=== PATIENT | male | born 1940 | race Caucasian/White ===

== ENCOUNTER 2020-01-21 07:32 | Outpatient (CLI) | payer MEDICARE, SELFPAY ==
--- NOTE | ~2020-01-21 | DEXA_ITS ---
Bone Density Report Name: Keith Wilson Age: 79 Sex: Male Ethnicity: White Date of : 1940 Indication: height loss; prior fracture; Referring Provider: Fab, Maricarmen Alvarez Study: Bone densitometry was performed. Exam Date: January 21, 2020 Accession number: [id number] Bone Density: Region BMD T-score Z-score Classification AP Spine (L3, L4) 1.219 0.9 2.0 Normal Femoral Neck (Left) 0.760 -1.3 0.2 Osteopenia Total Hip (Left) 0.926 -0.7 0.3 Normal Total Hip Bilateral Avg 0.952 -0.6 0.5 Normal Femoral Neck (Right) 0.753 -1.3 0.2 Osteopenia Total Hip (Right) 0.976 -0.4 0.6 Normal World Health Organization criteria for BMD impression classify patients as: Normal (T-score at or above -1.0), Osteopenia (T-score between -1.0 and -2.5), or Osteoporosis (T-score at or below -2.5). 10-year Fracture Risk(1): Major Osteoporotic Fracture 9.4% Hip Fracture 2.6% Reported Risk Factors: [place] (), Neck BMD=0.753, BMI=32.1, previous fracture (1) FRAX(R) Version 3.08. Fracture probability calculated for an untreated patient. Fracture probability may be lower if the patient has received treatment. Clinical Information Provided by Patient: Has had a low trauma fracture Has used the following medications: Vitamin D Patient maximum height was 74 Drinks caffeinated beverages Impression: The patient has low bone mass, based on the Left Femoral Neck T-score. The patient has an estimated ten-year risk of hip fracture of 2.6% and an estimated ten-year risk of major fracture of 9.4%, based on the WHO FRAX algorithm. The patient has risk factors, including: previous fracture. Discussion: BONE DENSITY IS LOW AT ONE OR MORE SKELETAL SITES. This patient's lowest T-score is low at one or more skeletal sites. It meets the World Health Organization's (WHO) criteria for ?low bone mass? (T-score between -1.0 and -2.5). The patient's 10-year risk of fracture as calculated by FRAX is less than the threshold where pharmacological therapy is recommended by the National Osteoporosis Foundation (NOF). However, all treatment decisions require clinical judgment and consideration of individual patient factors, including patient preferences, comorbidities, previous drug use, risk factors not captured in the FRAX model (e.g., frailty, falls, vitamin D deficiency, increased bone turnover, interval significant decline in bone density) and possible under or overestimation of fracture risk by FRAX. The patient should follow a healthful lifestyle (good nutrition with adequate calcium and vitamin D, and appropriate weight-bearing exercise). Follow-Up: Consider repeating this study in 2 to 3 years to reassess this patient's status, or sooner if there is some new clinical indication. Reported by: GLADIS on 01/21/2020 8:10:00 AM.
== END 2020-01-21 07:33 | disposition home or self-care (01) ==
PROVIDERS: PCP Internal Medicine; Visit Provider Physician Assistant Medical
DX: Z79.52 Long term (current) use of systemic steroids (principal); M89.9 Disorder of bone, unspecified
CPT/HCPCS: 77080

== ENCOUNTER → 2020-03-17 12:43 | Outpatient (CLI) | payer MEDICARE, SELFPAY ==
--- NOTE | ~2020-03-17 | US_ITS ---
EXAMINATION: US scrotum doppler EXAM DATE: 03/17/2020 13:23 INDICATION: Spermatocele. TECHNIQUE: Multiple grayscale and Doppler images of the testicles and scrotum were obtained bilateral ly. There is no prior study for comparison. FINDINGS: Right testicle measures 40.1 x 2.5 x 3.2 cm. Focal nonspecific region was measured 6 mm along the inf erior pole, suspected more likely part of the epididymis that within the testicular parenchyma. Low r esistance Doppler flow confirmed. There is large hydrocele. Another large heterogeneous masslike lei on was measured inferior to the testicle at 4.6 x 4.2 x 4.4 cm, both solid and larger cystic componen ts, a nonspecific scrotal mass. Color flow is demonstrated within solid portions of this. Given histo ry provided, could be a spermatocele. Other histologies not sonographically excludable. Left testicle measures 4.4 x 2.4 x 3.0 cm and is morphologically normal. Low resistance Doppler flow confirmed. The epididymis is unremarkable. There is a small hydrocele with a small focal region myranda ured along peripheral wall of this at 6 mm in size. IMPRESSION: 1. Nonspecific 4.6 cm complex cystic mass inferior to right testicle; clinical correlation for [facility]. 2. Large right hydrocele. Reviewed, dictated and finalized at location A. IMPRESSION: 1. Nonspecific 4.6 cm complex cystic mass inferior to right testicle; clinical correlation for further management. 2. Large right hydrocele.
== END ==
PROVIDERS: PCP Internal Medicine; Visit Provider Nurse Practitioner Adult Health
DX: E05.90 Thyrotoxicosis, unspecified without thyrotoxic crisis or storm (principal); N43.3 Hydrocele, unspecified
CPT/HCPCS: 76870; 93976

== ENCOUNTER 2020-03-22 09:37 | Outpatient (CLI) | payer MEDICARE, SELFPAY ==
--- NOTE | ~2020-03-22 | CT_ITS ---
EXAMINATION: CT abdomen pelvis w con EXAM DATE: 03/22/2020 11:01 INDICATION: Scrotal mass. TECHNIQUE: Spiral CT of the abdomen and pelvis was performed following intravenous injection of 100 m L Omnipaque 350. Axial, coronal and sagittal images were reviewed. The dose-length product (DLP) fo r this examination was 1099.49 mGy-cm. The exposure was tailored according to patient size (auto mA exposure control), and iterative reconstruction (ASIR) was used as additional dose reduction techniqu e. There is no prior study for comparison. FINDINGS: Scrotum was imaged. Large right hydrocele. There is a mass in the inferior right aspect of the scrotum, which is demonstrating robust enhancement, measuring 4 x 5 cm. Similar enhancing abnorma l soft tissue is seen anterior to the pubis symphysis, and partially encasing the superior and right aspect of the penis base. There is some abnormal soft tissue extending into the right inguinal canal. This is all most likely the same histology. Malignancy should be considered. Mildly nodular liver contour suspicious for cirrhosis. Spleen is normal in size with scattered granul omata. Pancreas, adrenal glands are unremarkable. Probable gallbladder adenomyomatosis. No biliary obstruction. Portal and splenic veins are patent. Kidneys enhance symmetrically. There is no hydro nephrosis. The prostate is unremarkable. The bladder is unremarkable. There is no retroperitoneal or pelvic lymphadenopathy. There is mild to moderate scattered arteriosclerotic disease. Mildly an eurysmal mid abdominal aorta at 3.7 cm. No abdominal aortic dissection. Renal arteries, superior and inferior mesenteric arteries are patent. Small umbilical fat-containing hernia. The appendix is normal. The stomach and small bowel are unremarkable. There are a few scattered colo ivan diverticula. There is no adjacent inflammatory change to suggest diverticulitis. There is expect ed amount of colonic stool. No free intraperitoneal gas. There is cardiomegaly. There are no pleu ral or pericardial effusions. The lung bases are unremarkable. There are no osteoblastic or osteoly tic lesions identified. Lower lumbar spine has osseous fusion. Old left rib fracture. IMPRESSION: 1. Enhancing right scrotal mass with additional abnormal soft tissue anterior to the pubis symphysis and along the superior aspect of the penis base, and in the right inguinal canal. Malignancy most li henri. 2. No pelvic or abdominal lymphadenopathy. 3. Probable cirrhosis. 4. Abdominal aortic 3.7 cm aneurysm. 5. Minimal colonic diverticulosis. 6. Small umbilical fat-containing hernia. 7. Cardiomegaly. Reviewed, dictated and finalized at location B. IMPRESSION: 1. Enhancing right scrotal mass with additional abnormal soft tissue anterior to the pubis symphysis and along the superior aspect of the penis base, and in the right inguinal canal. Malignancy most likely. 2. No pelvic or abdominal lymphadenopathy. 3. Probable cirrhosis. 4. Abdominal aortic 3.7 cm aneurysm. 5. Minimal colonic diverticulosis. 6. Small umbilical fat-containing hernia. 7. Cardiomegaly.
[2020-03-22 10:57] LABS: Estimated Glomerular Filt Rate > 60
== END 2020-03-22 09:38 | disposition home or self-care (01) ==
LOC: ANHIMG 09:45
PROVIDERS: PCP Internal Medicine; Visit Provider Nurse Practitioner Adult Health
DX: N49.2 Inflammatory disorders of scrotum (principal); I51.7 Cardiomegaly; I71.4 Abdominal aortic aneurysm, without rupture; K42.9 Umbilical hernia without obstruction or gangrene
CPT/HCPCS: 74177; Q9967

== ENCOUNTER 2020-03-26 12:03 | Outpatient (CLI) | payer MEDICARE, SELFPAY ==
--- NOTE | ~2020-03-26 | XR_ITS ---
EXAMINATION: XR chest 2V EXAM DATE: 03/26/2020 15:39 INDICATION: Scrotal mass. TECHNIQUE: Frontal and lateral projections of the chest obtained and reviewed. Comparison is made to prior examination from 01/22/2018. FINDINGS: Minimal left basilar linear scarring or atelectasis unchanged. The lungs are otherwise benitez ar. There are no pleural effusions. The cardiomediastinal silhouette is within normal limits. Ther e is no pneumothorax suspected. There are no osteoblastic or osteolytic lesions identified. Some hil ar calcifications, prior granulomatous process. There are bony degenerative changes. IMPRESSION: Chronic thoracic findings as above. Reviewed, dictated and finalized at location G.
--- NOTE | 2020-03-26 12:03 | ECG_ITS ---
Measurements Intervals [place] Rate: 53 P: GA: 0 QRS: -56 QRSD: 146 T: 78 QT: 450 QTc: 426 Interpretive Statements ATRIAL FIBRILLATION WITH SLOW VENTRICULAR RESPONSE INTRAVENTRICULAR CONDUCTION DELAY POOR R WAVE PROGRESSION, ANTERIOR LEADS BORDERLINE ST-T WAVE ABNORMALITY- HIGH LATERAL LEADS BASELINE ARTIFACT- I, III, AVL ABNORMAL ECG Electronically Signed On 03-26-2020 12:39:28 CDT by Raman Echavarria D.O.
[2020-03-26 12:50] LABS: Anion Gap 9 mmol/L (8-16); Blood Urea Nitrogen 13 mg/dL (9-20); Calcium 9.1 mg/dL (8.4-10.2); Carbon Dioxide 31 mmol/L (22-30); Chloride 90 mmol/L (98-107); Estimated Glomerular Filt Rate > 60; Glucose 108 mg/dL (75-110); Potassium 3.6 mmol/L (3.4-5.0); Sodium 130 mmol/L (137-145)
[2020-03-26 13:07] LABS: INR 1.9; Prothrombin Time 21.4 Seconds (11.1-14.7)
[2020-03-26 13:08] LABS: Partial Thromboplastin Time 37.3 SECONDS (22.3-36.8)
[2020-03-26 15:25] LABS: Hematocrit 29.9 % (42.0-52.0); Hemoglobin 9.8 g/dL (14.0-18.0); Mean Corpuscular HGB Conc 32.8 g/dl (32-36); Mean Corpuscular Hemoglobin 27.2 pg (26-34); Mean Corpuscular Volume 83.1 fl (80-100); Mean Platelet Volume 9.3 fl (7.4-10.4); Platelet Count Result 255 k/mm3 (150-375); Red Cell Distribution Width 13.2 % (11.5-14.5); White Blood Count 11.6 K/mm3 (4.5-10.0)
[2020-03-26 16:08] LABS: Alanine Aminotransferase 18 U/L (4-50); Albumin Level 4.1 g/dL (3.5-5.1); Alkaline Phosphatase 88 U/L (38-126); Aspartate Amino Transferase 28 U/L (17-59); Bilirubin,Total 0.5 mg/dL (0.2-1.3)
== END 2020-03-26 12:04 | disposition home or self-care (01) ==
PROVIDERS: Anesthesiology; PCP Internal Medicine; Visit Provider Urology
DX: I10 Essential (primary) hypertension (principal); N50.89 Other specified disorders of the male genital organs; I48.91 Unspecified atrial fibrillation; R94.31 Abnormal electrocardiogram [ECG] [EKG]; Z79.899 Other long term (current) drug therapy; Z79.01 Long term (current) use of anticoagulants
CPT/HCPCS: 36415; 71046; 80048; 80076; 85027; 85610; 85730; 86850; 86900; 86901; 87086; 93005

== ENCOUNTER 2020-03-29 01:31 | Outpatient (CLI) | payer MEDICARE, SELFPAY ==
[2020-03-29 18:16] LABS: SARS-CoV-2 RNA PCR Negative
== END 2020-03-29 01:32 | disposition home or self-care (01) ==
LOC: ANHCOVIDDT 01:32
PROVIDERS: PCP Internal Medicine; Visit Provider Urology
DX: Z01.812 Encounter for preprocedural laboratory examination (principal); Z20.828 Contact with and (suspected) exposure to other viral communicable diseases
CPT/HCPCS: 87635; C9803; U0003

== ENCOUNTER 2020-03-31 01:44 | Day surgery (SDC) | payer MEDICARE, SELFPAY ==
[2020-03-25 12:54] VITALS: BMI 29.7
[2020-03-31] VITALS (15 sets, daily range): BP systolic 110–129; BP diastolic 43–63; PULSE 46–90; RESP 10–20; TEMP 35.9–36.3; O2SAT 91–100
[2020-03-31] MEDS: LACTATED RINGERS 1,000 ML 30 ML IV CONT ×2 (12:20→16:43)
[2020-03-31] MEDS: ACETAMINOPHEN 500 MG TABLET 1000 MG PO (12:21)
[2020-03-31 12:24] LABS: INR 1.2
[2020-03-31 12:39] LABS: Sodium 133 mmol/L (137-145)
--- NOTE | 2020-03-31 12:56 | WPDANESEPPF ---
Anes - Initial Pre Proc Eval Procedure: Operation Date: 03/31/20 13:30 Proposed Procedures p Right Radical Orchiectomy, Inguinal Approach - Jolene Escobar MD Date/Time: 03/31/20 12:56 Surgeon: Jolene Escobar MD Pre Op Diagnosis: scrotal mass Patient Data Age: 79 Gender: M Height: 6 ft 1 in Weight: 93 kg Last Vital Signs Temp 36.3 C L 03/31/20 12:34 Pulse 51 L 03/31/20 12:34 Resp 16 03/31/20 12:34 BP 110/59 L 03/31/20 12:34 Pulse Ox 98 03/31/20 12:34 Allergies Allergy/AdvReac Type Severity Reaction Status Date / Time No Known Allergies Allergy Verified 03/31/20 11:31 Home Medications Medication Instructions Recorded Confirmed Type L. gasseri-B. bifidum-B longum 1 cap PO DAILY 03/25/20 03/31/20 History [Probiotic Colon Support] acetaminophen-codeine 1 tablet PO Q8H PRN 03/25/20 03/31/20 History amlodipine 10 mg PO DAILY 03/25/20 03/31/20 History carvedilol 6.25 mg PO BID 03/25/20 03/31/20 History cholecalciferol (vitamin D3) 50 mcg PO DAILY 03/25/20 03/31/20 History doxazosin 4 mg PO BID 03/25/20 03/31/20 History duloxetine 30 mg PO DAILY 03/25/20 03/31/20 History furosemide 40 mg PO DAILY 03/25/20 03/31/20 History lisinopril 40 mg PO HS 03/25/20 03/31/20 History mesalamine 1.5 g PO TID 03/25/20 03/31/20 History hhhplxms-saz-OL-lycopen-lutein 1 tablet PO DAILY 03/25/20 03/31/20 History [Centrum Silver Men] potassium chloride 10 meq PO DAILY 03/25/20 03/31/20 History prednisone 10 mg PO DAILY 03/25/20 03/31/20 History ropinirole 1 mg PO HS 03/25/20 03/31/20 History spironolactone 25 mg PO PRN PRN 03/25/20 03/31/20 History tizanidine 2 mg PO HS PRN 03/25/20 03/31/20 History warfarin [Coumadin] 5 mg PO HS 03/25/20 03/31/20 History Laboratory Tests 03/31/20 03/31/20 12:05 12:05 PT 15.0 Seconds H D Seconds (11.1-14.7) INR 1.2 APTT 32.0 SECONDS SECONDS (22.3-36.8) Sodium 133 mmol/L L mmol/L (137-145) Patient hx anesthesia problems: none Family hx anesthesia problems: none [facility] Past Medical History Medical History (Updated 03/31/20 @ 12:57 by Bin Mandujano MD) Atrial fibrillation COPD (chronic obstructive pulmonary disease) HTN (hypertension) Hyperlipidemia Overweight Scrotal mass Social History Social History Smoking status: Former smoker Tobacco type: cigarettes Additional smoking assessment comments: STATES 1PK/DAY/SINE AGE 21 QUITE 2012 Alcohol intake: current Drinks per week: 15 Substance use: never Living arrangements: with family Spiritual care concerns: No Anes - Eval Final PreProcedure Day of Procedure 03/31/20 12:56 Patient weight: overweight Heart: irregular rhythm Lungs: clear to auscultation Airway: Mallampati scale class II Neurological: alert and oriented Last oral intake: >/= 8 hours ASA classification: IV Emergent: no Anesthetic plan: proceed Anesthesia type and monitoring: general LMA and standard monitoring Informed Consent: The patient's anesthetic plan and its attendant risks and benefits were discussed with the patient/family/POA. Questions were solicited and answers provided to the satisfaction of the patient/family/POA.
--- NOTE | 2020-03-31 13:46 | WPDHPUPDATE1 ---
History and Physical Update Update Date/Time: 03/31/20 13:46 History and Physical has been reviewed, including an updated exam of the patient. There are NO changes in the patient's condition. Risks, benefits, and alternatives have been discussed and questions answered. Patient agrees to proceed with procedure.
[2020-03-31] MEDS: ceFAZolin 2 GM/D5W 50 ML 2 GM/50 ML BAG IVPB (13:58)
[2020-03-31] MEDS: BACITRACIN OINTMENT 15 GM TUBE 1 APPLIC TOPICAL (16:14)
--- NOTE | 2020-03-31 16:42 | PM.PROC ---
Procedure Note - Detailed Date of procedure: 03/31/20 Pre-op diagnosis: scrotal mass Post-op diagnosis: same Procedure performed: Right radical orchiectomy Description of procedure: Informed consent is obtained. Patient was taken to the operating room. He is given preoperative antibiotics in his issues are he was shaved his prepped draped normal sterile fashion. Patient had a very large right hydrocele as well as firm lesion inferior to the right testicle. Additionally the patient does have palpable densities superior to the penis as seen on his CT scan. A 6cm incision was made over the right external ring. We dissected down to the ring which was very difficult to identify as the cord was very firm. I was able to identify the spermatic cord however inferiorly it was adherent to the surrounding tissues and the pubic bone. Using Bovie electrocautery I was able to free the cord and placed a Shanda around it. We then dissected down towards the scrotum with an attempt to push the testicle and its adjacent mass into the inguinal incision however was unable to do so. I extended the incision medially and dissecting the hydrocele sac and mass through the inguinal incision down to the scrotum was again unable to free the adherent testicle into the inguinal incision- In the course of freeing the surrounding tissues the hydrocele sac did rupture. At this point we felt that we would be unable to remove the lesion through the inguinal incision, therefore the skin surrounding the adherent tissue in the inferior scrotum was cut and we dissected the testicle and mass away from surrounding tissues. At this point we were able to free the testicle and spermatic cord. We then cut the cord at the internal ring multiple 0 silk sutures were placed through the spermatic cord achieving good hemostasis. We did note there to be areas concerning for tumor in the spermatic cord, however it did feel that we cut the cord above the level of the palpable tumor. At this point we irrigated copiously. A drain was placed through the inferior scrotum up to the right inguinal incision we then closed the scrotum in multiple layers of Vicryl suture followed by interrupted 3 O chromic horizontal mattress closure to the skin. We then closed the inguinal incision with a 2 0 Vicryl to Asif's fascia 3 0 deep dermal layer and 4 0 Monocryl subcuticular closure glue was applied to the inguinal incision. The drain was placed to bulb suction. A dressing was placed patient was awoke wakened and taken recovery room stable condition Anesthesia: GLMA Surgeon: Jolene Escobar MD Broom Maker: Dr. Delacruz Estimated blood loss (mL): 100 Drains: Yes Packing: No Pathology: yes Complications: No immediate complications Condition: stable Disposition: PACU
[2020-03-31] MEDS: fentaNYL CITRATE INJ (*CRX) 100 MCG/2 ML VIAL 25 MCG IV PUSH (17:40)
--- NOTE | 2020-03-31 18:49 | ADMGEN ---
This patient, Keith Wilson, was admitted to IMU Room 210-01 on 03-31-2020 at 1820. Patient/family oriented to hospital policies and general routines including ID bracelet, bed and alarms, visiting hours, pain management, procedures, bathroom and other care routines, personal items, smoking policy, room service/diet, and visiting hours. Valuables list has been completed. Information on how to activate the Rapid Response Team has been discussed. Patient/Family are encouraged to report perceived risks to care and to ask questions if they do not understand what they are told or what they should do.
[2020-03-31 19:02] LABS: Basophils Percent Auto 0.1 % (0.2-1.2); Eosinophils Percent Auto 0.1 % (0-4.4); Hematocrit 28.5 % (42.0-52.0); Hemoglobin 9.1 g/dL (14.0-18.0); Immature Granulocyte Absolute 0.19 K/mm3 (0.00-0.031); Immature Granulocyte Percent A 1.4 % (0-0.5); Lymphocytes Percent Auto 7.4 % (18.3-44.2); Mean Corpuscular HGB Conc 31.9 g/dl (32-36); Mean Corpuscular Hemoglobin 26.8 pg (26-34); Mean Corpuscular Volume 83.8 fl (80-100); Mean Platelet Volume 9.9 fl (7.4-10.4); Monocytes Absolute Auto 0.4 K/mm3 (0.1-0.6); Monocytes Percent Auto 3.2 % (2.6-8.5); Neutrophils Absolute Auto 11.8 K/mm3 (1.3-6.7); Neutrophils Percent Auto 87.8 % (45.5-73.1); Platelet Count Result 266 k/mm3 (150-375); Red Cell Distribution Width 13.2 % (11.5-14.5); White Blood Count 13.5 K/mm3 (4.5-10.0)
[2020-03-31] MEDS: HYDROcodone/acetaminophen (*CRX) 5-325 MG TABLET 1 TAB PO (20:32)
[2020-03-31] MEDS: carvediloL 6.25 MG TABLET PO (20:33)
[2020-03-31] MEDS: rOPINIRole HCL 1 MG TABLET PO (20:34)
[2020-03-31] MEDS: lisinopriL 20 MG TABLET 40 MG PO (20:34)
[2020-03-31] MEDS: DOCUSATE SODIUM 100 MG CAPSULE PO (20:34)
[2020-03-31] MEDS: DOXAZOSIN MESYLATE 4 MG TABLET PO (20:34)
[2020-03-31] MEDS: DULoxetine HCL 30 MG CAPSULE.DR PO (20:40)
[2020-03-31] MEDS: TIZANIDINE HCL 2 MG TABLET PO (21:58)
[2020-04-01] VITALS (12 sets, daily range): BP systolic 121–134; BP diastolic 53–61; PULSE 45–65; RESP 16–20; TEMP 35.6–36.4; O2SAT 96–97
--- NOTE | 2020-04-01 00:49 | PC.NURSE ---
Bladder scanned patient with results of 321mls and 400. Patient states he doesn't feel the urge to void at this time.
[2020-04-01 05:15] LABS: Anion Gap 6 mmol/L (8-16); Blood Urea Nitrogen 16 mg/dL (9-20); Calcium 8.8 mg/dL (8.4-10.2); Carbon Dioxide 30 mmol/L (22-30); Chloride 95 mmol/L (98-107); Estimated CRCL calculation 75 ml/min; Estimated Glomerular Filt Rate > 60; Glucose 127 mg/dL (75-110); Potassium 4.6 mmol/L (3.4-5.0); Sodium 131 mmol/L (137-145)
--- NOTE | 2020-04-01 08:42 | WPDUROPN2 ---
Progress Note: A&P Assessment and Plan (1) Testicular mass: Code(s): N50.89 - Other specified disorders of the male genital organs Status: Acute Assessment and Plan: Patient doing remarkably well today. Will get a CBC to ensure H&H is stable. Sodium remains on the low side, but seems to be a trend as it was 133 yesterday. Will discuss removing drain and hyponatremia with Dr. Escobar. Patient wants to go home today, will also discuss discharge plan with Dr. Escobar. Subjective Subjective Date/Time Seen: 04/01/20 08:42 POD #1 Right Radical Orchiectomy Review of Systems Cardiovascular: Cardiovascular: Denies chest pain Respiratory: Respiratory: Reports no additional respiratory complaints Gastrointestinal: Gastrointestinal: Reports abdominal pain (at incision only, very mild), Denies nausea and Denies vomiting Genitourinary: Genitourinary: Denies hematuria, Reports scrotal swelling (mild), Denies testicular mass, Reports testicular pain (mild), Denies urinary frequency, Denies urinary hesitancy and Denies urinary urgency Exam Resp: Effort & Inspection: normal respiratory effort Cardio: Rate: bradycardic GI: Inspection: incision (well approximated, no drainage present, no edema) : Scrotum: no ecchymosis, no masses, no scrotal swelling (drain draining serosanguinous drainage) and other (incision well approximated, no drainage present, no edema) Testes: no testicular mass and no testicular swelling Extrem: General: no edema Objective Data Vital Signs Vital Signs: Vital Signs - 24 hr 03/31/20 12:34 03/31/20 16:43 03/31/20 17:00 Temperature 97.4 F L 97.2 F L Pulse Rate 51 L 59 L 54 L Respiratory Rate 16 10 L 12 Blood Pressure 110/59 L 116/52 L 129/43 L Pulse Oximetry 98 98 100 03/31/20 17:15 03/31/20 17:30 03/31/20 17:45 Temperature Pulse Rate 54 L 47 L 47 L Respiratory Rate 13 15 16 Blood Pressure 114/50 L 115/57 L 112/55 L Pulse Oximetry 94 91 95 03/31/20 18:00 03/31/20 18:35 03/31/20 19:57 Temperature 96.6 F L Pulse Rate 52 L 59 L 90 Respiratory Rate 14 20 Blood Pressure 121/63 115/60 Pulse Oximetry 98 98 03/31/20 20:00 03/31/20 20:33 03/31/20 21:25 Temperature Pulse Rate 64 58 L 52 L Respiratory Rate Blood Pressure Pulse Oximetry 97 03/31/20 21:49 03/31/20 22:00 03/31/20 23:31 Temperature 96.8 F L Pulse Rate 57 L 46 L 46 L Respiratory Rate 18 Blood Pressure 119/55 L Pulse Oximetry 96 98 04/01/20 00:00 04/01/20 01:50 04/01/20 04:00 Temperature Pulse Rate 65 45 L 45 L Respiratory Rate Blood Pressure Pulse Oximetry 04/01/20 04:14 04/01/20 05:49 04/01/20 06:21 Temperature 96.1 F L 97.6 F Pulse Rate 55 L 51 L Respiratory Rate 18 Blood Pressure 124/53 L Pulse Oximetry 96 04/01/20 07:09 Temperature 96.3 F L Pulse Rate 47 L Respiratory Rate 20 Blood Pressure 121/61 Pulse Oximetry 97 Intake/Output Intake/Output: Intake & Output 03/29/20 03/30/20 03/31/20 04/01/20 23:59 23:59 23:59 23:59 Intake Total 490 250 Output Total 2 30 Balance 488 220 Meds/Results Medications: Active Medications Generic Name Dose Route Start Last Admin Trade Name Freq PRN Reason Stop Dose Admin Acetaminophen/Codeine Phosphate 1 tab 03/31/20 18:07 Acetaminophen/Codeine (*Crx) 300/30 Mg Tablet PO Q8H PRN Pain Hydrocodone Bitart/Acetaminophen 1 tab 03/31/20 18:07 03/31/20 20:32 Hydrocodone/Acetaminophen (*Crx) 5-325 Mg Tablet PO 1 tab Q4H PRN Administration Pain Rated 1-6 Amlodipine Besylate 10 mg 04/01/20 09:00 Amlodipine Besylate 5 Mg Tablet PO DAILY AMA Carvedilol 6.25 mg 03/31/20 18:07 03/31/20 20:33 Carvedilol 6.25 Mg Tablet PO 6.25 mg BID AMA Administration Docusate Sodium 100 mg 03/31/20 18:07 03/31/20 20:34 Docusate Sodium 100 Mg Capsule PO 100 mg BID AMA Administration Doxazosin Mesylate 4 mg 03/31/20 18:07 10
[2020-04-01] MEDS: predniSONE 10 MG TABLET PO (08:52)
[2020-04-01] MEDS: FUROSEMIDE 40 MG TABLET PO (08:53)
[2020-04-01] MEDS: carvediloL 6.25 MG TABLET PO (08:53)
[2020-04-01] MEDS: amLODIPine BESYLATE 5 MG TABLET 10 MG PO (08:53)
[2020-04-01] MEDS: DOCUSATE SODIUM 100 MG CAPSULE PO (08:53)
[2020-04-01] MEDS: OPTI-GEN TAB 1 TABLET PO (08:53)
[2020-04-01] MEDS: ENOXAPARIN 30 MG/0.3 ML SYRINGE SUB-Q (08:53)
[2020-04-01] MEDS: DOXAZOSIN MESYLATE 4 MG TABLET PO (08:53)
[2020-04-01] MEDS: POTASSIUM CHLORIDE 10 MEQ TABLET.ER PO (08:53)
[2020-04-01 10:10] LABS: Hematocrit 31.4 % (42.0-52.0); Hemoglobin 9.8 g/dL (14.0-18.0); Mean Corpuscular HGB Conc 31.2 g/dl (32-36); Mean Corpuscular Hemoglobin 26.3 pg (26-34); Mean Corpuscular Volume 84.2 fl (80-100); Mean Platelet Volume 10.2 fl (7.4-10.4); Platelet Count Result 305 k/mm3 (150-375); Red Blood Count 3.73 M/mm3 (4.6-6.20); Red Cell Distribution Width 13.1 % (11.5-14.5); White Blood Count 15.9 K/mm3 (4.5-10.0)
== END 2020-04-01 14:16 | disposition home or self-care (01) ==
LOC: ANHSURGERY 11:19 → ANHIMU 18:09
PROVIDERS: Nurse Practitioner Adult Health; PCP Internal Medicine; Visit Provider Urology
PROC: (CPT 54520; principal; 2020-03-31 13:30)
DX: C62.11 Malignant neoplasm of descended right testis (principal); I48.91 Unspecified atrial fibrillation; I10 Essential (primary) hypertension; F44.9 Dissociative and conversion disorder, unspecified; E78.5 Hyperlipidemia, unspecified; Z87.891 Personal history of nicotine dependence; Z79.01 Long term (current) use of anticoagulants
CPT/HCPCS: 54530; 36415; 80048; 84295; 85025; 85027; 85610; 85730; 88305; A9270; J0690; J1100; J1650; J2370; J2405; J2704; J3010; J7120; J7512

== ENCOUNTER 2020-05-11 10:34 | Outpatient (CLI) | payer MEDICARE, SELFPAY ==
--- NOTE | ~2020-05-11 | PE_ITS ---
EXAMINATION: PET skull to mid thigh DATE: 05/11/2020 13:12 INDICATION: Sarcoma of testicle. TECHNIQUE: Blood glucose level was 84 mg/dL. 10.568 mCi of 18-fluorodeoxyglucose (18-FDG) was adminis tered i.v. Low dose computed tomography (CT) images were acquired from the base of the brain to the p roximal thighs for attenuation correction and anatomic localization. Automated exposure control was e mployed. Dose-length product (DLP) was 1075 mGy-cm. Positron emission tomography (PET) images were ac quired in the same distribution. COMPARISON: CT abdomen and pelvis 03/22/2020 FINDINGS: Head/neck: There is increased activity in the oral cavity and, oropharynx, major salivary glands, and glottis without CT correlate, likely physiologic. There are no pathologically enlarged lymph nodes. There is mucosal thickening in left maxillary sinus with thickening and sclerosis of the sinus samaniego, consistent with chronic sinusitis. Chest: A calcified left lung nodule and calcified mediastinal lymph nodes are consistent with old gra nulomatous disease. No pleural effusion. Cardiomegaly is noted. There are coronary artery calcificati ons. No pericardial effusion. Abdomen/pelvis/proximal thighs: There is liver surface nodularity, consistent with cirrhosis. There a re cysts in the liver measuring up to 1.8 cm. Calcifications in the spleen are consistent with old gr anulomatous disease. The gallbladder is normal. 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 The adrenal glands and kidneys are normal. There is diverticulosis of the colon w ithout evidence of diverticulitis. There are no dilated loops of bowel. The appendix is normal. There is an umbilical hernia containing fat. There is soft tissue with increased activity around on the ri ght inguinal canal and anterior pelvis increased activity, consistent with surgical change. There is a 3.8 cm fusiform aneurysm of infrarenal aorta. There is severe lumbar spondylosis. IMPRESSION: 1. Surgical changes in the right inguinal canal and anterior pelvis with increased activity. This exa m has poor sensitivity and specificity for residual local malignancy. No evidence of distant metastat ic disease. 2. Cirrhosis of the liver. 3. 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 Reviewed, dictated and finalized at location A. R PUMP OPERATOR IMPRESSION: 1. Surgical changes in the right inguinal canal and anterior pelvis with increa sed activity. This exam has poor sensitivity and specificity for residual local malignancy. No evidence of distant metastatic disease. 2. Cirrhosis of the liver. 3. 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
[2020-05-11 11:02] LABS: Glucose Point of Care 84 (65-105)
== END 2020-05-11 10:35 | disposition home or self-care (01) ==
PROVIDERS: PCP Internal Medicine; Visit Provider Internal Medicine Medical Oncology
DX: C62.11 Malignant neoplasm of descended right testis (principal); Z98.890 Other specified postprocedural states; K74.60 Unspecified cirrhosis of liver; I71.9 Aortic aneurysm of unspecified site, without rupture
CPT/HCPCS: 78815; A9552

== ENCOUNTER 2020-07-30 13:28 | Outpatient (CLI) | payer MEDICARE, SELFPAY ==
--- NOTE | ~2020-07-30 | MR_ITS ---
EXAMINATION: MR lumbar spine wo/w con DATE: 07/30/2020 14:55 INDICATION: Low back pain. TECHNIQUE: Magnetic resonance imaging (MRI) of the lumbar spine was performed without and with 20 mL MultiHance intravenous contrast. Sequences included sagittal T2-weighted FSE, sagittal T2-weighted FS FSE, and sagittal and axial T1-weighted FSE. Postcontrast sequences included axial T2-weighted FSE a nd axial and sagittal T1-weighted FS FSE. COMPARISON: None FINDINGS: There is 15 degrees levoscoliosis of lumbar spine. There is 3 mm anterolisthesis of L1 on L 2. Vertebral body heights are normal. There is interbody fusion from L3-L4 through L5-S1. There is mo derately decreased disc height at T12-L1 and L1-L2 and severely decreased height at L2-L3. There is l igamentum flavum hypertrophy from T12-L1 through L2-L3. The following disc levels are specifically di scussed: T12-L1: The disc is bulging and has an annular fissure. There is severe bilateral facet joint osteoar thritis. There is mild bilateral neural foraminal stenosis. There is mild central canal stenosis. L1-L2: The disc is bulging with superimposed left subarticular zone extrusion with 2.1 cm superior ex tension. There is severe bilateral facet joint osteoarthritis. There is moderate bilateral neural for aminal stenosis. There is moderate central canal stenosis. L2-L3: The disc is bulging and has an annular fissure. There is severe bilateral facet joint osteoart hritis. There is moderate bilateral neural foraminal stenosis. There is mild central canal stenosis. L3-L4: There is severe bilateral facet joint osteoarthritis. There is moderate bilateral neural rosa inal stenosis. There is mild central canal stenosis. L4-L5: There is severe bilateral facet joint hypertrophy. There is moderate bilateral neural foramina l stenosis. There is mild central canal stenosis with posterior decompression. L5-S1: There is severe bilateral facet joint osteoarthritis. There is mild right and moderate left ne ural foraminal stenosis. There is mild central canal stenosis. IMPRESSION: 1. Severe lumbar spondylosis. 2. Lumbar levoscoliosis. 3. Anterior fusion from L3 to S1. Reviewed, dictated and finalized at location A. [employer]CHNICIAN
[2020-07-30 14:22] LABS: Estimated Glomerular Filt Rate 58
== END 2020-07-30 13:29 | disposition home or self-care (01) ==
PROVIDERS: PCP Internal Medicine; Visit Provider Orthopaedic Surgery
DX: M54.5 Low back pain (principal); M47.817 Spondylosis without myelopathy or radiculopathy, lumbosacral region; M47.815 Spondylosis without myelopathy or radiculopathy, thoracolumbar region
CPT/HCPCS: 72158; A9577

== ENCOUNTER 2020-08-20 09:19 | Outpatient (CLI) | payer MEDICARE, SELFPAY ==
--- NOTE | ~2020-08-20 | CT_ITS ---
EXAMINATION: CT chest abdomen pelvis w con EXAM DATE: 08/20/2020 10:05 INDICATION: Right peritesticular sarcoma. TECHNIQUE: Spiral CT of the chest, abdomen and pelvis was performed following intravenous injection o f 100 mL Omnipaque 350. Axial, coronal and sagittal images were reviewed. Coronal maximum intensity pixel images of chest reviewed. The dose-length product (DLP) for this examination was 1354.48 mGy- cm. The exposure was tailored according to patient size (auto mA exposure control), and iterative re construction (ASIR) was used as additional dose reduction technique. Comparison is made to prior exam ination from 03/22/2020. FINDINGS: CHEST: The lungs are clear. There are no pleural or pericardial effusions. Tracheobronchial tree is patent. There is no mediastinal, hilar or axillary lymphadenopathy. There is no pneumothorax. There is cardiomegaly. The main, central pulmonary arteries are dilated which can indicate elevate d pulmonary arterial pressure, pulmonary arterial hypertension. Mild emphysema. There is mild wiggins ry arterial calcification, arterial sclerosis. ABDOMEN PELVIS: There is enhancing malignancy to the pubis symphysis, in the right inguinal region an d also contiguous with the corpora dorsally. Largest axial dimensions of this region 8.1 x 4.5 cm. Th ere is an enhancing nodule soft tissue along the ventral aspect of the corpora measuring 2.3 cm. Prob able right-sided R colectomy. Some small regions of malignancy along the right anterior abdominal wal l superficially above the inguinal canal. Nodular liver contour, cirrhosis. Pancreas, adrenal glands and spleen are unremarkable. Gallbladder is unremarkable. No biliary obstruction. Portal and splenic veins are patent. Kidneys enhance symm etrically. There is no hydronephrosis. The prostate is unremarkable. The bladder is unremarkable. There is no retroperitoneal or pelvic lymphadenopathy. Fusiform mid abdominal aortic aneurysm up to 3.6 cm. Moderate scattered arteriosclerotic disease. Small umbilical fat-containing hernia. The appendix is normal. The stomach and small bowel are unremarkable. There is mild sigmoid colonic diverticulosis. There is no adjacent inflammatory change to suggest diverticulitis. No free intrape ritoneal gas. There are no osteoblastic or osteolytic lesions identified. IMPRESSION: 1. Local recurrence malignancy centered in right inguinal region and anterior to pubis as described above. 2. No evidence of distant metastatic disease. 3. Cirrhosis. 4. Other chronic findings. Reviewed, dictated and finalized at location A. [employer]W
== END 2020-08-20 09:20 | disposition home or self-care (01) ==
LOC: ANHIMG 09:23
PROVIDERS: PCP Internal Medicine; Visit Provider Internal Medicine Medical Oncology
DX: C62.91 Malignant neoplasm of right testis, unspecified whether descended or undescended (principal); J84.10 Pulmonary fibrosis, unspecified; K74.60 Unspecified cirrhosis of liver
CPT/HCPCS: 71260; 74177; Q9967

== ENCOUNTER 2020-09-01 09:02 | Outpatient (CLI) | payer MEDICARE, SELFPAY ==
[2020-09-01 09:35] LABS: INR 1.1; Prothrombin Time 14.6 Seconds (11.1-14.7)
== END 2020-09-01 09:03 | disposition home or self-care (01) ==
PROVIDERS: PCP Internal Medicine; Visit Provider Nurse Practitioner Adult Health
DX: Z51.81 Encounter for therapeutic drug level monitoring (principal); Z79.01 Long term (current) use of anticoagulants
CPT/HCPCS: 36415; 85610

== ENCOUNTER 2020-09-20 10:15 | Outpatient (CLI) | payer MEDICARE, SELFPAY ==
--- NOTE | ~2020-09-20 | US_ITS ---
EXAMINATION: US biopsy st pelvis DATE: 09/20/2020 11:03 INDICATION: Right inguinal mass. TECHNIQUE: The procedure including the risks, benefits, and alternatives was discussed with the patie nt. Risks discussed included bleeding and infection. The patient understood the risks and agreed to p rocraleigh. The skin overlying the right inguinal region was prepped and draped in usual sterile fashion. Anesthetic was administered with 1% lidocaine subcutaneously. An 18 gauge core biopsy needle was t hen used to obtain 3 core biopsy specimens under continuous sonographic guidance. The entry site was cleaned and dressed. There were no immediate complications. FINDINGS: Ultrasound images demonstrate the needle in an 8.0 x 3.5 cm right inguinal mass. IMPRESSION: 1. Ultrasound-guided core needle biopsy of a right inguinal mass. Reviewed, dictated and finalized at location A.
== END 2020-09-20 10:16 | disposition home or self-care (01) ==
PROVIDERS: PCP Internal Medicine; Visit Provider Internal Medicine Medical Oncology
DX: D49.89 Neoplasm of unspecified behavior of other specified sites (principal); R19.09 Other intra-abdominal and pelvic swelling, mass and lump
CPT/HCPCS: 27040; 76942; 88305; 88307

== ENCOUNTER 2020-10-05 07:34 | Outpatient (CLI) | payer MEDICARE, SELFPAY ==
[2020-10-05 07:52] LABS: Basophils Absolute Auto 0.1 K/mm3 (0.0-0.1); Basophils Percent Auto 0.4 % (0.2-1.2); Eosinophils Absolute Auto 0.9 K/mm3 (0-0.3); Eosinophils Percent Auto 5.2 % (0-4.4); Hemoglobin 7.9 g/dL (14.0-18.0); Immature Granulocyte Absolute 0.87 K/mm3 (0.00-0.031); Immature Granulocyte Percent A 5.3 % (0-0.5); Lymphocytes Absolute Auto 2.58 K/mm3 (0.9-3.2); Lymphocytes Percent Auto 15.8 % (18.3-44.2); Mean Corpuscular HGB Conc 30.4 g/dl (32-36); Mean Corpuscular Hemoglobin 25.3 pg (26-34); Mean Corpuscular Volume 83.3 fl (80-100); Mean Platelet Volume 8.8 fl (7.4-10.4); Monocytes Absolute Auto 1.5 K/mm3 (0.1-0.6); Monocytes Percent Auto 9.4 % (2.6-8.5); Neutrophils Absolute Auto 10.4 K/mm3 (1.3-6.7); Neutrophils Percent Auto 63.9 % (45.5-73.1); Platelet Count Result 362 k/mm3 (150-375); Red Blood Count 3.12 M/mm3 (4.6-6.20); Red Cell Distribution Width 14.6 % (11.5-14.5); White Blood Count 16.3 K/mm3 (4.5-10.0)
[2020-10-05 08:13] LABS: Platelet Estimate Adequate (Adequate)
[2020-10-05 08:14] LABS: Poikilocytosis 1+ (NORMAL)
== END 2020-10-05 07:35 | disposition home or self-care (01) ==
PROVIDERS: PCP Internal Medicine; Visit Provider Internal Medicine Medical Oncology
DX: C62.91 Malignant neoplasm of right testis, unspecified whether descended or undescended (principal); D64.9 Anemia, unspecified
CPT/HCPCS: 36415; 85025; 86850; 86900; 86901

== ENCOUNTER 2020-10-29 07:57 | Outpatient (CLI) | payer MEDICARE, SELFPAY ==
[2020-10-29 08:15] LABS: Basophils Percent Auto 0.2 % (0.2-1.2); Eosinophils Absolute Auto 0.1 K/mm3 (0-0.3); Hematocrit 26.6 % (42.0-52.0); Hemoglobin 8.6 g/dL (14.0-18.0); Immature Granulocyte Absolute 0.14 K/mm3 (0.00-0.031); Immature Granulocyte Percent A 1.2 % (0-0.5); Lymphocytes Absolute Auto 2.05 K/mm3 (0.9-3.2); Lymphocytes Percent Auto 17.8 % (18.3-44.2); Mean Corpuscular HGB Conc 32.3 g/dl (32-36); Mean Corpuscular Hemoglobin 24.6 pg (26-34); Mean Platelet Volume 8.8 fl (7.4-10.4); Monocytes Absolute Auto 0.9 K/mm3 (0.1-0.6); Monocytes Percent Auto 7.5 % (2.6-8.5); Neutrophils Absolute Auto 8.3 K/mm3 (1.3-6.7); Neutrophils Percent Auto 72.3 % (45.5-73.1); Platelet Count Result 321 k/mm3 (150-375); Red Cell Distribution Width 15.1 % (11.5-14.5); White Blood Count 11.5 K/mm3 (4.5-10.0)
[2020-10-29 08:48] LABS: Alanine Aminotransferase 17 U/L (4-50); Alkaline Phosphatase 110 U/L (38-126); Anion Gap 6 mmol/L (8-16); Aspartate Amino Transferase 23 U/L (17-59); Bilirubin,Total 0.3 mg/dL (0.2-1.3); Blood Urea Nitrogen 27 mg/dL (9-20); Calcium 9.1 mg/dL (8.4-10.2); Carbon Dioxide 31 mmol/L (22-30); Chloride 89 mmol/L (98-107); Estimated Glomerular Filt Rate > 60; Glucose 110 mg/dL (75-110); Sodium 126 mmol/L (137-145)
[2020-10-29 11:01] LABS: Potassium 4.8 mmol/L (3.4-5.0)
== END 2020-10-29 07:58 | disposition home or self-care (01) ==
PROVIDERS: PCP Internal Medicine; Visit Provider Internal Medicine Medical Oncology
DX: C62.91 Malignant neoplasm of right testis, unspecified whether descended or undescended (principal)
CPT/HCPCS: 36415; 80053; 85025

== ENCOUNTER 2020-11-04 20:28 | Emergency (ER) | payer MEDICARE, SELFPAY ==
--- NOTE | ~2020-11-04 | XR_ITS ---
EXAMINATION: XR chest 2V DATE: 11/04/2020 21:07 INDICATION: Chest pain TECHNIQUE: AP and lateral views of the chest are obtained. COMPARISON: 03/26/2020 FINDINGS: The lungs are free of acute opacities. There is no pleural effusion or pneumothorax. The he art size is normal. Calcified mediastinal lymph nodes are consistent with old granulomatous disease. There are bridging osteophytes at multiple levels in the spine, consistent with diffuse idiopathic sk eletal hyperostosis (DISH). IMPRESSION: 1. No acute cardiopulmonary abnormality. Reviewed, dictated and finalized at location A.
--- NOTE | ~2020-11-04 | XR_ITS ---
EXAMINATION: XR shoulder LT min 2V INDICATION: Left shoulder pain TECHNIQUE: Four views of the left shoulder are submitted. COMPARISON: None FINDINGS: Normal alignment. No fracture. There is mild osteoarthritis of the glenohumeral joint and m oderate osteoarthritis of the acromioclavicular joint Soft tissues are unremarkable. IMPRESSION: 1. No acute osseous abnormality. Reviewed, dictated and finalized at location A.
[2020-11-04 20:30] VITALS: BP 163/78; PULSE 48; RESP 20; TEMP 36.4; O2SAT 100
--- NOTE | 2020-11-04 20:40 | ECG_ITS ---
Measurements Intervals [place] Rate: 44 P: DC: 0 QRS: -63 QRSD: 134 T: 51 QT: 439 QTc: 376 Interpretive Statements ATRIAL FIBRILLATION WITH SLOW VENTRICULAR RESPONSE INTRAVENTRICULAR CONDUCTION DELAY (FEATURES OF BOTH LBBB, RBBB) ABNORMAL ECG Electronically Signed On 11-05-2020 6:36:43 CDT by Raman Echavarria D.O.
--- NOTE | 2020-11-04 20:42 | ED.NECK ---
HPI - Neck Pain/Injury General Chief Complaint: Neck Pain/Injury Stated Complaint: neck and shoulder pain for 1 week Time Seen by Provider: 11/04/20 20:35 Source: patient, family, RN notes reviewed and old records reviewed History of Present Illness HPI Narrative: 80-year-old male presents to emergency department for left posterior shoulder pain that radiates across the spine. Patient states he has had this pain for months, it has progressively worsened over the past week. He has taken Tylenol 3 for the pain. Pain is sometimes worse with movement. Denies numbness or tingling. No chest pain or shortness of breath. Related Data Home Medications Medication Instructions Recorded Confirmed Centrum Silver Men 1 tablet PO DAILY 03/25/20 03/31/20 Probiotic Colon Support 1 cap PO DAILY 03/25/20 03/31/20 acetaminophen-codeine 1 tablet PO Q8H PRN 03/25/20 03/31/20 amlodipine 10 mg PO DAILY 03/25/20 03/31/20 carvedilol 6.25 mg PO BID 03/25/20 03/31/20 cholecalciferol (vitamin D3) 50 mcg PO DAILY 03/25/20 03/31/20 doxazosin 4 mg PO BID 03/25/20 03/31/20 duloxetine 30 mg PO DAILY 03/25/20 03/31/20 furosemide 40 mg PO DAILY 03/25/20 03/31/20 lisinopril 40 mg PO HS 03/25/20 03/31/20 mesalamine 1.5 g PO TID 03/25/20 03/31/20 potassium chloride 10 meq PO DAILY 03/25/20 03/31/20 prednisone 10 mg PO DAILY 03/25/20 03/31/20 ropinirole 1 mg PO HS 03/25/20 03/31/20 spironolactone 25 mg PO PRN PRN 03/25/20 03/31/20 tizanidine 2 mg PO HS PRN 03/25/20 03/31/20 warfarin 5 mg PO HS 03/25/20 03/31/20 Allergies Allergy/AdvReac Type Severity Reaction Status Date / Time Sulfa (Sulfonamide Allergy Nausea Verified 03/31/20 18:55 Antibiotics) Review of Systems Review of Systems: Narrative: CONSTITUTIONAL: Denies fever, chills, or sweats. EYES: Denies visual changes, redness, or discharge. ENT: Denies rhinorrhea, congestion, sore throat, or otalgia. CARDIOVASCULAR: Denies chest pain, palpitations, or edema. RESPIRATORY: Denies cough or dyspnea. GASTROINTESTINAL: Denies abdominal pain, nausea, vomiting, or diarrhea. GENITOURINARY: Denies dysuria or hematuria. SKIN: Denies rash or itching. MUSCULOSKELETAL: Reports left shoulder pain and upper back pain NEUROLOGIC: Denies headache, numbness, dizziness, or weakness. PSYCHIATRIC: Denies anxiety or depression. All systems reviewed & are unremarkable except as noted in HPI and below (ROS) REPLACED BY [facility] Past Medical History Medical History Atrial fibrillation COPD (chronic obstructive pulmonary disease) HTN (hypertension) Hyperlipidemia Overweight Scrotal mass Family History Family History Other No significant past medical history Social History Social History Smoking packs per day: 1 Smoking cigarettes per day: 20.0 Years smoked: 50 Smoking pack-years: 50.00 Smoking status: Former smoker Tobacco type: cigarettes Alcohol intake: current Drinks per week: 21 Substance use: never Gender identity (if verbalized by the patient): Male Spiritual care concerns: No Exam Narrative: Exam Narrative: GENERAL: Well-appearing, well-nourished, and in no acute distress. HEAD: Normocephalic, atraumatic. EYES: PERRLA and EOMI. ENT: Nares clear, no rhinorrhea or epistaxis. Mucous membranes moist. NECK: Supple. CHEST: Clear to auscultation. No respiratory distress. HEART: Regular rate and rhythm. No murmur heard. Normal peripheral pulses. ABDOMEN: Soft, nontender, nondistended, normal active bowel sounds. EXTREMITIES: Left shoulder pain and upper back pain with left arm abduction and adduction. SKIN: Warm, dry, no rash. NEURO: No focal deficits. Alert and oriented x3. PSYCH: Normal mood and affect. Course Course Emergency Course: 23:45 -reevaluated patient, no new complaints. Patient likely strained trapezius muscle. Low elfego
[2020-11-04 20:56] LABS: Basophils Percent Auto 0.2 % (0.2-1.2); Eosinophils Absolute Auto 0.2 K/mm3 (0-0.3); Eosinophils Percent Auto 1.9 % (0-4.4); Hematocrit 26.6 % (42.0-52.0); Hemoglobin 8.3 g/dL (14.0-18.0); Immature Granulocyte Absolute 0.05 K/mm3 (0.00-0.031); Immature Granulocyte Percent A 0.5 % (0-0.5); Lymphocytes Absolute Auto 1.93 K/mm3 (0.9-3.2); Lymphocytes Percent Auto 17.7 % (18.3-44.2); Mean Corpuscular HGB Conc 31.2 g/dl (32-36); Mean Corpuscular Hemoglobin 24.8 pg (26-34); Mean Corpuscular Volume 79.4 fl (80-100); Mean Platelet Volume 9.1 fl (7.4-10.4); Monocytes Absolute Auto 0.8 K/mm3 (0.1-0.6); Monocytes Percent Auto 7.1 % (2.6-8.5); Neutrophils Absolute Auto 7.9 K/mm3 (1.3-6.7); Neutrophils Percent Auto 72.6 % (45.5-73.1); Platelet Count Result 180 k/mm3 (150-375); Red Blood Count 3.35 M/mm3 (4.6-6.20); Red Cell Distribution Width 16.6 % (11.5-14.5); White Blood Count 10.9 K/mm3 (4.5-10.0)
[2020-11-04 21:08] LABS: Alanine Aminotransferase 17 U/L (4-50); Albumin Level 3.6 g/dL (3.5-5.1); Alkaline Phosphatase 101 U/L (38-126); Anion Gap 5 mmol/L (8-16); Aspartate Amino Transferase 26 U/L (17-59); Bilirubin,Total 0.3 mg/dL (0.2-1.3); Blood Urea Nitrogen 18 mg/dL (9-20); Calcium 8.6 mg/dL (8.4-10.2); Carbon Dioxide 27 mmol/L (22-30); Chloride 90 mmol/L (98-107); Estimated CRCL calculation 72 ml/min; Estimated Glomerular Filt Rate > 60; Glucose 89 mg/dL (75-110); Potassium 5.1 mmol/L (3.4-5.0); Sodium 122 mmol/L (137-145)
[2020-11-04 21:16] LABS: NT Pro B Type Natriuretic Pept 1360 pg/mL (5-100)
[2020-11-04] MEDS: KETOROLAC 15 MG/ML VIAL (*BKC) IV PUSH (21:17)
[2020-11-04 21:19] LABS: Troponin I < 0.012 ng/mL (0.000-0.034)
[2020-11-04] MEDS: fentaNYL CITRATE INJ (*CRX) 100 MCG/2 ML VIAL 25 MCG IV PUSH (22:16)
[2020-11-04 23:15] VITALS: BP 128/72; PULSE 74; RESP 16; TEMP 36.4; O2SAT 97
== END 2020-11-04 23:17 | disposition home or self-care (01) ==
PROVIDERS: Emergency Provider Emergency Medicine; PCP Internal Medicine
DX: S46.812A Strain of other muscles, fascia and tendons at shoulder and upper arm level, left arm, initial encounter (principal); M25.512 Pain in left shoulder; I48.91 Unspecified atrial fibrillation; Z79.01 Long term (current) use of anticoagulants; J44.9 Chronic obstructive pulmonary disease, unspecified; I10 Essential (primary) hypertension; E78.5 Hyperlipidemia, unspecified; E66.3 Overweight; Z68.29 Body mass index [BMI] 29.0-29.9, adult; Z87.891 Personal history of nicotine dependence; X58.XXXA Exposure to other specified factors, initial encounter
CPT/HCPCS: 36415; 71046; 73030; 80053; 83880; 84484; 85025; 93005; 96374; 96375; 99284; J1885; J3010

== ENCOUNTER 2020-11-05 08:16 | Outpatient (CLI) | payer MEDICARE, SELFPAY ==
[2020-11-05 08:54] LABS: Anion Gap 4 mmol/L (8-16); Blood Urea Nitrogen 18 mg/dL (9-20); Calcium 8.5 mg/dL (8.4-10.2); Carbon Dioxide 26 mmol/L (22-30); Chloride 89 mmol/L (98-107); Estimated Glomerular Filt Rate > 60; Glucose 98 mg/dL (75-110); Sodium 119 mmol/L (137-145)
== END 2020-11-05 08:17 | disposition home or self-care (01) ==
PROVIDERS: PCP Internal Medicine; Visit Provider Internal Medicine Medical Oncology
DX: C62.91 Malignant neoplasm of right testis, unspecified whether descended or undescended (principal)
CPT/HCPCS: 36415; 80048

== ENCOUNTER 2020-11-08 10:29 | Outpatient (CLI) | payer MEDICARE, SELFPAY ==
[2020-11-08 11:10] LABS: Anion Gap 1 mmol/L (8-16); Blood Urea Nitrogen 15 mg/dL (9-20); Calcium 8.3 mg/dL (8.4-10.2); Carbon Dioxide 28 mmol/L (22-30); Chloride 98 mmol/L (98-107); Estimated Glomerular Filt Rate > 60; Glucose 93 mg/dL (75-110); Sodium 127 mmol/L (137-145)
== END 2020-11-08 10:30 | disposition home or self-care (01) ==
PROVIDERS: PCP Internal Medicine; Visit Provider Internal Medicine Medical Oncology
DX: C62.91 Malignant neoplasm of right testis, unspecified whether descended or undescended (principal); E87.1 Hypo-osmolality and hyponatremia
CPT/HCPCS: 36415; 80048; 84443

== ENCOUNTER 2020-11-16 09:05 | Outpatient (RCR) | payer MEDICARE, SELFPAY ==
[2020-11-16 09:48] LABS: Basophils Percent Auto 0.5 % (0.2-1.2); Eosinophils Absolute Auto 0.4 K/mm3 (0-0.3); Eosinophils Percent Auto 4.4 % (0-4.4); Hematocrit 27.3 % (42.0-52.0); Hemoglobin 8.2 g/dL (14.0-18.0); Immature Granulocyte Absolute 0.07 K/mm3 (0.00-0.031); Immature Granulocyte Percent A 0.8 % (0-0.5); Lymphocytes Absolute Auto 2.01 K/mm3 (0.9-3.2); Lymphocytes Percent Auto 23.1 % (18.3-44.2); Mean Corpuscular Hemoglobin 24.6 pg (26-34); Mean Platelet Volume 9.3 fl (7.4-10.4); Monocytes Absolute Auto 0.8 K/mm3 (0.1-0.6); Monocytes Percent Auto 9.4 % (2.6-8.5); Neutrophils Absolute Auto 5.4 K/mm3 (1.3-6.7); Neutrophils Percent Auto 61.8 % (45.5-73.1); Platelet Count Result 252 k/mm3 (150-375); Red Blood Count 3.33 M/mm3 (4.6-6.20); Red Cell Distribution Width 19.9 % (11.5-14.5); White Blood Count 8.7 K/mm3 (4.5-10.0)
[2020-11-16 09:58] LABS: Anion Gap 7 mmol/L (8-16); Blood Urea Nitrogen 12 mg/dL (9-20); Calcium 8.6 mg/dL (8.4-10.2); Carbon Dioxide 27 mmol/L (22-30); Chloride 97 mmol/L (98-107); Estimated Glomerular Filt Rate > 60; Glucose 102 mg/dL (75-110); Potassium 4.2 mmol/L (3.4-5.0); Sodium 131 mmol/L (137-145)
== END 2021-02-14 23:59 | disposition home or self-care (01) ==
LOC: ANHLAB 09:05
PROVIDERS: PCP Internal Medicine; Visit Provider Internal Medicine Medical Oncology
DX: C62.91 Malignant neoplasm of right testis, unspecified whether descended or undescended (principal)
CPT/HCPCS: 36415; 80048; 85025

== ENCOUNTER 2020-11-19 08:23 | Outpatient (CLI) | payer MEDICARE, SELFPAY ==
--- NOTE | ~2020-11-19 | CT_ITS ---
EXAMINATION: CT chest abdomen pelvis w con DATE: 11/19/2020 08:53 INDICATION: Right paratesticular sarcoma TECHNIQUE: Computed tomography (CT) of the chest, abdomen, and pelvis was performed with 100 mL Omnip aque-350 intravenous contrast. Automated exposure control and iterative reconstruction technique were employed. The dose-length product was 1730.59 mGy-cm. COMPARISON: 08/20/2020 and 01/20/2018 FINDINGS: CHEST CT: Mild emphysema. Unchanged mild posterior lingular atelectasis/scarring along the major fissure. A cou ple small calcified nodules in the left lower lobe along with calcified mediastinal lymph nodes consi stent with old granulomatous disease. Lungs are otherwise clear with no other pulmonary nodules, pneu monia, pulmonary edema or other pulmonary infiltrates. No pleural effusion. Cardiomegaly. Atheroscler otic coronary artery calcific lesions. Aortic valve calcification. No pericardial effusion. Again see n is mild enlargement of the central pulmonary arteries consistent with pulmonary arterial hypertensi on. Thoracic aorta is normal in caliber with no dissection. No pathologically enlarged thoracic lymph adenopathy. There are bridging osteophytes at multiple levels in the spine, consistent with diffuse i diopathic skeletal hyperostosis (DISH). No suspicious lytic or blastic bone lesions. ABDOMEN/PELVIS CT: Unchanged 1.8 cm and 0.8 cm well-defined low-attenuation cysts in the left hepatic lobe. Subtle liver surface nodularity consistent with cirrhosis. A few splenic calcifications consistent with old granu lomatous disease. Small calcification at the tail the pancreas which could be atherosclerotic or sequ kali of chronic pancreatitis. No interval change in a couple subcentimeter nodules at the inferior lef t adrenal gland, unchanged since 01/20/2018 and without appreciable FDG uptake on prior PET/CT most lik ro representing small adenomas. Right adrenal gland is normal. Bilateral low-attenuation renal cysts the largest measuring 1 cm at the left kidney. Bowels including the appendix are normal. Bladder is unremarkable. No significant interval change in mild bilateral retroperitoneal edema. Small amount of ascites in the deep pelvis. Small fat-containing umbilical hernia. There is calcified atherosclerosi s of the aorta and many of the other arteries. Saccular ectasia along the left side of the infrarenal abdominal aorta which measures up to 3.3 x 3.3 cm in maximal diameter at this location. Severe thora columbar spondylosis. Anterior and posterior spinal fusion at L3-S1. No suspicious lytic or blastic b one lesions. Significant interval increase in size of a lobular heterogeneously enhancing mass with scattered cyst ic components extending from the right side of the base of the penis along the right inguinal canal w hich is increased from prior 0.3. Mild emphysema. Measurements of 7.3 x 8.1 x 4.5 cm to currently cecille suring 10.3 x 13.9 x 6.9 cm . Additional nodular soft tissue deposits extended further cephalad along the superficial fascia of the abdominal wall at the mid and right side of the anterior pelvis. No pa thologically enlarged bilateral inguinal or intra-abdominal or pelvic lymphadenopathy. IMPRESSION: 1. Significant interval growth in a right pubic mass extending from the base of penis to the inguinal canal with several additional new nodular mass along the superficial fascia of the mid to right-side d anterior pelvic wall consistent with local progression of reported right paratesticular sarcoma. No evident more remote metastatic disease. 2. Cirrhosis. 3. Cardiomegaly with coronary artery disease and aortic valve calcification. 4. Emphysema with enlargement of the central pulmonary arteries consistent with pulmonary arterial hy pertension. Reviewed, dictated and finalized at location A. Electronically signed by Reggie Jeong
== END 2020-11-19 08:24 | disposition home or self-care (01) ==
PROVIDERS: PCP Internal Medicine; Visit Provider Internal Medicine Medical Oncology
DX: J84.10 Pulmonary fibrosis, unspecified (principal); J43.9 Emphysema, unspecified; I51.7 Cardiomegaly; R19.03 Right lower quadrant abdominal swelling, mass and lump; I25.10 Atherosclerotic heart disease of native coronary artery without angina pectoris; K42.9 Umbilical hernia without obstruction or gangrene; N28.1 Cyst of kidney, acquired; M47.815 Spondylosis without myelopathy or radiculopathy, thoracolumbar region
CPT/HCPCS: 71260; 74177; Q9967

== ENCOUNTER 2020-12-30 10:36 | Outpatient (CLI) | payer MEDICARE, SELFPAY ==
--- NOTE | ~2020-12-30 | CT_ITS ---
EXAMINATION: CT pelvis w con DATE: 12/30/2020 11:28 INDICATION: Pelvic pain and swelling TECHNIQUE: Computed tomography (CT) of the pelvis was performed with 100 mL Omnipaque-350 intravenous contrast. Automated exposure control and iterative reconstruction technique were employed.The dose-l ength product was 888.07 mGy-cm. COMPARISON: 11/19/20 FINDINGS: Again seen is a large heterogeneously enhancing soft tissue mass with lobular margins and scattered c ystic components which extends from the right side of the scrotum and base of the penis cephalad tammi g the right inguinal canal and anterolateral right pelvic wall consistent with reported right parates ticular sarcoma. The mass extends approximately 27 cm in inferomedial to superolateral length and the re is a maximal 12.9 x 6.1 cm maximal transaxial dimensions at the level of the pubic symphysis. Ther e is no significant interval change accounting for differences in and positioning. There has however been increase in size of a likely metastatic lenticular mass along the left inguinal canal which on c oronal images is increased from 2.4 x 1.0 cm to currently measuring 3.1 x 1.2 cm. Scrotal edema. Visu alized portions of the bowels including the appendix are normal. Bladder is normal. The visualized lo wer poles of the kidneys are normal. Small fat-containing umbilical hernia. Ectatic infrarenal aorta which measures up to 3.6 cm in maximal diameter. There is calcified atherosclerosis of the aorta and many of the other arteries. No pathologically enlarged bilateral inguinal, pelvic or lower abdominal lymphadenopathy. Intramuscular lipoma along the distal left iliac is muscle. Diffuse osteopenia. Ante rior and posterior fusion at L4-S1. IMPRESSION: 1. Large right pubic mass extending from the scrotum and base of the penis primarily along the right inguinal canal which consistent with reported right paratesticular sarcoma which appears unchanged. A nd likely associated metastatic 3.1 x 1.2 cm lenticular mass along the left inguinal canal has howeve r increased slightly in size. Reviewed, dictated and finalized at location A. IMPRESSION: 1. Large right pubic mass extending from the scrotum and base of the penis prim arily along the right inguinal canal which consistent with reported right parat esticular sarcoma which appears unchanged. And likely associated metastatic 3.1 x 1.2 cm lenticular mass along the left inguinal canal has however increased s lightly in size.
[2020-12-30 11:27] LABS: Estimated Glomerular Filt Rate > 60
== END 2020-12-30 10:37 | disposition home or self-care (01) ==
LOC: ANHIMG 10:37
PROVIDERS: PCP Internal Medicine; Visit Provider Internal Medicine Medical Oncology
DX: C62.91 Malignant neoplasm of right testis, unspecified whether descended or undescended (principal); R10.2 Pelvic and perineal pain
CPT/HCPCS: 72193; Q9967

== ENCOUNTER 2021-01-05 11:19 | Outpatient (RCR) | payer MEDICARE, SELFPAY ==
[2021-01-05 12:00] LABS: Basophils Percent Auto 0.3 % (0.2-1.2); Hematocrit 25.8 % (42.0-52.0); Hemoglobin 7.9 g/dL (14.0-18.0); Immature Granulocyte Absolute 0.11 K/mm3 (0.00-0.031); Immature Granulocyte Percent A 3.5 % (0-0.5); Lymphocytes Percent Auto 12.8 % (18.3-44.2); Mean Corpuscular HGB Conc 30.6 g/dl (32-36); Mean Corpuscular Hemoglobin 26.8 pg (26-34); Mean Corpuscular Volume 87.5 fl (80-100); Mean Platelet Volume 8.8 fl (7.4-10.4); Monocytes Absolute Auto 0.1 K/mm3 (0.1-0.6); Monocytes Percent Auto 3.8 % (2.6-8.5); Neutrophils Absolute Auto 2.5 K/mm3 (1.3-6.7); Neutrophils Percent Auto 79.6 % (45.5-73.1); Platelet Count Result 304 k/mm3 (150-375); Red Blood Count 2.95 M/mm3 (4.6-6.20); Red Cell Distribution Width 20.9 % (11.5-14.5); White Blood Count 3.1 K/mm3 (4.5-10.0)
== END 2021-04-05 23:59 | disposition home or self-care (01) ==
LOC: ANHLAB 11:19
PROVIDERS: PCP Internal Medicine; Visit Provider Internal Medicine Medical Oncology
DX: C62.91 Malignant neoplasm of right testis, unspecified whether descended or undescended (principal)
CPT/HCPCS: 36415; 85025

== ENCOUNTER 2021-01-06 06:46 | Outpatient (RCR) | payer MEDICARE, SELFPAY ==
[2021-01-06 07:27] LABS: Hematocrit 23.7 % (42.0-52.0); Hemoglobin 7.5 g/dL (14.0-18.0)
[2021-01-06 09:20] VITALS: BP 111/56; PULSE 65; RESP 14; TEMP 36.2; O2SAT 97
[2021-01-06 09:35] VITALS: BP 114/48; PULSE 66; RESP 16; TEMP 36.4; O2SAT 97
[2021-01-06 10:35] VITALS: BP 119/56; PULSE 67; RESP 16; TEMP 36.1; O2SAT 97
[2021-01-06 11:35] VITALS: BP 125/58; PULSE 73; RESP 16; TEMP 35.9; O2SAT 97
== END 2021-04-06 23:59 | disposition home or self-care (01) ==
LOC: ANHCPCTRAN 06:46
PROVIDERS: PCP Internal Medicine; Visit Provider Internal Medicine Medical Oncology
DX: D64.9 Anemia, unspecified (principal); C49.9 Malignant neoplasm of connective and soft tissue, unspecified
CPT/HCPCS: 36415; 36430; 85014; 85018; 86850; 86900; 86901; 86920; J7050; P9016

== ENCOUNTER 2021-02-17 13:29 | Inpatient (IN) | payer MEDICARE, SELFPAY ==
[2021-02-17] VITALS (9 sets, daily range): BP systolic 111–124; BP diastolic 57–68; PULSE 67–112; RESP 14–20; TEMP 36.1–37.2; O2SAT 98–100; BMI 28.4
--- NOTE | ~2021-02-17 | US_ITS ---
EXAMINATION: US venous doppler [facility] DATE: 02/17/2021 17:23 INDICATION: Lower limb edema. TECHNIQUE: Grayscale ultrasound images without and with compression and Doppler ultrasound images of the bilateral lower extremity veins were obtained. COMPARISON: None. FINDINGS: The visualized portions of right common femoral vein, profunda (deep) femoral vein, femoral vein, pop liteal vein, peroneal veins, posterior tibial veins, and greater saphenous vein outflow are patent. The visualized portions of left common femoral vein, profunda femoral vein, femoral vein, popliteal v ein, peroneal veins, posterior tibial veins, and greater saphenous vein outflow are patent. IMPRESSION: 1. No deep venous thrombosis. Reviewed, dictated and finalized at location A.
--- NOTE | ~2021-02-17 | US_ITS ---
EXAMINATION: US renal BI DATE: 02/18/2021 18:40 INDICATION: Acute kidney injury. TECHNIQUE: Multiple ultrasound grayscale images of the kidneys were obtained. COMPARISON: CT 11/19/2020 FINDINGS: The right kidney measures 9.0 x 5.0 x 5.8 cm. The left kidney measures 11.8 x 6.2 x 6.1 cm. The kidne ys demonstrate normal parenchymal echogenicity. There are cysts in the kidneys measuring up to 1.4 cm on the left. There is no hydronephrosis. The bladder is normal. IMPRESSION: 1. Normal kidney sizes. No hydronephrosis. Reviewed, dictated and finalized at location A.
--- NOTE | ~2021-02-17 | CT_ITS ---
EXAMINATION: CTA chest DATE: 02/21/2021 13:55 INDICATION: Mass in aortic arch. TECHNIQUE: Computed tomographic angiography (CTA) of the chest was performed with 100 mL Omnipaque-35 0 intravenous contrast. Automated exposure control and iterative reconstruction technique were employ ed. The dose-length product was 656.58 mGy-cm. Maximum intensity projection 3D-reconstructions of the aorta and other arteries were constructed by the technologist on a separate workstation. COMPARISON: Chest CT 02/18/2021, 08/20/20 FINDINGS: The lungs demonstrate mild atelectasis. A calcified left lung nodule and calcified left hil ar and mediastinal lymph nodes are consistent with old granulomatous disease. There is mild scarring in paraspinal right lower lobe. There are small pleural effusions. Cardiomegaly is noted. There are c oronary artery calcifications. No pericardial effusion. There are calcifications of the aortic valve. 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 There is no pulmonary embolus. The liver demonstrates surface nodularity, consistent with cirrhos is. Calcifications in the spleen are consistent with old granulomatous disease. IMPRESSION: 1. 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 2. Small pleural effusions. 3. Cirrhosis of the liver. Reviewed, dictated and finalized at location A. IMPRESSION: 1. 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 2. Small pleural effusions. 3. Cirrhosis of the liver.
--- NOTE | ~2021-02-17 | XR_ITS ---
EXAMINATION: XR chest 2V EXAM DATE: 02/17/2021 14:21 INDICATION: Shortness of breath. Fluid retention. TECHNIQUE: Frontal and lateral projections of the chest obtained and reviewed. Comparison is made to prior examination from 11/04/2020. FINDINGS: There is cardiomegaly. Large epicardial fat pad. No confluent consolidation, pneumothorax or pleural effusion suspected. There are bony degenerative changes. IMPRESSION: Cardiomegaly. Reviewed, dictated and finalized at location B. IMPRESSION: Cardiomegaly.
--- NOTE | ~2021-02-17 | CT_ITS ---
EXAMINATION: CT chest abdomen pelvis wo con DATE: 02/18/2021 18:24 INDICATION: Liposarcoma of the pelvis. TECHNIQUE: Computed tomography (CT) of the chest, abdomen, and pelvis was performed without intraveno us contrast. Automated exposure control and iterative reconstruction technique were employed. The dos e-length product was 1381.83 mGy-cm. COMPARISON: Pelvis CT 12/30/2020, CT chest, abdomen, and pelvis 11/19/2020 FINDINGS: CHEST CT: There is mild emphysema. There is mild atelectasis bilaterally. There is mild scarring in paraspinal right lower lobe. A calcified left lung nodule and calcified left hilar and mediastinal lymph nodes a re consistent with old granulomatous disease. There are small pleural effusions. Cardiomegaly is note d. There are coronary artery calcifications. There are calcifications of the aortic valve. There is m ild thoracic spondylosis. ABDOMEN/PELVIS CT: The liver demonstrates surface nodularity, consistent with cirrhosis. There are cysts in the liver me asuring up to 1.7 cm. The gallbladder is contracted. Calcifications in the spleen are consistent with old granulomatous disease. The pancreas and right adrenal gland are normal. There is a chronic 10 mm mass in left adrenal gland, likely an adenoma. There is a 1 mm stone in right kidney. Left kidney is normal. There is a mass in the scrotum and around the penis that extends superiorly in the anterior abdominal wall. The mass measures 16.0 x 3.9 by at least 21.9 cm. On 12/30/2020, the mass measured 15. 9 x 2.7 x 22.2 cm. On 11/19/20, the mass measured 14.3 x 1.8 x 17.6 cm. There is diverticulosis of the colon without evidence of diverticulitis. The appendix is normal. 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 There are no pathologically enlarged lymph nodes. There is no free intraperito clarissa fluid. Body wall edema is noted. There is severe lumbar spondylosis. IMPRESSION: 1. Mass involving the scrotum and anterior abdominal wall with mild worsening from 11/19/20, consistent with liposarcoma. 2. Cirrhosis of the liver. 3. Small pleural effusions. Reviewed, dictated and finalized at location A. IMPRESSION: 1. Mass involving the scrotum and anterior abdominal wall with mild worsening f rom 11/19/20, consistent with liposarcoma. 2. Cirrhosis of the liver. 3. Small pleural effusions.
--- NOTE | 2021-02-17 13:52 | ECG_ITS ---
Measurements Intervals [place] Rate: 89 P: CO: 0 QRS: -46 QRSD: 122 T: 81 QT: 370 QTc: 451 Interpretive Statements ATRIAL FIBRILLATION VENTRICULAR PREMATURE COMPLEX LEFT AXIS DEVIATION LEFT BUNDLE BRANCH BLOCK ABNORMAL ECG Electronically Signed On 02-17-2021 13:57:49 CDT by Raman Echavarria D.O.
[2021-02-17 14:24] LABS: Basophils Percent Auto 0.3 % (0.2-1.2); Eosinophils Percent Auto 0.3 % (0-4.4); Hematocrit 29.8 % (42.0-52.0); Hemoglobin 9.4 g/dL (14.0-18.0); Immature Granulocyte Absolute 0.28 K/mm3 (0.00-0.031); Immature Granulocyte Percent A 3.1 % (0-0.5); Lymphocytes Percent Auto 15.5 % (18.3-44.2); Mean Corpuscular HGB Conc 31.5 g/dl (32-36); Mean Corpuscular Hemoglobin 29.2 pg (26-34); Mean Corpuscular Volume 92.5 fl (80-100); Mean Platelet Volume 9.1 fl (7.4-10.4); Monocytes Absolute Auto 0.5 K/mm3 (0.1-0.6); Monocytes Percent Auto 5.5 % (2.6-8.5); Neutrophils Absolute Auto 6.8 K/mm3 (1.3-6.7); Neutrophils Percent Auto 75.3 % (45.5-73.1); Platelet Count Result 196 k/mm3 (150-375); Red Blood Count 3.22 M/mm3 (4.6-6.20); Red Cell Distribution Width 20.4 % (11.5-14.5); White Blood Count 9.1 K/mm3 (4.5-10.0)
--- NOTE | 2021-02-17 14:31 | ED.GENADULT ---
HPI - General Adult General Chief complaint: Weakness Stated complaint: Weakness/Swelling Time Seen by Provider: 02/17/21 14:12 Source: patient Mode of arrival: ambulatory Limitations: no limitations History of Present Illness HPI narrative: Patient is a 80-year-old male complaining of increasing edema of his whole body accompanied by weight gain of approximately 20 pounds over the past 3 weeks. Patient also states that he is short of breath on exertion but that is nothing new. Patient states that he is on a cancer medication which his doctor said could be causing his edema. Patient denies any history of congestive heart failure or chronic kidney disease. Patient denies any history of liver cirrhosis. Patient denies any chest pain, abdominal pain, nausea, vomiting, fever or chills. Related Data Home Medications Medication Instructions Recorded Confirmed Centrum Silver Men 1 tablet PO DAILY 03/25/20 03/31/20 Probiotic Colon Support 1 cap PO DAILY 03/25/20 03/31/20 acetaminophen-codeine 1 tablet PO Q8H PRN 03/25/20 03/31/20 amlodipine 10 mg PO DAILY 03/25/20 03/31/20 carvedilol 6.25 mg PO BID 03/25/20 03/31/20 cholecalciferol (vitamin D3) 50 mcg PO DAILY 03/25/20 03/31/20 doxazosin 4 mg PO BID 03/25/20 03/31/20 duloxetine 30 mg PO DAILY 03/25/20 03/31/20 furosemide 40 mg PO DAILY 03/25/20 03/31/20 lisinopril 40 mg PO HS 03/25/20 03/31/20 mesalamine 1.5 g PO TID 03/25/20 03/31/20 potassium chloride 10 meq PO DAILY 03/25/20 03/31/20 prednisone 10 mg PO DAILY 03/25/20 03/31/20 ropinirole 1 mg PO HS 03/25/20 03/31/20 spironolactone 25 mg PO PRN PRN 03/25/20 03/31/20 tizanidine 2 mg PO HS PRN 03/25/20 03/31/20 warfarin 5 mg PO HS 03/25/20 03/31/20 Allergies Allergy/AdvReac Type Severity Reaction Status Date / Time Sulfa (Sulfonamide Allergy Nausea Verified 03/31/20 18:55 Antibiotics) Review of Systems Review of Systems: All systems reviewed & are unremarkable except as noted in HPI and below Constitutional: Constitutional: Denies body ache(s), Denies chills, Denies excessive sweating, Denies fatigue, Denies fever(s), Denies headache(s), Denies lethargy, Denies malaise, Denies weakness and Denies weight loss Eyes: Eyes: Denies blurry vision, Denies change in vision and Denies loss of vision ENT: Denies dizziness, Denies ear discharge, Denies headache(s), Denies lip swelling, Denies epistaxis, Denies nasal congestion, Denies neck pain, Denies throat swelling and Denies tongue swelling Cardiovascular: Cardiovascular: Denies chest pain, Denies chest pain at rest, Denies chest pain with activity, Denies diaphoresis, Denies rapid heart rate, Denies irregular heart rhythm, Denies lightheadedness and Denies palpitations Respiratory: Respiratory: Denies chest congestion, Denies cough and Denies hemoptysis Gastrointestinal: Gastrointestinal: Denies abdominal pain, Denies melena, Denies hematochezia, Denies diarrhea, Denies nausea, Denies vomiting and Denies hematemesis Musculoskeletal: Musculoskeletal: Denies abnormal gait, Denies deformity, Denies joint swelling, Denies limited range of motion, Denies neck pain and Denies numbness Neurologic: Denies Abnormal speech present, Denies abnormal gait, Denies confusion, Denies dizziness, Denies headache(s), Denies focal weakness, Denies loss of vision, Denies numbness, Denies Other visual disturbances, Denies Sensory deficit (Neuro) and Denies weakness Psychiatric: Psychiatric: Denies confusion, Denies depression, Denies auditory hallucinations, Denies homicidal ideation and Denies suicidal ideation Endocrine: Endocrine: Denies cold intolerance, Denies excessive sweating, Denies fatigue, Denies heat intolerance and Denies palpitations Hematologic/Lymphatic: Hematologic/Lymphatic: Denies easy bleeding and Denies easy bruising Allergic/Immunologic: Allergic/Immunologic: Denies lip swelling, Denies throat swelling and Denies tongue swelling PMFSH Past Medical History Medical History (Review
[2021-02-17 14:36] LABS: Alanine Aminotransferase 36 U/L (4-50); Albumin Level 2.6 g/dL (3.5-5.1); Alkaline Phosphatase 183 U/L (38-126); Anion Gap 8 mmol/L (8-16); Aspartate Amino Transferase 72 U/L (17-59); Bilirubin,Total 0.8 mg/dL (0.2-1.3); Blood Urea Nitrogen 39 mg/dL (9-20); Calcium 7.9 mg/dL (8.4-10.2); Carbon Dioxide 27 mmol/L (22-30); Chloride 94 mmol/L (98-107); Estimated CRCL calculation 40 ml/min; Estimated Glomerular Filt Rate 45; Glucose 78 mg/dL (65-110); Potassium 3.6 mmol/L (3.4-5.0); Sodium 129 mmol/L (137-145)
[2021-02-17] MEDS: FUROSEMIDE INJ 40 MG/4 ML VIAL 20 MG IV PUSH (15:00)
[2021-02-17 16:39] LABS: NT Pro B Type Natriuretic Pept 7770 pg/mL (5-100)
[2021-02-17 17:13] LABS: Add Urine Microscopic? NO; Appearance Urine Clear (Clear); Bilirubin Urine Negative (Negative); Blood Urine Negative (Negative); Color Urine Yellow (Yellow); Glucose Urine UA Negative (Negative); Ketones Urine Negative (Negative); Leukocyte Esterase Ur Negative LEU/UL (Negative); Nitrate Urine Negative (Negative); Protein Urine Negative (Negative); Specific Grav Ur 1.009 (1.001-1.035); Urobilinogen Urine Negative mg/dL (<2.0)
--- NOTE | 2021-02-17 19:53 | PM.IMHP ---
H&P: HPI History of Present Illness Date/Time: 02/17/21 19:53 Chief Complaint: Generalized swelling. 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 Patient presented to the emergency room due to generalized swelling that has increasingly gotten worse and now is interfering with his activities of daily living he denies any shortness of breath ,cough ,sputum production, PND or orthopnea however has shortness of breath with exertion he denies any fevers, rigors or chills denies any pain at this time he thinks his swelling is due to his chemotherapy treatment. Of note patient noted that he had a 20 lb weight increase in a period of 2 weeks. Preliminary workup was significant for a brain natriuretic peptide of 7,000, chest x-ray showed cardiomegaly and venous Doppler was negative for acute deep vein thrombosis, a chemistry panel showed a creatinine of 1.5 and sodium of 129 BUN of 39 and chloride of 94. Review of Systems Review of Systems: Generalized swelling shortness of breath at exception Constitutional: Constitutional: Denies chills, Denies fatigue, Denies fever(s), Denies lethargy, Denies malaise, Denies poor appetite, Denies weakness and Reports weight gain Eyes: Eyes: Denies change in vision ENT: Denies dysphagia, Denies dizziness, Denies nasal congestion, Denies nasal discharge, Denies nasal obstruction and Denies odynophagia Cardiovascular: Cardiovascular: Reports edema, Denies irregular heart rhythm, Denies claudication, Reports leg edema, Denies lightheadedness, Denies radiating jaw, neck or arm pain, Denies palpitations, Reports dyspnea on exertion, Denies orthopnea and Denies paroxysmal nocturnal dyspnea Respiratory: Respiratory: Denies cough and Denies wheezing Gastrointestinal: Gastrointestinal: Denies abdominal pain, Denies dyspepsia, Denies heartburn, Denies diarrhea, Denies nausea and Denies vomiting Genitourinary: Comments: Scrotal swelling Musculoskeletal: Musculoskeletal: Reports no additional musculoskeletal complaints Integumentary/Breasts: Skin/Breast: Reports system reviewed and no additional complaints, except as docu Neurologic: Reports system reviewed and no additional complaints, except as documented Psychiatric: Psychiatric: Reports no additional psychiatric complaints Endocrine: Endocrine: Reports no additional endocrine complaints Hematologic/Lymphatic: Hematologic/Lymphatic: Reports no additional hematologic/lymphatic complaints Allergic/Immunologic: Allergic/Immunologic: Reports no additional allergic/immunologic complaints FOR[facility]LY [facility] Past Medical History Medical History (Updated 02/18/21 @ 01:46 by Alejandro Rendon MD) Atrial fibrillation COPD (chronic obstructive pulmonary disease) HTN (hypertension) Hyperlipidemia Overweight Scrotal mass Family History Family History Other No significant past medical history Social History Social History Smoking packs per day: 1 Smoking cigarettes per day: 20.0 Years smoked: 50 Smoking pack-years: 50.00 Smoking status: Former smoker Tobacco type: cigarettes Smoking end date: 02/17/21 Alcohol intake: current Drinks per week: 1 Substance use: never Gender identity (if verbalized by the patient): Male Spiritual care concerns: No Meds Home Medications and Allergies Home Medications Medication Instructions Recorded Confirmed Type Centrum Silver Men 1 tablet PO DAILY 03/25/20 02/17/21 History Probiotic Colon Support 1 cap PO DAILY 03/25/20 02/17/21 History acetaminophen-codeine 1 tablet PO Q8H PRN 03/25/20 02/17/21 History amlodipine 10 mg PO DAILY 03/25/20 02/17/21 History carvedilol 6.25 mg PO BID 03/25/20 02/17/21 History cholecalciferol (vitamin D3) 50 mcg PO DAILY 03/25/2002/17
--- NOTE | 2021-02-17 20:07 | ADMGEN ---
This patient, Keith Wilson, was admitted to [facility] Surg Room 316-02 at 1827. Patient/family oriented to hospital policies and general routines including ID bracelet, bed and alarms, visiting hours, pain management, procedures, bathroom and other care routines, personal items, smoking policy, room service/diet, and visiting hours. Information on how to activate the Rapid Response Team has been discussed. Patient/Family are encouraged to report perceived risks to care and to ask questions if they do not understand what they are told or what they should do.
[2021-02-18] VITALS (18 sets, daily range): BP systolic 99–120; BP diastolic 50–62; PULSE 56–96; RESP 14–18; TEMP 36.3–36.9; O2SAT 95–100; BMI 28.4
--- NOTE | 2021-02-18 | ECHO_ITS ---
Patient Info Name: Keith Wilson Age: 80 years : 1940 Gender: Male Ht: 72 in Wt: 209 lbs BSA: 2.21 m2 HR: 74 bpm BP: 120 / 60 mmHg Heart Rhythm: Atrial Fibrillation Technical Quality: Fair Exam Date: 02/18/2021 10:35 AM Exam Location: [facility] Pulmonary Exam Room: 316 Patient Status: Outpatient Admit Date: 02/17/2021 Staff Ordering Physician: Alejandro Rendon MD Core Fitter: Akua Esteban RDCS Attending Provider: Helen Valerio PA-C Referring Physician: Julieta HODGES; Exam Type: CA echo doppler color flow Study Info Indications - elevated bnp Complete two-dimensional, color flow and Doppler transthoracic echocardiogram is performed. Summary 1. Complete two-dimensional, color flow and Doppler transthoracic echocardiogram is performed. 2. Left ventricular chamber dimension is mildly enlarged. 3. Left ventricular systolic function is normal, estimated at 60-65%. 4. There is mild to moderately increased left ventricular wall thickness. 5. Left atrial chamber dimension is severely enlarged. 6. Right atrial chamber dimension is severely enlarged. 7. There is mild aortic valve stenosis with a peak velocity of 231 cm/s, mean gradient of 12 mmHg, and aortic valve area of 1.6 cm2. 8. There is moderate tricuspid valve regurgitation. 9. Moderate pulmonary hypertension, estimated pulmonary arterial systolic pressure is 45 mmHg. 10. The aorta arch size is not well visualized. There is an echodensity observed to be within the aorta at the level of the arch which likely represents artifact, but cannot be further characterized. Differential includes mobile plaque or thrombus. Consider CTA of chest if clinically indicated.. Left Ventricle Left ventricular chamber dimension is mildly enlarged. Left ventricular systolic function is normal, estimated at 60-65%. There is mild to moderately increased left ventricular wall thickness. The left ventricular diastolic function is indeterminate. Right Ventricle Right ventricular chamber dimension is normal. Right ventricular systolic function is normal. Left Atria Left atrial chamber dimension is severely enlarged. Right Atria Right atrial chamber dimension is severely enlarged. Aortic Valve The aortic valve is not well visualized. There is mild aortic valve stenosis with a peak velocity of 231 cm/s, mean gradient of 12 mmHg, and aortic valve area of 1.6 cm2. There is trace aortic valve regurgitation. There is mild aortic valve calcification. Pulmonic Valve The pulmonic valve is not well visualized. There is mild pulmonic regurgitation. Mitral Valve The mitral valve has normal leaflets. There is mild mitral valve regurgitation. The mitral valve annulus is mildly calcified. Tricuspid Valve The tricuspid valve leaflets are normal. There is moderate tricuspid valve regurgitation. Moderate pulmonary hypertension, estimated pulmonary arterial systolic pressure is 45 mmHg. Pericardium/Pleural The pericardium appears normal. There is no pericardial effusion. Inferior Vena Cava Normal inferior vena cava with <50% collapse upon inspiration consistent with elevated right atrial pressure, 10 mmHg. Aorta The aortic root size at the sinus of Valsalva is normal. The aorta arch size is not well visualized. There is an echodensity observed to be within the aorta at the level of the arch which likely represents artifact, but cannot be further characterized. Differential includes mobile plaque or thrombus. Consi
[2021-02-18] MEDS: ALBUTEROL SULFATE NEB 2.5 MG/0.5 ML INH INHALATION ×2 (02:37→08:24)
[2021-02-18 02:50] LABS: Troponin I 0.066 ng/mL (0.000-0.034)
[2021-02-18] MEDS: ALBUMIN HUMAN 25% 12.5 GM/50ML 50 ML IVPB ×2 (06:06→17:46)
[2021-02-18 09:10] LABS: Hematocrit 28.5 % (42.0-52.0); Mean Corpuscular HGB Conc 31.6 g/dl (32-36); Mean Corpuscular Hemoglobin 29.2 pg (26-34); Mean Corpuscular Volume 92.5 fl (80-100); Mean Platelet Volume 8.9 fl (7.4-10.4); Platelet Count Result 205 k/mm3 (150-375); Red Blood Count 3.08 M/mm3 (4.6-6.20); Red Cell Distribution Width 20.6 % (11.5-14.5)
[2021-02-18 09:20] LABS: INR 2.7; Prothrombin Time 28.3 Seconds (11.1-14.7)
[2021-02-18 09:26] LABS: Alanine Aminotransferase 34 U/L (4-50); Albumin Level 2.5 g/dL (3.5-5.1); Alkaline Phosphatase 164 U/L (38-126); Anion Gap 6 mmol/L (8-16); Aspartate Amino Transferase 62 U/L (17-59); Bilirubin,Total 0.9 mg/dL (0.2-1.3); Blood Urea Nitrogen 37 mg/dL (9-20); Calcium 7.9 mg/dL (8.4-10.2); Carbon Dioxide 27 mmol/L (22-30); Chloride 98 mmol/L (98-107); Estimated CRCL calculation 49 ml/min; Estimated Glomerular Filt Rate 58; Glucose 82 mg/dL (65-110); Magnesium 1.8 mg/dL (1.6-2.3); Potassium 3.9 mmol/L (3.4-5.0); Sodium 131 mmol/L (137-145)
[2021-02-18] MEDS: SPIRONOLACTONE 25 MG TABLET PO (11:57)
[2021-02-18] MEDS: predniSONE 10 MG TABLET PO (11:57)
[2021-02-18] MEDS: ACETAMINOPHEN 325 MG TABLET 650 MG PO ×2 (11:58→17:41)
[2021-02-18] MEDS: DULoxetine HCL 30 MG CAPSULE.DR PO (11:59)
[2021-02-18] MEDS: carvediloL 6.25 MG TABLET PO ×2 (11:59→17:42)
[2021-02-18] MEDS: DOXAZOSIN MESYLATE 4 MG TABLET PO ×2 (11:59→21:18)
[2021-02-18] MEDS: FUROSEMIDE INJ 40 MG/4 ML VIAL IV PUSH (12:01)
--- NOTE | 2021-02-18 12:38 | PM.IMPN ---
Progress Note: A&P Assessment and Plan (1) Fluid overload: Code(s): E87.70 - Fluid overload, unspecified Status: Acute Assessment and Plan: Patient presents with fluid overload. His diuretics were increased as an outpatient without any improvement of symptoms. His Lasix was 80 mg daily and spironolactone 50 mg daily. Could be secondary to cirrhosis verses congestive heart failure verses edema secondary to chemotherapy reaction verses worsening cancer quitting pressure on lymph nodes causing lymphedema Patient was placed on IV Albumin then 30 minutes later given Lasix 40 mg BID and Spironolactone 25 mg BID -- Will increase to 80 mg Lasix and Spironolactone to 50 mg BID Fluid restriction 1500 cc Echocardiogram pending Renal ultrasound pending Cardiology and Nephrology has been consulted and appreciate their recommendations Continue monitoring renal function, electrolytes, replenish if needed, intake, output, weights daily. (2) BENJI (acute kidney injury): Code(s): N17.9 - Acute kidney failure, unspecified Status: Acute Assessment and Plan: Creatinine increased to 1.5, probably from intravascular dehydration. He was given IV albumin prior to diuresis and improved to 1.2. Renal ultrasound is pending. Continue monitoring renal function with diuresis. Appreciate Nephrology's consultation. (3) Cardiomegaly: Code(s): I51.7 - Cardiomegaly Status: Acute Assessment and Plan: Patient has cardiomegaly on chest x-ray. Pending echocardiogram to see if he has any weakness to his systolic or diastolic function which could be contributing to his fluid overload status. (4) Hyponatremia with excess extracellular fluid volume: Code(s): E87.1 - Hypo-osmolality and hyponatremia Status: Acute Assessment and Plan: Patient's history of SIADH. This is multifactorial could be from cirrhosis versus diuresis verses congestive heart failure verses fluid overload verses cancer. Continue monitoring sodium levels and appreciate Nephrology input. (5) Hepatic cirrhosis: Code(s): K74.60 - Unspecified cirrhosis of liver Status: Acute Assessment and Plan: Could be contributing to fluid overload status. Continue spironolactone to help with diuresis. Having regular bowel movements at this time. Will need to make sure it stays consistent. (6) HTN (hypertension): Code(s): I10 - Essential (primary) hypertension Status: Inactive Assessment and Plan: Blood pressure has been stable during his hospitalization. Continue monitoring with diuresis. Make adjustments if needed. (7) Atrial fibrillation: Code(s): I48.91 - Unspecified atrial fibrillation Status: Inactive Assessment and Plan: Heart rate controlled at this time. On warfarin. INR in therapeutic range. 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 Simmons at [facility] and currently on C3D15 Injection Gemcitabine HCl Patient saw his oncologist on 02/16/2021 him and recommended a repeat CT chest abdomen pelvis with contrast for further evaluation of his cancer, improvement verses worsening symptoms Will order CTA chest abdomen pelvis to be done tomorrow morning Continue monitoring. Time Spent With Patient Time with patient: 25 - 35 minutes Subjecti
--- NOTE | 2021-02-18 13:41 | PM.CNNEP ---
Assessment and Plan Assessment and plan (1) BENJI (acute kidney injury): Code(s): N17.9 - Acute kidney failure, unspecified Status: Acute Assessment and Plan: resolved due to diuretics(?) follow trend with ongoing diuretic therapy (2) Hyponatremia: Code(s): E87.1 - Hypo-osmolality and hyponatremia Status: Acute Assessment and Plan: improving with current intervention check TSH, cortisol, UPEP, and SPEP may be related to underlying malignancy (3) Fluid overload: Code(s): E87.70 - Fluid overload, unspecified Status: Acute Assessment and Plan: quite severe but mainly localized to lower extremities this could be secondary to his large pelvic mass with associated compression of veins/lymphatics await results of renal ultrasound and Echo assess for proteinuria continue IV diuretics as is for now (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 Simmons on chemotherapy Will continue to follow. History of Present Illness Reason for Consult Consult date: 02/18/21 Reason for consult: acute renal failure and hyponatremia Chief Complaint Chief complaint: Acute Kidney Injury, Acute CHF History of Present Illness Narrative: The patient is a 80-year-old male with past medical history as outlined below Who presented to [facility] Emergency room due to worsening lower extremity edema. The patient states that his lower extremity edema has been persistently getting worse and worse despite conservative therapy with the use of outpatient diuretics. The swelling edema has gotten to the point where it is interfering with his activities of daily living and is severely limited his ability to ambulate. He is currently receiving chemotherapy for his underlying malignancy and it is his belief that the chemotherapy may be responsible for this issue /problem. He reports a 20 lb weight increase in the last 2-3 weeks presumably all related to fluid retention. Workup and evaluation in the emergency room demonstrated an elevated BNP, a chest x-ray with cardiomegaly, and a chemistry that showed a mildly elevated creatinine of 1.5 with a sodium of 129. He was started on IV diuretic therapy with the presumption that his swelling/ edema may be related to congestive heart failure although it should be noted that at no point did he ever complain of any symptoms with regard to shortness of breath paroxysmal nocturnal dyspnea, orthopnea but does relate some shortness of breath with exertion. He was subsequent admitted the hospital for further evaluation and therapy. Since his admission, despite high-dose IV diuretic therapy, he has not had much of improvement in his lower extremity edema. Venous Dopplers are negative for DVTs an echocardiogram has also been ordered to assess his heart function on the assumption that this may be partly related to his swelling/edema. Renal consultation was requested due to his previous bout of acute kidney injury, hyponatremia, and fluid overload. From review of his records, it would seem that his overall kidney function is well preserved although he may have a component of prerenal azotemia from the necessity of high-dose diuretics that he has been instituted on an effort to combat his lower extremity edema. He does not appear to have any significant risk factors for kidney disease aside from perhaps maybe his age and reportedly hypertension which seems well controlled at this time. His hyponatremia has already improved probably due to his fluid restriction and attempted diuretic therapy as is probably related to his fluid overload status. His creatinine has also normalized although I am unclear if this is due to diuretic therapy or the use of IV albumin in effort to promote diuresis. Currently, at the time o
--- NOTE | 2021-02-18 14:19 | PM.CNCAR ---
Assessment and Plan Additional Plan This 80-year-old man with a couple of months of progressively worsening lower extremity edema that has been resistant to outpatient a efforts to treat this with furosemide and spironolactone. He has a lot of edema at this time on exam but no other stigmata of congestive heart failure. Sineff importantly his chest x-ray does not show any signs of left-sided heart failure and his jugular venous pressures are flat. I am most suspicious that this patient has lower extremity edema is a direct consequence of his malignancy. He has a fairly large pelvic mass which is probably resulting in venous insufficiency of the lower extremities. There is no other evidence on physical exam that this man has congestive heart failure. His edema should be treated I believe with lower extremity elevation and compression of the lower extremities. I doubt in this setting that diuretics are going to be beneficial. I will review his echocardiographic data with you. Given his atrial fibrillation and especially given his malignancy I would continue his systemic anticoagulation with warfarin. Navarro Kaiser MD [facility] History of Present Illness History of Present Illness Consult date/time: 02/18/21 14:19 Reason For Visit: Acute Kidney Injury, Acute CHF Narrative: This is a 80-year-old man that I am requested to see the request of the hospitalist. The stated reason for the consult is congestive heart failure. Save for increasing lower extremity edema 1st several months he does not report any other symptoms to suggest syndrome of congestive heart failure. The patient states that he has a longstanding history of atrial fibrillation and follows with his primary care physician for many years regarding this. He has been anticoagulate with warfarin chronically because of his atrial fibrillation. He has not really followed with a computer programming manager because of this. He can not remember having any other cardiac problems. 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 He states that his lower extremity edema began couple of months ago has been progressively getting steadily worse and has been resistant to his physicians attempts to treat this with diuretics he is currently taking furosemide 40 mg per day as well as spironolactone 25 mg daily. He is not reporting any orthopnea or PND he does not have any palpitations or syncope. An echocardiogram was done earlier today the results of this are pending at the time of this dictation. He has no other complaints. His chest x-ray shows no radiographic evidence of heart failure in my opinion. Review of Systems Constitutional: Constitutional: Reports fatigue Eyes: Eyes: Reports no additional eye complaints ENT: Reports system reviewed and no additional complaints, except as documented Cardiovascular: Cardiovascular: Reports as per HPI and Reports leg edema Respiratory: Respiratory: Reports no additional respiratory complaints Gastrointestinal: Gastrointestinal: Reports no additional gastrointestinal complaints Musculoskeletal: Musculoskeletal: Reports no additional musculoskeletal complaints Neurologic: Reports system reviewed and no additional complaints, except as documented Endocrine: Endocrine: Reports no additional endocrine complaints Hematologic/Lymphatic: Hematologic/Lymphatic: Reports no additional hematologic/lymphatic complaints Allergic/Immunologic: Allergic/Immunologic: Reports no additional allergic/immunologic complaints [facility] Past Medical History Medical History (Updated 02/18/21 @ 01:46 by Alejandro Rendon MD) Atrial fibrillation COPD (chronic obstructive pulmonary disease) HTN (hypertension) Hyperlipidemia Overweight Scrotal mass Family History Family History (Reviewed 02/17/21 @ 14:33 by Lawrence
[2021-02-18] MEDS: WARFARIN (*PBKC) 5 MG TABLET PO (17:44)
[2021-02-18] MEDS: SPIRONOLACTONE 25 MG TABLET 50 MG PO (17:44)
[2021-02-18] MEDS: lisinopriL 20 MG TABLET 40 MG PO (21:18)
[2021-02-18] MEDS: rOPINIRole HCL 1 MG TABLET PO (21:18)
[2021-02-18] MEDS: FUROSEMIDE INJ 100 MG/10 ML VIAL 80 MG IV PUSH (23:03)
[2021-02-19] VITALS (14 sets, daily range): BP systolic 90–140; BP diastolic 47–84; PULSE 45–80; RESP 20; TEMP 35.9–36.3; O2SAT 97–99
[2021-02-19] MEDS: ONDANSETRON HCL ODT 4 MG TABLET PO (01:39)
[2021-02-19] MEDS: ALBUMIN HUMAN 25% 12.5 GM/50ML 50 ML IVPB ×2 (06:23→17:33)
--- NOTE | 2021-02-19 07:46 | PHAR ---
MESALAMINE 0.375GM VERIFIED BY PHARMACIST ARMANDO ALEJANDRE.
[2021-02-19] MEDS: FUROSEMIDE INJ 100 MG/10 ML VIAL 80 MG IV PUSH ×2 (08:32→20:36)
[2021-02-19] MEDS: DOXAZOSIN MESYLATE 4 MG TABLET PO ×2 (08:33→20:35)
[2021-02-19] MEDS: DULoxetine HCL 30 MG CAPSULE.DR PO (08:33)
[2021-02-19] MEDS: TIZANIDINE HCL 2 MG TABLET PO (08:33)
[2021-02-19] MEDS: predniSONE 10 MG TABLET PO (08:33)
[2021-02-19] MEDS: SPIRONOLACTONE 25 MG TABLET 50 MG PO ×2 (08:34→17:32)
[2021-02-19 10:25] LABS: Hematocrit 28.4 % (42.0-52.0); Hemoglobin 8.8 g/dL (14.0-18.0); Mean Corpuscular Hemoglobin 29.4 pg (26-34); Mean Platelet Volume 9.5 fl (7.4-10.4); Platelet Count Result 194 k/mm3 (150-375); Red Blood Count 2.99 M/mm3 (4.6-6.20); Red Cell Distribution Width 20.3 % (11.5-14.5); White Blood Count 9.5 K/mm3 (4.5-10.0)
[2021-02-19 10:33] LABS: INR 2.6; Prothrombin Time 27.1 Seconds (11.1-14.7)
[2021-02-19 10:37] LABS: Alanine Aminotransferase 32 U/L (4-50); Albumin Level 2.5 g/dL (3.5-5.1); Alkaline Phosphatase 150 U/L (38-126); Anion Gap 4 mmol/L (8-16); Aspartate Amino Transferase 54 U/L (17-59); Bilirubin,Total 0.8 mg/dL (0.2-1.3); Blood Urea Nitrogen 33 mg/dL (9-20); Calcium 7.6 mg/dL (8.4-10.2); Carbon Dioxide 26 mmol/L (22-30); Chloride 100 mmol/L (98-107); Estimated CRCL calculation 59 ml/min; Estimated Glomerular Filt Rate > 60; Glucose 80 mg/dL (65-110); Magnesium 1.8 mg/dL (1.6-2.3); Potassium 3.5 mmol/L (3.4-5.0); Sodium 130 mmol/L (137-145)
--- NOTE | 2021-02-19 10:46 | PM.PNNEP ---
Progress Note: A&P Assessment and Plan (1) BENJI (acute kidney injury): Code(s): N17.9 - Acute kidney failure, unspecified Status: Acute Assessment and Plan: resolved due to diuretics(?) follow trend with ongoing diuretic therapy (2) Hyponatremia: Code(s): E87.1 - Hypo-osmolality and hyponatremia Status: Acute Assessment and Plan: improving with current interventions possibly related to liver disease along with fluid retention TSH okay; cortisol lowish so will check stim test; UPEP and SPEP pending may be related to underlying malignancy as well (3) Fluid overload: Code(s): E87.70 - Fluid overload, unspecified Status: Acute Assessment and Plan: quite severe but mainly localized to lower extremities this could be secondary to his large pelvic mass with associated compression of veins/lymphatics renal ultrasound normal; Echo pending only mild proteinuria - 260mg by random check continue IV diuretics as is for now (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 Simmons on chemotherapy Will continue to follow. Subjective Date/time seen: 02/19/21 10:46 Edema seems to be doing better with IV diuretics and lower extremity elevation; he is also wearing compression stockings which are likely helping as well; no other acute issues/problems to report at this time. Exam Narrative: General: WD/WN male in NAD Heart: IRRR, normal S1 and S2; no rub Lungs: clear to auscultation Abdomen: soft, nontender, nondistended, positive bowel sounds Extremities: no cyanosis or clubbing; 3+ edema Skin: warm and dry Objective Data Vital Signs Vital Signs: Vital Signs Temp Pulse Resp BP Pulse Ox 02/19/21 10:45 58 L 92/50 L 02/19/21 10:30 58 L 02/19/21 09:00 140/84 02/19/21 08:00 65 99 02/19/21 06:00 36.3 C L 76 20 90/47 L 98 02/19/21 04:00 73 02/19/21 00:00 59 L 02/18/21 22:00 36.3 C L 70 18 101/50 L 95 02/18/21 20:00 63 02/18/21 17:42 67 02/18/21 16:32 36.6 C 56 L 14 99/62 L 100 02/18/21 16:00 60 02/18/21 12:00 80 02/18/21 11:59 63 Intake/Output Intake/Output: Intake & Output 02/16/21 02/17/21 02/18/21 02/19/21 23:59 23:59 23:59 23:59 Intake Total 240 820 510 Output Total 700 Balance 240 120 510 Meds/Results Medications: Active Medications Generic Name Dose Route Start Last Admin Trade Name Freq PRN Reason Stop Dose Admin Acetaminophen 650 mg 02/18/21 08:10 02/19/21 11:42 Acetaminophen 325 Mg Tablet PO 650 mg Q4H PRN Administration Pain 1-3 Acetaminophen/Codeine Phosphate 1 tab 02/18/21 08:22 Acetaminophen/Codeine (*Crx) 300/30 Mg Tablet PO Q8H PRN Pain 4-6 Carvedilol 6.25 mg 02/18/21 09:00 02/19/21 10:30 Carvedilol 6.25 Mg Tablet PO Not Given BID AMA Doxazosin Mesylate 4 mg 02/18/21 09:00 02/19/21 08:33 Doxazosin Mesylate 4 Mg Tablet PO 4 mg Q12HR AMA Administration Duloxetine HCl 30 mg 02/18/21 09:00 02/19/21 08:33 Duloxetine Hcl 30 Mg Capsule.Dr PO 30 mg DAILY AMA Administration Furosemide 80 mg 02/18/21 18:30 02/19/21 08:32 Furosemide Inj 100 Mg/10 Ml Vial IV PUSH 80 mg 0630,1830 AMA Administration Albumin Human 50 mls @ 50 mls/hr 02/18/21 18:00 02/19/21 06:23 Albutein IVPB 50 mls/hr Q12H AMA Administration Lisinopril 40 mg 02/18/21 21:00 02/18/21 21:18 Lisinopril 20 Mg Tablet PO 40 mg HS AMA Administration Miconazole Nitrate 1 applic 02/18/21 09:00 02/19/21 11:44 Miconazole 2% Antifungal Ointment 56 Gm TOPICAL 1 applic Q12HR AMA Administration Morphine Sulfate 7.5 mg 02/18/21 08:22 Morphine Sulfate (*Crx) 15 Mg Tab Ir PO Q8H PRN pain 7-10 Ondansetron HCl 4 mg 09
[2021-02-19] MEDS: ACETAMINOPHEN 325 MG TABLET 650 MG PO ×2 (11:42→18:06)
--- NOTE | 2021-02-19 13:06 | PM.IMPN ---
Progress Note: A&P Assessment and Plan (1) Fluid overload: Code(s): E87.70 - Fluid overload, unspecified Status: Acute Assessment and Plan: Could be secondary to acute Diastolic CHF exacerbation vs Liver Cirrhosis fluid overload vs pelvic/scrotal mass pressing on venous system of extremities vs chemotherapy reaction. Patient states he has been drinking a lot of water at home. He was never told to be on any type of fluid restriction. His diuretics were increased as an outpatient without any improvement of symptoms. Patient is on IV Albumin then 30 minutes later given Lasix 80 mg and Spironolactone to 50 mg BID Fluid restriction 1500 cc Echocardiogram showed normal EF 60-65%, mild to moderate LVH, severely enlarged left and right atrial chambers, mild aortic valve stenosis, moderate tricuspid valve regurgitation, moderate pulmonary hypertension. Cardiology evaluated the patient and does not believe this is related to congestive heart failure. Believe it is secondary to his malignancy causing venous insufficiency. Recommended to elevate and compression of lower extremities. * Edinson hose have been ordered and elevation when sitting Cardiology and Nephrology has been consulted and appreciate their recommendations Continue monitoring renal function, electrolytes, replenish if needed, intake, output, weights daily. (2) BENJI (acute kidney injury): Code(s): N17.9 - Acute kidney failure, unspecified Status: Acute Assessment and Plan: Creatinine increased to 1.5, probably from intravascular dehydration. He was given IV albumin prior to diuresis and improved to 1.1. Renal ultrasound showing normal kidneys. No hydronephrosis. Continue monitoring renal function with diuresis. Appreciate Nephrology's consultation. (3) Cardiomegaly: Code(s): I51.7 - Cardiomegaly Status: Acute Assessment and Plan: Echocardiogram showed normal EF 60-65%, mild to moderate LVH, severely enlarged left and right atrial chambers, mild aortic valve stenosis, moderate tricuspid valve regurgitation, moderate pulmonary hypertension. (4) Hyponatremia with excess extracellular fluid volume: Code(s): E87.1 - Hypo-osmolality and hyponatremia Status: Acute Assessment and Plan: Patient's history of SIADH. This is multifactorial could be from cirrhosis versus diuresis verses congestive heart failure verses fluid overload verses cancer. Sodium stable at 130. Continue monitoring sodium levels and appreciate Nephrology input. (5) Hepatic cirrhosis: Code(s): K74.60 - Unspecified cirrhosis of liver Status: Acute Assessment and Plan: Could be contributing to fluid overload status. Continue spironolactone to help with diuresis. Having regular bowel movements at this time. Will need to make sure it stays consistent. (6) HTN (hypertension): Code(s): I10 - Essential (primary) hypertension Status: Inactive Assessment and Plan: Blood pressure has been stable during his hospitalization. Continue monitoring with diuresis. Make adjustments if needed. (7) Atrial fibrillation: Code(s): I48.91 - Unspecified atrial fibrillation Status: Inactive Assessment and Plan: Heart rate controlled at this time. On Warfarin. INR in therapeutic range. 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
--- NOTE | 2021-02-19 15:52 | PM.PNCARD ---
Progress Note: A&P Assessment and Plan (1) Lower extremity edema: Code(s): R60.0 - Localized edema Status: Acute Assessment and Plan: Probably secondary to compression by the tumor and cirrhosis; could have some diastolic CHF 7800, but trivial pleural effusions, no shortness of breath, clear lungs etc. make that less likely. In any case, he seems to be improving with lower extremity elevation and IV diuretics. Daily BMP. 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 He is wondering if the cure is worse than the disease. (5) Abnormal echocardiogram: Code(s): R93.1 - Abnormal findings on diagnostic imaging of heart and coronary circulation Status: Acute Assessment and Plan: Possible mass in the aorta versus artifact. Since the patient is chronically anticoagulated a thrombus seems unlikely. Will review personally. (6) Atrial fibrillation: Code(s): I48.91 - Unspecified atrial fibrillation Status: Acute Assessment and Plan: Longstanding history of atrial fibrillation, rate controlled. Subjective Date/time seen: 02/19/21 15:52 Interval history: Follow-up for lower extremity edema, history sarcoma, cirrhosis chronic atrial fibrillation. Date of service 02/19/2021: Patient feels he is urinating a lot with the furosemide 80 mg IV push b.i.d. and his legs are better. He does note improvement with keeping them elevated and is now wearing Edinson hose. He has tighter compression stockings at home but they are hard to put on. Up in chair earlier today. Review of Systems Constitutional: Constitutional: Reports fatigue ENT: Denies epistaxis Cardiovascular: Cardiovascular: Denies chest pain, Reports pedal edema, Reports leg edema, Denies lightheadedness and Denies palpitations Respiratory: Respiratory: Denies dyspnea and Denies dyspnea on exertion Gastrointestinal: Gastrointestinal: Denies abdominal pain and Denies constipation Genitourinary: Genitourinary: Denies dysuria Musculoskeletal: Musculoskeletal: Reports back pain and Reports neck pain Integumentary/Breasts: Skin/Breast: Denies rash Comments: Patient says he is draining some fluid from wounds on his elbows. Neurologic: Denies confusion Psychiatric: Psychiatric: Reports no additional psychiatric complaints Exam Const: General: comfortable and no acute distress HENMT: General nose exam: no epistaxis Eyes: EOM: EOMs intact bilaterally Neck: Neck: supple Resp: Effort & Inspection: normal respiratory effort Auscultation: clear to auscultation bilaterally Cardio: Rhythm: regular rhythm and abnormal rhythm irregularly irregular Heart sounds: no murmurs GI: GI Palp: Yes Soft to palpation Other: Mass near pubis Neuro: Cognition (Neuro): normal cognition Speech: normal speech Motor exam (neuro): Normal motor muscle tone present throughout Extrem: General: edema and pedal edema Other: Moderate lower extremity edema Psych: Mental Status: mental status grossly normal Affect: normal affect Objective Data Vital Signs Vital Signs: Vital Signs - 24 hr 02/18/21 16:00 02/18/21 16:32 02/18/21 17:42 Temperature 97.9 F Pulse Rate 60 56 L 67 Respiratory Rate 14 Blood Pressure 99/62 L Pulse Oximetry 100 02/18/21 20:00 02/18/21 22:00 02/19/21 00:00 Temperature 97.3 F L Pulse Rate 63
[2021-02-19] MEDS: WARFARIN (*PBKC) 5 MG TABLET PO (17:33)
[2021-02-19] MEDS: lisinopriL 20 MG TABLET 40 MG PO (20:35)
[2021-02-19] MEDS: rOPINIRole HCL 1 MG TABLET PO (20:36)
[2021-02-19 23:03] LABS: Creatinine Urine 42.3 mg/dL; Total Protein Urine Random 11 mg/dL; Ur Ttl Prot Creatinine Ratio 0.26 mg/mg (0-0.20)
[2021-02-19 23:09] LABS: Sodium Urine Random 92 meq/L
[2021-02-20] VITALS (12 sets, daily range): BP systolic 84–122; BP diastolic 42–83; PULSE 56–96; RESP 12–20; TEMP 36.4–36.7; O2SAT 97–99
[2021-02-20] MEDS: ALBUMIN HUMAN 25% 12.5 GM/50ML 50 ML IVPB (05:40)
[2021-02-20 07:18] LABS: INR 2.8
--- NOTE | 2021-02-20 08:18 | PM.IMPN ---
Progress Note: A&P Assessment and Plan (1) Fluid overload: Code(s): E87.70 - Fluid overload, unspecified Status: Acute Assessment and Plan: Could be secondary to acute Diastolic CHF exacerbation vs Liver Cirrhosis fluid overload vs pelvic/scrotal mass pressing on venous system of extremities vs chemotherapy reaction. Patient states he has been drinking a lot of water at home. He was never told to be on any type of fluid restriction. His diuretics were increased as an outpatient without any improvement of symptoms. Patient is on IV Albumin then 30 minutes later given Lasix 80 mg and Spironolactone to 50 mg BID Fluid restriction 1500 cc Echocardiogram showed normal EF 60-65%, mild to moderate LVH, severely enlarged left and right atrial chambers, mild aortic valve stenosis, moderate tricuspid valve regurgitation, moderate pulmonary hypertension. Cardiology evaluated the patient and does not believe this is related to congestive heart failure. Believe it is secondary to his malignancy causing venous insufficiency. Recommended to elevate and compression of lower extremities. * Edinson hose have been ordered- but are uncomfortable, will order Mendoza wraps instead due to leg swelling. Continue with elevation when sitting or laying down. Cardiology and Nephrology has been consulted and appreciate their recommendations Continue monitoring renal function, electrolytes, replenish if needed, intake, output, weights daily. (2) BENJI (acute kidney injury): Code(s): N17.9 - Acute kidney failure, unspecified Status: Acute Assessment and Plan: Creatinine increased to 1.5, probably from intravascular dehydration. He was given IV albumin prior to diuresis and improved to 1.1. Pending todays Cr. Renal ultrasound showing normal kidneys. No hydronephrosis. Continue monitoring renal function with diuresis. Appreciate Nephrology's consultation. (3) Cardiomegaly: Code(s): I51.7 - Cardiomegaly Status: Acute Assessment and Plan: Echocardiogram showed normal EF 60-65%, mild to moderate LVH, severely enlarged left and right atrial chambers, mild aortic valve stenosis, moderate tricuspid valve regurgitation, moderate pulmonary hypertension. (4) Hyponatremia with excess extracellular fluid volume: Code(s): E87.1 - Hypo-osmolality and hyponatremia Status: Acute Assessment and Plan: Patient's history of SIADH. This is multifactorial could be from cirrhosis versus diuresis verses congestive heart failure verses fluid overload verses cancer. Sodium stable at 130, pending todays sodium. Continue monitoring sodium levels and appreciate Nephrology input. (5) Hepatic cirrhosis: Code(s): K74.60 - Unspecified cirrhosis of liver Status: Acute Assessment and Plan: Could be contributing to fluid overload status. Continue spironolactone to help with diuresis. Having regular bowel movements at this time. Will need to make sure it stays consistent. (6) Atrial fibrillation: Code(s): I48.91 - Unspecified atrial fibrillation Status: Acute Assessment and Plan: Heart rate controlled at this time. On Warfarin. INR in therapeutic range. 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 Simmons at [facility] and currently on [id number] Injection Gemcitabine HCl Patient saw his oncologist on 02/16/2021 him and recommended a repeat CT chest abd
[2021-02-20] MEDS: ONDANSETRON HCL ODT 4 MG TABLET PO (08:24)
[2021-02-20] MEDS: carvediloL 6.25 MG TABLET PO (08:27)
[2021-02-20] MEDS: DULoxetine HCL 30 MG CAPSULE.DR PO (08:27)
[2021-02-20] MEDS: DOXAZOSIN MESYLATE 4 MG TABLET PO ×2 (08:27→21:49)
[2021-02-20] MEDS: SPIRONOLACTONE 25 MG TABLET 50 MG PO (08:28)
[2021-02-20] MEDS: predniSONE 10 MG TABLET PO (08:28)
[2021-02-20] MEDS: TIZANIDINE HCL 2 MG TABLET PO ×2 (08:29→21:49)
[2021-02-20] MEDS: FUROSEMIDE INJ 100 MG/10 ML VIAL 80 MG IV PUSH (08:30)
[2021-02-20 10:46] LABS: Anion Gap 1 mmol/L (8-16); Blood Urea Nitrogen 36 mg/dL (9-20); Calcium 7.9 mg/dL (8.4-10.2); Carbon Dioxide 31 mmol/L (22-30); Chloride 99 mmol/L (98-107); Estimated CRCL calculation 49 ml/min; Estimated Glomerular Filt Rate 58; Glucose 83 mg/dL (65-110); Magnesium 1.7 mg/dL (1.6-2.3); Potassium 3.3 mmol/L (3.4-5.0); Sodium 131 mmol/L (137-145)
[2021-02-20] MEDS: SODIUM CHLORIDE 0.9% IV 500 ML 250 ML IV CONT (10:54)
--- NOTE | 2021-02-20 11:31 | ECG_ITS ---
Measurements Intervals [place] Rate: 63 P: MA: 0 QRS: -47 QRSD: 121 T: -83 QT: 446 QTc: 458 Interpretive Statements ATRIAL FIBRILLATION LEFT AXIS DEVIATION LEFT BUNDLE BRANCH BLOCK BASELINE ARTIFACT- V1-V3 ABNORMAL ECG Electronically Signed On 02-20-2021 20:36:32 CDT by Raman Echavarria D.O.
[2021-02-20] MEDS: POTASSIUM CHLORIDE 20 MEQ TABLET 40 MEQ PO (11:56)
[2021-02-20] MEDS: NEOMYCIN/POLYMYXIN/BACITRACIN OINTMENT PACKET 1 PACKET (11:56)
--- NOTE | 2021-02-20 12:00 | PM.PNCARD ---
Progress Note: A&P Assessment and Plan (1) Bradycardia: Code(s): R00.1 - Bradycardia, unspecified Status: Acute Assessment and Plan: More bradycardic than usual this a.m.; vasovagal response or ? Some lateral T wave changes noted on EKG but no CP. Hold for today; might resume carvedolol at a lower dose tomorrow. (2) Hypotension: Code(s): I95.9 - Hypotension, unspecified Status: Acute Assessment and Plan: Hypotensive this a.m.; perhaps over diuresed. Hold furosemide today, perhaps resume tmr at lower dose. (3) Atrial fibrillation: Code(s): I48.91 - Unspecified atrial fibrillation Status: Acute Assessment and Plan: Longstanding history of atrial fibrillation, rate controlled, though bradycardic today.. (4) Lower extremity edema: Code(s): R60.0 - Localized edema Status: Acute Assessment and Plan: Probably secondary to compression by the tumor and cirrhosis; could have some diastolic CHF with pro-BNP 7800, but trivial pleural effusions, no shortness of breath, clear lungs etc. make that less likely. In any case, he seems to be improving with lower extremity elevation and IV diuretics. Hypokalemia addressed. Daily BMP. 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 He is wondering if the cure is worse than the disease. (8) Abnormal echocardiogram: Code(s): R93.1 - Abnormal findings on diagnostic imaging of heart and coronary circulation Status: Acute Assessment and Plan: Possible mass in the aorta versus artifact. Since the patient is chronically anticoagulated a thrombus seems unlikely. Will review personally. (9) Neck pain: Code(s): M54.2 - Cervicalgia Status: Acute Assessment and Plan: Chronic neck and back pain. Advised to FU w/ PMD. Subjective Date/time seen: 02/20/21 12:00 Interval history: Follow-up for lower extremity edema, history sarcoma, cirrhosis, chronic atrial fibrillation. 02/19/2021: Patient feels he is urinating a lot with the furosemide 80 mg IV push b.i.d. and his legs are better. He does note improvement with keeping them elevated and is now wearing Edinson hose. He has tighter compression stockings at home but they are hard to put on. Up in chair earlier today. Date of Service 02/20/2021: Had an episode of low BP (80/41 mmHg) and bradycardia when sitting on edge of bed today, felt wak and lightheaded, no CP or SOB. Hypokalemia noted. No h/o dizziness or weak spells at home. I/O's not well documented but pt says he is urinating a lot. Tele: a fib rate usually in 60's, was lower this a.m. occ declining into the 40's and 837 BPM range. Tedhose and Mendoza wraps hut his legs. EKG today personally reviewed, a fib rate 63, LAHB, slight lateral T wave inversion V5 and V6 which is new Review of Systems Constitutional: Constitutional: Reports fatigue Eyes: Eyes: Reports no additional eye complaints ENT: Reports system reviewed and no additional complaints, except as documented Cardiovascular: Cardiovascular: Denies chest pain, Reports pedal edema and Denies palpitations Respiratory: Respiratory: Denies dyspnea and Denies dyspnea on exertion Gastrointestinal: Gastrointestinal: Bryan
--- NOTE | 2021-02-20 12:32 | PM.PNNEP ---
Progress Note: A&P Assessment and Plan (1) BENJI (acute kidney injury): Code(s): N17.9 - Acute kidney failure, unspecified Status: Acute Assessment and Plan: resolved due to diuretics(?) follow trend with ongoing diuretic therapy (2) Hyponatremia: Code(s): E87.1 - Hypo-osmolality and hyponatremia Status: Acute Assessment and Plan: improving if not stable with current interventions possibly related to liver disease along with fluid retention TSH okay; cortisol lowish so will check stim test; UPEP and SPEP pending may be related to underlying malignancy as well (3) Fluid overload: Code(s): E87.70 - Fluid overload, unspecified Status: Acute Assessment and Plan: quite severe but mainly localized to lower extremities this could be secondary to his large pelvic mass with associated compression of veins/lymphatics renal ultrasound normal; Echo pending only mild proteinuria - 260mg by random check continue IV diuretics as is for now (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 Simmons on chemotherapy Will continue to follow. Subjective Date/time seen: 02/20/21 12:32 Lower extremity edema/swelling appear to be slowly improving with current interventions (diuresis, elevation of LEs, compression stockings/CARO wraps); episode of hypotension this AM associated with lightheadedness/dizziness. Exam Narrative: General: WD/WN male in NAD Heart: IRRR, normal S1 and S2; no rub Lungs: clear to auscultation Abdomen: soft, nontender, nondistended, positive bowel sounds Extremities: no cyanosis or clubbing; 2 - 3+ edema Skin: warm and intact Objective Data Vital Signs Vital Signs: Vital Signs Temp Pulse Resp BP Pulse Ox 02/20/21 12:32 98/50 L 02/20/21 12:00 59 L 02/20/21 10:35 84/42 L 02/20/21 08:27 77 02/20/21 08:00 77 122/74 02/20/21 06:00 36.4 C 77 20 110/70 99 02/20/21 04:00 65 02/20/21 00:00 67 02/19/21 22:00 36.3 C L 80 20 110/70 97 02/19/21 20:00 65 02/19/21 17:08 115/54 L 02/19/21 17:07 61 Intake/Output Intake/Output: Intake & Output 02/17/21 02/18/21 02/19/21 02/20/21 23:59 23:59 23:59 23:59 Intake Total 096 632 4123 990 Output Total 700 1200 Balance 278 776 3374 -210 Meds/Results Medications: Active Medications Generic Name Dose Route Start Last Admin Trade Name Freq PRN Reason Stop Dose Admin Acetaminophen 650 mg 02/18/21 08:10 02/19/21 18:06 Acetaminophen 325 Mg Tablet PO 650 mg Q4H PRN Administration Pain 1-3 Acetaminophen/Codeine Phosphate 1 tab 02/18/21 08:22 Acetaminophen/Codeine (*Crx) 300/30 Mg Tablet PO Q8H PRN Pain 4-6 Carvedilol 6.25 mg 02/18/21 09:00 02/20/21 08:27 Carvedilol 6.25 Mg Tablet PO 6.25 mg BID AMA Administration Doxazosin Mesylate 4 mg 02/18/21 09:00 02/20/21 08:27 Doxazosin Mesylate 4 Mg Tablet PO 4 mg Q12HR AMA Administration Duloxetine HCl 30 mg 02/18/21 09:00 02/20/21 08:27 Duloxetine Hcl 30 Mg Capsule.Dr PO 30 mg DAILY AMA Administration Furosemide 80 mg 02/18/21 18:30 02/20/21 08:30 Furosemide Inj 100 Mg/10 Ml Vial IV PUSH 80 mg 0630,1830 AAM Administration Albumin Human 50 mls @ 50 mls/hr 02/18/21 18:00 02/20/21 05:40 Albutein IVPB 50 mls/hr Q12H AMA Administration Lisinopril 40 mg 02/18/21 21:00 02/19/21 20:35 Lisinopril 20 Mg Tablet PO 40 mg HS AMA Administration Miconazole Nitrate 1 applic 02/18/21 09:00 02/20/21 08:33 Miconazole 2% Antifungal Ointment 56 Gm TOPICAL 1 applic Q12HR AMA Administration Morphine Sulfate 7.5 mg 02/18/21 08:22 Morphine Sulfate (*Crx) 15 Mg Tab Ir PO Q8H PRN pain 7-10 Neomycin/Polymyxin/Bacitracin 1 applic
--- NOTE | 2021-02-20 12:32 | P.PNNP_ITS ---
Progress Note: A&P Assessment and Plan (1) BENJI (acute kidney injury): Code(s): N17.9 - Acute kidney failure, unspecified Status: Acute Assessment and Plan: * resolved * due to diuretics(?) * follow trend with ongoing diuretic therapy (2) Hyponatremia: Code(s): E87.1 - Hypo-osmolality and hyponatremia Status: Acute Assessment and Plan: * improving if not stable with current interventions * possibly related to liver disease along with fluid retention * TSH okay; cortisol lowish so will check stim test; UPEP and SPEP pending * may be related to underlying malignancy as well (3) Fluid overload: Code(s): E87.70 - Fluid overload, unspecified Status: Acute Assessment and Plan: * quite severe but mainly localized to lower extremities * this could be secondary to his large pelvic mass with associated compression of veins/lymphatics * renal ultrasound normal; Echo pending * only mild proteinuria - 260mg by random check * continue IV diuretics as is for now (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 Simmons * on chemotherapy Will continue to follow. Subjective Date/time seen: 02/20/21 12:32 Lower extremity edema/swelling appear to be slowly improving with current interventions (diuresis, elevation of LEs, compression stockings/CARO wraps); episode of hypotension this AM associated with lightheadedness/dizziness. Exam Narrative: General: WD/WN male in NAD Heart: IRRR, normal S1 and S2; no rub Lungs: clear to auscultation Abdomen: soft, nontender, nondistended, positive bowel sounds Extremities: no cyanosis or clubbing; 2 - 3+ edema Skin: warm and intact Objective Data Vital Signs Vital Signs: Vital Signs Temp Pulse Resp BP Pulse Ox 02/20/21 12:32 98/50 L 02/20/21 12:00 59 L 02/20/21 10:35 84/42 L 02/20/21 08:27 77 02/20/21 08:00 77 122/74 02/20/21 06:00 36.4 C 77 20 110/70 99 02/20/21 04:00 65 02/20/21 00:00 67 02/19/21 22:00 36.3 C L 80 20 110/70 97 02/19/21 20:00 65 02/19/21 17:08 115/54 L 02/19/21 17:07 61 Intake/Output Intake/Output: Intake & Output 02/17/21 02/18/21 02/19/21 02/20/21 23:59 23:59 23:59 23:59 Intake Total 827 249 7713 990 Output Total 700 1200 Balance 206 699 0138 -210 Meds/Results Medications: Active Medications Generic Name Dose Route Start Last Admin Trade Name Freq PRN Reason Stop Dose Admin Acetaminophen 650 mg 02/18/21 08:10 02/19/21 18:06 Acetaminophen 325 Mg Tablet PO 650 mg Q4H PRN Administration Pain 1-3 Acetaminophen/Codeine Phosphate 1 tab 02/18/21 08:22 Acetaminophen/Codeine (*Crx) 300/30 Mg Tablet PO Q8H PRN Pain 4-6 Carvedilol 6.25 mg 02/18/21 09:00 02/20/21 08:27 Carvedilol 6.25 Mg Tablet PO 6.25 mg BID AMA Administration Doxazosin Mesylate 4 mg 02/18/21 09:00 02/20/21 08:27 Doxazosin Mesylate 4 Mg Tablet PO 4 mg Q12HR AMA Administration
[2021-02-20] MEDS: MAGNESIUM SULFATE 3GM/D5W100ML 3 GM/100 ML BAG IVPB (12:57)
[2021-02-20 16:00] LABS: Anion Gap 0 mmol/L (8-16); Blood Urea Nitrogen 37 mg/dL (9-20); Calcium 7.7 mg/dL (8.4-10.2); Carbon Dioxide 32 mmol/L (22-30); Chloride 98 mmol/L (98-107); Estimated CRCL calculation 53 ml/min; Estimated Glomerular Filt Rate > 60; Glucose 114 mg/dL (65-110); Potassium 4.9 mmol/L (3.4-5.0); Sodium 130 mmol/L (137-145)
[2021-02-20] MEDS: WARFARIN (*PBKC) 5 MG TABLET PO (18:13)
[2021-02-20] MEDS: rOPINIRole HCL 1 MG TABLET PO (21:49)
[2021-02-20] MEDS: lisinopriL 20 MG TABLET 40 MG PO (21:49)
[2021-02-20] MEDS: ACETAMINOPHEN 325 MG TABLET 650 MG PO (21:51)
[2021-02-21] VITALS (9 sets, daily range): BP systolic 111–124; BP diastolic 60–78; PULSE 57–85; RESP 16–18; TEMP 35.9–36.5; O2SAT 97–99
[2021-02-21 07:35] LABS: Prothrombin Time 30.1 Seconds (11.1-14.7)
[2021-02-21 07:43] LABS: Anion Gap 1 mmol/L (8-16); Blood Urea Nitrogen 33 mg/dL (9-20); Calcium 7.9 mg/dL (8.4-10.2); Carbon Dioxide 32 mmol/L (22-30); Chloride 100 mmol/L (98-107); Estimated CRCL calculation 58 ml/min; Estimated Glomerular Filt Rate > 60; Glucose 80 mg/dL (65-110); Magnesium 2.2 mg/dL (1.6-2.3); Potassium 3.8 mmol/L (3.4-5.0); Sodium 133 mmol/L (137-145)
--- NOTE | 2021-02-21 08:00 | ECG_ITS ---
Measurements Intervals [place] Rate: 67 P: VA: 0 QRS: -48 QRSD: 146 T: 94 QT: 427 QTc: 452 Interpretive Statements ATRIAL FIBRILLATION LEFT AXIS DEVIATION LEFT BUNDLE BRANCH BLOCK ABNORMAL ECG Electronically Signed On 02-21-2021 8:06:00 CDT by Raman Echavarria D.O.
[2021-02-21] MEDS: DULoxetine HCL 30 MG CAPSULE.DR PO (08:34)
[2021-02-21] MEDS: DOXAZOSIN MESYLATE 4 MG TABLET PO ×2 (08:34→21:31)
[2021-02-21] MEDS: predniSONE 10 MG TABLET PO (08:34)
[2021-02-21] MEDS: NEOMYCIN/POLYMYXIN/BACITRACIN OINTMENT 15 GM TUBE 1 APPLIC TOPICAL (08:35)
--- NOTE | 2021-02-21 10:19 | P.PNNP_ITS ---
Progress Note: A&P Assessment and Plan (1) BENJI (acute kidney injury): Code(s): N17.9 - Acute kidney failure, unspecified Status: Acute Assessment and Plan: * resolved * due to diuretics(?) * follow trend with ongoing diuretic therapy * Okay for discharge from the kidney standpoint when others are ready as well. (2) Hyponatremia: Code(s): E87.1 - Hypo-osmolality and hyponatremia Status: Acute Assessment and Plan: * this is chronic. * improving if not stable with current interventions * possibly related to liver disease along with fluid retention * TSH okay; cortisol lowish so will check stim test * UPEP and SPEP pending * may be related to underlying malignancy as well (3) Fluid overload: Code(s): E87.70 - Fluid overload, unspecified Status: Acute Assessment and Plan: * quite severe but mainly localized to lower extremities * this could be secondary to his large pelvic mass with associated compression of veins/lymphatics * renal ultrasound normal; Echo pending * only mild proteinuria - 260mg by random check * continue IV diuretics as is for now (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 Simmons * on chemotherapy Will continue to follow. Subjective Date/time seen: 02/21/21 10:19 Interval history: Feels good today. Swelling is doing so much better. He is eating well. Blood pressure has been better overnight and this morning. Exam Narrative: General: WD/WN male in NAD Heart: IRRR, normal S1 and S2; no rub Lungs: clear to auscultation Abdomen: soft, nontender, nondistended, positive bowel sounds Extremities: 1-2 + edema now mostly below the knees. Skin: No rash on visible skin Objective Data Vital Signs Vital Signs: Vital Signs - 24 hr 02/20/21 10:35 02/20/21 12:00 02/20/21 12:32 Temperature Pulse Rate 59 L Respiratory Rate Blood Pressure 84/42 L 98/50 L Pulse Oximetry 02/20/21 14:34 02/20/21 16:00 02/20/21 20:00 Temperature 36.7 C Pulse Rate 96 56 L 68 Respiratory Rate 12 Blood Pressure 102/54 L Pulse Oximetry 97 02/20/21 22:00 02/21/21 00:00 02/21/21 04:00 Temperature 36.5 C Pulse Rate 73 57 L 67 Respiratory Rate 18 Blood Pressure 102/83 Pulse Oximetry 98 02/21/21 06:00 Temperature 36.3 C L Pulse Rate 76 Respiratory Rate 18 Blood Pressure 116/78 Pulse Oximetry 97 Intake/Output Intake/Output: Intake & Output 02/18/21 02/19/21 02/20/21 02/21/21 23:59 23:59 23:59 23:59 Intake Total 820 1622 1620 240 Output Total 700 1200 700 Balance 120 1622 420 -460 Meds/Results Medications: Active Medications Generic Name Dose Route Start Last Admin Trade Name Freq PRN Reason Stop Dose Admin Acetaminophen 650 mg 02/18/21 08:10 02/20/21 21:51 Acetaminophen 325 Mg Tablet PO 650 mg Q4H PRN Administration Pain 1-3 Acetaminophen/Codeine Phosp
--- NOTE | 2021-02-21 10:19 | PM.PNNEP ---
Progress Note: A&P Assessment and Plan (1) BENJI (acute kidney injury): Code(s): N17.9 - Acute kidney failure, unspecified Status: Acute Assessment and Plan: resolved due to diuretics(?) follow trend with ongoing diuretic therapy Okay for discharge from the kidney standpoint when others are ready as well. (2) Hyponatremia: Code(s): E87.1 - Hypo-osmolality and hyponatremia Status: Acute Assessment and Plan: this is chronic. improving if not stable with current interventions possibly related to liver disease along with fluid retention TSH okay; cortisol lowish so will check stim test UPEP and SPEP pending may be related to underlying malignancy as well (3) Fluid overload: Code(s): E87.70 - Fluid overload, unspecified Status: Acute Assessment and Plan: quite severe but mainly localized to lower extremities this could be secondary to his large pelvic mass with associated compression of veins/lymphatics renal ultrasound normal; Echo pending only mild proteinuria - 260mg by random check continue IV diuretics as is for now (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 Simmons on chemotherapy Will continue to follow. Subjective Date/time seen: 02/21/21 10:19 Interval history: Feels good today. Swelling is doing so much better. He is eating well. Blood pressure has been better overnight and this morning. Exam Narrative: General: WD/WN male in NAD Heart: IRRR, normal S1 and S2; no rub Lungs: clear to auscultation Abdomen: soft, nontender, nondistended, positive bowel sounds Extremities: 1-2 + edema now mostly below the knees. Skin: No rash on visible skin Objective Data Vital Signs Vital Signs: Vital Signs - 24 hr 02/20/21 10:35 02/20/21 12:00 02/20/21 12:32 Temperature Pulse Rate 59 L Respiratory Rate Blood Pressure 84/42 L 98/50 L Pulse Oximetry 02/20/21 14:34 02/20/21 16:00 02/20/21 20:00 Temperature 36.7 C Pulse Rate 96 56 L 68 Respiratory Rate 12 Blood Pressure 102/54 L Pulse Oximetry 97 02/20/21 22:00 02/21/21 00:00 02/21/21 04:00 Temperature 36.5 C Pulse Rate 73 57 L 67 Respiratory Rate 18 Blood Pressure 102/83 Pulse Oximetry 98 02/21/21 06:00 Temperature 36.3 C L Pulse Rate 76 Respiratory Rate 18 Blood Pressure 116/78 Pulse Oximetry 97 Intake/Output Intake/Output: Intake & Output 02/18/21 02/19/21 02/20/21 02/21/21 23:59 23:59 23:59 23:59 Intake Total 820 1622 1620 240 Output Total 700 1200 700 Balance 120 1622 420 -460 Meds/Results Medications: Active Medications Generic Name Dose Route Start Last Admin Trade Name Freq PRN Reason Stop Dose Admin Acetaminophen 650 mg 02/18/21 08:10 02/20/21 21:51 Acetaminophen 325 Mg Tablet PO 650 mg Q4H PRN Administration Pain 1-3 Acetaminophen/Codeine Phosphate 1 tab 02/18/21 08:22 Acetaminophen/Codeine (*Crx) 300/30 Mg Tablet PO Q8H PRN Pain 4-6 Carvedilol 6.25 mg 02/18/21 09:00 02/20/21 08:27 Carvedilol 6.25 Mg Tablet PO 6.25 mg BID AMA Administration Doxazosin Mesylate 4 mg 02/18/21 09:00 02/21/21 08:34 Doxazosin Mesylate 4 Mg Tablet PO 4 mg Q12HR AMA Administration Duloxetine HCl 30 mg 02/18/21 09:00 02/21/21 08:34 Duloxetine Hcl 30 Mg Capsule.Dr PO 30 mg DAILY AMA Administration Furosemide 80 mg 02/18/21 18:30 02/20/21 08:30 Furosemide Inj 100 Mg/10 Ml Vial IV PUSH 80 mg 0630,1830 AMA Administration Albumin Human 50 mls @ 50 mls/hr 02/18/21 18:00 02/20/21 05:40 Albutein IVPB 50 mls/hr Q12H AMA Administration Lisinopril 40 mg 02/18/21 21:00 02/20/21 21:49 Lisinopril 20 Mg Tablet PO 40 mg HS AMA Administration Miconazole Nitrate 1 applic
[2021-02-21] MEDS: ACETAMINOPHEN/CODEINE (*CRX) 300/30 MG TABLET 1 TAB PO (11:16)
[2021-02-21] MEDS: COSYNTROPIN 0.25 MG/ML VIAL IV PUSH (13:18)
[2021-02-21] MEDS: WARFARIN (*PBKC) 5 MG TABLET PO (17:42)
--- NOTE | 2021-02-21 18:16 | PM.IMPN ---
Progress Note: A&P Assessment and Plan (1) Fluid overload: Code(s): E87.70 - Fluid overload, unspecified Status: Acute Assessment and Plan: Could be secondary to acute Diastolic CHF exacerbation vs Liver Cirrhosis fluid overload vs pelvic/scrotal mass pressing on venous system of extremities vs chemotherapy reaction. Patient states he has been drinking a lot of water at home. He was never told to be on any type of fluid restriction. His diuretics were increased as an outpatient without any improvement of symptoms. Cardiology evaluated the patient and does not believe this is related to congestive heart failure. Believe it is secondary to his malignancy causing venous insufficiency. Fluid restriction 1500 cc Echocardiogram showed normal EF 60-65%, mild to moderate LVH, severely enlarged left and right atrial chambers, mild aortic valve stenosis, moderate tricuspid valve regurgitation, moderate pulmonary hypertension. The patient had been on IV Lasix 80 mg b.i.d., IV albumin to help keep his pressure, and spironolactone 50 mg twice daily 02/20/21-patient became hypotensive. Diuresis stopped. He was given 500 cc of IV normal saline with improvement of his blood pressure and symptoms. 02/21/21-patient's blood pressure has remained stable today. Discussed with Cardiology, Tali, who recommended starting torsemide 40 mg b.i.d. and continue Spirolactone 50 mg BID for cirrhosis/diuresis/potassium and to watch him overnight. Will give 1st dose now and repeat BMP and magnesium in the morning. Continue monitoring blood pressure. Continue to recommend elevation and compression of lower extremities. * Edinson hose and Mendoza wraps have caused him pain so he has not worn them. Hopefully can tolerate them once edema goes down. Continue with elevation when sitting or laying down. Continue monitoring renal function, electrolytes, replenish if needed, intake, output, weights daily. (2) BENJI (acute kidney injury): Code(s): N17.9 - Acute kidney failure, unspecified Status: Acute Assessment and Plan: Creatinine on arrival was elevated at 1.5, probably from intravascular dehydration. He was given IV albumin prior to diuresis and improved to 1.1. Cr this morning while diuresis on hold is 1.0. Stable. Renal ultrasound showing normal kidneys. No hydronephrosis. Continue monitoring renal function with diuresis. Appreciate Nephrology's consultation. (3) Cardiomegaly: Code(s): I51.7 - Cardiomegaly Status: Acute Assessment and Plan: Echocardiogram showed normal EF 60-65%, mild to moderate LVH, severely enlarged left and right atrial chambers, mild aortic valve stenosis, moderate tricuspid valve regurgitation, moderate pulmonary hypertension. (4) Hyponatremia with excess extracellular fluid volume: Code(s): E87.1 - Hypo-osmolality and hyponatremia Status: Acute Assessment and Plan: Patient's history of SIADH. This is multifactorial could be from cirrhosis versus diuresis verses congestive heart failure verses fluid overload verses cancer. Sodium stable at 133 Continue monitoring sodium levels and appreciate Nephrology input. (5) Hepatic cirrhosis: Code(s): K74.60 - Unspecified cirrhosis of liver Status: Acute Assessment and Plan: Could be contributing to fluid overload status. Continue spironolactone to help with diuresis. Having regular bowel movements at this time. Will need to make sure it stays consistent. (6) Atrial fibrillation: Code(s): I48.91 - Unspecified atrial fibrillation Status: Acute Assessment and Plan: Heart rate controlled at this time. On Warfarin. INR in therapeutic range.
[2021-02-21] MEDS: TORSEMIDE 20 MG TABLET 40 MG PO (21:29)
[2021-02-21] MEDS: SPIRONOLACTONE 50 MG TABLET PO (21:31)
[2021-02-21] MEDS: rOPINIRole HCL 1 MG TABLET PO (21:31)
[2021-02-21] MEDS: lisinopriL 20 MG TABLET 40 MG PO (21:31)
[2021-02-22] VITALS: PULSE 67
[2021-02-22] MEDS: ACETAMINOPHEN/CODEINE (*CRX) 300/30 MG TABLET 1 TAB PO (03:42)
[2021-02-22 04:00] VITALS: PULSE 66
[2021-02-22 06:00] VITALS: BP 110/65; PULSE 79; RESP 16; TEMP 36.2; O2SAT 98
[2021-02-22 06:16] LABS: Hematocrit 27.4 % (42.0-52.0); Hemoglobin 8.4 g/dL (14.0-18.0); Mean Corpuscular HGB Conc 30.7 g/dl (32-36); Mean Corpuscular Hemoglobin 29.6 pg (26-34); Mean Corpuscular Volume 96.5 fl (80-100); Mean Platelet Volume 9.2 fl (7.4-10.4); Platelet Count Result 177 k/mm3 (150-375); Red Blood Count 2.84 M/mm3 (4.6-6.20); Red Cell Distribution Width 19.8 % (11.5-14.5); White Blood Count 11.4 K/mm3 (4.5-10.0)
[2021-02-22 06:35] LABS: Albumin Level 2.4 g/dL (3.5-5.1); Anion Gap -2 mmol/L (8-16); Blood Urea Nitrogen 31 mg/dL (9-20); Calcium 8.1 mg/dL (8.4-10.2); Carbon Dioxide 36 mmol/L (22-30); Chloride 99 mmol/L (98-107); Estimated CRCL calculation 64 ml/min; Estimated Glomerular Filt Rate > 60; Glucose 91 mg/dL (65-110); Phosphorus 2.7 mg/dL (2.5-4.5); Potassium 3.8 mmol/L (3.4-5.0); Sodium 133 mmol/L (137-145)
[2021-02-22 06:37] LABS: Anion Gap -1 mmol/L (8-16); Blood Urea Nitrogen 32 mg/dL (9-20); Calcium 7.9 mg/dL (8.4-10.2); Carbon Dioxide 35 mmol/L (22-30); Chloride 98 mmol/L (98-107); Estimated CRCL calculation 64 ml/min; Estimated Glomerular Filt Rate > 60; Glucose 90 mg/dL (65-110); Sodium 132 mmol/L (137-145)
--- NOTE | 2021-02-22 07:35 | PCOTNOTE ---
The OT treatment on 02/21/21 was unable to be completed due to the holiday. Will continue plan of care.
--- NOTE | 2021-02-22 09:17 | P.PNIM_ITS ---
Progress Note: A&P Assessment and Plan (1) Fluid overload: Code(s): E87.70 - Fluid overload, unspecified Status: Acute Assessment and Plan: Could be secondary to acute Diastolic CHF exacerbation vs Liver Cirrhosis fluid overload vs pelvic/scrotal mass pressing on venous system of extremities vs chemotherapy reaction. Patient states he has been drinking a lot of water at home. He was never told to be on any type of fluid restriction. His diuretics were increased as an outpatient without any improvement of symptoms. * Cardiology evaluated the patient and does not believe this is related to congestive heart failure. Believe it is secondary to his malignancy causing venous insufficiency. * Fluid restriction 1500 cc * Echocardiogram showed normal EF 60-65%, mild to moderate LVH, severely enlarged left and right atrial chambers, mild aortic valve stenosis, moderate tricuspid valve regurgitation, moderate pulmonary hypertension. * The patient had been on IV Lasix 80 mg b.i.d., IV albumin to help keep his pressure, and spironolactone 50 mg twice daily * 02/20/21-patient became hypotensive. Diuresis stopped. He was given 500 cc of IV normal saline with improvement of his blood pressure and symptoms. * 02/21/21-patient's blood pressure has remained stable today. Discussed with Cardiology, Tali, who recommended starting torsemide 40 mg b.i.d. and continue Spirolactone 50 mg BID for cirrhosis/diuresis/potassium and to watch him overnight. Will give 1st dose now and repeat BMP and magnesium in the morning. * Continue monitoring blood pressure. * Continue to recommend elevation and compression of lower extremities. * * Edinson hose and Mendoza wraps have caused him pain so he has not worn them. Hopefully can tolerate them once edema goes down. * Continue with elevation when sitting or laying down. Continue monitoring renal function, electrolytes, replenish if needed, intake, output, weights daily. (2) BENJI (acute kidney injury): Code(s): N17.9 - Acute kidney failure, unspecified Status: Acute Assessment and Plan: Creatinine on arrival was elevated at 1.5, probably from intravascular dehydration. * He was given IV albumin prior to diuresis and improved to 1.1. * Cr this morning while diuresis on hold is 1.0. Stable. * Renal ultrasound showing normal kidneys. No hydronephrosis. Continue monitoring renal function with diuresis. Appreciate Nephrology's consultation. (3) Cardiomegaly: Code(s): I51.7 - Cardiomegaly Status: Acute Assessment and Plan: Echocardiogram showed normal EF 60-65%, mild to moderate LVH, severely enlarged left and right atrial chambers, mild aortic valve stenosis, moderate tricuspid valve regurgitation, moderate pulmonary hypertension. (4) Hyponatremia with excess extracellular fluid volume: Code(s): E87.1 - Hypo-osmolality and hyponatremia Status: Acute Assessment and Plan: Patient's history of SIADH. This is multifactorial could be from cirrhosis versus diuresis verses congestive heart failure verses fluid overload verses cancer. * Sodium stable at 133 Continue monitoring sodium levels and appreciate Nephrology input. (5) Hepatic cirrhosis: Code(s): K74.60 - Unspecified cirrhosis of liver Status: Acute Assessment and Plan: Could be contributing to fluid overload status. Continue spironolactone to help with diuresis. Having regular
[2021-02-22] MEDS: TORSEMIDE 20 MG TABLET 40 MG PO (09:22)
[2021-02-22] MEDS: DULoxetine HCL 30 MG CAPSULE.DR PO (09:22)
[2021-02-22] MEDS: DOXAZOSIN MESYLATE 4 MG TABLET PO (09:23)
[2021-02-22] MEDS: SPIRONOLACTONE 50 MG TABLET PO (09:24)
[2021-02-22] MEDS: NEOMYCIN/POLYMYXIN/BACITRACIN OINTMENT 15 GM TUBE 1 APPLIC TOPICAL (09:24)
[2021-02-22] MEDS: predniSONE 10 MG TABLET PO (09:24)
--- NOTE | 2021-02-22 10:07 | PM.PNCARD ---
Progress Note: A&P Assessment and Plan (1) Bradycardia: Code(s): R00.1 - Bradycardia, unspecified Status: Acute Assessment and Plan: Transient hypotension and bradycardia on 02/20/2021 presumably due to aggressive diuresis, resolved. Some lateral T wave changes noted on EKG but no CP. Will resume carvedilol at a lower dose, 3.125 mg b.i.d.. Patient is able to check his heart rate and blood pressure at home. If systolic blood pressures less than 100, he should call Dr. Mckay or myself and we will reduce the torsemide dose. (2) Atrial fibrillation: Code(s): I48.91 - Unspecified atrial fibrillation Status: Acute Assessment and Plan: Longstanding history of atrial fibrillation, rate controlled. Resume carvedilol at a lower dose, 3.125 mg b.i.d., and follow heart rate and blood pressure as an outpatient (3) Lower extremity edema: Code(s): R60.0 - Localized edema Status: Acute Assessment and Plan: Probably secondary to compression by the tumor and cirrhosis; could have some diastolic CHF with pro-BNP 7800, but trivial pleural effusions, no shortness of breath, clear lungs etc. make that less likely. In any case, he seems to be improving with lower extremity elevation and diuretics. Hypokalemia resolved. Recommend a BMP in about a week. 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 Recommend he follow-up with Dr. Charlene allen. (6) Abnormal echocardiogram: Code(s): R93.1 - Abnormal findings on diagnostic imaging of heart and coronary circulation Status: Acute Assessment and Plan: Possible mass in the aorta versus artifact. 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 Recommend continuing to maintain good BP control. Subjective Date/time seen: 02/22/21 10:07 Interval history: Follow-up for lower extremity edema, history sarcoma, cirrhosis, chronic atrial fibrillation. 02/19/2021: Patient feels he is urinating a lot with the furosemide 80 mg IV push b.i.d. and his legs are better. He does note improvement with keeping them elevated and is now wearing Edinson hose. He has tighter compression stockings at home but they are hard to put on. Up in chair earlier today. Date of Service 02/20/2021: Had an episode of low BP (80/41 mmHg) and bradycardia when sitting on edge of bed today, felt weak and lightheaded, no CP or SOB. Hypokalemia noted. No h/o dizziness or weak spells at home. I/O's not well documented but pt says he is urinating a lot. Tele: a fib rate usually in 60's, was lower this a.m. occ declining into the 40's and 837 BPM range. Tedhose and Mendoza wraps hurt his legs. Carvedilol and IV furosemide held. CTA of the aorta requested because of aortic arch abnormality noted on the echocardiogram. EKG: a fib rate 63, LAHB, slight lateral T wave inversion V5 and V6 which is new Date of service 02/22/2021: Blood pressure improved yesterday and after discussion with MAYA Valerio are we decided to resume diuretic with torsemide 40 mg p.o. b.i.d.. Patient continues to diurese well and heart rate and blood pressure remain good. Telemetry shows AFib rate 70s. He has never had any chest pain and has had no dizziness. 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 Review of Systems Constitutional: Constitutional: Reports fatigue Eyes: Eyes: Reports no additional eye complaints ENT: Reports system reviewed and no add
--- NOTE | 2021-02-22 11:04 | PM.DS ---
DS: Admitting Diagnosis Discharge Date 02/22/2021 Admitting Diagnosis anasarca DS: Discharge Diagnosis Discharge Diagnosis (1) Fluid overload: Code(s): E87.70 - Fluid overload, unspecified Status: Acute Assessment and Plan: Could be secondary to acute Diastolic CHF exacerbation vs Liver Cirrhosis fluid overload vs pelvic/scrotal mass pressing on venous system of extremities vs chemotherapy reaction. Patient states he has been drinking a lot of water at home. He was never told to be on any type of fluid restriction. His diuretics were increased as an outpatient without any improvement of symptoms. Cardiology evaluated the patient and does not believe this is related to congestive heart failure. Believe it is secondary to his malignancy causing venous insufficiency. Fluid restriction 1500 cc Echocardiogram showed normal EF 60-65%, mild to moderate LVH, severely enlarged left and right atrial chambers, mild aortic valve stenosis, moderate tricuspid valve regurgitation, moderate pulmonary hypertension. The patient was started on IV Lasix 80 mg b.i.d., IV albumin to help keep his pressure, and spironolactone 50 mg twice daily 02/20/21-patient became hypotensive. Diuresis stopped. He was given 500 cc of IV normal saline with improvement of his blood pressure and symptoms. 02/21/21-patient's blood pressure has remained stable since then. Discussed with Cardiology, Tali, who recommended starting torsemide 40 mg b.i.d. and continue Spirolactone 50 mg BID for cirrhosis/diuresis/potassium and to watch him overnight. his blood pressure remains stable and continue to diurese. Continue monitoring blood pressure. Continue to recommend elevation and compression of lower extremities. * Edinson hose and Mendoza wraps have caused him pain so he has not worn them. Hopefully can tolerate them once edema goes down. Continue with elevation when sitting or laying down. Will check BMP in 1 week. Will hold his amlodipine at discharge Lasix switched to torsemide at the time of discharge. Increased dose of Aldactone at the time of discharge. Potassium has been normal throughout the hospital stay. Hold the potassium supplement at discharge will recheck the BMP in a week for further direction. (2) BENJI (acute kidney injury): Code(s): N17.9 - Acute kidney failure, unspecified Status: Acute Assessment and Plan: Creatinine on arrival was elevated at 1.5, probably from intravascular dehydration. He was given IV albumin prior to diuresis and improved to 1.1. Cr this morning while diuresis on hold is 1.0. Stable. Renal ultrasound showing normal kidneys. No hydronephrosis. Continue monitoring renal function with diuresis. Appreciate Nephrology's consultation. Okay to discharge per Nephrology (3) Cardiomegaly: Code(s): I51.7 - Cardiomegaly Status: Acute Assessment and Plan: Echocardiogram showed normal EF 60-65%, mild to moderate LVH, severely enlarged left and right atrial chambers, mild aortic valve stenosis, moderate tricuspid valve regurgitation, moderate pulmonary hypertension. (4) Hyponatremia with excess extracellular fluid volume: Code(s): E87.1 - Hypo-osmolality and hyponatremia Status: Acute Assessment and Plan: Patient's history of SIADH. This is multifactorial could be from cirrhosis versus diuresis verses congestive heart failure verses fluid overload verses cancer. Sodium stable at 133 Continue monitoring sodium levels and appreciate Nephrology input. (5) Hepatic cirrhosis: Code(s): K74.60 - Unspecified cirrhosis of liver Status: Acute Assessment and Plan: Could be contributing to fluid overload status. Continue spironolactone to help with diuresis. Having
[2021-02-22 11:28] VITALS: PULSE 79
[2021-02-23 13:22] LABS: Kappa\\Lambda Light Chains 1.04 (0.26-1.65); Lambda Light Chain 50.2 mg/L (5.7-26.3)
[2021-02-23 21:36] LABS: Creatinine, Random Urine 41 mg/dL (20-320); Total Protein/Creatinine Ratio 171 mg/g creat (22-128)
[2021-02-24 06:14] LABS: Albumin 2.5 g/dL (3.8-4.8); Alpha 1 Globulin 0.3 g/dL (0.2-0.3); Alpha 2 Globulin 0.4 g/dL (0.5-0.9); Beta 1 Globulin 0.2 g/dL (0.4-0.6); Gamma Globulin 0.7 g/dL (0.8-1.7); Protein, Total 4.4 g/dL (6.1-8.1)
[2021-02-24 06:26] LABS: Osmolality, Urine 325 mOsm/kg (50-1200)
== END 2021-02-22 12:05 | disposition home or self-care (01) | DRG 641 ==
LOC: ANHED 17:20 → ANH3MEDSUR 18:24
PROVIDERS: Internal Medicine; Internal Medicine Nephrology; Physician Assistant; Admitting Provider Internal Medicine; Emergency Provider Emergency Medicine; PCP Internal Medicine; Visit Provider Internal Medicine
DX: E87.70 Fluid overload, unspecified (principal); N17.9 Acute kidney failure, unspecified; C49.9 Malignant neoplasm of connective and soft tissue, unspecified; E22.2 Syndrome of inappropriate secretion of antidiuretic hormone; I11.9 Hypertensive heart disease without heart failure; K74.60 Unspecified cirrhosis of liver; D63.0 Anemia in neoplastic disease; J44.9 Chronic obstructive pulmonary disease, unspecified; I48.91 Unspecified atrial fibrillation; R00.1 Bradycardia, unspecified; E78.5 Hyperlipidemia, unspecified; R60.0 Localized edema; R93.1 Abnormal findings on diagnostic imaging of heart and coronary circulation; M54.2 Cervicalgia; Z79.01 Long term (current) use of anticoagulants; Z79.899 Other long term (current) drug therapy; Z88.2 Allergy status to sulfonamides; Z87.891 Personal history of nicotine dependence
CPT/HCPCS: 36415; 71046; 71250; 71275; 74176; 76775; 80048; 80053; 80069; 81003; 81050; 82533; 82570; 83735; 83880; 83883; 83930; 83935; 84155; 84156; 84165; 84166; 84300; 84443; 84484; 85025; 85027; 85610; 85730; 93005; 93306; 93970; 94640; 96365; 96366; 96375; 96376; 97110; 97116; 97161; 97165; 97530; 99285; A9270; G0378; J0834; J1940; J3475; J7040; J7512; P9047; Q9967

== ENCOUNTER 2021-03-02 10:19 | Outpatient (CLI) | payer MEDICARE, SELFPAY ==
--- NOTE | ~2021-03-02 | CT_ITS ---
EXAMINATION: CT chest abdomen pelvis w con DATE: 03/02/2021 12:23 INDICATION: Dedifferentiated liposarcoma TECHNIQUE: Computed tomography (CT) of the chest, abdomen, and pelvis was performed with 100 mL Omnip aque-350 intravenous contrast. Automated exposure control and iterative reconstruction technique were employed. The dose-length product was 1582.79 mGy-cm. COMPARISON: 11/19/2020, 02/18/2021 and 02/21/2021 FINDINGS: CHEST CT: Mild emphysema. Calcified left lower lobe nodule and calcified left hilar and mediastinal lymph nodes consistent with old granulomatous disease. No other suspicious pulmonary nodules, pneumonia or pulmo nary edema. Prior bilateral pleural effusions have resolved. Cardiomegaly with biatrial enlargement. Small amount of atherosclerotic coronary artery calcification. Aortic valve calcification. Thoracic a dayo is normal in caliber with no dissection. No pathologically enlarged thoracic lymphadenopathy. Mi ld thoracic spondylosis with chronic mild anterior wedging of a couple mid thoracic vertebral bodies. ABDOMEN/PELVIS CT: Mild liver surface nodularity consistent with cirrhosis. There are couple cysts at the cephalad left hepatic lobe measuring up to 1.6 similar in maximal diameter. Gallbladder and right adrenal gland are normal. No interval change in a couple subcentimeter nodules at the inferior left thyroid unchanged since 01/20/2018 and without FDG uptake on prior PET/CT most likely small adenomas. Dystrophic calcific ations in the pancreas likely sequela of chronic pancreatitis. Multiple splenic calcific lesions cons istent with old granulomatous disease. 1 mm nonobstructing right renal stone. A few subcentimeter low -attenuation left renal cysts. There are few scattered colonic diverticula without adjacent inflammat ory change to suggest diverticulitis. Normal appendix. No bowel obstruction. Bladder is normal. There is calcified atherosclerosis of the aorta and many of the other arteries. 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 Again seen is a heterogeneously enhancing m ass with a few sutures small cystic components which originates at the base of the penis extending in to the right hemiscrotum and anterolaterally on the right anterior pelvic wall. This is unchanged sin ce the most recent CT and as previously detailed as mild increase in size since 11/19/2020. For referen ce on the axial images at the level of the pubic symphysis the mass has increased from 14.4 x 6.2 cm on 11/19/2020 to currently measuring 16.1 x 6.2 cm. The maximal length of the mass measured on the oziel nal images is increased from 24.0 to 27.4 cm. No pathologically enlarged abdominal or pelvic lymphade nopathy. Small intramuscular lipoma along the anterior margin of the distal left iliacus muscle. Kinjal re lumbar spondylosis. IMPRESSION: 1. Mild increase in size since 11/19/2020 in a heterogeneously enhancing mass extending from the right hemiscrotum and the base of the penis along the left anterior anterior pelvic wall consistent with gi denise history of liposarcoma. No evident metastatic disease. 2. Cirrhosis. Reviewed, dictated and finalized at location A. IMPRESSION: 1. Mild increase in size since 11/19/2020 in a heterogeneously enhancing mass ext ending from the right hemiscrotum and the base of the penis along the left ante rior anterior pelvic wall consistent with given history of liposarcoma. No evid ent metastatic disease. 2. Cirrhosis.
== END 2021-03-02 10:20 | disposition home or self-care (01) ==
PROVIDERS: PCP Internal Medicine
DX: C49.9 Malignant neoplasm of connective and soft tissue, unspecified (principal); K74.60 Unspecified cirrhosis of liver
CPT/HCPCS: 71260; 74177; Q9967

== ENCOUNTER 2021-03-05 11:18 | Inpatient (IN) | payer MEDICARE, SELFPAY ==
[2021-03-05] VITALS (20 sets, daily range): BP systolic 72–122; BP diastolic 32–90; PULSE 64–101; RESP 15–26; TEMP 35.9–36.8; O2SAT 95–100; BMI 28.0
--- NOTE | ~2021-03-05 | CT_ITS ---
EXAMINATION: CT abdomen pelvis wo con DATE: 03/05/2021 12:54 INDICATION: Generalized abdominal pain, history of abdominal wall sarcoma. TECHNIQUE: Computed tomography (CT) of the abdomen and pelvis was performed without intravenous contr ast. The dose-length product (DLP) was 1160.73 mGy-cm. Automated exposure control and iterative recon struction technique were employed. COMPARISON: 03/02/2021 FINDINGS: Minimal dependent atelectasis is present in the lung bases. Cardiomegaly is noted. The live r surface is nodular. The gallbladder is mildly distended. Punctate calcifications in an otherwise no rmal spleen likely represent healed granulomatous disease. Punctate calcification in the tail of the pancreas is consistent with chronic pancreatitis. The adrenal glands are unremarkable. Cysts of the k idneys measure up to 11 mm on the left. There is calcified atherosclerosis of the aorta and many of t he other arteries. 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 Agai n seen is a heterogeneous mass arising from the right scrotum and base of the penis which extends sup eriorly in the anterior abdominal wall. No significant change is identified. There is severe lumbar s pondylosis. An intramuscular lipoma is again noted in the left iliac is muscle. IMPRESSION: 1. No acute findings. 2. Heterogeneous mass of the right scrotum, base of the penis, and anterior abdominal wall consistent with known dedifferentiated liposarcoma. 3. Cirrhosis. Reviewed, dictated and finalized at location A. IMPRESSION: 1. No acute findings. 2. Heterogeneous mass of the right scrotum, base of the penis, and anterior abd ominal wall consistent with known dedifferentiated liposarcoma. 3. Cirrhosis.
--- NOTE | ~2021-03-05 | XR_ITS ---
EXAMINATION: XR chest 1V INDICATION: Chest pain after fall TECHNIQUE: AP view of the chest is obtained. COMPARISON: 02/17/2021 FINDINGS: The lungs are free of acute opacities. There is no pleural effusion or pneumothorax. The ca rdiomediastinal silhouette is normal. IMPRESSION: 1. No acute cardiopulmonary abnormality. Reviewed, dictated and finalized at location A.
--- NOTE | ~2021-03-05 | CT_ITS ---
EXAMINATION: CT brain wo con INDICATION: Head injury COMPARISON: None TECHNIQUE: Standard unenhanced head CT. The dose-length product (DLP) was 681.00 mGy-cm. The mA was a djusted according to patient size. Iterative reconstruction technique was employed. FINDINGS: There is no acute intraparenchymal hemorrhage. No evidence of mass lesion. No evidence of a cute infarction. There is mild periventricular and subcortical hypodensity probably related to small vessel ischemic disease. There is mild prominence of the sulci and ventricles related to cerebral atr ophy. Intracranial calcified cerebral atherosclerosis is noted. There are no extra-axial collections. There is no mass effect or midline shift. Changes in the globes are likely from ocular lens surgery. There is wall thickening and complete opacification of the left maxillary sinus, consistent with chr onic sinusitis. IMPRESSION: 1. No acute intracranial abnormality. 2. Age related findings. 3. Chronic left maxillary sinusitis. Reviewed, dictated and finalized at location A.
--- NOTE | ~2021-03-05 | XR_ITS ---
XR chest 1V portable 03/09/2021 09:45 Indication: Rising white blood cell count. Dyspnea. Procedure: AP portable chest Comparison: Comparison to multiple prior studies sequentially, with oldest reviewed study dated 02/2020. Findings: Developing bibasilar airspace disease. Cardiomegaly. Small left pleural effusion. No pneumo thorax. No acute osseous abnormality. Impression: 1: Developing bibasilar airspace disease, consistent with pneumonia. 2: Small left pleural effusion. Reviewed, dictated and finalized at location A. Impression: 1: Developing bibasilar airspace disease, consistent with pneumonia. 2: Small left pleural effusion.
--- NOTE | ~2021-03-05 | CT_ITS ---
EXAMINATION: CT cervical spine wo con DATE: 03/05/2021 11:55 INDICATION: Neck pain TECHNIQUE: Computed tomography (CT) of the cervical spine was performed without intravenous contrast. The dose-length product (DLP) was 441.52 mGy-cm. Automated exposure control and iterative reconstruc tion technique were employed. COMPARISON: None FINDINGS: There is no fracture, dislocation, or subluxation. The vertebral body heights are maintaine d. The odontoid is intact. There is moderate loss of intervertebral disc space height at C3-4. There is severe multilevel facet and uncovertebral joint osteoarthritis. There is mild emphysema in the vis ualized lung apices. IMPRESSION: 1. Moderate cervical spondylosis without acute findings. Reviewed, dictated and finalized at location A.
--- NOTE | 2021-03-05 11:21 | ECG_ITS ---
Measurements Intervals [place] Rate: 79 P: IA: 0 QRS: -48 QRSD: 117 T: 95 QT: 386 QTc: 444 Interpretive Statements ATRIAL FIBRILLATION LEFT BUNDLE BRANCH BLOCK BASELINE ARTIFACT- I, III, AVL ABNORMAL ECG Electronically Signed On 03-05-2021 14:21:41 CDT by Raman Echavarria D.O.
--- NOTE | 2021-03-05 11:25 | ED.WEAKNESS ---
HPI - Weakness General Chief complaint: Weakness Stated complaint: fall Time Seen by Provider: 03/05/21 11:21 Source: RN notes reviewed History of Present Illness HPI Narrative: Patient presents emergency department from home for weakness. Patient states has been feeling progressively more weak over the past 1 week states that he is so weak he has been unable to even keep his head up he states that last night he did fall and EMS came out notes an abrasion to his back but denies any other trauma or injury patient states has been having more difficult time getting up and walking around his house he denies any fevers or chills chest pain shortness of breath abdominal pain nausea vomiting or any other symptoms Related Data Home Medications Medication Instructions Recorded Confirmed Centrum Silver Men 1 tablet PO DAILY 03/25/20 02/17/21 Probiotic Colon Support 1 cap PO DAILY 03/25/20 02/17/21 acetaminophen-codeine 1 tablet PO Q8H PRN 03/25/20 02/17/21 cholecalciferol (vitamin D3) 50 mcg PO DAILY 03/25/20 02/17/21 doxazosin 4 mg PO BID 03/25/20 02/17/21 duloxetine 30 mg PO DAILY 03/25/20 02/17/21 lisinopril 40 mg PO HS 03/25/20 02/17/21 mesalamine 1.125 g PO DAILY 03/25/20 02/18/21 prednisone 10 mg PO DAILY 03/25/20 02/17/21 ropinirole 1 mg PO HS 03/25/20 02/17/21 tizanidine 2 mg PO HS PRN 03/25/20 02/17/21 warfarin 5 mg PO HS 03/25/20 02/17/21 Allergies Allergy/AdvReac Type Severity Reaction Status Date / Time Sulfa (Sulfonamide Allergy Nausea Verified 03/31/20 18:55 Antibiotics) Review of Systems Review of Systems: Gen.: Denies fevers or chills Eyes: Denies eye pain or visual change ENT: Denies congestion Respiratory: Denies shortness of breath or cough CV: Denies chest pain or palpitations GI: Denies abdominal pain nausea, emesis or diarrhea Musculoskeletal: Denies back pain or muscle pain Neuro: Reports weakness Skin: Reports abrasion to back Except as documented, all other systems reviewed and negative REPLACED BY [facility] Past Medical History Medical History Atrial fibrillation COPD (chronic obstructive pulmonary disease) HTN (hypertension) Hyperlipidemia Overweight Scrotal mass Family History Family History Other No significant past medical history Social History Social History Smoking packs per day: 1 Smoking cigarettes per day: 20.0 Years smoked: 50 Smoking pack-years: 50.00 Smoking status: Former smoker Tobacco type: cigarettes Smoking end date: 02/17/21 Alcohol intake: current Drinks per week: 1 Substance use: never Gender identity (if verbalized by the patient): Male Spiritual care concerns: No Exam Narrative: APPEARANCE: No acute distress, nontoxic, resting in bed EYES: EOMI, PERRL HEENT: Normocephalic, atraumatic, OMM RESPIRATORY: No respiratory distress Clear to auscultation bilaterally with no rhonchi wheezing or rales. CARDIOVASCULAR: Regular rate and rhythm without murmurs rubs or gallops. ABDOMINAL: Soft, nontender, nondistended, no rebound or guarding Rectal: Small amount of soft brown stool that is Hemoccult positive MUSCULOSKELETAl: Moves all extremities. No clubbing, cyanosis or edema. NEURO: Awake and alert x 3. Following commands, speech normal, no focal deficits SKIN:: Warm, dry. Superficial abrasion over the left mid back with some surrounding ecchymosis no tenderness to palpation in this region, superficial abrasion of the right upper back in the region shoulder blade mild venous bleeding no foreign bodies no surrounding erythema, buttocks has 3 small pressure ulcers that are stage I PSYCHIATRIC: Normal affect/mood, Course Course Emergency Course: Called and discussed with MAYA Palomino for Dr. Aguero presentation work-up agrees with admission at this time. Agrees with plan for starting Zosyn with elev
[2021-03-05 11:32] LABS: Glucose Point of Care 76 mg/dl (65-105)
[2021-03-05] MEDS: SODIUM CHLORIDE 0.9% IV 1,000 ML 999 ML IV CONT ×3 (11:32→16:10)
--- NOTE | 2021-03-05 11:40 | PC.NURSE ---
Patient to CT on telemetry at this time.
[2021-03-05 11:51] LABS: Basophils Percent Auto 0.2 % (0.2-1.2); Hemoglobin 7.1 g/dL (14.0-18.0); Immature Granulocyte Absolute 0.33 K/mm3 (0.00-0.031); Immature Granulocyte Percent A 1.6 % (0-0.5); Lymphocytes Absolute Auto 2.35 K/mm3 (0.9-3.2); Lymphocytes Percent Auto 11.5 % (18.3-44.2); Mean Corpuscular HGB Conc 30.9 g/dl (32-36); Mean Corpuscular Hemoglobin 29.5 pg (26-34); Mean Corpuscular Volume 95.4 fl (80-100); Monocytes Absolute Auto 0.9 K/mm3 (0.1-0.6); Monocytes Percent Auto 4.2 % (2.6-8.5); Neutrophils Absolute Auto 16.8 K/mm3 (1.3-6.7); Neutrophils Percent Auto 82.5 % (45.5-73.1); Platelet Count Result 207 k/mm3 (150-375); Red Blood Count 2.41 M/mm3 (4.6-6.20); Red Cell Distribution Width 17.6 % (11.5-14.5); White Blood Count 20.4 K/mm3 (4.5-10.0)
[2021-03-05 12:05] LABS: Prothrombin Time 63.9 Seconds (11.1-14.7)
[2021-03-05 12:06] LABS: Partial Thromboplastin Time 74.9 SECONDS (22.3-36.8)
[2021-03-05 12:09] LABS: Alanine Aminotransferase 28 U/L (4-50); Albumin Level 2.5 g/dL (3.5-5.1); Alkaline Phosphatase 162 U/L (38-126); Anion Gap 10 mmol/L (8-16); Aspartate Amino Transferase 53 U/L (17-59); Bilirubin,Total 0.8 mg/dL (0.2-1.3); Blood Urea Nitrogen 59 mg/dL (9-20); Calcium 7.9 mg/dL (8.4-10.2); Carbon Dioxide 24 mmol/L (22-30); Chloride 98 mmol/L (98-107); Estimated CRCL calculation 36 ml/min; Estimated Glomerular Filt Rate 34; Glucose 77 mg/dL (65-110); Potassium 4.5 mmol/L (3.4-5.0); Sodium 132 mmol/L (137-145)
[2021-03-05 12:20] LABS: Lactic Acid Reflex 5.5 mmol/L (0.7-2.1)
[2021-03-05 12:23] LABS: NT Pro B Type Natriuretic Pept 4670 pg/mL (5-100); Troponin I 0.075 ng/mL (0.000-0.034)
[2021-03-05] MEDS: LIDOCAINE HCL 2% GEL UROJET 10 ML PKG (13:29)
[2021-03-05 14:48] LABS: Reflex Lactic Acid Yes or No Add Lactic
[2021-03-05 15:07] LABS: Add Urine Microscopic? NO; Appearance Urine Clear (Clear); Bilirubin Urine Negative (Negative); Blood Urine Negative (Negative); Color Urine Yellow (Yellow); Glucose Urine UA Negative (Negative); Ketones Urine Negative (Negative); Leukocyte Esterase Ur Negative LEU/UL (Negative); Nitrate Urine Negative (Negative); Protein Urine Negative (Negative); Specific Grav Ur 1.014 (1.001-1.035); Urobilinogen Urine Negative mg/dL (<2.0)
--- NOTE | 2021-03-05 16:00 | PC.NURSE ---
Patient is noted to have skin tear to left scapula, large abrasion with skin tear to left flank, and small skin tear to the right elbow. These three wounds were cleansed with the skintegrity wound cleanser, antibiotic ointment applied, and wounds dressed with non-stick telfa.
[2021-03-05] MEDS: PHYTONADIONE INJ 10 MG/ML AMP 5 MG SUB-Q (16:11)
[2021-03-05 16:30] LABS: Lactic Acid 0.9 mmol/L (0.7-2.1)
--- NOTE | 2021-03-05 18:06 | ADMGEN ---
This patient, Keith Wilson, was admitted to IMU Room 206-02. Patient/family oriented to hospital policies and general routines including ID bracelet, bed and alarms, visiting hours, pain management, procedures, bathroom and other care routines, personal items, smoking policy, room service/diet, and visiting hours. Information on how to activate the Rapid Response Team has been discussed. Patient/Family are encouraged to report perceived risks to care and to ask questions if they do not understand what they are told or what they should do.
[2021-03-05] MEDS: SODIUM CHLORIDE 0.9% IV 250 ML 30 ML IV CONT (18:39)
[2021-03-05] MEDS: TUBING, BLOOD PLUM PUMP TUBING 1 EACH XX (18:39)
--- NOTE | 2021-03-05 19:30 | PM.IMHP ---
H&P: HPI History of Present Illness Date/Time: 03/05/21 19:30 Chief Complaint: Weakness. Narrative: This is a 80-year-old male with paroxysmal atrial fibrillation on long-term anticoagulation, hypertension, Crohn's disease, cirrhosis, and liposarcoma who presented to the emergency department earlier today private vehicle from home for evaluation of weakness. The patient is known to the hospitalist service with a recent admission from 02/17/2021 to 02/22/2021 at which time he was admitted with marked edema felt to be stemming from his large pelvic mass with associated compression of vein/lymphatics. He was diuresed with Lasix and spironolactone and was also fluid restricted. During that stay he became hypotensive and diuresis was stopped and there were some changes made to his medications including torsemide, spironolactone, and carvedilol. His renal function improved with creatinine 1.0 on discharge. Imaging showed cardiomegaly an echocardiogram revealed normal LV systolic function with an EF of 60 to 65%, [id number] LVH, severe biatrial enlargement, mild aortic valve stenosis, moderate pulmonary hypertension. Imaging of his pelvic mass showed that his had increased in size and is my understanding that he has not been getting chemotherapy due to recent hospitalizations. In any event he reports progressive weakness since he has been at home, to the point where he is having a difficult time getting up out bed or the chair. He has also been getting very lightheaded and dizzy and in fact last night when he stood up from his chair he had a near syncopal episode and fell backwards, striking the left side of his back on the television console. EMS was summoned for lift assist but at that time he refused transport. He was still feeling very poorly this morning to the point where ?I could barely even lift my head up? and he decided to come in for evaluation. Is my understanding that his drove him to the hospital and that the patient had a near syncopal episode when he got out of the car. His blood pressure was as low as 72/32 in the emergency department but did improve with IV fluids. His hemoglobin and hematocrit were a bit lower than what they typically run and he mentions that he has had quite a bit of bleeding from the pressure ulcers on his buttocks as well as from the skin tears he sustained in his fall last night. He has not noticed blood in his stool or urine. His appetite remains poor with frequent nausea but no vomiting. He was constipated for many days and took a laxative though he tells me it worked too good as he has been having frequent loose stools. He denies fever, chills, and sweats. No vertigo. No sinus congestion, rhinorrhea, otalgia, or odynophagia. He denies focal weakness and paresthesias. No chest pain, pleuritic pain, shortness of breath, or cough. He denies dysuria and change in urine output. He does not monitor his blood pressures at home and has been taking his medications as prescribed. Review of Systems Review of Systems: Twelve systems were reviewed with pertinent positives and negatives as per HPI. No orthopnea or PND. He continues to have edema of the lower legs but reports that he does not get up from his chair much and he has difficulties elevating them. Except as documented, all other systems were reviewed and are negative. [facility] Past Medical History Medical History (Updated 03/06/21 @ 00:13 by Georgette Menard PA-C) Atrial fibrillation Benign prostatic hyperplasia Chronic anemia History of blood transfusions. Chronic anticoagulation Chronic low back pain Chronic obstructive pulmonary disease Cirrhosis Crohn's disease Eczema Hyperlipidemia Hypertension Liposarcoma of connective tissue Surgical History Surgical History (Updated 03/06/21 @ 00:06 by Georgette Menard PA-C) History of bilateral cataract extraction History of spinal surgery History of unilateral orchiectomy (03/31/20) Right orchiectomy. Family H
[2021-03-05] MEDS: SODIUM CHLORIDE 0.9% IV 1,000 ML 80 ML IV CONT (20:53)
[2021-03-05 21:50] LABS: Troponin I 0.063 ng/mL (0.000-0.034)
[2021-03-05] MEDS: ACETAMINOPHEN 325 MG TABLET 650 MG PO (22:47)
[2021-03-05 22:55] LABS: Hematocrit 22.7 % (42.0-52.0); Hemoglobin 7.2 g/dL (14.0-18.0)
[2021-03-05 23:06] LABS: Anion Gap 5 mmol/L (8-16); Blood Urea Nitrogen 52 mg/dL (9-20); Calcium 7.3 mg/dL (8.4-10.2); Carbon Dioxide 27 mmol/L (22-30); Chloride 104 mmol/L (98-107); Estimated CRCL calculation 37 ml/min; Estimated Glomerular Filt Rate 42; Glucose 84 mg/dL (65-110); Magnesium 1.8 mg/dL (1.6-2.3); Potassium 3.9 mmol/L (3.4-5.0); Sodium 136 mmol/L (137-145)
[2021-03-05 23:14] LABS: Prothrombin Time 68.2 Seconds (11.1-14.7)
[2021-03-05 23:18] LABS: INR 8.7
[2021-03-06] VITALS (25 sets, daily range): BP systolic 75–123; BP diastolic 42–78; PULSE 60–117; RESP 16–20; TEMP 36.1–37.2; O2SAT 96–100
[2021-03-06 04:10] LABS: Basophils Percent Auto 0.1 % (0.2-1.2); Eosinophils Absolute Auto 0.1 K/mm3 (0-0.3); Eosinophils Percent Auto 0.5 % (0-4.4); Hematocrit 23.1 % (42.0-52.0); Hemoglobin 7.2 g/dL (14.0-18.0); Immature Granulocyte Absolute 0.27 K/mm3 (0.00-0.031); Immature Granulocyte Percent A 1.7 % (0-0.5); Lymphocytes Absolute Auto 1.74 K/mm3 (0.9-3.2); Lymphocytes Percent Auto 11.1 % (18.3-44.2); Mean Corpuscular HGB Conc 31.2 g/dl (32-36); Mean Corpuscular Hemoglobin 28.9 pg (26-34); Mean Corpuscular Volume 92.8 fl (80-100); Mean Platelet Volume 9.5 fl (7.4-10.4); Monocytes Absolute Auto 0.7 K/mm3 (0.1-0.6); Monocytes Percent Auto 4.6 % (2.6-8.5); Neutrophils Absolute Auto 12.9 K/mm3 (1.3-6.7); Platelet Count Result 167 k/mm3 (150-375); Red Blood Count 2.49 M/mm3 (4.6-6.20); Red Cell Distribution Width 20.1 % (11.5-14.5); White Blood Count 15.7 K/mm3 (4.5-10.0)
[2021-03-06 04:28] LABS: Alanine Aminotransferase 25 U/L (4-50); Albumin Level 2.2 g/dL (3.5-5.1); Alkaline Phosphatase 128 U/L (38-126); Anion Gap 5 mmol/L (8-16); Aspartate Amino Transferase 57 U/L (17-59); Bilirubin,Total 1.3 mg/dL (0.2-1.3); Blood Urea Nitrogen 49 mg/dL (9-20); Calcium 7.4 mg/dL (8.4-10.2); Carbon Dioxide 27 mmol/L (22-30); Chloride 105 mmol/L (98-107); Estimated CRCL calculation 40 ml/min; Estimated Glomerular Filt Rate 45; Glucose 81 mg/dL (65-110); Potassium 3.7 mmol/L (3.4-5.0); Sodium 137 mmol/L (137-145)
[2021-03-06 04:44] LABS: INR 4.2; Prothrombin Time 38.9 Seconds (11.1-14.7)
[2021-03-06] MEDS: SODIUM CHLORIDE 0.9% IV 250 ML 30 ML IV CONT ×2 (06:00→12:07)
[2021-03-06 08:33] LABS: Free T4 Free Thyroxine Reflex 1.92 ng/dL (0.78-2.19)
--- NOTE | 2021-03-06 08:58 | PHAR ---
HOME MEDICATION VERIFIED BY PHARMACY: MESALAMINE ER CAPSULES 0.375GM TAKE 3 CAPSULES PO DAILY [id number]
[2021-03-06 09:42] LABS: Total Triiodothyronine (T3) 0.51 NG/ML (0.97-1.69)
[2021-03-06] MEDS: PHYTONADIONE ADULT INJ 10 MG in DEXTROSE 5% IN WATER 50 ML 100 MG IVPB (09:45)
[2021-03-06] MEDS: predniSONE 10 MG TABLET PO (09:48)
[2021-03-06] MEDS: OPTI-GEN TAB 1 TABLET PO (09:48)
[2021-03-06] MEDS: DULoxetine HCL 30 MG CAPSULE.DR PO (09:48)
[2021-03-06] MEDS: DOXAZOSIN MESYLATE 4 MG TABLET PO (09:48)
[2021-03-06] MEDS: carvediloL 3.125 MG TABLET PO (09:49)
[2021-03-06] MEDS: CHOLECALCIFEROL 1,000 UNITS TABLET 2000 UNITS PO (09:49)
[2021-03-06] MEDS: TIZANIDINE HCL 2 MG TABLET PO (09:49)
--- NOTE | 2021-03-06 10:24 | WPDGICN ---
Assessment and Plan Assessment and plan (1) Occult blood in stools: Code(s): R19.5 - Other fecal abnormalities Status: Acute Assessment and Plan: most likely from coumadin toxicity which is on hold now and patient received ffp and vit K patient denies any overt gib (ER physician found small amount of brown stool with occult blood after been tested) he has known Crohn's disease but denies any flare, in fact he says that has not given any trouble for long time. no need to repeat colonoscopy unless any new changes (last one 2018 and he is planning to see GI doctor at [facility]) (2) Acute on chronic anemia: Code(s): D64.9 - Anemia, unspecified Status: Acute Assessment and Plan: most likely from coumadin toxicity inr corrected and continue to monitor h/h (3) Supratherapeutic INR: Code(s): R79.1 - Abnormal coagulation profile Status: Acute (4) Lactic acidosis: Code(s): E87.2 - Acidosis Status: Acute Assessment and Plan: on presentation, denies pain (5) Crohn's disease: Code(s): K50.90 - Crohn's disease, unspecified, without complications Status: Acute Assessment and Plan: on mesalamine and low dose steroid at home he will see his regular gi doctor after discharge (6) Hypotension: Code(s): I95.9 - Hypotension, unspecified Status: Acute (7) Near syncope: Code(s): R55 - Syncope and collapse Status: Acute (8) Cirrhosis: Code(s): K74.60 - Unspecified cirrhosis of liver Status: Acute Assessment and Plan: no acute changes (9) Chronic anticoagulation: Code(s): Z79.01 - termite inspector (current) use of anticoagulants Status: Acute (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 neoplasm of connective and soft tissue, unspecified Status: Acute Assessment and Plan: affecting overall health status with leg edema, malnutrition last time received chemotherapy more than a month ago he will see his oncologist as outpatient CT scan reviewed, no major changes (11) Congestive heart failure (CHF): Code(s): I50.9 - Heart failure, unspecified Status: Acute GI Consult Note Consult date/time: 03/06/21 10:24 Reason for consult: supratherapeutic INR, FOBT +, Crohn's HPI: Keith Wilson is a 80 year old male with history of paroxysmal atrial fibrillation on long-term anticoagulation with coumadin, hypertension, Crohn's disease diagnosed few years ago after had SBO that did not require surgery with last colonoscopy 01/[address] Lema with abnormal ICV and terminal ileum (had ileitis) on mesalamine and low dose of prednisone- never been on bioloigics and denies any recent flare, also cirrhosis, and liposarcoma involving pelvic and scrotal area who came to the emergency department with progressive weakness. He was in the hospital about 10 days ago with significant edema and weakness, also chronic anemia hb 8-9. He was diuresed with Lasix and spironolactone and some of his meds changed because was hypotensive. Eventually he went home but now he is back with even more weakness- having difficult time getting up out bed, also lightheaded and dizzy, had near syncope episode after getting up. ER evaluation showed blood pressure as low as 72/32 improved with treatment, inr 8 and given vitamin k, hb 7.1, creat 1.8. Had CT scan a/p- reviewed, no acute findings, heterogeneous mass of the right scrotum, base of the penis, and anterior abdominal wall consistent with known dedifferentiated liposarcoma, cirrhosis. INR down to 4, hb low but stable. ER physician found occult blood in stool. Patient denies any Crohn's flare, no abdominal pain, no diarrhea or blood in stools and he normally goes to [facility] every 6 months (now Dr Lema retired but patient is still planning to see new GI doctor over there). Review of Systems Constitutional: Constitutional: Reports weakness Ey
--- NOTE | 2021-03-06 11:41 | PM.IMPN ---
Progress Note: A&P Assessment and Plan (1) Near syncope: Code(s): R55 - Syncope and collapse Status: Acute Assessment and Plan: Secondary to Hypotension, likely due to blood loss. Given [facility] steroid use, adrenal insufficiency is likely a factor as well. Cardiac dysrhythmia less likely. Monitor on telemetry. IV saline bolus for BP 70s systolic 03/06 IV hydrocortisone 100 mg x 1 03/06 (2) Dehydration: Code(s): E86.0 - Dehydration Status: Acute Assessment and Plan: He received 30 mL/kilogram of IV fluids in the emergency department given elevated lactic acid level He has also received a unit of packed red blood cells 03/06 FFP 1 U and 250 ml fluid bolus (3) Hypotension: Code(s): I95.9 - Hypotension, unspecified Status: Acute Assessment and Plan: Secondary to intravascular depletion in combination with his antihypertensives and diuretics Adrenal suppression due to chronic prednisone use is likely a factor as well No evidence for infection, sepsis (4) Lactic acidosis: Code(s): E87.2 - Acidosis Status: Acute Assessment and Plan: Normalized with hydration Likely due to hypoperfusion (5) Acute renal insufficiency: Code(s): N28.9 - Disorder of kidney and ureter, unspecified Status: Acute Assessment and Plan: Improving with hydration 03/05 creatinine 1.9, 03/06 1.5 (6) Supratherapeutic INR: Code(s): R79.1 - Abnormal coagulation profile Status: Acute Assessment and Plan: INR 8.7 at admission 03/06 INR 2.7 (7) Fall from ground level: Code(s): W18.30XA - Fall on same level, unspecified, initial encounter Status: Acute Assessment and Plan: Fell on night prior to admission while getting out of bed Sustained superficial skin tears (8) Elevated troponin level: Code(s): R77.8 - Other specified abnormalities of plasma proteins Status: Acute Assessment and Plan: Likely due to renal failure, hyotension NO ACS (9) Protein calorie malnutrition: Code(s): E46 - Unspecified protein-calorie malnutrition Status: Acute Assessment and Plan: Secondary to poor oral intake (10) Acute on chronic anemia: Code(s): D64.9 - Anemia, unspecified Status: Acute Assessment and Plan: Patient reports bleeding from his wounds and soft brown stool was Hemoccult positive in the ER Passed dark stool 18 PM No overt bleeding otherwise (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 Lester Awaiting next cycle of chemotherapy (12) Hepatic cirrhosis: Code(s): K74.60 - Unspecified cirrhosis of liver Status: Acute Assessment and Plan: No ascites on exam or imaging. (13) Crohn's disease: Code(s): K50.90 - Crohn's disease, unspecified, without complications Status: Acute Assessment and Plan: Continue mesalamine and prednisone, no acute issues. Subjective Date/time seen: 03/06/21 11:41 Review of Systems Review of Systems: All systems reviewed & are unremarkable except as noted in HPI and below Exam Narrative: General: Chronically ill-appearing male sitting up in bed no distress. HEENT: Normocephalic, atraumatic. PERRL, EOMI. Sclerae anicteric. Tacky mucous membranes. Neck: Supple. No adenopathy or JVD. Respiratory: Respirations are even and nonlabored. He is speaking in full sentences. Lungs are clear to auscultation. Cardiovascular: Irregular rate and rhythm. Soft murmur at the upper sternal border. Gastrointestinal: Abdomen is soft and nondistended with positive bowel sounds. There is a firmness in the suprapubic region on the right consistent with his malignancy. Skin: Warm and dry. Generalized pallor. Skin tear of the right e
[2021-03-06] MEDS: TUBING, BLOOD PLUM PUMP TUBING 1 EACH XX (12:07)
[2021-03-06 12:58] LABS: INR 2.7
[2021-03-06] MEDS: SODIUM CHLORIDE 0.9% IV 250 ML 100 ML IV CONT (13:00)
[2021-03-06] MEDS: HYDROCORTISONE SODIUM SUCCINATE 100 MG/2 ML VIAL IV PUSH (15:18)
[2021-03-06] MEDS: SACCHAROMYCES BOULARDII 250 MG CAPSULE PO (17:04)
[2021-03-06] MEDS: rOPINIRole HCL 1 MG TABLET PO (18:25)
[2021-03-06 18:36] LABS: Hematocrit 21.9 % (42.0-52.0)
[2021-03-06 18:52] LABS: Hemoglobin 6.8 g/dL (14.0-18.0)
[2021-03-06 18:53] LABS: INR 1.8; Prothrombin Time 20.5 Seconds (11.1-14.7)
[2021-03-07] VITALS (16 sets, daily range): BP systolic 103–121; BP diastolic 47–83; PULSE 66–94; RESP 16–20; TEMP 36–36.8; O2SAT 98–100; BMI 28.6
[2021-03-07 00:56] LABS: Hematocrit 20.2 % (42.0-52.0); Hemoglobin 6.4 g/dL (14.0-18.0)
[2021-03-07] MEDS: SODIUM CHLORIDE 0.9% IV 250 ML 30 ML IV CONT (01:45)
[2021-03-07] MEDS: ACETAMINOPHEN 325 MG TABLET 650 MG PO ×2 (04:18→21:49)
[2021-03-07 05:12] LABS: Hematocrit 23.4 % (42.0-52.0); Hemoglobin 7.5 g/dL (14.0-18.0); Mean Corpuscular HGB Conc 32.1 g/dl (32-36); Mean Corpuscular Hemoglobin 29.5 pg (26-34); Mean Corpuscular Volume 92.1 fl (80-100); Mean Platelet Volume 9.6 fl (7.4-10.4); Platelet Count Result 179 k/mm3 (150-375); Red Blood Count 2.54 M/mm3 (4.6-6.20); Red Cell Distribution Width 19.2 % (11.5-14.5); White Blood Count 17.4 K/mm3 (4.5-10.0)
[2021-03-07 05:22] LABS: INR 1.4; Prothrombin Time 16.8 Seconds (11.1-14.7)
[2021-03-07 05:32] LABS: Albumin Level 2.3 g/dL (3.5-5.1); Anion Gap 4 mmol/L (8-16); Blood Urea Nitrogen 31 mg/dL (9-20); Calcium 7.6 mg/dL (8.4-10.2); Carbon Dioxide 27 mmol/L (22-30); Chloride 105 mmol/L (98-107); Estimated CRCL calculation 58 ml/min; Estimated Glomerular Filt Rate > 60; Glucose 143 mg/dL (65-110); Phosphorus 2.8 mg/dL (2.5-4.5); Potassium 3.5 mmol/L (3.4-5.0); Sodium 136 mmol/L (137-145)
[2021-03-07] MEDS: predniSONE 10 MG TABLET PO (08:38)
[2021-03-07] MEDS: OPTI-GEN TAB 1 TABLET PO (08:38)
[2021-03-07] MEDS: SACCHAROMYCES BOULARDII 250 MG CAPSULE PO ×2 (08:38→17:22)
[2021-03-07] MEDS: DULoxetine HCL 30 MG CAPSULE.DR PO (08:38)
[2021-03-07] MEDS: CHOLECALCIFEROL 1,000 UNITS TABLET 2000 UNITS PO (08:38)
[2021-03-07] MEDS: LIDOCAINE 5% PATCH 2 PATCH TRANSDERM (13:17)
--- NOTE | 2021-03-07 16:25 | WPDGIPROGNO ---
Progress Note: A&P Assessment and Plan (1) Occult blood in stools: Code(s): R19.5 - Other fecal abnormalities Status: Acute Assessment and Plan: required blood transfusion but hb responded appropriately after blood transfusion and after normalization of inr given new onset of incontinence, I offered to proceed with scopes but patient says that he would rather wait to see his regular GI doctor/[facility] at [facility], he feels that Crohn's is not an issue right now. fobt and anemia partially due to supratherapeutic inr (2) Crohn's disease: Code(s): K50.90 - Crohn's disease, unspecified, without complications Status: Acute (3) Diarrhea: Code(s): R19.7 - Diarrhea, unspecified Status: Acute Assessment and Plan: today had accident, continue to monitor he is on medication and he is seeing GI at [facility] (4) Supratherapeutic INR: Code(s): R79.1 - Abnormal coagulation profile Status: Acute (5) Lactic acidosis: Code(s): E87.2 - Acidosis Status: Acute Assessment and Plan: resolved (6) Near syncope: Code(s): R55 - Syncope and collapse Status: Acute (7) Acute on chronic anemia: Code(s): D64.9 - Anemia, unspecified Status: Acute Assessment and Plan: stable after blood transfusion (8) Chronic anticoagulation: Code(s): Z79.01 - longterm (current) use of anticoagulants Status: Acute (9) Cirrhosis: Code(s): K74.60 - Unspecified cirrhosis of liver Status: Acute (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 Now complaining of loose stools soon after eating, had accident because could not make it to restroom. Review of Systems Review of Systems: All systems reviewed & are unremarkable except as noted in HPI and below Exam Const: General: comfortable and ill appearing chronically HENMT: General nose exam: Normal nares present Eyes: Sclera: sclerae normal Neck: Neck: supple Resp: Auscultation: clear to auscultation bilaterally Cardio: Rate: regular rate GI: GI Palp: Yes Soft to palpation, No Tenderness to palpation present (GI) and No Guarding due to palpation present (GI) Auscultation: normal bowel sounds : Other: edema in pelvic/right scrotum area (from known malignancy) Skin: General skin exam: no erythema Other: Superficial abrasions in back an arms with surrounding ecchymosis. Neuro: Speech: normal speech Motor exam (neuro): Normal motor muscle tone present throughout Extrem: General: edema Psych: Mental Status: mental status grossly normal Objective Data Vital Signs Vital Signs: Vital Signs - 24 hr 03/06/21 18:00 03/06/21 19:40 03/06/21 20:00 Temperature 98.3 F Pulse Rate 68 69 74 Respiratory Rate 18 18 Blood Pressure 123/78 Pulse Oximetry 98 98 03/06/21 22:00 03/06/21 23:41 03/07/21 00:00 Temperature 98.9 F Pulse Rate 74 74 75 Respiratory Rate 18 18 Blood Pressure 105/51 L Pulse Oximetry 97 100 03/07/21 01:51 03/07/21 02:00 03/07/21 02:06 Temperature 98.3 F 98.2 F Pulse Rate 72 74 70 Respiratory Rate 18 18 Blood Pressure 104/52 L 106/47 L Pulse Oximetry 100 100 03/07/21 03:06 03/07/21 04:00 03/07/21 04:07 Temperature 98.3 F 97.9 F Pulse Rate 66 70 70 Respiratory Rate 20 20 20 Blood Pressure 103/56 L 113/74 Pulse Oximetry 100 100 100 03/07/21 06:00 03/07/21 08:00 03/07/21 10:00 Temperature 96.8 F L Pulse Rate 68 73 94 Respiratory Rate 16 Blood Pressure 117/63 Pulse Oximetry 100 03/07/21 12:00 03/07/21 14:00 Temperature Pulse Rate 78 82 Respiratory Rate Blood Pressure Pulse Oximetry 100 Intake/Output Intake/Output: Intake & Output 03/04/21
--- NOTE | 2021-03-07 16:45 | PC.NURSE ---
Spoke with Dr. Garcia regarding patient's restless leg syndrome. Patient requesting to have Requip now instead of at bedtime. Dr. Garcia is ok with giving Requip now instead of at bedtime.
[2021-03-07] MEDS: RIVAROXABAN 20 MG TABLET PO (17:22)
[2021-03-07] MEDS: rOPINIRole HCL 1 MG TABLET PO (17:22)
[2021-03-07] MEDS: LOPERAMIDE HCL 2 MG CAPSULE PO (17:24)
--- NOTE | 2021-03-07 18:06 | PM.IMPN ---
Progress Note: A&P Assessment and Plan (1) Near syncope: Code(s): R55 - Syncope and collapse Status: Acute Assessment and Plan: Secondary to Hypotension, likely due to blood loss. Given nursing home steroid use, adrenal insufficiency is likely a factor as well. Cardiac dysrhythmia less likely. Monitor on telemetry. IV saline bolus for BP 70s systolic 03/06 IV hydrocortisone 100 mg x 1 03/0603/07/21 18:06 upon arrival patient with supra therapeutic INR patient was given FFP and vitamin K also patient had syncopal episode most likely secondary to dehydration resulting in hypotension, today patient is clinically stable his blood pressure is improving, patient was started on Xarelto by his primary care but never taken by the patient, will start the patient on Xarelto and DC warfarin, patient hemoglobin is stable after receiving transfusion, seen by GI does not recommend any further workup as patient recently had a colonoscopy, patient is clinically stable will continue to monitor. (2) Dehydration: Code(s): E86.0 - Dehydration Status: Acute Assessment and Plan: He received 30 mL/kilogram of IV fluids in the emergency department given elevated lactic acid level He has also received a unit of packed red blood cells 03/06 FFP 1 U and 250 ml fluid bolus (3) Hypotension: Code(s): I95.9 - Hypotension, unspecified Status: Acute Assessment and Plan: Secondary to intravascular depletion in combination with his antihypertensives and diuretics Adrenal suppression due to chronic prednisone use is likely a factor as well No evidence for infection, sepsis (4) Lactic acidosis: Code(s): E87.2 - Acidosis Status: Acute Assessment and Plan: Normalized with hydration Likely due to hypoperfusion (5) Acute renal insufficiency: Code(s): N28.9 - Disorder of kidney and ureter, unspecified Status: Acute Assessment and Plan: Improving with hydration 03/05 creatinine 1.9, 03/06 1.5 (6) Supratherapeutic INR: Code(s): R79.1 - Abnormal coagulation profile Status: Acute Assessment and Plan: INR 8.7 at admission 03/06 INR 2.7 (7) Fall from ground level: Code(s): W18.30XA - Fall on same level, unspecified, initial encounter Status: Acute Assessment and Plan: Fell on night prior to admission while getting out of bed Sustained superficial skin tears (8) Elevated troponin level: Code(s): R77.8 - Other specified abnormalities of plasma proteins Status: Acute Assessment and Plan: Likely due to renal failure, hyotension NO ACS (9) Protein calorie malnutrition: Code(s): E46 - Unspecified protein-calorie malnutrition Status: Acute Assessment and Plan: Secondary to poor oral intake (10) Acute on chronic anemia: Code(s): D64.9 - Anemia, unspecified Status: Acute Assessment and Plan: Patient reports bleeding from his wounds and soft brown stool was Hemoccult positive in the ER Passed dark stool 03/05 PM No overt bleeding otherwise (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 Lester Awaiting next cycle of chemotherapy (12) Hepatic cirrhosis: Code(s): K74.60 - Unspecified cirrhosis of liver Status: Acute Assessment and Plan: No ascites on exam or imaging. (13) Crohn's disease: Code(s): K50.90 - Crohn's disease, unspecified, without complications Status: Acute Assessment and Plan: Continue mesalamine and prednisone, no acute issues. Subjective Date/time seen: 03/07/21 18:06 upon arrival patient with supra therapeutic INR patient was given FFP and vitamin K also patient had syncopal episode most likely secondary to dehydration resulting in hypotensi
--- NOTE | 2021-03-07 18:58 | PC.NURSE ---
This patient, Keith Wilson, was transferred to [ [id number]] on 03/07/21 at 1845. Personal belongings sent with patient. Report given to [RIKA Weber @ [phone] ]. Appropriate documentation sent with patient.
[2021-03-08] VITALS (11 sets, daily range): BP systolic 100–121; BP diastolic 61–80; PULSE 76–100; RESP 16–20; TEMP 36.1–37.1; O2SAT 96–100
[2021-03-08] MEDS: ONDANSETRON HCL ODT 4 MG TABLET PO (04:25)
[2021-03-08] MEDS: ACETAMINOPHEN 325 MG TABLET 650 MG PO ×2 (04:25→21:09)
[2021-03-08 05:42] LABS: Hematocrit 22.9 % (42.0-52.0); Hemoglobin 7.3 g/dL (14.0-18.0); Mean Corpuscular HGB Conc 31.9 g/dl (32-36); Mean Corpuscular Hemoglobin 29.7 pg (26-34); Mean Corpuscular Volume 93.1 fl (80-100); Mean Platelet Volume 9.2 fl (7.4-10.4); Platelet Count Result 168 k/mm3 (150-375); Red Blood Count 2.46 M/mm3 (4.6-6.20); White Blood Count 16.1 K/mm3 (4.5-10.0)
[2021-03-08 05:57] LABS: INR 3.5; Prothrombin Time 34.3 Seconds (11.1-14.7)
[2021-03-08 05:59] LABS: Albumin Level 2.2 g/dL (3.5-5.1); Anion Gap 2 mmol/L (8-16); Blood Urea Nitrogen 27 mg/dL (9-20); Calcium 7.8 mg/dL (8.4-10.2); Carbon Dioxide 28 mmol/L (22-30); Chloride 106 mmol/L (98-107); Estimated CRCL calculation 58 ml/min; Estimated Glomerular Filt Rate > 60; Glucose 92 mg/dL (65-110); Phosphorus 2.3 mg/dL (2.5-4.5); Potassium 3.1 mmol/L (3.4-5.0); Sodium 136 mmol/L (137-145)
[2021-03-08] MEDS: CHOLECALCIFEROL 1,000 UNITS TABLET 2000 UNITS PO (08:17)
[2021-03-08] MEDS: DULoxetine HCL 30 MG CAPSULE.DR PO (08:17)
[2021-03-08] MEDS: predniSONE 10 MG TABLET PO (08:17)
[2021-03-08] MEDS: EUCERIN CREAM 120 GM JAR 1 APPLIC TOPICAL (08:18)
[2021-03-08] MEDS: OPTI-GEN TAB 1 TABLET PO (08:18)
[2021-03-08] MEDS: SACCHAROMYCES BOULARDII 250 MG CAPSULE PO ×2 (08:18→16:31)
[2021-03-08] MEDS: LIDOCAINE 5% PATCH 2 PATCH TRANSDERM (08:19)
[2021-03-08] MEDS: LOPERAMIDE HCL 2 MG CAPSULE PO (08:22)
--- NOTE | 2021-03-08 11:41 | PM.IMPN ---
Progress Note: A&P Assessment and Plan (1) Near syncope: Code(s): R55 - Syncope and collapse Status: Acute Assessment and Plan: Secondary to Hypotension, likely due to blood loss. Given jail steroid use, adrenal insufficiency is likely a factor as well. Cardiac dysrhythmia less likely. Monitor on telemetry. IV saline bolus for BP 70s systolic 03/06 IV hydrocortisone 100 mg x 1 03/06 Pt upon arrival patient with supra therapeutic INR patient was given FFP and vitamin K also patient had syncopal episode most likely secondary to dehydration resulting in hypotension, today patient is clinically stable his blood pressure is improving, patient was started on Xarelto by his primary care but never taken by the patient, will start the patient on Xarelto and DC warfarin, patient hemoglobin is stable after receiving transfusion, seen by GI does not recommend any further workup as patient recently had a colonoscopy. Pt can be discharged tomorrow. Pt to have PT / OT today (2) Dehydration: Code(s): E86.0 - Dehydration Status: Resolved Assessment and Plan: He received 30 mL/kilogram of IV fluids in the emergency department given elevated lactic acid level He has also received a unit of packed red blood cells 03/06 FFP 1 U and 250 ml fluid bolus Montor BP and orthostatics (3) Hypotension: Code(s): I95.9 - Hypotension, unspecified Status: Resolved Assessment and Plan: Secondary to intravascular depletion in combination with his antihypertensives and diuretics Adrenal suppression due to chronic prednisone use is likely a factor as well No evidence for infection, sepsis (4) Lactic acidosis: Code(s): E87.2 - Acidosis Status: Resolved Assessment and Plan: Normalized with hydration Likely due to hypoperfusion (5) Acute renal insufficiency: Code(s): N28.9 - Disorder of kidney and ureter, unspecified Status: Acute Assessment and Plan: Improving with hydration 03/05 creatinine 1.9, 03/06 1.5, 03/08 creat is 1 (6) Supratherapeutic INR: Code(s): R79.1 - Abnormal coagulation profile Status: Acute Assessment and Plan: INR 8.7 at admission 03/06 INR 2.7 INr is 3.5 (7) Fall from ground level: Code(s): W18.30XA - Fall on same level, unspecified, initial encounter Status: Acute Assessment and Plan: Fell on night prior to admission while getting out of bed Sustained superficial skin tears (8) Elevated troponin level: Code(s): R77.8 - Other specified abnormalities of plasma proteins Status: Acute Assessment and Plan: Likely due to renal failure, hyotension NO ACS (9) Protein calorie malnutrition: Code(s): E46 - Unspecified protein-calorie malnutrition Status: Acute Assessment and Plan: Secondary to poor oral intake (10) Acute on chronic anemia: Code(s): D64.9 - Anemia, unspecified Status: Acute Assessment and Plan: Patient reports bleeding from his wounds and soft brown stool was Hemoccult positive in the ER Passed dark stool 03/05 PM No overt bleeding otherwise (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 Lester Awaiting next cycle of chemotherapy (12) Hepatic cirrhosis: Code(s): K74.60 - Unspecified cirrhosis of liver Status: Acute Assessment and Plan: No ascites on exam or imaging. (13) Crohn's disease: Code(s): K50.90 - Crohn's disease, unspecified, without complications Status: Acute Assessment and Plan: Continue mesalamine and prednisone, no acute issues. Subjective Date/time seen: 03/08/21 11:41 Interval history: This is a 80-year-old male with paroxysmal atrial fibrillation on long-term anticoagulation, h
--- NOTE | 2021-03-08 12:47 | PC.NURSE ---
On 03/08/21, the student, [Sathish Keane ], provided care and completed [facility] documentation on this patient. I have reviewed the student's documentation and agree with the findings.
--- NOTE | 2021-03-08 15:43 | WPDGIPROGNO ---
Progress Note: A&P Assessment and Plan (1) Occult blood in stools: Code(s): R19.5 - Other fecal abnormalities Status: Acute Assessment and Plan: required blood transfusion but hb responded appropriately after blood transfusion no more bleeding after INR was corrected fobt and anemia partially due to supratherapeutic inr he is planning to follow-up with her GI team at [facility] as outpatient (2) Crohn's disease: Code(s): K50.90 - Crohn's disease, unspecified, without complications Status: Acute Assessment and Plan: no acute issues, on meds at home (3) Diarrhea: Code(s): R19.7 - Diarrhea, unspecified Status: Acute Assessment and Plan: denies any today (4) Supratherapeutic INR: Code(s): R79.1 - Abnormal coagulation profile Status: Acute Assessment and Plan: inr normal now (5) Lactic acidosis: Code(s): E87.2 - Acidosis Status: Resolved Assessment and Plan: resolved (6) Near syncope: Code(s): R55 - Syncope and collapse Status: Acute (7) Acute on chronic anemia: Code(s): D64.9 - Anemia, unspecified Status: Acute Assessment and Plan: hb low but stable after blood transfusion (8) Chronic anticoagulation: Code(s): Z79.01 - senior care (current) use of anticoagulants Status: Acute (9) Cirrhosis: Code(s): K74.60 - Unspecified cirrhosis of liver Status: Acute (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 neoplasm of connective and soft tissue, unspecified Status: Acute Assessment and Plan: he will also follow-up with his oncologist Subjective Date/time seen: 03/08/21 15:43 Interval history: no more diarrhea, he is in good spirits and hoping to go home tomorrow Review of Systems Review of Systems: All systems reviewed & are unremarkable except as noted in HPI and below Exam Const: General: comfortable and ill appearing chronically HENMT: General nose exam: Normal nares present Eyes: Sclera: sclerae normal Neck: Neck: supple Resp: Auscultation: clear to auscultation bilaterally Cardio: Rate: regular rate GI: GI Palp: Yes Soft to palpation, No Tenderness to palpation present (GI) and No Guarding due to palpation present (GI) Auscultation: normal bowel sounds : Other: edema in pelvic/right scrotum area (from known malignancy) Skin: General skin exam: no erythema Other: Superficial abrasions in back an arms with surrounding ecchymosis. Neuro: Speech: normal speech Motor exam (neuro): Normal motor muscle tone present throughout Extrem: General: edema Psych: Mental Status: mental status grossly normal Objective Data Vital Signs Vital Signs: Vital Signs - 24 hr 03/07/21 16:00 03/07/21 18:00 03/07/21 20:00 Temperature 97 F L Pulse Rate 71 79 79 Respiratory Rate 20 20 Blood Pressure 121/63 Pulse Oximetry 100 100 03/07/21 21:38 03/08/21 05:07 03/08/21 08:00 Temperature 97.5 F L 96.9 F L 97.6 F Pulse Rate 87 76 82 Respiratory Rate 16 20 18 Blood Pressure 114/83 118/61 118/69 Pulse Oximetry 99 98 98 03/08/21 15:25 03/08/21 15:26 03/08/21 15:27 Temperature Pulse Rate Respiratory Rate Blood Pressure 121/66 115/69 100/63 Pulse Oximetry Intake/Output Intake/Output: Intake & Output 03/05/21 03/06/21 03/07/21 03/08/21 23:59 23:59 23:59 23:59 Intake Total 3500 1717 1191 350 Output Total 750 1700 1350 350 Balance 2750 17 -159 0 Meds/Results Medications: Active Medications Generic Name Dose Route Start Last Admin Trade Name Freq PRN Reason Stop Dose Admin Acetaminophen 650 mg 03/05/21 22:19 03/08/21 04:25 Acetaminophen 325 Mg Tablet PO 650 mg Q6H PRN Administration Mild Pain (1-3) or Fever Carvedilol 3.125 mg 03/06/21 09:00 03/06/21 09:49 Carvedilol 3.125 Mg Tablet PO 3.125 mg Q12HR AMA Administration Doxazosin Mesylate 4 m
[2021-03-08] MEDS: RIVAROXABAN 20 MG TABLET PO (16:31)
[2021-03-08] MEDS: rOPINIRole HCL 1 MG TABLET PO (21:09)
[2021-03-09] VITALS (9 sets, daily range): BP systolic 106–131; BP diastolic 51–71; PULSE 88–94; RESP 17–18; TEMP 36.8–37.1; O2SAT 96–100
[2021-03-09] MEDS: ACETAMINOPHEN 325 MG TABLET 650 MG PO ×2 (04:43→23:39)
[2021-03-09 05:50] LABS: Hematocrit 24.8 % (42.0-52.0); Hemoglobin 7.8 g/dL (14.0-18.0); Mean Corpuscular HGB Conc 31.5 g/dl (32-36); Mean Corpuscular Hemoglobin 30.1 pg (26-34); Mean Corpuscular Volume 95.8 fl (80-100); Mean Platelet Volume 9.4 fl (7.4-10.4); Platelet Count Result 187 k/mm3 (150-375); Red Blood Count 2.59 M/mm3 (4.6-6.20); Red Cell Distribution Width 18.9 % (11.5-14.5); White Blood Count 21.8 K/mm3 (4.5-10.0)
[2021-03-09 06:01] LABS: INR 4.1; Prothrombin Time 38.2 Seconds (11.1-14.7)
[2021-03-09 06:15] LABS: Albumin Level 2.6 g/dL (3.5-5.1); Anion Gap 4 mmol/L (8-16); Blood Urea Nitrogen 20 mg/dL (9-20); Calcium 8.1 mg/dL (8.4-10.2); Carbon Dioxide 29 mmol/L (22-30); Chloride 105 mmol/L (98-107); Estimated CRCL calculation 64 ml/min; Estimated Glomerular Filt Rate > 60; Glucose 94 mg/dL (65-110); Phosphorus 2.2 mg/dL (2.5-4.5); Potassium 3.1 mmol/L (3.4-5.0); Sodium 138 mmol/L (137-145)
[2021-03-09] MEDS: CHOLECALCIFEROL 1,000 UNITS TABLET 2000 UNITS PO (08:19)
[2021-03-09] MEDS: predniSONE 10 MG TABLET PO (08:19)
[2021-03-09] MEDS: LIDOCAINE 5% PATCH 2 PATCH TRANSDERM (08:19)
[2021-03-09] MEDS: DULoxetine HCL 30 MG CAPSULE.DR PO (08:19)
[2021-03-09] MEDS: OPTI-GEN TAB 1 TABLET PO (08:19)
[2021-03-09] MEDS: SACCHAROMYCES BOULARDII 250 MG CAPSULE PO ×2 (08:19→17:58)
[2021-03-09] MEDS: EUCERIN CREAM 120 GM JAR 1 APPLIC TOPICAL (08:20)
--- NOTE | 2021-03-09 09:09 | P.PNIM_ITS ---
Progress Note: A&P Assessment and Plan (1) Near syncope: Code(s): R55 - Syncope and collapse Status: Acute Assessment and Plan: Secondary to Hypotension, likely due to blood loss. Given longterm steroid use, adrenal insufficiency is likely a factor as well. Cardiac dysrhythmia less likely. Monitor on telemetry. IV saline bolus for BP 70s systolic 03/06 IV hydrocortisone 100 mg x 1 03/06 Pt upon arrival patient with supra therapeutic INR patient was given FFP and vitamin K also patient had syncopal episode most likely secondary to dehydration resulting in hypotension, today patient is clinically stable his blood pressure is improving, patient was started on Xarelto by his primary care but never taken by the patient, will start the patient on Xarelto and DC warfarin, patient hemoglobin is stable after receiving transfusion, seen by GI does not recommend any further workup as patient recently had a colonoscopy. Pt can be discharged tomorrow. Pt to have PT / OT today (2) Dehydration: Code(s): E86.0 - Dehydration Status: Resolved Assessment and Plan: He received 30 mL/kilogram of IV fluids in the emergency department given elevated lactic acid level He has also received a unit of packed red blood cells 03/06 FFP 1 U and 250 ml fluid bolus Montor BP and orthostatics (3) Hypotension: Code(s): I95.9 - Hypotension, unspecified Status: Resolved Assessment and Plan: Secondary to intravascular depletion in combination with his antihypertensives and diuretics Adrenal suppression due to chronic prednisone use is likely a factor as well No evidence for infection, sepsis (4) Lactic acidosis: Code(s): E87.2 - Acidosis Status: Resolved Assessment and Plan: Normalized with hydration Likely due to hypoperfusion (5) Acute renal insufficiency: Code(s): N28.9 - Disorder of kidney and ureter, unspecified Status: Acute Assessment and Plan: Improving with hydration 03/05 creatinine 1.9, 03/06 1.5, 03/08 creat is 1 (6) Supratherapeutic INR: Code(s): R79.1 - Abnormal coagulation profile Status: Acute Assessment and Plan: INR 8.7 at admission 03/06 INR 2.7 INr is 3.5 (7) Fall from ground level: Code(s): W18.30XA - Fall on same level, unspecified, initial encounter Status: Acute Assessment and Plan: Fell on night prior to admission while getting out of bed Sustained superficial skin tears (8) Elevated troponin level: Code(s): R77.8 - Other specified abnormalities of plasma proteins Status: Acute Assessment and Plan: Likely due to renal failure, hyotension NO ACS (9) Protein calorie malnutrition: Code(s): E46 - Unspecified protein-calorie malnutrition Status: Acute Assessment and Plan: Secondary to poor oral intake (10) Acute on chronic anemia: Code(s): D64.9 - Anemia, unspecified Status: Acute Assessment and Plan: Patient reports bleeding from his wounds and soft brown stool was Hemoccult positive in the ER Passed dark stool 03/05 PM No overt bleeding otherwise (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 Lester Awaiting next cycle of chemotherapy (12) Hepatic cirrhosis: Code(s): K74.60 - Unspeci
[2021-03-09] MEDS: PHYTONADIONE 5 MG TABLET PO (10:23)
[2021-03-09] MEDS: POTASSIUM CHLORIDE 20 MEQ TABLET 40 MEQ PO (10:23)
--- NOTE | 2021-03-09 15:02 | PC.NURSE ---
On 03/09/21, the student, [OSCAR SHULTZ], provided care and completed [facility] documentation on this patient. I have reviewed the student's documentation and agree with the findings.
[2021-03-09] MEDS: rOPINIRole HCL 1 MG TABLET PO (20:56)
[2021-03-10] MEDS: MORPHINE SULFATE (*CRX) 15 MG TAB IR 7.5 MG PO (01:04)
[2021-03-10 03:16] VITALS: BP 118/70; PULSE 86; RESP 17; TEMP 36.4; O2SAT 97
[2021-03-10 04:51] LABS: Basophils Absolute Auto 0.1 K/mm3 (0.0-0.1); Basophils Percent Auto 0.2 % (0.2-1.2); Eosinophils Absolute Auto 0.1 K/mm3 (0-0.3); Eosinophils Percent Auto 0.5 % (0-4.4); Hematocrit 23.1 % (42.0-52.0); Hemoglobin 7.3 g/dL (14.0-18.0); Immature Granulocyte Absolute 0.39 K/mm3 (0.00-0.031); Immature Granulocyte Percent A 1.5 % (0-0.5); Lymphocytes Absolute Auto 2.61 K/mm3 (0.9-3.2); Lymphocytes Percent Auto 10.2 % (18.3-44.2); Mean Corpuscular HGB Conc 31.6 g/dl (32-36); Mean Corpuscular Hemoglobin 30.2 pg (26-34); Mean Corpuscular Volume 95.5 fl (80-100); Mean Platelet Volume 9.8 fl (7.4-10.4); Monocytes Absolute Auto 1.2 K/mm3 (0.1-0.6); Monocytes Percent Auto 4.5 % (2.6-8.5); Neutrophils Absolute Auto 21.2 K/mm3 (1.3-6.7); Neutrophils Percent Auto 83.1 % (45.5-73.1); Platelet Count Result 200 k/mm3 (150-375); Red Blood Count 2.42 M/mm3 (4.6-6.20); Red Cell Distribution Width 18.6 % (11.5-14.5); White Blood Count 25.5 K/mm3 (4.5-10.0)
[2021-03-10 04:58] LABS: INR 1.8; Prothrombin Time 20.5 Seconds (11.1-14.7)
[2021-03-10 05:00] LABS: Alanine Aminotransferase 32 U/L (4-50); Albumin Level 2.4 g/dL (3.5-5.1); Alkaline Phosphatase 190 U/L (38-126); Anion Gap 1 mmol/L (8-16); Aspartate Amino Transferase 43 U/L (17-59); Bilirubin,Total 0.8 mg/dL (0.2-1.3); Blood Urea Nitrogen 17 mg/dL (9-20); Calcium 7.7 mg/dL (8.4-10.2); Carbon Dioxide 29 mmol/L (22-30); Chloride 106 mmol/L (98-107); Estimated CRCL calculation 72 ml/min; Estimated Glomerular Filt Rate > 60; Glucose 94 mg/dL (65-110); Potassium 3.5 mmol/L (3.4-5.0); Sodium 136 mmol/L (137-145)
[2021-03-10 05:16] LABS: Hypochromasia 1+ (NORMAL); Platelet Estimate Adequate (Adequate)
[2021-03-10 08:00] VITALS: BP 118/64; BP 119/72; PULSE 71; PULSE 76; RESP 18; TEMP 36.9; O2SAT 98; O2SAT 99
[2021-03-10] MEDS: POTASSIUM CHLORIDE 20 MEQ TABLET 40 MEQ PO (08:48)
[2021-03-10] MEDS: OPTI-GEN TAB 1 TABLET PO (08:48)
[2021-03-10] MEDS: predniSONE 10 MG TABLET PO (08:48)
[2021-03-10] MEDS: EUCERIN CREAM 120 GM JAR 1 APPLIC TOPICAL (08:48)
[2021-03-10] MEDS: CHOLECALCIFEROL 1,000 UNITS TABLET 2000 UNITS PO (08:48)
[2021-03-10] MEDS: DULoxetine HCL 30 MG CAPSULE.DR PO (08:48)
[2021-03-10] MEDS: SACCHAROMYCES BOULARDII 250 MG CAPSULE PO (08:48)
[2021-03-10] MEDS: LIDOCAINE 5% PATCH 2 PATCH TRANSDERM (08:48)
--- NOTE | 2021-03-10 10:01 | PM.IMPN ---
Progress Note: A&P Assessment and Plan (1) Near syncope: Code(s): R55 - Syncope and collapse Status: Acute Assessment and Plan: Secondary to Hypotension, likely due to blood loss. Given skilled nursing steroid use, adrenal insufficiency is likely a factor as well. Cardiac dysrhythmia less likely. Monitor on telemetry. IV saline bolus for BP 70s systolic 03/06 IV hydrocortisone 100 mg x 1 03/06 Pt upon arrival patient with supra therapeutic INR patient was given FFP and vitamin K also patient had syncopal episode most likely secondary to dehydration resulting in hypotension, today patient is clinically stable his blood pressure is improving, patient was started on Xarelto by his primary care but never taken by the patient, will start the patient on Xarelto and DC warfarin, patient hemoglobin is stable after receiving transfusion, seen by GI does not recommend any further workup as patient recently had a colonoscopy. Pt can be discharged tomorrow. Pt to have PT / OT today (2) Dehydration: Code(s): E86.0 - Dehydration Status: Resolved Assessment and Plan: He received 30 mL/kilogram of IV fluids in the emergency department given elevated lactic acid level He has also received a unit of packed red blood cells 03/06 FFP 1 U and 250 ml fluid bolus Montor BP and orthostatics (3) Hypotension: Code(s): I95.9 - Hypotension, unspecified Status: Resolved Assessment and Plan: Secondary to intravascular depletion in combination with his antihypertensives and diuretics Adrenal suppression due to chronic prednisone use is likely a factor as well No evidence for infection, sepsis (4) Lactic acidosis: Code(s): E87.2 - Acidosis Status: Resolved Assessment and Plan: Normalized with hydration Likely due to hypoperfusion (5) Acute renal insufficiency: Code(s): N28.9 - Disorder of kidney and ureter, unspecified Status: Acute Assessment and Plan: Improving with hydration 03/05 creatinine 1.9, 03/06 1.5, 03/08 creat is 1 (6) Supratherapeutic INR: Code(s): R79.1 - Abnormal coagulation profile Status: Acute Assessment and Plan: INR 8.7 at admission 03/06 INR 2.7 INr is 3.5 (7) Fall from ground level: Code(s): W18.30XA - Fall on same level, unspecified, initial encounter Status: Acute Assessment and Plan: Fell on night prior to admission while getting out of bed Sustained superficial skin tears (8) Elevated troponin level: Code(s): R77.8 - Other specified abnormalities of plasma proteins Status: Acute Assessment and Plan: Likely due to renal failure, hyotension NO ACS (9) Protein calorie malnutrition: Code(s): E46 - Unspecified protein-calorie malnutrition Status: Acute Assessment and Plan: Secondary to poor oral intake (10) Acute on chronic anemia: Code(s): D64.9 - Anemia, unspecified Status: Acute Assessment and Plan: Patient reports bleeding from his wounds and soft brown stool was Hemoccult positive in the ER Passed dark stool 03/05 PM No overt bleeding otherwise (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 Lester Awaiting next cycle of chemotherapy (12) Hepatic cirrhosis: Code(s): K74.60 - Unspecified cirrhosis of liver Status: Acute Assessment and Plan: No ascites on exam or imaging. (13) Crohn's disease: Code(s): K50.90 - Crohn's disease, unspecified, without complications Status: Acute Assessment and Plan: Continue mesalamine and prednisone, no acute issues. (14) Atrial fibrillation: Code(s): I48.91 - Unspecified atrial fibrillation Status: Acute (15) Liposarcoma: Code(s): C49.9 - Malignant n
[2021-03-10] MEDS: TORSEMIDE 20 MG TABLET PO (10:39)
[2021-03-10 10:50] LABS: Lactic Acid Reflex 2.4 mmol/L (0.7-2.1)
[2021-03-10 11:45] LABS: Add Urine Microscopic? YES; Appearance Urine Clear (Clear); Bacteria Urine Trace /hpf; Bilirubin Urine Negative (Negative); Blood Urine 2+ (Negative); Budding Yeast Urine Present /hpf; Color Urine Yellow (Yellow); Glucose Urine UA Negative (Negative); Ketones Urine Negative (Negative); Leukocyte Esterase Ur 2+ LEU/UL (Negative); Nitrate Urine Negative (Negative); Protein Urine 1+ mg/dL (Negative); RBC Urine 21-50 /hpf (0-2); Specific Grav Ur 1.023 (1.001-1.035); Transitional Epi Cells Urine Rare /hpf (None Seen); Urobilinogen Urine Negative mg/dL (<2.0); WBC Urine 21-30 /hpf
--- NOTE | 2021-03-10 11:47 | PCNFU ---
Nutrition Follow-Up Complete: Inadequate oral intake related to suspected GI bleed on admission as evidenced by clear liquid diet order. Goal: Patient to consume 75% of meals/supplements or greater and maintain weight. Patient is meeting current goal. No new goal to report. Pt current nutrition is Heart Healthy with Ensure compact TID. Last recorded weight is 96.8 kg, up from 95.8 kg. Bowel Motility:+BM reported 03/09 Labs Reviewed:Na 136,Alb 2.4,Hct 2.4,Hgb 7.3 Meds Noted:Vit D, Florastor, Requip, KCL, MVI,Cymbalta,Vancomycin, Prednisone. Additional Notes: Nutrition follow up. Oral intake has improved 60.75,100% of meals. Diet supplements of Ensure compact providing an additional 220 kcals and 9 gms protein. Skin: stage 2 pressure ulcer-bilateral buttock. Agree with diet orders. Monitoring: will monitor for LOS.
[2021-03-10 12:00] VITALS: BP 116/64; BP 119/72; PULSE 76; RESP 18; O2SAT 98; O2SAT 99
--- NOTE | 2021-03-10 12:40 | WPDINFPN2 ---
Progress Note: A&P Assessment and Plan (1) Anemia: Code(s): D64.9 - Anemia, unspecified Status: Acute Assessment and Plan: IMP Multifactorial leukocytosis: physiologic due to acute blood loss, steroid Rx, malignant tumor, and cirrhosis. No infection is present REC Ok discharge, Dr. Simmons will of course follow CBCs in office. Call if Qs Subjective Date/time seen: 03/10/21 12:40 Objective Data Vital Signs Vital Signs: Vital Signs - 24 hr 03/09/21 20:00 03/09/21 20:20 03/09/21 20:21 Temperature 36.8 C Pulse Rate 88 Respiratory Rate 17 Blood Pressure 131/71 121/51 L 117/66 Pulse Oximetry 100 03/09/21 20:35 03/10/21 03:16 03/10/21 08:00 Temperature 36.8 C 36.4 C 36.9 C Pulse Rate 88 86 76 Respiratory Rate 17 17 18 Blood Pressure 131/71 118/70 119/72 Pulse Oximetry 100 97 98 03/10/21 12:00 Temperature Pulse Rate 76 Respiratory Rate 18 Blood Pressure 119/72 Pulse Oximetry 98 Intake/Output Intake/Output: Intake & Output 03/07/21 03/08/21 03/09/21 03/10/21 23:59 23:59 23:59 23:59 Intake Total 9409 146 2123 1140 Output Total 1350 1050 1850 400 Balance -159 -170 -20 740 Meds/Results Medications: Active Medications Generic Name Dose Route Start Last Admin Trade Name Freq PRN Reason Stop Dose Admin Acetaminophen 650 mg 03/05/21 22:19 03/09/21 23:39 Acetaminophen 325 Mg Tablet PO 650 mg Q6H PRN Administration Mild Pain (1-3) or Fever Carvedilol 3.125 mg 03/06/21 09:00 03/06/21 09:49 Carvedilol 3.125 Mg Tablet PO 3.125 mg Q12HR AMA Administration Doxazosin Mesylate 4 mg 03/06/21 09:00 03/06/21 09:48 Doxazosin Mesylate 4 Mg Tablet PO 4 mg BID AMA Administration Duloxetine HCl 30 mg 03/06/21 09:00 03/10/21 08:48 Duloxetine Hcl 30 Mg Capsule. PO 30 mg DAILY AMA Administration Lidocaine 2 patch 03/07/21 12:35 03/10/21 08:48 Lidocaine 5% Patch TRANSDERM 2 patch DAILY AMA Administration Loperamide HCl 2 mg 03/07/21 16:42 03/08/21 08:22 Loperamide Hcl 2 Mg Capsule PO 2 mg PRN PRN Administration Diarrhea Morphine Sulfate 7.5 mg 03/10/21 00:54 03/10/21 01:04 Morphine Sulfate (*Crx) 15 Mg Tab Ir PO 7.5 mg Q8H PRN Administration Pain Rated 7-10 Multi-Ingred Cream/Lotion/Oil/Oint 1 applic 03/08/21 09:00 03/10/21 08:48 Eucerin Cream 120 Gm Jar TOPICAL 1 applic DAILY AMA Administration Multivitamins/Minerals 1 tablet 03/06/21 09:00 03/10/21 08:48 Opti-Gen Tab PO 1 tablet DAILY AMA Administration Potassium Chloride 40 meq 03/09/21 09:00 03/10/21 08:48 Potassium Chloride 20 Meq Tablet PO 40 meq DAILY AMA Administration Prednisone 10 mg 03/06/21 08:00 03/10/21 08:48 Prednisone 10 Mg Tablet PO 10 mg DAILY@0800 AMA Administration Rivaroxaban 20 mg 03/10/21 17:00 Rivaroxaban 20 Mg Tablet PO DAILY@1700 AMA Ropinirole HCl 1 mg 03/06/21 00:20 03/09/21 20:56 Ropinirole Hcl 1 Mg Tablet PO 1 mg HS AMA Administration Saccharomyces Boulardii 250 mg 03/06/21 17:00 03/10/21 08:48 Saccharomyces Boulardii 250 Mg Capsule PO 250 mg BID AMA Administration Torsemide 20 mg 03/10/21 10:00 03/10/21 10:39 Torsemide 20 Mg Tablet PO 20 mg QAM AMA Administration Vitamin D 2,000 units 03/06/21 09:00 03/10/21 08:48 Cholecalciferol 1,000 Units Tablet PO 2,000 units DAILY AMA Administration Radiology Results: ITS Impressions Head CT 03/05/21 12:01 IMPRESSION: 1. No acute intracranial abnormality. 2. Age related findings. 3. Chronic left maxillary sinusitis. Cervical Spine CT 03/05/21 12:04 IMPRESSION: 1. Moderate cervical spondylosis without acute findings. Abdomen/Pelvis CT 03/05/21 13:01 IMPRESSION: 1. No acute findings. 2. Heterogeneous mass of the right scrotum, base of the penis, and anterior abdominal wall consistent with known dedifferentiated liposarcoma. 3. Cirrhosis.
--- NOTE | 2021-03-10 13:33 | PM.DS ---
DS: Admitting Diagnosis Discharge Date 03/10/21 Admitting Diagnosis (1) Near syncope: Code(s): R55 - Syncope and collapse Status: Acute Assessment and Plan: Secondary to low blood pressures. Cardiac dysrhythmia less likely. Monitor on telemetry. Initiate fall precautions. (2) Dehydration: Code(s): E86.0 - Dehydration Status: Acute Assessment and Plan: He received 30 mL/kilogram of IV fluids in the emergency department given elevated lactic acid level. He has also received a unit of packed red blood cells and will be receiving a unit of FFP thus will hold on any further fluids at this time. (3) Hypotension: Code(s): I95.9 - Hypotension, unspecified Status: Acute Assessment and Plan: Secondary to intravascular depletion in combination with his antihypertensives and diuretics. Sepsis is a consideration given elevated white blood cell count lactic acidosis though he gives no history to suggest underlying infection. (4) Lactic acidosis: Code(s): E87.2 - Acidosis Status: Acute Assessment and Plan: Lactic acid was 5.5 on arrival to the emergency department but did normalized with aggressive IV fluid rehydration. I suspect this is elevated due to hypoperfusion given hypovolemia and hypotension. Sepsis is considered but seems less likely as he gives no history to suggest underlying infection. He received a dose of Zosyn the emergency department though I do not have a reason to continue that at this time. UA and chest x-ray were unremarkable. His wounds do not appear infected. Blood cultures pending. (5) Acute renal insufficiency: Code(s): N28.9 - Disorder of kidney and ureter, unspecified Status: Acute Assessment and Plan: Secondary to intravascular depletion in addition to over diuresis. He has been adequately hydrated. Avoid nephrotoxic agents. Consider repeat renal ultrasound if no improvement tomorrow to rule out hydronephrosis from tumor burden. (6) Supratherapeutic INR: Code(s): R79.1 - Abnormal coagulation profile Status: Acute Assessment and Plan: Likely related to diet and poor oral intake. His wounds continue to lose and his hemoglobin increased minimally with packed red blood cells thus will give him 1 unit of FFP. Continue to hold warfarin and repeat INR in a.m. (7) Fall from ground level: Code(s): W18.30XA - Fall on same level, unspecified, initial encounter Status: Acute Assessment and Plan: Patient fell last evening when getting out of bed, likely due to low blood pressure. He denies loss of consciousness in the fall. Aside from contusions and abrasions he sustained no other injuries. Initiate fall precautions. (8) Elevated troponin level: Code(s): R77.8 - Other specified abnormalities of plasma proteins Status: Acute Assessment and Plan: He is not having any chest pain but will continue to trend to peak. (9) Protein calorie malnutrition: Code(s): E46 - Unspecified protein-calorie malnutrition Status: Acute Assessment and Plan: Secondary to poor oral intake. Likely contributing to his third-spacing. Encourage protein drink supplements. (10) Acute on chronic anemia: Code(s): D64.9 - Anemia, unspecified Status: Acute Assessment and Plan: Patient reports bleeding from his wounds and soft brown stool was Hemoccult positive in the ER. Continue to trend hemoglobin hematocrit and transfuse if indicated. Will give 1 unit of FFP given supratherapeutic INR. 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 Chang, not currently on chemotherapy given recent hospitalizations. (12) Hepatic cirrhosis: Code(s): K74.60 - Unspecified cirrhosis of liver Status: Acute Assessment and Isra
[2021-03-10 13:36] LABS: Reflex Lactic Acid Yes or No Add Lactic
--- NOTE | 2021-03-10 13:53 | CONS_ITS ---
DATE OF CONSULTATION: 03/10/2021 REASON FOR CONSULTATION: Leukocytosis. HISTORY OF PRESENT ILLNESS: A 80-year-old male who has had liposarcoma found about 1 year ago. He had right orchiectomy and perhaps tumor debulking at that time. He received medication initially which apparently failed to help and he has been started on chemotherapy some 3 months ago. Chemotherapy course has been interrupted last month due to multiple hospital admissions. He still has swelling of the suprapubic area, but no pain. Wilburn catheter was placed during this hospital stay, but he had no voiding complaints prior to admission. He has no scrotal pain. He has been on no antibiotics in the last 6 weeks for any purpose and no fever, chills, or sweats. He is on prednisone at home 10 mg daily. He reports this being used more for swelling in the pelvis, not for his Crohn disease or other purposes. He has received hydrocortisone. On initial arrival, he was found to have hypotension and marked anemia. His emergency room visit was prompted by marked weakness and presyncope. Here he has received blood and his weakness has fully resolved. He has had no events here in the hospital. For unknown reasons, he was given piperacillin single dose in the emergency room. He also has been given vancomycin and cefepime this morning. Consultation requested due to persistent leukocytosis. ALLERGIES: SULFA CAUSED NAUSEA. HABITS: Quit smoking several weeks ago, 2 pack per day smoker previously. Social drinker. PRESENT MEDICATIONS: See above. PAST MEDICAL HISTORY: Previous spinal surgery, cataract extractions, hypertension, hyperlipidemia, eczema, cirrhosis, COPD, chronic back pain, chronic anemia, BPH, AF. About 2 years ago, he had a colonoscopy performed which apparently showed inflammatory bowel disease. He has been on mesalamine with no further GI upset that he is aware of. REVIEW OF SYSTEMS: Chronic lower extremity edema, occasional palpitations, back pain, decline in eyesight. 14-point review otherwise negative. FAMILY HISTORY: Not pertinent to his present illness. SOCIAL HISTORY: . No family at the bedside. Retired. Lives locally. PHYSICAL EXAMINATION: GENERAL: This is an elderly male who appears his actual age. No acute distress. VITAL SIGNS: Afebrile since arrival, 76, 18, 98%, 119/72. SKIN: He has some skin abrasions and superficial injuries over the upper extremities. He has no rashes. Warm and dry. NODES: No cervical adenopathy nor inguinal. EENT: The pupils are equal, round, reactive to light. Oropharynx, oral mucosa clear. He is edentulous. No paranasal sinus erythema, edema, or tenderness. NECK: No masses, thyromegaly, or meningismus. LUNGS: Clear to auscultation and percussion. BACK: No CVAT. CARDIAC: He has no orthostasis by standing, sitting blood pressures. Regular rate and rhythm. No murmur, gallop, or rub. Pulses are 1+ and equal. ABDOMEN: Nontender, soft. No masses, no organomegaly. : He has a Wilburn catheter in place draining clear yellow urine and scrotal and penile edema. He has induration in the suprapubic area. No warmth or breaks in the skin, sinus tracts, tenderness, crepitus. EXTREMITIES: 2+ pitting edema, both lower extremities. NEUROLOGIC: Alert, awake, oriented appropriate. LABORATORY DATA: From admission blood cultures, no growth at 5 days. Blood cultures and urine culture have been repeated today. White count on admission was 20.4 and has been high since then, 25.5 today; hemoglobin 7.3, hemoglobin on arrival was 6.8; platelets are 200,000. Differential shows a minimal left shift. He has hyponatremia, mild. Remainder of his chemistry panel normal. Lactate 2.4, alkaline phosphatase 190, albumin 2.4, otherwise liver function tests
[2021-03-10 14:16] LABS: Lactic Acid 1.4 mmol/L (0.7-2.1)
== END 2021-03-10 17:11 | disposition home health service (06) | DRG 641 ==
LOC: ANHED 11:34 → ANHIMU 15:57 → ANH2MED 03-08 08:41 → ANHIMU 03-14 10:14
PROVIDERS: Internal Medicine; Physician Assistant; Admitting Provider Internal Medicine; Emergency Provider Emergency Medicine; PCP Internal Medicine; Visit Provider Hospitalist
DX: E86.0 Dehydration (principal); D62 Acute posthemorrhagic anemia; E46 Unspecified protein-calorie malnutrition; E27.40 Unspecified adrenocortical insufficiency; C49.9 Malignant neoplasm of connective and soft tissue, unspecified; K50.90 Crohn's disease, unspecified, without complications; N17.9 Acute kidney failure, unspecified; R79.1 Abnormal coagulation profile; E87.2 Acidosis; T45.515A Adverse effect of anticoagulants, initial encounter; I95.89 Other hypotension; I95.2 Hypotension due to drugs; T50.2X5A Adverse effect of carbonic-anhydrase inhibitors, benzothiadiazides and other diuretics, initial encounter; R55 Syncope and collapse; R19.5 Other fecal abnormalities; S20.419A Abrasion of unspecified back wall of thorax, initial encounter; W06.XXXA Fall from bed, initial encounter; I48.0 Paroxysmal atrial fibrillation; N28.9 Disorder of kidney and ureter, unspecified; J44.9 Chronic obstructive pulmonary disease, unspecified; I10 Essential (primary) hypertension; E78.5 Hyperlipidemia, unspecified; K74.60 Unspecified cirrhosis of liver; N40.0 Benign prostatic hyperplasia without lower urinary tract symptoms; D72.828 Other elevated white blood cell count; L30.9 Dermatitis, unspecified; R79.89 Other specified abnormal findings of blood chemistry; L89.322 Pressure ulcer of left buttock, stage 2; L89.312 Pressure ulcer of right buttock, stage 2; Z79.52 Long term (current) use of systemic steroids; Z68.28 Body mass index [BMI] 28.0-28.9, adult; Z87.891 Personal history of nicotine dependence; Z79.01 Long term (current) use of anticoagulants; Z98.42 Cataract extraction status, left eye; Z98.41 Cataract extraction status, right eye
CPT/HCPCS: 36415; 36430; 51702; 70450; 71045; 72125; 74176; 80048; 80053; 80069; 81001; 81003; 82533; 82948; 83605; 83735; 83880; 84145; 84439; 84443; 84480; 84484; 85014; 85018; 85025; 85027; 85610; 85730; 86850; 86900; 86901; 86920; 87040; 87086; 87088; 87106; 93005; 96361; 96365; 96366; 96367; 96375; 97110; 97116; 97161; 97165; 97530; 99285; A9270; G0378; J0131; J0692; J1720; J2543; J3370; J3430; J7030; J7050; J7512; P9016; P9017

== ENCOUNTER 2021-03-20 14:47 | Inpatient (IN) | payer MEDICARE, SELFPAY ==
[2021-03-20] VITALS (24 sets, daily range): BP systolic 81–116; BP diastolic 44–74; PULSE 73–86; RESP 12–30; TEMP 36.3–36.6; O2SAT 70–99; BMI 28.9
--- NOTE | ~2021-03-20 | XR_ITS ---
EXAMINATION: XR chest 1V portable INDICATION: Weakness and diarrhea TECHNIQUE: Portable AP chest at 1555 hours COMPARISON: 03/09/2021 FINDINGS: There is a small left pleural effusion. Minimal left basilar airspace opacities persist wit hout significant change. No pneumothorax is identified. The cardiomediastinal silhouette is stable. C alcified pulmonary nodules and calcified left hilar lymph nodes are consistent with old granulomatous disease. IMPRESSION: 1. Small left pleural effusion. 2. Minimal left basilar airspace opacity, consistent with atelectasis versus pneumonia. Reviewed, dictated and finalized at location A. IMPRESSION: 1. Small left pleural effusion. 2. Minimal left basilar airspace opacity, consistent with atelectasis versus pn eumonia.
--- NOTE | ~2021-03-20 | XR_ITS ---
XR chest 1V portable DATE: 03/24/2021 05:28 INDICATION: Pneumonia TECHNIQUE: Portable AP chest on 03/24/2021 at 0519 hours COMPARISON: 04/06/2021 portable AP chest at 1555 hours 03/05/2021 AP chest. FINDINGS: There are bilateral lower lung infiltrates and/atelectasis, greater on the left. Cardiomegaly. Aortic calcification. Small left pleural effusion is suggested. Diffuse osteopenia. IMPRESSION: Bilateral lower lung infiltrate and/atelectasis, left greater than right Cardiomegaly, aortic atherosclerosis Reviewed, dictated and finalized at location A.
--- NOTE | 2021-03-20 15:18 | ECG_ITS ---
Measurements Intervals [place] Rate: 88 P: FL: 0 QRS: -39 QRSD: 119 T: 77 QT: 361 QTc: 437 Interpretive Statements ATRIAL FIBRILLATION LEFT AXIS DEVIATION IVCD, WITH FEATURES OF BOTH IRBBB AND ILBBB LOW QRS VOLTAGE IN PRECORDIAL LEADS BORDERLINE ST-T WAVE ABNORMALITY- HIGH LATERAL LEADS BASELINE ARTIFACT- I, II, AVR, AVL ABNORMAL ECG Electronically Signed On 03-20-2021 16:41:21 CDT by Raman Echavarria D.O.
[2021-03-20 15:43] LABS: Basophils Absolute Auto 0.1 K/mm3 (0.0-0.1); Basophils Percent Auto 0.3 % (0.2-1.2); Immature Granulocyte Absolute 0.91 K/mm3 (0.00-0.031); Immature Granulocyte Percent A 2.4 % (0-0.5); Lymphocytes Absolute Auto 2.99 K/mm3 (0.9-3.2); Lymphocytes Percent Auto 7.8 % (18.3-44.2); Mean Corpuscular HGB Conc 31.7 g/dl (32-36); Mean Corpuscular Hemoglobin 29.5 pg (26-34); Mean Corpuscular Volume 92.9 fl (80-100); Mean Platelet Volume 9.9 fl (7.4-10.4); Monocytes Absolute Auto 1.1 K/mm3 (0.1-0.6); Monocytes Percent Auto 2.9 % (2.6-8.5); Neutrophils Absolute Auto 33.3 K/mm3 (1.3-6.7); Neutrophils Percent Auto 86.6 % (45.5-73.1); Platelet Count Result 350 k/mm3 (150-375); Red Blood Count 2.24 M/mm3 (4.6-6.20); Red Cell Distribution Width 18.2 % (11.5-14.5); White Blood Count 38.5 K/mm3 (4.5-10.0)
[2021-03-20 15:54] LABS: Alanine Aminotransferase 27 U/L (4-50); Albumin Level 2.9 g/dL (3.5-5.1); Alkaline Phosphatase 222 U/L (38-126); Anion Gap 15 mmol/L (8-16); Aspartate Amino Transferase 41 U/L (17-59); Blood Urea Nitrogen 71 mg/dL (9-20); Calcium 8.3 mg/dL (8.4-10.2); Carbon Dioxide 22 mmol/L (22-30); Chloride 96 mmol/L (98-107); Estimated CRCL calculation 27 ml/min; Estimated Glomerular Filt Rate 29; Glucose 70 mg/dL (65-110); Hematocrit 20.8 % (42.0-52.0); Hemoglobin 6.6 g/dL (14.0-18.0); Potassium 5.4 mmol/L (3.4-5.0); Sodium 133 mmol/L (137-145)
[2021-03-20 15:56] LABS: Anisocytosis 1+ (NORMAL); Hypochromasia 2+ (NORMAL); Platelet Estimate Adequate (Adequate)
[2021-03-20 15:57] LABS: Burr Cells 1+ (NORMAL); Ovalocytes 1+ (NORMAL)
--- NOTE | 2021-03-20 16:32 | ED.GENADULT ---
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 Patient arrives today complaining of increased weakness, diarrhea and decreased urine output, as well as low blood pressure at home, all worsening over the past 3-4 days. No fever, no vomiting, no abdominal pain, no headache, no syncope. Also complaining of leg edema that improves when he puts his legs up in the recliner. Patient states occasional dark stool, recently changed from warfarin to xarelto for history of a-fib with known history of anemia. Patient is on chronic steroids, but is now tapering prednisone to 5mg daily and has been recently started on iron pills for anemia. Related Data Home Medications Medication Instructions Recorded Confirmed Centrum Silver Men 1 tablet PO DAILY 03/25/20 03/20/21 Probiotic Colon Support 1 cap PO DAILY 03/25/20 03/20/21 acetaminophen-codeine 1 tablet PO Q8H PRN 03/25/20 03/20/21 cholecalciferol (vitamin D3) 50 mcg PO DAILY 03/25/20 03/20/21 duloxetine 30 mg PO DAILY 03/25/20 03/20/21 lisinopril 40 mg PO HS 03/25/20 03/20/21 mesalamine 0.375 g PO TID 03/25/20 03/20/21 ropinirole 1 mg PO HS 03/25/20 03/20/21 tizanidine 2 mg PO HS PRN 03/25/20 03/20/21 lovastatin 40 mg PO HS 03/20/21 03/20/21 prednisone 5 mg PO DAILY 03/20/21 03/20/21 torsemide 20 mg PO BID 03/20/21 03/20/21 Allergies Allergy/AdvReac Type Severity Reaction Status Date / Time Sulfa (Sulfonamide Allergy Nausea Verified 03/20/21 17:40 Antibiotics) Review of Systems Review of Systems: CONSTITUTIONAL: no fever, no weight loss, no confusion EYES: no vision changes, no eye pain ENT: no rhinorrhea, no sore throat, no difficulty swallowing CARDIOVASCULAR: no chest pain, no leg edema, no palpitations RESPIRATORY: no cough, no shortness of breath, no hemoptysis GASTROINTESTINAL: no abdominal pain, no nausea, no vomiting, no diarrhea GENITOURINARY: no flank pain, no dysuria, no hematuria SKIN: no rash, no jaundice MUSCULOSKELETAL: no back pain, no trauma. NEUROLOGIC: No headache, no dizziness, no focal weakness PSYCHIATRIC: No hallucinations, no suicidal ideation [facility] Past Medical History Medical History (Updated 03/30/21 @ 13:09 by Anabella Jerry MD) Atrial fibrillation Benign prostatic hyperplasia Chronic anemia History of blood transfusions. Chronic anticoagulation Chronic low back pain Chronic obstructive pulmonary disease Cirrhosis Crohn's disease Diarrhea Eczema Hyperlipidemia Hypertension Liposarcoma of connective tissue Occult blood in stools Surgical History Surgical History (Updated 03/06/21 @ 00:06 by Georgette Menard PA-C) History of bilateral cataract extraction History of spinal surgery History of unilateral orchiectomy (03/31/20) Right orchiectomy. Family History Family History Other No significant past medical history Social History Social History (Updated 03/06/21 @ 00:06 by Georgette Menard PA-C) Social History: Surrogate decision maker: Jaida Wilson, . Code status: Full code. Smoking packs per day: 2 Smoking cigarettes per day: 40.0 Years smoked: 40 Smoking pack-years: 80.00 Smoking status: Former smoker Tobacco type: cigarettes Smoking end date: 02/17/21 Alcohol intake: current Drinks per week: 2 Substance use: never Additional living arrangements comments: Resides in [place] with his . Additional occupation/education comments: Retired. Spiritual care concerns: No Exam Narrative: General: alert, afebrile, answering all questions appropriately, ill appearing Head: normocephalic, atraumatic Eyes: EOMI bilaterally,
[2021-03-20 16:36] LABS: INR 2.1; Partial Thromboplastin Time 38.5 SECONDS (22.3-36.8); Prothrombin Time 23.2 Seconds (11.1-14.7)
[2021-03-20 16:44] LABS: Lactic Acid Reflex 5.4 mmol/L (0.7-2.1)
[2021-03-20 16:53] LABS: Troponin I 0.041 ng/mL (0.000-0.034)
[2021-03-20 17:11] LABS: Add Urine Microscopic? NO; Appearance Urine Clear (Clear); Bilirubin Urine Negative (Negative); Blood Urine Negative (Negative); Color Urine Yellow (Yellow); Glucose Urine UA Negative (Negative); Ketones Urine Negative (Negative); Leukocyte Esterase Ur Negative LEU/UL (Negative); Nitrate Urine Negative (Negative); Protein Urine Negative (Negative); Specific Grav Ur 1.015 (1.001-1.035); Urobilinogen Urine Negative mg/dL (<2.0)
[2021-03-20] MEDS: metroNIDAZOLE 500 MG/ISO 100ML 500 MG/100 ML BAG 100 MG IVPB (17:18)
[2021-03-20 19:24] LABS: Reflex Lactic Acid Yes or No Add Lactic
[2021-03-20 19:50] LABS: Lactic Acid 2.1 mmol/L (0.7-2.1)
--- NOTE | 2021-03-20 21:07 | PM.IMHP ---
H&P: HPI History of Present Illness Date/Time: 03/20/21 21:07 Chief Complaint: Weakness Narrative: This is a 80-year-old male with past medical history significant for recently diagnosed a liposarcoma nonsurgical, congestive heart failure, hypertension, coronary artery disease, restless leg syndrome, atrial fibrillation, hepatics cirrhosis, chronic kidney disease, benign prostatic hyperplasia, chronic obstructive pulmonary disease, Crohn's disease. Patient presented to the emergency room due to generalized weakness and shortness of breath with ambulation, patient states that walking 40-50 feet makes him really short of breath. He denies any cough any sputum production any fevers any rigors any chills any chest pain he does have bilateral lower extremity edema and edema around the right groin area with mass. Preliminary workup was significant for hemoglobin of 6.6 BUN and creatinine of 70 and 2.2 respectively a lactic acid of 5.4 a potassium of 5.4. Chest x-ray showed a left basilar opacity. Patient has been admitted for further management treatment and evaluation. Review of Systems Review of Systems: Shortness of breath, generalized weakness, fatigue. Constitutional: Constitutional: Denies chills, Reports fatigue, Denies fever(s), Reports lethargy, Reports poor appetite and Reports weakness Eyes: Eyes: Denies change in vision ENT: Denies dysphagia, Denies dizziness, Denies nasal congestion, Denies nasal discharge, Denies nasal obstruction and Denies odynophagia Cardiovascular: Cardiovascular: Denies rapid heart rate, Denies irregular heart rhythm, Denies claudication, Reports leg edema, Denies radiating jaw, neck or arm pain, Denies palpitations, Reports dyspnea, Reports dyspnea on exertion and Denies paroxysmal nocturnal dyspnea Respiratory: Respiratory: Denies cough and Reports dyspnea Gastrointestinal: Gastrointestinal: Denies dyspepsia, Denies heartburn, Reports diarrhea, Denies nausea and Denies vomiting Genitourinary: Genitourinary: Reports no additional male genitourinary complaints Musculoskeletal: Musculoskeletal: Reports no additional musculoskeletal complaints and Reports muscle weakness Integumentary/Breasts: Skin/Breast: Reports system reviewed and no additional complaints, except as docu Neurologic: Reports system reviewed and no additional complaints, except as documented Psychiatric: Psychiatric: Reports no additional psychiatric complaints Endocrine: Endocrine: Reports no additional endocrine complaints Hematologic/Lymphatic: Hematologic/Lymphatic: Reports no additional hematologic/lymphatic complaints Allergic/Immunologic: Allergic/Immunologic: Reports no additional allergic/immunologic complaints [facility] Past Medical History Medical History (Updated 03/21/21 @ 03:46 by Alejandro Rendon MD) Atrial fibrillation Benign prostatic hyperplasia Chronic anemia History of blood transfusions. Chronic anticoagulation Chronic low back pain Chronic obstructive pulmonary disease Cirrhosis Crohn's disease Diarrhea Eczema Hyperlipidemia Hypertension Liposarcoma of connective tissue Occult blood in stools Surgical History Surgical History (Updated 03/06/21 @ 00:06 by Georgette Menard PA-C) History of bilateral cataract extraction History of spinal surgery History of unilateral orchiectomy (03/31/20) Right orchiectomy. Family History Family History Other No significant past medical history Social History Social History (Updated 03/06/21 @ 00:06 by Georgette Menard PA-C) Social History: Surrogate decision maker: Jaida Wilson, . Code status: Full code. Smoking packs per day: 2 Smoking cigarettes per day: 40.0 Years smoked: 40 Smoking pack-years: 80.00 Smoking status: Former smoker Tobacco type: cigarettes Smoking end date: 02/17/21 Alcohol intake: current Drinks per week: 2 Substance use: never Addit
[2021-03-20] MEDS: SODIUM CHLORIDE 0.9% IV 250 ML 30 ML IV CONT (21:45)
--- NOTE | 2021-03-20 22:13 | ADMGEN ---
This patient, Keith Wilson, was admitted to IMU Room 213-01 on 1844 on 03/20/21 during day shift. Patient/family oriented to hospital policies and general routines including ID bracelet, bed and alarms, visiting hours, pain management, procedures, bathroom and other care routines, personal items, smoking policy, room service/diet, and visiting hours. Information on how to activate the Rapid Response Team has been discussed. Patient/Family are encouraged to report perceived risks to care and to ask questions if they do not understand what they are told or what they should do.
[2021-03-21] VITALS (19 sets, daily range): BP systolic 95–121; BP diastolic 53–70; PULSE 68–93; RESP 18–22; TEMP 35.8–36.7; O2SAT 22–100; BMI 28.9
[2021-03-21] MEDS: MORPHINE SULFATE (*CRX) 15 MG TAB IR PO (01:48)
[2021-03-21 07:31] LABS: Mean Corpuscular HGB Conc 32.9 g/dl (32-36); Mean Corpuscular Hemoglobin 29.2 pg (26-34); Mean Platelet Volume 9.3 fl (7.4-10.4); Platelet Count Result 275 k/mm3 (150-375); Red Blood Count 2.36 M/mm3 (4.6-6.20); Red Cell Distribution Width 17.8 % (11.5-14.5); White Blood Count 32.9 K/mm3 (4.5-10.0)
[2021-03-21 07:36] LABS: Hemoglobin 6.9 g/dL (14.0-18.0)
[2021-03-21 07:42] LABS: Alanine Aminotransferase 23 U/L (4-50); Albumin Level 2.3 g/dL (3.5-5.1); Alkaline Phosphatase 179 U/L (38-126); Anion Gap 6 mmol/L (8-16); Aspartate Amino Transferase 40 U/L (17-59); Bilirubin,Total 0.8 mg/dL (0.2-1.3); Blood Urea Nitrogen 68 mg/dL (9-20); Calcium 7.7 mg/dL (8.4-10.2); Carbon Dioxide 28 mmol/L (22-30); Chloride 98 mmol/L (98-107); Estimated CRCL calculation 30 ml/min; Estimated Glomerular Filt Rate 32; Glucose 111 mg/dL (65-110); Potassium 4.4 mmol/L (3.4-5.0); Sodium 132 mmol/L (137-145)
[2021-03-21] MEDS: ACIDOPHILUS/BULGARICUS CHEWABLE TABLET 1 TABLET PO (10:47)
[2021-03-21] MEDS: OPTI-GEN TAB 1 TABLET PO (10:47)
[2021-03-21] MEDS: carvediloL 3.125 MG TABLET PO ×2 (10:48→20:26)
[2021-03-21] MEDS: predniSONE 5 MG TABLET PO (10:48)
[2021-03-21] MEDS: DULoxetine HCL 30 MG CAPSULE.DR PO (10:48)
[2021-03-21] MEDS: CHOLECALCIFEROL 1,000 UNITS TABLET 2000 UNITS PO (10:48)
--- NOTE | 2021-03-21 12:25 | PHAR ---
The patient's home med of Mesalamine 0.375gm has been verified.
--- NOTE | 2021-03-21 15:52 | PM.IMPN ---
Progress Note: A&P Assessment and Plan (1) Left lower lobe pneumonia: Code(s): J18.9 - Pneumonia, unspecified organism Status: Acute Assessment and Plan: Will start Rocephin and Zithromax Blood cultures in process 03/21 Interval history: patient states he had been very weak and fatigued is difficult at home to ambulate 30-40 feet before getting short of breath he presented emergency depart further evaluation, upon arrival hemoglobin 6.6 patient is given 2 units of pack RBC, per patient denies any GI bleeding however stool is concerning for blood, will consult GI for further recommendation. will do iron profile check vitamin B2 and folic acid, patient also found to have pneumonia and being treated with ceftriaxone and azithromycin, upon arrival patient lactic acid was 5.4 repeat lactic acid is 2.1, will continue to monitor will have PT OT evaluate the and further recommendation to follow, (2) Acute on chronic anemia: Code(s): D64.9 - Anemia, unspecified Status: Acute Assessment and Plan: Likely secondary to renal failure Patient also on Xarelto Will hold Xarelto (3) Lactic acidosis: Code(s): E87.2 - Acidosis Status: Resolved Assessment and Plan: Multifactorial Gentle hydration (4) Chronic obstructive pulmonary disease: Code(s): J44.9 - Chronic obstructive pulmonary disease, unspecified Status: Acute Assessment and Plan: Not actively wheezing Continue breathing treatment (5) Atrial fibrillation: Code(s): I48.91 - Unspecified atrial fibrillation Status: Acute Assessment and Plan: Rate controlled Holding anticoagulation due to acute anemia (6) Chronic low back pain: Code(s): M54.5 - Low back pain; G89.29 - Other chronic pain Status: Inactive Assessment and Plan: Tylenol as needed (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 of connective and soft tissue, unspecified Status: Acute Assessment and Plan: Follows up in the outpatient setting (8) Benign prostatic hyperplasia: Code(s): N40.0 - Benign prostatic hyperplasia without lower urinary tract symptoms Status: Inactive Assessment and Plan: Unchanged (9) Acute on chronic renal failure: Code(s): N17.9 - Acute kidney failure, unspecified; N18.9 - Chronic kidney disease, unspecified Status: Acute Assessment and Plan: Holding lisinopril ,holding spironolactone, holding torsemide. Subjective Date/time seen: 03/21/21 15:52 Chief Complaint: Weakness Narrative: This is a 80-year-old male with past medical history significant for recently diagnosed a liposarcoma nonsurgical, congestive heart failure, hypertension, coronary artery disease, restless leg syndrome, atrial fibrillation, hepatics cirrhosis, chronic kidney disease, benign prostatic hyperplasia, chronic obstructive pulmonary disease, Crohn's disease. Patient presented to the emergency room due to generalized weakness and shortness of breath with ambulation, patient states that walking 40-50 feet makes him really short of breath. He denies any cough any sputum production any fevers any rigors any chills any chest pain he does have bilateral lower extremity edema and edema around the right groin area with mass. Preliminary workup was significant for hemoglobin of 6.6 BUN and creatinine of 70 and 2.2 respectively a lactic acid of 5.4 a potassium of 5.4. Chest x-ray showed a left basilar opacity. Patient has been admitted for further management treatment and evaluation. 03/21 Interval history: patient states he had been very weak and fatigued is difficult at home to ambulate 30-40 feet before getting short of breath he presented emergency depart further evaluation, upon arrival hemoglobin 6.6 patient is given 2 units of pack RBC, per patient denies any GI bleeding however stool is concerning for blood, will consult GI for further fortino
[2021-03-21 19:50] LABS: Hematocrit 25.2 % (42.0-52.0); Hemoglobin 8.2 g/dL (14.0-18.0)
[2021-03-21] MEDS: rOPINIRole HCL 1 MG TABLET PO (20:26)
[2021-03-22] VITALS (18 sets, daily range): BP systolic 98–119; BP diastolic 47–72; PULSE 67–94; RESP 16–20; TEMP 35.7–36.9; O2SAT 94–100
[2021-03-22] MEDS: MORPHINE SULFATE (*CRX) 15 MG TAB IR PO (01:03)
[2021-03-22 07:00] LABS: Hematocrit 26.1 % (42.0-52.0); Hemoglobin 8.4 g/dL (14.0-18.0); Mean Corpuscular HGB Conc 32.2 g/dl (32-36); Mean Corpuscular Hemoglobin 29.9 pg (26-34); Mean Corpuscular Volume 92.9 fl (80-100); Mean Platelet Volume 9.5 fl (7.4-10.4); Platelet Count Result 234 k/mm3 (150-375); Red Blood Count 2.81 M/mm3 (4.6-6.20); Red Cell Distribution Width 17.8 % (11.5-14.5); White Blood Count 32.7 K/mm3 (4.5-10.0)
[2021-03-22 07:53] LABS: Anion Gap 4 mmol/L (8-16); Blood Urea Nitrogen 49 mg/dL (9-20); Calcium 7.6 mg/dL (8.4-10.2); Carbon Dioxide 30 mmol/L (22-30); Chloride 100 mmol/L (98-107); Estimated CRCL calculation 42 ml/min; Estimated Glomerular Filt Rate 49; Glucose 132 mg/dL (65-110); Potassium 4.3 mmol/L (3.4-5.0); Sodium 134 mmol/L (137-145)
[2021-03-22 08:29] LABS: Folic Acid 7.6 ng/mL (2.76->20)
[2021-03-22] MEDS: ACIDOPHILUS/BULGARICUS CHEWABLE TABLET 1 TABLET PO (08:47)
[2021-03-22] MEDS: DULoxetine HCL 30 MG CAPSULE.DR PO (08:47)
[2021-03-22] MEDS: carvediloL 3.125 MG TABLET PO ×2 (08:48→21:13)
[2021-03-22] MEDS: CHOLECALCIFEROL 1,000 UNITS TABLET 2000 UNITS PO (08:48)
[2021-03-22] MEDS: predniSONE 5 MG TABLET PO (08:48)
[2021-03-22] MEDS: OPTI-GEN TAB 1 TABLET PO (08:48)
[2021-03-22 08:51] LABS: Iron 23 ug/dL (49-181)
[2021-03-22 09:00] LABS: Percent Iron Saturation 17 % (20-50)
--- NOTE | 2021-03-22 12:59 | PM.IMPN ---
Progress Note: A&P Assessment and Plan (1) Left lower lobe pneumonia: Code(s): J18.9 - Pneumonia, unspecified organism Status: Acute Assessment and Plan: Will start Rocephin and Zithromax Blood cultures negative to date, [facility] high continue to monitor (2) Acute on chronic anemia: Code(s): D64.9 - Anemia, unspecified Status: Acute Assessment and Plan: Likely secondary to renal failure Patient also on Xarelto hold Xarelto (3) Lactic acidosis: Code(s): E87.2 - Acidosis Status: Resolved Assessment and Plan: Secondary to infection continue hydration (4) Chronic obstructive pulmonary disease: Code(s): J44.9 - Chronic obstructive pulmonary disease, unspecified Status: Acute Assessment and Plan: Continue breathing treatment (5) Atrial fibrillation: Code(s): I48.91 - Unspecified atrial fibrillation Status: Acute Assessment and Plan: Rate controlled Holding anticoagulation due to acute anemia (6) Chronic low back pain: Code(s): M54.5 - Low back pain; G89.29 - Other chronic pain Status: Inactive Assessment and Plan: Tylenol as needed (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 of connective and soft tissue, unspecified Status: Acute Assessment and Plan: Follows up in the outpatient setting (8) Benign prostatic hyperplasia: Code(s): N40.0 - Benign prostatic hyperplasia without lower urinary tract symptoms Status: Inactive Assessment and Plan: Unchanged (9) Acute on chronic renal failure: Code(s): N17.9 - Acute kidney failure, unspecified; N18.9 - Chronic kidney disease, unspecified Status: Acute Assessment and Plan: Holding lisinopril ,holding spironolactone, holding torsemide. (10) Dysuria: Code(s): R30.0 - Dysuria Status: Acute Assessment and Plan: Pt has nadir in her urine Subjective Date/time seen: 03/22/21 12:59 Interval history: 80-year-old male with past medical history significant for recently diagnosed a liposarcoma nonsurgical, congestive heart failure, hypertension, coronary artery disease, restless leg syndrome, atrial fibrillation, hepatics cirrhosis, chronic kidney disease, benign prostatic hyperplasia, chronic obstructive pulmonary disease, Crohn's disease. Patient presented to the emergency room due to generalized weakness and shortness of breath with ambulation, patient states that walking 40-50 feet makes him really short of breath. He denies any cough any sputum production any fevers any rigors any chills any chest pain. Pt is recovering well. still feels weak working with PT/ OT. Review of Systems Review of Systems: All systems reviewed & are unremarkable except as noted in HPI and below Exam Narrative: Elderly older man HEENT: eyes are clear and none icteric LUNGS: BL rhonchi ABD: not distended Lower extremities: no edema SKIN: nonjaundiced Neuro: grossly intact. Objective Data Vital Signs Vital Signs: Vital Signs - 24 hr 03/21/21 14:00 03/21/21 14:29 03/21/21 14:43 Temperature 36.0 C L 36.0 C L 35.8 C L Pulse Rate 80 80 73 Respiratory Rate 20 20 20 Blood Pressure 105/53 L 105/53 L 95/59 L Pulse Oximetry 90 90 100 03/21/21 15:43 03/21/21 16:00 03/21/21 17:00 Temperature 35.9 C L 36.0 C L 36.4 C Pulse Rate 71 69 74 Respiratory Rate 20 22 H 20 Blood Pressure 121/70 109/64 114/60 Pulse Oximetry 90 100 100 03/21/21 18:00 03/21/21 18:10 03/21/21 20:00 Temperature 36.1 C L 36.6 C Pulse Rate 74 74 91 Respiratory Rate 18 18 Blood Pressure 121/59 L 116/67 Pulse Oximetry 96 98 03/21/21 22:00 03/21/21 23:48 03/22/21 00:00 Temperature 36.7 C Pulse Rate 75 77 74 Respiratory Rate 18 Blood Pressure 119/54 L Pulse Oximetry 99 03/22/21 02:00 03/22/21 04:00 03/22/21 06:00 Temperature 36.6 C Pulse Rate 75 83 78 Respirator
[2021-03-22] MEDS: rOPINIRole HCL 1 MG TABLET PO (21:13)
[2021-03-23] VITALS (15 sets, daily range): BP systolic 104–132; BP diastolic 40–79; PULSE 67–106; RESP 12–18; TEMP 36.3–37.7; O2SAT 94–100
[2021-03-23 05:04] LABS: Hematocrit 26.6 % (42.0-52.0); Hemoglobin 8.5 g/dL (14.0-18.0); Mean Corpuscular Hemoglobin 30.2 pg (26-34); Mean Corpuscular Volume 94.7 fl (80-100); Mean Platelet Volume 9.3 fl (7.4-10.4); Platelet Count Result 265 k/mm3 (150-375); Red Blood Count 2.81 M/mm3 (4.6-6.20); Red Cell Distribution Width 18.1 % (11.5-14.5); White Blood Count 30.7 K/mm3 (4.5-10.0)
[2021-03-23 05:28] LABS: Anion Gap 1 mmol/L (8-16); Blood Urea Nitrogen 33 mg/dL (9-20); Calcium 7.8 mg/dL (8.4-10.2); Carbon Dioxide 31 mmol/L (22-30); Chloride 101 mmol/L (98-107); Estimated CRCL calculation 58 ml/min; Estimated Glomerular Filt Rate > 60; Glucose 110 mg/dL (65-110); Sodium 133 mmol/L (137-145)
[2021-03-23] MEDS: OPTI-GEN TAB 1 TABLET PO (09:11)
[2021-03-23] MEDS: ACIDOPHILUS/BULGARICUS CHEWABLE TABLET 1 TABLET PO (09:11)
[2021-03-23] MEDS: DULoxetine HCL 30 MG CAPSULE.DR PO (09:11)
[2021-03-23] MEDS: CHOLECALCIFEROL 1,000 UNITS TABLET 2000 UNITS PO (09:11)
[2021-03-23] MEDS: predniSONE 5 MG TABLET PO (09:11)
[2021-03-23] MEDS: carvediloL 3.125 MG TABLET PO ×2 (09:11→20:10)
[2021-03-23] MEDS: FLUCONAZOLE 100 MG TABLET PO (09:12)
--- NOTE | 2021-03-23 16:26 | PM.IMPN ---
Progress Note: A&P Assessment and Plan (1) Left lower lobe pneumonia: Code(s): J18.9 - Pneumonia, unspecified organism Status: Acute Assessment and Plan: Will start Rocephin and Zithromax Blood cultures negative to date, [facility] high change zithromax to oral (2) Acute on chronic anemia: Code(s): D64.9 - Anemia, unspecified Status: Acute Assessment and Plan: Likely secondary to renal failure Patient also on Xarelto hold Xarelto (3) Lactic acidosis: Code(s): E87.2 - Acidosis Status: Resolved Assessment and Plan: Secondary to infection (4) Chronic obstructive pulmonary disease: Code(s): J44.9 - Chronic obstructive pulmonary disease, unspecified Status: Acute Assessment and Plan: Continue breathing treatment (5) Atrial fibrillation: Code(s): I48.91 - Unspecified atrial fibrillation Status: Acute Assessment and Plan: Rate controlled Holding anticoagulation due to acute anemia (6) Chronic low back pain: Code(s): M54.5 - Low back pain; G89.29 - Other chronic pain Status: Inactive Assessment and Plan: Tylenol as needed (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 of connective and soft tissue, unspecified Status: Acute Assessment and Plan: Follows up in the outpatient setting (8) Benign prostatic hyperplasia: Code(s): N40.0 - Benign prostatic hyperplasia without lower urinary tract symptoms Status: Inactive Assessment and Plan: Unchanged (9) Acute on chronic renal failure: Code(s): N17.9 - Acute kidney failure, unspecified; N18.9 - Chronic kidney disease, unspecified Status: Acute Assessment and Plan: Holding lisinopril ,holding spironolactone, holding torsemide. (10) Dysuria: Code(s): R30.0 - Dysuria Status: Acute Assessment and Plan: Pt has nadir in her urine treat with diflucan Subjective Date/time seen: 03/23/21 16:26 Interval history: 80-year-old male with past medical history significant for recently diagnosed a liposarcoma nonsurgical, congestive heart failure, hypertension, coronary artery disease, restless leg syndrome, atrial fibrillation, hepatics cirrhosis, chronic kidney disease, benign prostatic hyperplasia, chronic obstructive pulmonary disease, Crohn's disease. Patient presented to the emergency room due to generalized weakness and shortness of breath with ambulation, patient states that walking 40-50 feet makes him really short of breath. He denies any cough any sputum production any fevers any rigors any chills any chest pain. Pt is recovering well. Cxr ordered for tyrone hopeful dc tomorrow. Review of Systems Review of Systems: All systems reviewed & are unremarkable except as noted in HPI and below Exam Narrative: Elderly older man HEENT: eyes are clear and none icteric LUNGS: clear lungs ABD0: not distended Lower extremities: no edema SKIN: nonjaundiced Neuro: grossly intact. Objective Data Vital Signs Vital Signs: Vital Signs - 24 hr 03/22/21 17:05 03/22/21 18:00 03/22/21 20:00 Temperature 36.4 C 36.9 C Pulse Rate 69 70 73 Respiratory Rate 18 16 Blood Pressure 98/58 L 113/65 Pulse Oximetry 100 98 03/22/21 21:13 03/22/21 22:00 03/22/21 23:13 Temperature 36.6 C Pulse Rate 74 73 77 Respiratory Rate 16 Blood Pressure 119/72 Pulse Oximetry 100 03/23/21 00:00 03/23/21 02:00 03/23/21 04:00 Temperature 36.3 C L Pulse Rate 75 78 70 Respiratory Rate 16 16 Blood Pressure 115/69 Pulse Oximetry 100 98 03/23/21 06:00 03/23/21 08:00 03/23/21 10:00 Temperature 37.1 C Pulse Rate 73 77 79 Respiratory Rate 12 Blood Pressure 119/47 L Pulse Oximetry 97 03/23/21 12:00 03/23/21 14:00 Temperature 37.7 C H Pulse Rate 71 72 Respiratory Rate 18 Blood Pressure 104/67 Pulse Oximetry 99 Intake/Output Intake/Ou
[2021-03-23] MEDS: rOPINIRole HCL 1 MG TABLET PO (20:10)
[2021-03-23] MEDS: MORPHINE SULFATE (*CRX) 15 MG TAB IR PO (22:49)
[2021-03-24] VITALS (16 sets, daily range): BP systolic 105–127; BP diastolic 56–81; PULSE 68–96; RESP 16–23; TEMP 35.9–36.8; O2SAT 98–100
[2021-03-24 04:53] LABS: Hematocrit 27.2 % (42.0-52.0); Hemoglobin 8.8 g/dL (14.0-18.0); Mean Corpuscular HGB Conc 32.4 g/dl (32-36); Mean Corpuscular Hemoglobin 30.6 pg (26-34); Mean Corpuscular Volume 94.4 fl (80-100); Mean Platelet Volume 9.4 fl (7.4-10.4); Platelet Count Result 260 k/mm3 (150-375); Red Blood Count 2.88 M/mm3 (4.6-6.20); Red Cell Distribution Width 18.4 % (11.5-14.5); White Blood Count 32.2 K/mm3 (4.5-10.0)
[2021-03-24 05:14] LABS: Anion Gap 3 mmol/L (8-16); Blood Urea Nitrogen 24 mg/dL (9-20); Calcium 7.8 mg/dL (8.4-10.2); Carbon Dioxide 28 mmol/L (22-30); Chloride 100 mmol/L (98-107); Estimated CRCL calculation 64 ml/min; Estimated Glomerular Filt Rate > 60; Glucose 102 mg/dL (65-110); Potassium 4.3 mmol/L (3.4-5.0); Sodium 131 mmol/L (137-145)
[2021-03-24] MEDS: OPTI-GEN TAB 1 TABLET PO (09:14)
[2021-03-24] MEDS: carvediloL 3.125 MG TABLET PO ×2 (09:14→23:36)
[2021-03-24] MEDS: predniSONE 5 MG TABLET PO (09:14)
[2021-03-24] MEDS: DULoxetine HCL 30 MG CAPSULE.DR PO (09:14)
[2021-03-24] MEDS: FLUCONAZOLE 100 MG TABLET PO (09:15)
[2021-03-24] MEDS: CHOLECALCIFEROL 1,000 UNITS TABLET 2000 UNITS PO (09:15)
[2021-03-24] MEDS: AZITHROMYCIN 250 MG TABLET PO (09:16)
[2021-03-24] MEDS: ACIDOPHILUS/BULGARICUS CHEWABLE TABLET 1 TABLET PO (09:16)
--- NOTE | 2021-03-24 11:31 | PCDIET ---
Nutrition Follow-Up Complete: Nutrition Diagnosis: Suboptimal oral intake related to decreased appetite as evidenced by patient statements, intake of 10%, order for Ensure Compact BID. Nutrition Goal: Patient to consume 50% of meals/supplements or greater. Goal met. Patient has consumed an average of 68% of recorded meals since 03/21/21 on heart healthy diet. Continues on Ensure Enlive BID. Last recorded weight is 85.4 kg which is significantly down from other weights. Recommend re-weighing to ensure accuracy. Bowel Motility: Last documented BM on 03/23/21 x 2. Labs Reviewed: WBC (32.2), RBC (2.88), Hgb (8.8), Hct (27.2), BUN (24), Na (131), Ca (7.8) Meds Noted: Zithromax, Coreg, Rocephin, Lactinex, Diflucan, Mesalamine, Msir, Ocuvite, Prednisone, Requip, Vitamin D Additional Notes: Unstageable area to buttocks. Recommend continuing Ensure Enlive BID for total of 700kcal and 40g protein, if accepted. Will continue to monitor with same goal. Nutrition Monitoring and Evaluation: Follow up every 5 days.
--- NOTE | 2021-03-24 13:55 | PM.IMPN ---
Progress Note: A&P Assessment and Plan (1) Left lower lobe pneumonia: Code(s): J18.9 - Pneumonia, unspecified organism Status: Acute Assessment and Plan: Will start Rocephin and Zithromax Blood cultures negative to date, [facility] high change zithromax to oral [facility] still high cxr shows pneumonia Consult ID. for ABX recommendations. (2) Acute on chronic anemia: Code(s): D64.9 - Anemia, unspecified Status: Acute Assessment and Plan: Likely secondary to renal failure Patient also on Xarelto hold Xarelto (3) Lactic acidosis: Code(s): E87.2 - Acidosis Status: Resolved Assessment and Plan: Secondary to infection (4) Chronic obstructive pulmonary disease: Code(s): J44.9 - Chronic obstructive pulmonary disease, unspecified Status: Acute Assessment and Plan: Continue breathing treatment (5) Atrial fibrillation: Code(s): I48.91 - Unspecified atrial fibrillation Status: Acute Assessment and Plan: Rate controlled Holding anticoagulation due to acute anemia (6) Chronic low back pain: Code(s): M54.5 - Low back pain; G89.29 - Other chronic pain Status: Inactive Assessment and Plan: Tylenol as needed (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 of connective and soft tissue, unspecified Status: Acute Assessment and Plan: Follows up in the outpatient setting (8) Benign prostatic hyperplasia: Code(s): N40.0 - Benign prostatic hyperplasia without lower urinary tract symptoms Status: Inactive Assessment and Plan: Unchanged (9) Acute on chronic renal failure: Code(s): N17.9 - Acute kidney failure, unspecified; N18.9 - Chronic kidney disease, unspecified Status: Acute Assessment and Plan: Holding lisinopril ,holding spironolactone, holding torsemide. (10) Dysuria: Code(s): R30.0 - Dysuria Status: Acute Assessment and Plan: Pt has nadir in her urine treat with diflucan Subjective Date/time seen: 03/24/21 13:55 Interval history: 80-year-old male with past medical history significant for recently diagnosed a liposarcoma nonsurgical, congestive heart failure, hypertension, coronary artery disease, restless leg syndrome, atrial fibrillation, hepatics cirrhosis, chronic kidney disease, benign prostatic hyperplasia, chronic obstructive pulmonary disease, Crohn's disease. Patient presented to the emergency room due to generalized weakness and shortness of breath with ambulation, patient states that walking 40-50 feet makes him really short of breath. He denies any cough any sputum production any fevers any rigors any chills any chest pain. CXR today still shows pneumonia Review of Systems Review of Systems: All systems reviewed & are unremarkable except as noted in HPI and below Exam Narrative: Elderly older man HEENT: eyes are clear and none icteric LUNGS: clear lungs ABD0: not distended Lower extremities: no edema SKIN: nonjaundiced Neuro: grossly intact. Objective Data Vital Signs Vital Signs: Vital Signs - 24 hr 03/23/21 14:00 03/23/21 16:00 03/23/21 18:00 Temperature 37.2 C Pulse Rate 72 77 67 Respiratory Rate 12 Blood Pressure 132/40 L Pulse Oximetry 94 03/23/21 19:43 03/23/21 20:00 03/23/21 20:10 Temperature 37.2 C Pulse Rate 80 79 74 Respiratory Rate 12 16 Blood Pressure 131/79 Pulse Oximetry 99 99 03/23/21 22:00 03/23/21 23:50 03/24/21 00:00 Temperature 36.6 C Pulse Rate 80 79 80 Respiratory Rate 16 16 Blood Pressure 124/73 Pulse Oximetry 99 99 03/24/21 01:55 03/24/21 04:00 03/24/21 05:53 Temperature 36.8 C Pulse Rate 78 72 85 Respiratory Rate 16 Blood Pressure 125/78 Pulse Oximetry 99 03/24/21 08:00 03/24/21 09:14 03/24/21 09:27 Temperature 35.9 C L Pulse Rate 96 87 84 Respiratory Rate 23 H Blood Pressure 127/72
--- NOTE | 2021-03-24 18:34 | PC.NURSE ---
Addendum entered by Shana Perez RN 03/24/21 18:36: Received at 1825 from [facility] 213/. Voiding per Wilburn. Original Note: Received by bed from [facility]/. Voiding per Wilburn.
--- NOTE | 2021-03-24 18:35 | PC.NURSE ---
This patient, Keith Wilson, was transferred to [facility] on 03/24/21 at 1825 via bed without issue. Personal belongings sent with patient. Report given to RIKA Saldana. Appropriate documentation sent with patient.
[2021-03-24] MEDS: ACETAMINOPHEN/CODEINE (*CRX) 300/30 MG TABLET 1 TAB PO (21:07)
[2021-03-24] MEDS: rOPINIRole HCL 1 MG TABLET PO (21:08)
[2021-03-24] MEDS: LIDOCAINE 5% PATCH 2 PATCH TRANSDERM (23:30)
[2021-03-25] VITALS: BP 119/73; PULSE 65; RESP 21; TEMP 36.3; O2SAT 100
[2021-03-25 04:00] VITALS: BP 127/65; PULSE 65; RESP 21; TEMP 36.6; O2SAT 100
[2021-03-25] MEDS: TIZANIDINE HCL 2 MG TABLET PO (04:27)
[2021-03-25 05:37] LABS: Hemoglobin 7.7 g/dL (14.0-18.0); Mean Corpuscular HGB Conc 32.1 g/dl (32-36); Mean Corpuscular Hemoglobin 30.2 pg (26-34); Mean Corpuscular Volume 94.1 fl (80-100); Mean Platelet Volume 9.6 fl (7.4-10.4); Platelet Count Result 233 k/mm3 (150-375); Red Blood Count 2.55 M/mm3 (4.6-6.20); Red Cell Distribution Width 18.3 % (11.5-14.5); White Blood Count 30.9 K/mm3 (4.5-10.0)
[2021-03-25 05:50] LABS: Anion Gap 2 mmol/L (8-16); Blood Urea Nitrogen 20 mg/dL (9-20); Calcium 7.1 mg/dL (8.4-10.2); Carbon Dioxide 27 mmol/L (22-30); Chloride 98 mmol/L (98-107); Estimated CRCL calculation 81 ml/min; Estimated Glomerular Filt Rate > 60; Glucose 88 mg/dL (65-110); Potassium 4.4 mmol/L (3.4-5.0); Sodium 127 mmol/L (137-145)
[2021-03-25 08:00] VITALS: BP 104/61; PULSE 73; RESP 20; TEMP 36.6; O2SAT 100
[2021-03-25] MEDS: OPTI-GEN TAB 1 TABLET PO (08:33)
[2021-03-25] MEDS: ACIDOPHILUS/BULGARICUS CHEWABLE TABLET 1 TABLET PO (08:33)
[2021-03-25] MEDS: DULoxetine HCL 30 MG CAPSULE.DR PO (08:33)
[2021-03-25] MEDS: AZITHROMYCIN 250 MG TABLET PO (08:33)
[2021-03-25] MEDS: predniSONE 5 MG TABLET PO (08:33)
[2021-03-25] MEDS: FLUCONAZOLE 100 MG TABLET PO (08:33)
[2021-03-25 08:34] VITALS: PULSE 64; RESP 20; O2SAT 98
[2021-03-25] MEDS: carvediloL 3.125 MG TABLET PO (08:34)
[2021-03-25] MEDS: CHOLECALCIFEROL 1,000 UNITS TABLET 2000 UNITS PO (08:34)
[2021-03-25 12:00] VITALS: BP 93/63; PULSE 61; RESP 16; TEMP 36.2; O2SAT 100
--- NOTE | 2021-03-25 15:12 | WPDINFPN2 ---
Subjective Date/time seen: 03/25/21 15:12 Interval history: Discussed with Dr. Bernard. Patient not seen, consult cancelled Objective Data Vital Signs Vital Signs: Vital Signs - 24 hr 03/24/21 16:00 03/24/21 16:34 03/24/21 20:00 Temperature 36.6 C 36.2 C L Pulse Rate 71 79 83 Respiratory Rate 20 20 Blood Pressure 115/74 105/81 Pulse Oximetry 100 100 98 03/24/21 20:15 03/24/21 23:36 03/25/21 00:00 Temperature 36.3 C L Pulse Rate 79 80 65 Respiratory Rate 20 21 H Blood Pressure 119/73 Pulse Oximetry 100 100 03/25/21 04:00 03/25/21 08:00 03/25/21 08:34 Temperature 36.6 C 36.6 C Pulse Rate 65 73 64 Respiratory Rate 21 H 20 20 Blood Pressure 127/65 104/61 Pulse Oximetry 100 100 98 Intake/Output Intake/Output: Intake & Output 03/22/21 03/23/21 03/24/21 03/25/21 23:59 23:59 23:59 23:59 Intake Total 950 1370 1600 740 Output Total 1500 1850 1375 600 Balance -550 -480 225 140 Meds/Results Medications: Active Medications Generic Name Dose Route Start Last Admin Trade Name Freq PRN Reason Stop Dose Admin Acetaminophen/Codeine Phosphate 1 tab 03/21/21 01:16 03/24/21 21:07 Acetaminophen/Codeine (*Crx) 300/30 Mg Tablet PO 1 tab Q8H PRN Administration Pain Rated 4-6 Azithromycin 250 mg 03/24/21 09:00 03/25/21 08:33 Azithromycin 250 Mg Tablet PO 250 mg DAILY AMA Administration Carvedilol 3.125 mg 03/21/21 09:00 03/25/21 08:34 Carvedilol 3.125 Mg Tablet PO 3.125 mg Q12HR AMA Administration Duloxetine HCl 30 mg 03/21/21 09:00 03/25/21 08:33 Duloxetine Hcl 30 Mg Capsule.Dr PO 30 mg DAILY AMA Administration Fluconazole 100 mg 03/23/21 09:00 03/25/21 08:33 Fluconazole 100 Mg Tablet PO 100 mg QAM AMA Administration Home Med 1 each 03/21/21 13:00 03/25/21 13:07 Home Med Mesalamine 0.375 Gram Capsule,Extended Release 24hr PO 04/20/21 12:59 1 each TID AMA Administration Ceftriaxone Sodium 2 gm in 100 mls @ 200 mls/hr 03/21/21 03:50 03/25/21 07:19 Rocephin 2 Gm/D5w 100 Ml IVPB Infused DAILY@0600 AMA Infusion Lactobacillus Acidophilus 1 tablet 03/21/21 09:00 03/25/21 08:33 Acidophilus/Bulgaricus Chewable Tablet PO 04/20/21 08:59 1 tablet DAILY AMA Administration Lidocaine 2 patch 03/21/21 01:16 03/24/21 23:30 Lidocaine 5% Patch TRANSDERM 2 patch DAILY PRN Administration Pain Morphine Sulfate 15 mg 03/21/21 01:16 03/23/21 22:49 Morphine Sulfate (*Crx) 15 Mg Tab Ir PO 15 mg Q8H PRN Administration Pain Rated 7-10 Multivitamins/Minerals 1 tablet 03/21/21 09:00 03/25/21 08:33 Opti-Gen Tab PO 1 tablet DAILY AMA Administration Prednisone 5 mg 03/21/21 08:00 03/25/21 08:33 Prednisone 5 Mg Tablet PO 5 mg DAILY@0800 AMA Administration Ropinirole HCl 1 mg 03/21/21 21:00 03/24/21 21:08 Ropinirole Hcl 1 Mg Tablet PO 1 mg HS AMA Administration Tizanidine HCl 2 mg 03/21/21 01:16 03/25/21 04:27 Tizanidine Hcl 2 Mg Tablet PO 2 mg HS PRN Administration Muscle Pain Vitamin D 2,000 units 03/21/21 09:00 03/25/21 08:34 Cholecalciferol 1,000 Units Tablet PO 2,000 units DAILY AMA Administration Radiology Results: ITS Impressions Chest X-Ray 03/24/21 06:41 IMPRESSION: Bilateral lower lung infiltrate and/atelectasis, left greater than right Cardiomegaly, aortic atherosclerosis Labs Labs: Laboratory Results - last 24 hr 03/25/21 03/25/21 05:05 05:05 WBC 30.9 H RBC 2.55 L Hgb 7.7 L Hct 24.0 L MCV 94.1 MCH 30.2 MCHC 32.1 RDW 18.3 H Plt Count 233 MPV 9.6 Sodium 127 L Potassium 4.4 Chloride 98 Carbon Dioxide 27 Anion Gap 2 L BUN 20 Creatinine 0.70 Estim Creat Clear Calc 81 Estimated GFR > 60 Glucose 88 Calcium 7.1 L
--- NOTE | 2021-03-25 15:39 | PM.DS ---
DS: Admitting Diagnosis Discharge Date 03/25/2021 Admitting Diagnosis Weakness DS: Discharge Diagnosis Discharge Diagnosis (1) Left lower lobe pneumonia: Code(s): J18.9 - Pneumonia, unspecified organism Status: Acute Assessment and Plan: Pt started on iv Rocephin and Zithromax Blood cultures negative to date, Wcc high change possible secondary to steroids. No further abx needed on dischrage pt is asympyomatic. (2) Acute on chronic anemia: Code(s): D64.9 - Anemia, unspecified Status: Acute Assessment and Plan: Likely secondary to renal failure Patient also on Xarelto hold Xarelto until pt GI team in [facility] HB is 7 today, pt upon arrival hemoglobin 6.6 patient is given 2 units of pack RBC, per patient denies any GI bleeding, pt to have hb checked in 1 weeks time (3) Lactic acidosis: Code(s): E87.2 - Acidosis Status: Resolved Assessment and Plan: Secondary to infection (4) Chronic obstructive pulmonary disease: Code(s): J44.9 - Chronic obstructive pulmonary disease, unspecified Status: Acute Assessment and Plan: Resolved Continue breathing treatment (5) Atrial fibrillation: Code(s): I48.91 - Unspecified atrial fibrillation Status: Acute Assessment and Plan: Rate controlled Holding anticoagulation due to acute anemia (6) Chronic low back pain: Code(s): M54.5 - Low back pain; G89.29 - Other chronic pain Status: Inactive Assessment and Plan: Tylenol as needed (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 of connective and soft tissue, unspecified Status: Acute Assessment and Plan: Follows up in the outpatient setting (8) Benign prostatic hyperplasia: Code(s): N40.0 - Benign prostatic hyperplasia without lower urinary tract symptoms Status: Inactive Assessment and Plan: Unchanged (9) Acute on chronic renal failure: Code(s): N17.9 - Acute kidney failure, unspecified; N18.9 - Chronic kidney disease, unspecified Status: Acute Assessment and Plan: Holding lisinopril ,holding spironolactone, holding torsemide. (10) Dysuria: Code(s): R30.0 - Dysuria Status: Acute Assessment and Plan: Pt has nadir in her urine treated with diflucan for 3 days DS: Summary Hospital Course Hospital Course: 80-year-old male with past medical history significant for recently diagnosed a liposarcoma nonsurgical, congestive heart failure, hypertension, coronary artery disease, restless leg syndrome, atrial fibrillation, hepatics cirrhosis, chronic kidney disease, benign prostatic hyperplasia, chronic obstructive pulmonary disease, Crohn's disease. Patient presented to the emergency room due to generalized weakness and shortness of breath with ambulation, patient states that walking 40-50 feet makes him really short of breath. He denies any cough any sputum production any fevers any rigors any chills any chest pain. Pt is asymptomatic can be discharged today Time Spent with Patient Time attestation: Total time spent providing and/or coordinating discharge services:40 minutes on day of discharge Exam Narrative: Elderly older man HEENT: eyes are clear and none icteric LUNGS: clear lungs ABD0: not distended Lower extremities: no edema SKIN: nonjaundiced Neuro: grossly intact. DS: Data Data Completed and Pending Labs on day of discharge: Labs from last 24 hours 03/25/21 03/25/21 05:05 05:05 WBC 30.9 H RBC 2.55 L Hgb 7.7 L Hct 24.0 L MCV 94.1 MCH 30.2 MCHC 32.1 RDW 18.3 H Plt Count 233 MPV 9.6 Sodium 127 L Potassium 4.4 Chloride 98 Carbon Dioxide 27 Anion Gap 2 L BUN 20 Creatinine 0.70 Estim Creat Clear Calc 81 Estimated GFR > 60 Glucose 88 Calcium 7.1 L Preliminary micro results at discharge 03/20/21 16:14 Blood Culture - Preliminary
== END 2021-03-25 16:35 | disposition home health service (06) | DRG 194 ==
LOC: ANHED 16:46 → ANHIMU 03-21 02:59 → ANH2MED 03-25 13:40 → ANHIMU 03-29 13:55
PROVIDERS: Emergency Medicine; Internal Medicine; Admitting Provider Family Medicine; Emergency Provider Emergency Medicine; PCP Internal Medicine; Visit Provider Family Medicine
DX: J18.9 Pneumonia, unspecified organism (principal); C49.9 Malignant neoplasm of connective and soft tissue, unspecified; N17.9 Acute kidney failure, unspecified; E87.2 Acidosis; K50.90 Crohn's disease, unspecified, without complications; I13.0 Hypertensive heart and chronic kidney disease with heart failure and stage 1 through stage 4 chronic kidney disease, or unspecified chronic kidney disease; J44.0 Chronic obstructive pulmonary disease with (acute) lower respiratory infection; I50.9 Heart failure, unspecified; N18.9 Chronic kidney disease, unspecified; D63.1 Anemia in chronic kidney disease; I25.10 Atherosclerotic heart disease of native coronary artery without angina pectoris; G25.81 Restless legs syndrome; K74.60 Unspecified cirrhosis of liver; I48.91 Unspecified atrial fibrillation; N40.0 Benign prostatic hyperplasia without lower urinary tract symptoms; M54.50 Low back pain, unspecified; G89.29 Other chronic pain; R30.0 Dysuria; Z79.01 Long term (current) use of anticoagulants; Z79.52 Long term (current) use of systemic steroids; Z87.891 Personal history of nicotine dependence; Z98.42 Cataract extraction status, left eye; Z98.41 Cataract extraction status, right eye
CPT/HCPCS: 36415; 36430; 51701; 71045; 80048; 80053; 81003; 82607; 82728; 82746; 83540; 83550; 83605; 84484; 85014; 85018; 85025; 85027; 85610; 85730; 86850; 86900; 86901; 86920; 87040; 93005; 96360; 97110; 97116; 97161; 97165; 97530; 97535; 99285; A9270; J0456; J0696; J7050; J7120; J7512; P9016

== ENCOUNTER 2021-04-07 14:33 | Inpatient (IN) | payer MEDICARE, SELFPAY ==
[2021-04-07] VITALS (13 sets, daily range): BP systolic 105–134; BP diastolic 58–85; PULSE 66–82; RESP 16–20; TEMP 36.3–36.9; O2SAT 97–99; BMI 28.8
--- NOTE | ~2021-04-07 | XR_ITS ---
EXAMINATION: XR chest 1V portable INDICATION: Hypoxia and shortness of breath TECHNIQUE: Portable AP chest at 1159 hours COMPARISON: 04/12/2021 FINDINGS: Patchy opacities have developed in the left upper lung zone. Airspace opacities of the left midlung zone and left lung base is slightly improved. There are persistent right basilar airspace op acities. Small pleural effusions are seen. Cardiomegaly is noted. There is no pneumothorax. Calcified mediastinal lymph nodes are consistent with old granulomatous disease. IMPRESSION: 1. Worsening opacities of the left upper lobe, improved airspace opacities of the left midlung zone, and stable bibasilar airspace opacities, consistent with atelectasis versus pneumonia. 2. Bilateral pleural effusions. 3. Cardiomegaly. Reviewed, dictated and finalized at location A. IMPRESSION: 1. Worsening opacities of the left upper lobe, improved airspace opacities of t he left midlung zone, and stable bibasilar airspace opacities, consistent with atelectasis versus pneumonia. 2. Bilateral pleural effusions. 3. Cardiomegaly.
--- NOTE | ~2021-04-07 | US_ITS ---
EXAMINATION:US venous doppler LE BI INDICATION:Leg edema TECHNIQUE: Multiple grayscale, color flow and Doppler images of the right and left lower extremity de ep venous systems were obtained and reviewed. COMPARISON:Ultrasound dated 02/17/2021 FINDINGS: The common femoral, superficial femoral and popliteal veins demonstrate normal respiratory variation, augmentation and compressibility. Color flow is also seen within the posterior tibial, pe roneal, greater saphenous and profunda veins. There is a Oneill's cyst of the right popliteal fossa me asuring 6.1 x 1.9 x 2.8 cm. IMPRESSION: 1: No lower extremity deep venous thrombosis. Reviewed, dictated and finalized at location B.
--- NOTE | ~2021-04-07 | US_ITS ---
US renal BI 04/08/2021 15:19 Procedure: Realtime transabdominal ultrasound of the kidneys and bladder. Indication: Acute renal insufficiency Comparison: Ultrasound dated 02/18/2021 Findings: Renal echotexture is normal bilaterally without hydronephrosis, contour deforming mass or r enal calculus. The right kidney measures 10.9 cm cm and left kidney measures 11.8 cm cm. There is an 11 mm left renal cyst. Bladder not well visualized due to catheterization. There is a right pleural e ffusion. Impression: 1: Unremarkable renal ultrasound. No stones, masses or hydronephrosis. Reviewed, dictated and finalized at location B. Impression: 1: Unremarkable renal ultrasound. No stones, masses or hydronephrosis.
--- NOTE | ~2021-04-07 | XR_ITS ---
EXAMINATION: XR chest 1V portable INDICATION: Fluid overload TECHNIQUE: Portable AP chest at 0514 hours COMPARISON: 04/09/2021 FINDINGS: Cardiomegaly. The left costophrenic angle is excluded from the examination. Airspace opacit ies persist in the lung bases and have developed left midlung zone. There is no pneumothorax. There a re small pleural effusions. Calcified mediastinal lymph nodes are consistent with old granulomatous d isease. IMPRESSION: 1. Cardiomegaly. 2. Small pleural effusions. 3. Airspace opacities of the lung bases and left midlung zone, consistent with atelectasis versus pne umonia. Reviewed, dictated and finalized at location A. IMPRESSION: 1. Cardiomegaly. 2. Small pleural effusions. 3. Airspace opacities of the lung bases and left midlung zone, consistent with atelectasis versus pneumonia.
--- NOTE | ~2021-04-07 | XR_ITS ---
EXAMINATION: XR chest 1V portable INDICATION: Shortness of breath TECHNIQUE: Portable AP chest at 0920 hours COMPARISON: 03/24/2021 FINDINGS: Cardiomegaly is noted. There are minimal opacities of the lung bases. No definite pleural e ffusion or pneumothorax is identified. There is osteoarthritis of the shoulders. IMPRESSION: 1. Cardiomegaly. 2. Bibasilar airspace opacity, consistent with atelectasis versus pneumonia. Reviewed, dictated and finalized at location A.
[2021-04-07 15:06] LABS: Hematocrit 29.6 % (42.0-52.0); Hemoglobin 9.4 g/dL (14.0-18.0); Mean Corpuscular HGB Conc 31.8 g/dl (32-36); Mean Corpuscular Hemoglobin 29.8 pg (26-34); Mean Platelet Volume 9.2 fl (7.4-10.4); Platelet Count Result 468 k/mm3 (150-375); Red Blood Count 3.15 M/mm3 (4.6-6.20); Red Cell Distribution Width 18.2 % (11.5-14.5); White Blood Count 41.3 K/mm3 (4.5-10.0)
[2021-04-07 15:19] LABS: Band Neutrophils Percent 3 % (0-6); Lymphocytes Absolute Manual 2.06 K/mm3 (1.1-4.5); Metamyelocytes Percent 1 %; Monocytes Absolute Manual 0.82 K/mm3 (0.1-0.90); Monocytes Percent Manual 2 % (3-9); Myelocytes Percent 1 %; Neutrophils Absolute Manual 37.58 K/mm3 (1.3-6.7); Neutrophils Percent Manual 88 % (46-73); Platelet Estimate Increased (Adequate); Total Cells Counted 100
[2021-04-07 15:20] LABS: Ovalocytes 1+ (NORMAL)
[2021-04-07 15:47] LABS: Alanine Aminotransferase 25 U/L (4-50); Albumin Level 2.9 g/dL (3.5-5.1); Alkaline Phosphatase 287 U/L (38-126); Anion Gap 13 mmol/L (8-16); Aspartate Amino Transferase 44 U/L (17-59); Blood Urea Nitrogen 68 mg/dL (9-20); Calcium 7.7 mg/dL (8.4-10.2); Carbon Dioxide 18 mmol/L (22-30); Chloride 100 mmol/L (98-107); Estimated CRCL calculation 14 ml/min; Estimated Glomerular Filt Rate 14; Glucose 104 mg/dL (65-110); Lipase 69 U/L (23-300); Potassium 6.2 mmol/L (3.4-5.0); Sodium 131 mmol/L (137-145)
--- NOTE | 2021-04-07 16:03 | ED.GENADULT ---
HPI - General Adult General Chief complaint: Weakness Stated complaint: diarrhea Time Seen by Provider: 04/07/21 14:34 Source: patient Mode of arrival: ambulatory Limitations: no limitations History of Present Illness HPI narrative: Patient presents with metastatic testicular cancer CC of diarrhea that began last night after the patient's home medications were stopped due to hyperkalemia. Patient sees Dr Simmons- oncology who started him on sodium polystyrene sulfonate yesterday in attempt to fix hyperkalemia. Patient denies abdominal pain, vomiting. He denies any chest pain, shortness of breathe, or blood in stool. states the patient also ate tacos for dinner. Patient reports buttock wound currently being treated. He denies any other complaints. He states he has not had diarrhea since getting into the ambulance. Related Data Home Medications Medication Instructions Recorded Confirmed Centrum Silver Men 1 tablet PO DAILY 03/25/20 03/20/21 Probiotic Colon Support 1 cap PO DAILY 03/25/20 03/20/21 acetaminophen-codeine 1 tablet PO Q8H PRN 03/25/20 03/20/21 cholecalciferol (vitamin D3) 50 mcg PO DAILY 03/25/20 03/20/21 duloxetine 30 mg PO DAILY 03/25/20 03/20/21 lisinopril 40 mg PO HS 03/25/20 03/20/21 mesalamine 0.375 g PO TID 03/25/20 03/20/21 ropinirole 1 mg PO HS 03/25/20 03/20/21 tizanidine 2 mg PO HS PRN 03/25/20 03/20/21 lovastatin 40 mg PO HS 03/20/21 03/20/21 prednisone 5 mg PO DAILY 03/20/21 03/20/21 torsemide 20 mg PO BID 03/20/21 03/20/21 Allergies Allergy/AdvReac Type Severity Reaction Status Date / Time Sulfa (Sulfonamide Allergy Nausea Verified 03/20/21 17:40 Antibiotics) Review of Systems Review of Systems: CONSTITUTIONAL: Denies fever, chills, or sweats. EYES: Denies visual changes, redness, or discharge. ENT: Denies rhinorrhea, congestion, sore throat, or otalgia. CARDIOVASCULAR: Denies chest pain, palpitations, or edema. RESPIRATORY: Denies cough or dyspnea. GASTROINTESTINAL: Reports diarrhea Denies abdominal pain, nausea, vomiting GENITOURINARY: Denies dysuria or hematuria. SKIN: Denies rash or itching. MUSCULOSKELETAL: Denies back pain, myalgia, or joint pain NEUROLOGIC: Denies headache, numbness, dizziness, or weakness. PSYCHIATRIC: Denies anxiety or depression. [facility] Past Medical History Medical History (Updated 04/07/21 @ 20:32 by Kristina Hernández NP) Atrial fibrillation Benign prostatic hyperplasia Chronic anemia History of blood transfusions. Chronic anticoagulation Chronic low back pain Chronic obstructive pulmonary disease Cirrhosis Crohn's disease Diarrhea Eczema Hyperlipidemia Hypertension Liposarcoma of connective tissue Metastatic cancer Occult blood in stools Surgical History Surgical History History of bilateral cataract extraction History of spinal surgery History of unilateral orchiectomy (03/31/20) Right orchiectomy. Family History Family History Other No significant past medical history Social History Social History (Updated 04/07/21 @ 20:21 by Kristina Hernández NP) Social History: Surrogate decision maker: Jaida Wilson, . Between him and his they have 6 children. He has 4 biological and 2 step children. Patient retired from construction. The patient is a former smoker. He does not use any marijuana or illicit drugs. No alcohol. Code status: Do not resuscitate Smoking packs per day: 2 Smoking cigarettes per day: 40.0 Years smoked: 40 Smoking pack-years: 80.00 Smoking status: Former smoker Tobacco type: cigarettes Smoking end date: 02/17/21 Alcohol intake: current Drinks per week: 2 Substance use: never Additional living arrangements comments: Resides in [place] with his . Additional occupation/education comments: Retired. Spiritual care concerns: No Exam Narrati
--- NOTE | 2021-04-07 16:26 | ECG_ITS ---
Measurements Intervals [place] Rate: 70 P: MO: 0 QRS: -46 QRSD: 126 T: 82 QT: 432 QTc: 468 Interpretive Statements ATRIAL FIBRILLATION LEFT AXIS DEVIATION IVCD, WITH FEATURES OF RBBB/LBBB LOW VOLTAGE- PRECORDIAL LEADS ABNORMAL ECG Electronically Signed On 04-07-2021 16:41:31 CDT by Raman Echavarria D.O.
[2021-04-07] MEDS: SODIUM CHLORIDE 0.9% IV 1,000 ML 999 ML IV CONT (17:00)
--- NOTE | 2021-04-07 17:30 | PC.NURSE ---
Bilat arms weeping serous fluid, linens changed. Multiple bruises noted to both arms. Dried feces on both legs-cleansed and linen changed. Edema noted to lower abd, upper thighs, pelvic area, penis and scrotum. Open area noted to right buttock, states he has had this for a while.
[2021-04-07 17:40] LABS: Add Urine Microscopic? YES; Appearance Urine Cloudy (Clear); Bilirubin Urine Negative (Negative); Blood Urine Negative (Negative); Color Urine Amber (Yellow); Glucose Urine UA Negative (Negative); Ketones Urine Negative (Negative); Leukocyte Esterase Ur Negative LEU/UL (Negative); Mucus Urine Rare /lpf; Nitrate Urine Negative (Negative); Protein Urine Negative (Negative); Specific Grav Ur 1.017 (1.001-1.035); Squamous Epithelial Cell Urine Occasional /hpf (Few); Urobilinogen Urine Negative mg/dL (<2.0); WBC Urine 0-3 /hpf
--- NOTE | 2021-04-07 20:04 | PM.IMHP ---
H&P: HPI History of Present Illness Date/Time: 04/07/21 20:04 this is a 80-year-old male patient resides with his . He has a history of metastatic testicular cancer. The patient recently had chemotherapy and his oncologist is Dr. Simmons. The patient was seen multiple times this last week by his oncologist. He was told that his potassium was high and was given Kayexalate. The patient stated that he has diarrhea quite frequently and has Crohn's however since last night and all of today he has had more frequent diarrhea. He denies any abdominal pain or vomiting. He denies any chest pain or shortness of breath. 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 Patient is very weak. The ER provider did contact his oncologist who stated that the patient was already given a L fluids and steroids and his diuretics were held. The patient is not a candidate for dialysis as he has hypotension. He had chemotherapy earlier this week which she mentions should not give him diarrhea. Most likely the leukocytosis is due to the inflammatory process due to the metastatic disease. His white count was 39.0 before he had steroids. Today is white count 41.3. His H&H is 9.4 and 29.6. His potassium is now 6.2 after the Kayexalate. BUN is 68 and creatinine is 4.0 of which both were normal earlier this month. The patient was ordered IV fluids in the emergency room. I did order for him to have regular insulin, D50, sodium bicarb and albuterol treatment. Will recheck his BMP later on this evening.. The patient discussed hospice with his and stated that he would most likely agreed to hospice at home. However he would like to get the IV fluids to see if his renal function improves at all. We did discuss code status skin he and his reiterated that he is a DNR. Chief Complaint: Diarrhea Review of Systems Review of Systems: All systems reviewed & are unremarkable except as noted in HPI and below Constitutional: Constitutional: Reports as per HPI and Reports no additional constitutional complaints Eyes: Eyes: Reports as per HPI and Reports no additional eye complaints ENT: Reports system reviewed and no additional complaints, except as documented and Reports Normal hearing present Cardiovascular: Cardiovascular: Reports no additional cardiovascular complaints Respiratory: Respiratory: Reports no additional respiratory complaints and Reports no additional respiratory complaints Gastrointestinal: Gastrointestinal: Reports as per HPI and Reports no additional gastrointestinal complaints Musculoskeletal: Musculoskeletal: Reports no additional musculoskeletal complaints Integumentary/Breasts: Skin/Breast: Reports system reviewed and no additional complaints, except as docu and Reports as per HPI Neurologic: Reports system reviewed and no additional complaints, except as documented, Reports as per HPI and Reports Normal hearing present Psychiatric: Psychiatric: Reports no additional psychiatric complaints and Reports as per HPI Endocrine: Endocrine: Reports no additional endocrine complaints Hematologic/Lymphatic: Hematologic/Lymphatic: Reports no additional hematologic/lymphatic complaints Allergic/Immunologic: Allergic/Immunologic: Reports no additional allergic/immunologic complaints [facility] Past Medical History Medical History (Updated 04/07/21 @ 20:32 by Kristina Hernández NP) Atrial fibrillation Benign prostatic hyperplasia Chronic anemia History of blood transfusions. Chronic anticoagulation Chronic low back pain Chronic obstructive pulmonary disease Cirrhosis Crohn's disease Diarrhea Eczema Hyperlipidemia Hypertension Liposarcoma of connective tissue Metastatic cancer Occult blood in stools Surgical History Surgical History History of bilateral cataract extraction History of spinal surgery History of unilateral orchiectomy (03/31/20) Right orc
[2021-04-07] MEDS: ALBUTEROL SULFATE NEB 2.5 MG/0.5 ML INH 5 MG INHALATION (20:08)
[2021-04-07] MEDS: DEXTROSE 50% 25 GM/50 ML SYRINGE IV PUSH (21:14)
[2021-04-07] MEDS: CALCIUM GLUC 1,000 MG/NS 50 ML 1,000 MG/50 ML BAG 100 MG IVPB (21:14)
[2021-04-07] MEDS: SODIUM BICARBONATE 8.4% 50 MEQ/50 ML SYRINGE IV PUSH (21:14)
[2021-04-07] MEDS: INSULIN HUMAN REGULAR (*BKC) 100 UNITS/ML 10 UNITS IV PUSH (21:21)
--- NOTE | 2021-04-07 22:45 | ADMGEN ---
This patient, Keith Wilson, was admitted to IMU Room 201-01. Patient/family oriented to hospital policies and general routines including ID bracelet, bed and alarms, visiting hours, pain management, procedures, bathroom and other care routines, personal items, smoking policy, room service/diet, and visiting hours. Information on how to activate the Rapid Response Team has been discussed. Patient/Family are encouraged to report perceived risks to care and to ask questions if they do not understand what they are told or what they should do.
[2021-04-07 23:01] LABS: Anion Gap 7 mmol/L (8-16); Blood Urea Nitrogen 68 mg/dL (9-20); Calcium 7.4 mg/dL (8.4-10.2); Carbon Dioxide 22 mmol/L (22-30); Chloride 103 mmol/L (98-107); Estimated CRCL calculation 13 ml/min; Estimated Glomerular Filt Rate 13; Glucose 63 mg/dL (65-110); Potassium 5.2 mmol/L (3.4-5.0); Sodium 132 mmol/L (137-145)
--- NOTE | 2021-04-07 23:42 | PC.NURSE ---
Pt's most recent BMP showed blood glucose to be 63. Pt drank apple juice. Rechecked finger stick, blood glucose 52. Implemented hypoglycemia protocol. Pt received amp of dextrose.
[2021-04-07] MEDS: DEXTROSE 50% 25 GM/50 ML SYRINGE (23:44)
[2021-04-08] VITALS (15 sets, daily range): BP systolic 77–108; BP diastolic 44–62; PULSE 66–82; RESP 14–28; TEMP 36.4–37; O2SAT 89–100; BMI 29.6
[2021-04-08 00:03] LABS: Glucose Point of Care 91 mg/dl (65-105)
[2021-04-08 00:03] LABS: Glucose Point of Care 52 mg/dl (65-105)
--- NOTE | 2021-04-08 01:02 | PC.NURSE ---
Pt states that he was instructed by his oncologist to hold all of his home medications due to hyperkalemia.
[2021-04-08 05:40] LABS: Basophils Absolute Auto 0.1 K/mm3 (0.0-0.1); Basophils Percent Auto 0.4 % (0.2-1.2); Hematocrit 25.2 % (42.0-52.0); Hemoglobin 7.9 g/dL (14.0-18.0); Immature Granulocyte Absolute 1.45 K/mm3 (0.00-0.031); Immature Granulocyte Percent A 5.1 % (0-0.5); Lymphocytes Absolute Auto 1.49 K/mm3 (0.9-3.2); Lymphocytes Percent Auto 5.2 % (18.3-44.2); Mean Corpuscular HGB Conc 31.3 g/dl (32-36); Mean Corpuscular Hemoglobin 29.6 pg (26-34); Mean Corpuscular Volume 94.4 fl (80-100); Mean Platelet Volume 9.2 fl (7.4-10.4); Monocytes Absolute Auto 1.1 K/mm3 (0.1-0.6); Monocytes Percent Auto 3.7 % (2.6-8.5); Neutrophils Absolute Auto 24.6 K/mm3 (1.3-6.7); Neutrophils Percent Auto 85.6 % (45.5-73.1); Platelet Count Result 349 k/mm3 (150-375); Red Blood Count 2.67 M/mm3 (4.6-6.20); Red Cell Distribution Width 18.2 % (11.5-14.5); White Blood Count 28.7 K/mm3 (4.5-10.0)
[2021-04-08 05:53] LABS: Alanine Aminotransferase 19 U/L (4-50); Albumin Level 2.1 g/dL (3.5-5.1); Alkaline Phosphatase 192 U/L (38-126); Anion Gap 9 mmol/L (8-16); Aspartate Amino Transferase 35 U/L (17-59); Bilirubin,Total 0.7 mg/dL (0.2-1.3); Blood Urea Nitrogen 73 mg/dL (9-20); Calcium 7.4 mg/dL (8.4-10.2); Carbon Dioxide 18 mmol/L (22-30); Chloride 103 mmol/L (98-107); Estimated CRCL calculation 14 ml/min; Estimated Glomerular Filt Rate 14; Glucose 94 mg/dL (65-110); Magnesium 2.1 mg/dL (1.6-2.3); Potassium 5.7 mmol/L (3.4-5.0); Sodium 130 mmol/L (137-145)
[2021-04-08 06:18] LABS: Hypochromasia 1+ (NORMAL); Platelet Estimate Adequate (Adequate)
[2021-04-08 06:19] LABS: Acanthocytes 2+ (NORMAL); Anisocytosis 1+ (NORMAL); Ovalocytes 1+ (NORMAL)
[2021-04-08] MEDS: ACETAMINOPHEN 325 MG TABLET 650 MG PO (06:55)
[2021-04-08] MEDS: SODIUM POLYSTYRENE SULFONONATE 15 GM/60 ML BTL 30 GM PO (07:00)
--- NOTE | 2021-04-08 08:00 | P.PNIM_ITS ---
Progress Note: A&P Assessment and Plan (1) Acute renal failure (ARF): Qualifiers: Acute renal failure type: unspecified Qualified Code(s): N17.9 - Acute kidney failure, unspecified Code(s): N17.9 - Acute kidney failure, unspecified Status: Acute Assessment and Plan: * BUN/Cr 68/4.10 upon admission current 73/4.20 * K elevated 6.2 on admission, current 5.7 * Renal ultrasound * NaCl at 75ml/hr * hold any nephrotoxic medication * Treat electrolyte abnormalities * Probably not a candidate for dialysis, due to hypotension * metastatic cancer, origin testicular etiology * Hold diuretics * nephrology consult thank you for your recommendations * Urinary catheter (2) Hyperkalemia: Code(s): E87.5 - Hyperkalemia Status: Acute Assessment and Plan: * Kayexalate given outpatient * potassium after treatment 6.7 * D50, regular insulin, sodium bicarb, with some reduction * Probably related to renal failure * Trend labs * Nephrology consult (3) Crohn's disease: Code(s): K50.90 - Crohn's disease, unspecified, without complications Status: Acute Assessment and Plan: * Diarrhea noted * Could be infectious * Continue to monitor (4) Atrial fibrillation: Code(s): I48.91 - Unspecified atrial fibrillation Status: Acute Assessment and Plan: * Hold home medications at this time * No anticoagulation due to recent GI bleed * Tele monitor * EKG shows afib 70s (5) Congestive heart failure (CHF): Code(s): I50.9 - Heart failure, unspecified Status: Acute Assessment and Plan: * Hold diuretics due to renal function * Acute on chronic exacerbation * Exacerbated related to renal function * 3+ pitting edema noted on exam * No shortness of breath noted * Echo from 02/18/21: EF of 60-65% with left vent wall thickness, bilateral atrial chamber enlargment, mild aortic valve stenosis, moderate tricuspid regurg, diastolic dysfunction indeterminate * Close watch of breathing function to ensure patient does not go into respiratory failure (6) Anemia: Qualifiers: Anemia type: unspecified type Qualified Code(s): D64.9 - Anemia, unspecified Code(s): D64.9 - Anemia, unspecified Status: Acute Assessment and Plan: * Above his baseline at admission 9.4 * Trend H/H * Hgb down to 7.9 at this time * transfuse if Hgb <7 (7) Metastatic cancer: Code(s): C79.9 - Secondary malignant neoplasm of unspecified site Status: Acute Assessment and Plan: * 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 Simmons with multiple visits this week * Code status: DNR * Considering hospice if this is untreatable * He would like to go home and be on hospice if his renal function does not improve (8) Hyperlipidemia: Code(s): E78.5 - Hyperlipidemia, unspecified Status: Chronic Assessment and Plan: * Home medications on hold at this time (9) Hypotension: Code(s): I95.9 - Hypotension, unspecified Status: Acute Assessment and Plan: -*- -Current BP 99/62 * Blood pressure labile at this time * IV fluids * Nephrology consult * Trend BP * Home BP medications on hold at this time. (10) Hypertension:
--- NOTE | 2021-04-08 08:00 | PM.IMPN ---
Progress Note: A&P Assessment and Plan (1) Acute renal failure (ARF): Qualifiers: Acute renal failure type: unspecified Qualified Code(s): N17.9 - Acute kidney failure, unspecified Code(s): N17.9 - Acute kidney failure, unspecified Status: Acute Assessment and Plan: BUN/Cr 68/4.10 upon admission current 73/4.20 K elevated 6.2 on admission, current 5.7 Renal ultrasound NaCl at 75ml/hr hold any nephrotoxic medication Treat electrolyte abnormalities Probably not a candidate for dialysis, due to hypotension metastatic cancer, origin testicular etiology Hold diuretics nephrology consult thank you for your recommendations Urinary catheter (2) Hyperkalemia: Code(s): E87.5 - Hyperkalemia Status: Acute Assessment and Plan: Kayexalate given outpatient potassium after treatment 6.7 D50, regular insulin, sodium bicarb, with some reduction Probably related to renal failure Trend labs Nephrology consult (3) Crohn's disease: Code(s): K50.90 - Crohn's disease, unspecified, without complications Status: Acute Assessment and Plan: Diarrhea noted Could be infectious Continue to monitor (4) Atrial fibrillation: Code(s): I48.91 - Unspecified atrial fibrillation Status: Acute Assessment and Plan: Hold home medications at this time No anticoagulation due to recent GI bleed Tele monitor EKG shows afib 70s (5) Congestive heart failure (CHF): Code(s): I50.9 - Heart failure, unspecified Status: Acute Assessment and Plan: Hold diuretics due to renal function Acute on chronic exacerbation Exacerbated related to renal function 3+ pitting edema noted on exam No shortness of breath noted Echo from 02/18/21: EF of 60-65% with left vent wall thickness, bilateral atrial chamber enlargment, mild aortic valve stenosis, moderate tricuspid regurg, diastolic dysfunction indeterminate Close watch of breathing function to ensure patient does not go into respiratory failure (6) Anemia: Qualifiers: Anemia type: unspecified type Qualified Code(s): D64.9 - Anemia, unspecified Code(s): D64.9 - Anemia, unspecified Status: Acute Assessment and Plan: Above his baseline at admission 9.4 Trend H/H Hgb down to 7.9 at this time transfuse if Hgb <7 (7) Metastatic cancer: Code(s): C79.9 - Secondary malignant neoplasm of unspecified site Status: Acute Assessment and Plan: 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 Simmons with multiple visits this week Code status: DNR Considering hospice if this is untreatable He would like to go home and be on hospice if his renal function does not improve (8) Hyperlipidemia: Code(s): E78.5 - Hyperlipidemia, unspecified Status: Chronic Assessment and Plan: Home medications on hold at this time (9) Hypotension: Code(s): I95.9 - Hypotension, unspecified Status: Acute Assessment and Plan: Current BP 99/62 Blood pressure labile at this time IV fluids Nephrology consult Trend BP Home BP medications on hold at this time. (10) Hypertension: Code(s): I10 - Essential (primary) hypertension Status: Chronic (11) Leukocytosis: Code(s): D72.829 - Elevated white blood cell count, unspecified Status: Acute Assessment and Plan: WBC 41.3 on admission Trends all over the place Started IV ceftriaxone and azithromycin Last admission patient was treated for PNA Chest xray Trend labs Wonder if this is chronic since the WBC does seem to be high all the time Time Spent With Patient Time with patient: Greater than 35 minutes Subjective Date/time seen: 04/08/21 08:00 Interval history: Date/Time: 04/07/21 20:
[2021-04-08 08:23] LABS: Glucose Point of Care 99 mg/dl (65-105)
[2021-04-08] MEDS: LIDOCAINE HCL 2% GEL UROJET 10 ML PKG MUCOUS MEM (09:17)
[2021-04-08] MEDS: SODIUM CHLORIDE 0.9% IV 1,000 ML 75 ML IV CONT (10:13)
[2021-04-08 10:26] LABS: Creatinine Urine 108.2 mg/dL
[2021-04-08 10:27] LABS: Sodium Urine Random 39 meq/L
[2021-04-08 12:34] LABS: Potassium 5.1 mmol/L (3.4-5.0)
[2021-04-08 12:43] LABS: Creatine Kinase 26 U/L (55-170); Lactate Dehydrogenase 449 U/L (313-618)
[2021-04-08 12:50] LABS: Glucose Point of Care 143 mg/dl (65-105)
--- NOTE | 2021-04-08 12:55 | PC.NURSE ---
On 04/08/21, the student, [Zulma Padilla], provided care and completed [facility] documentation on this patient. I have reviewed the student's documentation and agree with the findings.
[2021-04-08 13:48] LABS: Free T4 Free Thyroxine Reflex 1.46 ng/dL (0.78-2.19)
[2021-04-08 14:29] LABS: Basophils Absolute Auto 0.1 K/mm3 (0.0-0.1); Basophils Percent Auto 0.2 % (0.2-1.2); Hematocrit 23.9 % (42.0-52.0); Hemoglobin 7.7 g/dL (14.0-18.0); Immature Granulocyte Absolute 1.43 K/mm3 (0.00-0.031); Immature Granulocyte Percent A 4.6 % (0-0.5); Lymphocytes Absolute Auto 1.63 K/mm3 (0.9-3.2); Lymphocytes Percent Auto 5.2 % (18.3-44.2); Mean Corpuscular HGB Conc 32.2 g/dl (32-36); Mean Corpuscular Hemoglobin 30.1 pg (26-34); Mean Corpuscular Volume 93.4 fl (80-100); Mean Platelet Volume 9.2 fl (7.4-10.4); Monocytes Absolute Auto 1.2 K/mm3 (0.1-0.6); Monocytes Percent Auto 3.9 % (2.6-8.5); Neutrophils Absolute Auto 26.7 K/mm3 (1.3-6.7); Neutrophils Percent Auto 86.1 % (45.5-73.1); Platelet Count Result 330 k/mm3 (150-375); Red Blood Count 2.56 M/mm3 (4.6-6.20); Red Cell Distribution Width 18.4 % (11.5-14.5); White Blood Count 31.1 K/mm3 (4.5-10.0)
[2021-04-08] MEDS: GABAPENTIN 100 MG CAPSULE 200 MG PO ×2 (14:29→17:28)
[2021-04-08] MEDS: ALBUMIN HUMAN 25% 25 GM/100 ML 200 ML IVPB (14:29)
[2021-04-08 14:40] LABS: Alanine Aminotransferase 19 U/L (4-50); Albumin Level 2.1 g/dL (3.5-5.1); Alkaline Phosphatase 208 U/L (38-126); Anion Gap 8 mmol/L (8-16); Aspartate Amino Transferase 45 U/L (17-59); Bilirubin,Total 0.5 mg/dL (0.2-1.3); Blood Urea Nitrogen 70 mg/dL (9-20); Calcium 7.4 mg/dL (8.4-10.2); Carbon Dioxide 21 mmol/L (22-30); Chloride 102 mmol/L (98-107); Estimated CRCL calculation 14 ml/min; Estimated Glomerular Filt Rate 14; Glucose 137 mg/dL (65-110); Potassium 5.3 mmol/L (3.4-5.0); Sodium 131 mmol/L (137-145)
--- NOTE | 2021-04-08 14:50 | PM.CNNEP ---
Assessment and Plan Assessment and plan (1) Acute renal failure (ARF): Qualifiers: Acute renal failure type: unspecified Qualified Code(s): N17.9 - Acute kidney failure, unspecified Code(s): N17.9 - Acute kidney failure, unspecified Status: Acute Assessment and Plan: Keith has acute renal failure. He has had 2 other episodes of high creatinine in the past. Once in February want earlier this month. Both times his blood pressure was low. He received some IV fluids and the blood pressure and renal function both got better. This time the patient has loose stools and has not been eating or drinking and in addition he was on diuretics of 2 types. He looks like he might be dehydrated to me. Not only However the patient has bilateral lower extremity edema. He did have a recent echocardiogram which showed moderate tricuspid regurgitation and moderate pulmonary hypertension. This could explain the edema plus the dehydration. In addition the patient was on anticoagulants until a couple of weeks ago and now is off. He has cancer so he could have DVTs causing the edema in the presence of dehydration. Another issue was that his renal ultrasound has not been read but it looks to me like he might have bilateral hydronephrosis. He had a catheter placed this morning and is making some urine so hopefully this may help turn him around as well. Glomerulonephritis would be unusual in this setting. Allergic interstitial nephritis is unlikely because he has not been on antibiotics lately. His medications do not look like something with be highly suspicious for causing this kind of renal failure. He was on lisinopril but this does not cause renal failure as much as just enhances the elevation of creatinine in the presence of dehydration. At this point I would like to give some IV fluids. He has a Wilburn catheter in place already. We can watch his intake and output. If the hydronephrosis persists then consider getting a urology consult for palliative treatment of the hydronephrosis. However the degree of hydronephrosis is not that great so I am not sure a percutaneous nephrostomy tube would able to be placed at this point. (2) Hyperkalemia: Code(s): E87.5 - Hyperkalemia Status: Acute Assessment and Plan: Patient's potassium is high. He has renal failure and also was on spironolactone and lisinopril. The patient was not eating very well and he has diarrhea so it is unlikely that he has excess exogenous potassium intake. Endogenous potassium loads would include rhabdomyolysis and hemodialysis. I have ordered CK and haptoglobin. (3) Metastatic cancer: Code(s): C79.9 - Secondary malignant neoplasm of unspecified site Status: Acute Assessment and Plan: The patient has metastatic testicular cancer. He is on the verge of going on hospice. (4) Hypotension: Code(s): I95.9 - Hypotension, unspecified Status: Resolved Assessment and Plan: Blood pressure is low. Will give IV fluids. (5) Hypertension: Code(s): I10 - Essential (primary) hypertension Status: Chronic Assessment and Plan: His antihypertensives are on hold History of Present Illness Reason for Consult Consult date: 04/08/21 Chief Complaint Chief complaint: Hyperkalemia and Renal Failure Secondary History of Present Illness Narrative: Keith is a very pleasant 80-year-old gentleman who has multiple medical problems including, hypertension, hyperlipidemia, COPD, chronic anticoagulation although this stopped 2 weeks ago, chronic anemia, benign prostatic hypertrophy, history of atrial fibrillation, history of guaiac-positive stools, eczema. Patient says that he was gradually weaker over the last few days. He had been making some urine beforehand but urine output had decreased over the last few days 2. He also had loose stools. He said it more liquid but they were very loose. He had these
[2021-04-08 14:53] LABS: Platelet Estimate Adequate (Adequate)
[2021-04-08 14:54] LABS: Acanthocytes 1+ (NORMAL); Anisocytosis 1+ (NORMAL); Hypochromasia 2+ (NORMAL); Ovalocytes 1+ (NORMAL)
[2021-04-08 16:35] LABS: IFOB Positive Control Positive; Immunochemical Fecal Occult Bl Positive (N)
[2021-04-09] VITALS (18 sets, daily range): BP systolic 100–121; BP diastolic 52–83; PULSE 66–80; RESP 16–21; TEMP 35.6–37.1; O2SAT 91–99
[2021-04-09] MEDS: SODIUM CHLORIDE 0.9% IV 1,000 ML 75 ML IV CONT (04:24)
[2021-04-09 05:47] LABS: Mean Corpuscular HGB Conc 32.4 g/dl (32-36); Mean Corpuscular Volume 92.5 fl (80-100); Mean Platelet Volume 9.1 fl (7.4-10.4); Platelet Count Result 281 k/mm3 (150-375); Red Blood Count 2.27 M/mm3 (4.6-6.20); Red Cell Distribution Width 18.4 % (11.5-14.5); White Blood Count 29.5 K/mm3 (4.5-10.0)
[2021-04-09 05:56] LABS: Albumin Level 2.4 g/dL (3.5-5.1); Anion Gap 8 mmol/L (8-16); Blood Urea Nitrogen 66 mg/dL (9-20); Calcium 7.5 mg/dL (8.4-10.2); Carbon Dioxide 23 mmol/L (22-30); Chloride 103 mmol/L (98-107); Estimated CRCL calculation 16 ml/min; Estimated Glomerular Filt Rate 15; Glucose 117 mg/dL (65-110); Phosphorus 5.6 mg/dL (2.5-4.5); Potassium 4.3 mmol/L (3.4-5.0); Sodium 134 mmol/L (137-145)
[2021-04-09 06:54] LABS: Hemoglobin 6.8 g/dL (14.0-18.0)
--- NOTE | 2021-04-09 07:40 | PM.PNNEP ---
Progress Note: A&P Assessment and Plan (1) Acute renal failure (ARF): Qualifiers: Acute renal failure type: unspecified Qualified Code(s): N17.9 - Acute kidney failure, unspecified Code(s): N17.9 - Acute kidney failure, unspecified Status: Acute Assessment and Plan: Keith has acute renal failure. He has had 2 other episodes of high creatinine in the past. Once in February want earlier this month. Both times his blood pressure was low. He received some IV fluids and the blood pressure and renal function both got better. Renal ultrasound does not show hydronephrosis. Urine electrolytes are not quite pre renal, but he was on torsemide before admission. CPK is normal Urinalysis is bland He continues to have loose stools. I suspect this is pre renal azotemia due to low blood pressure and dehydration. Continue IV fluids for now. However the patient has bilateral lower extremity edema. Venous Dopplers are negative. He did have a recent echocardiogram which showed moderate tricuspid regurgitation and moderate pulmonary hypertension. (2) Hyperkalemia: Code(s): E87.5 - Hyperkalemia Status: Acute Assessment and Plan: Better today. (3) Metastatic cancer: Code(s): C79.9 - Secondary malignant neoplasm of unspecified site Status: Acute Assessment and Plan: The patient has metastatic testicular cancer. He is on the verge of going on hospice. (4) Hypotension: Code(s): I95.9 - Hypotension, unspecified Status: Resolved Assessment and Plan: Blood pressure is improved with the fluids. (5) Hypertension: Code(s): I10 - Essential (primary) hypertension Status: Chronic Assessment and Plan: His antihypertensives are on hold Subjective Date/time seen: 04/09/21 07:40 Interval history: Patient feels about the same today. Lying flat in bed comfortably. He made a little more urine overnight with a Wilburn catheter in. Review of Systems Cardiovascular: Cardiovascular: Reports no additional cardiovascular complaints Respiratory: Respiratory: Reports no additional respiratory complaints Gastrointestinal: Gastrointestinal: Reports no additional gastrointestinal complaints Genitourinary: Genitourinary: Reports no additional male genitourinary complaints Exam Narrative: WDWN in NAD skin no rash head ncat lungs clear bilaterally cor reg no rub abd BS+ nontender and soft ext 1-2+ edema. Objective Data Vital Signs Vital Signs: Vital Signs - 24 hr 04/08/21 08:00 04/08/21 08:20 04/08/21 10:00 Temperature 36.6 C Pulse Rate 76 81 76 Respiratory Rate 16 Blood Pressure 98/50 L Pulse Oximetry 90 04/08/21 11:45 04/08/21 12:00 04/08/21 12:20 Temperature 36.6 C Pulse Rate 82 76 Respiratory Rate 14 Blood Pressure 77/44 L 84/48 L Pulse Oximetry 89 L 04/08/21 14:00 04/08/21 16:00 04/08/21 18:00 Temperature 36.6 C Pulse Rate 81 69 68 Respiratory Rate 16 Blood Pressure 96/47 L Pulse Oximetry 93 04/08/21 20:00 04/08/21 22:00 04/09/21 00:00 Temperature 37.0 C 37.0 C Pulse Rate 68 72 71 Respiratory Rate 17 19 Blood Pressure 96/46 L 108/67 Pulse Oximetry 100 99 04/09/21 02:00 04/09/21 04:00 04/09/21 06:00 Temperature 37.1 C Pulse Rate 69 73 68 Respiratory Rate 16 Blood Pressure 104/61 Pulse Oximetry 99 Intake/Output Intake/Output: Intake & Output 04/06/21 04/07/21 04/08/21 04/09/21 23:59 23:59 23:59 23:59 Intake Total 1150 2210 250 Output Total 75 650 600 Balance 1075 1560 -350 Meds/Results Medications: Active Medications Generic Name Dose Route Start Last Admin Trade Name Freq PRN Reason Stop Dose Admin Acetaminophen 650 mg 04/08/21 06:21 04/08/21 06:55 Acetaminophen 325 Mg Tablet PO 650 mg Q6H PRN Administration Mild Pain (1-3) or Fever Dextrose 12.5 gm 04/07/21 23:39 Dextrose 50% 25 Gm/50 Ml Syringe
[2021-04-09] MEDS: GABAPENTIN 100 MG CAPSULE 200 MG PO ×3 (08:37→16:08)
[2021-04-09 08:51] LABS: Total Triiodothyronine (T3) 0.55 NG/ML (0.97-1.69)
[2021-04-09 09:17] LABS: Glucose Point of Care 108 mg/dl (65-105)
[2021-04-09] MEDS: SODIUM CHLORIDE 0.9% IV 250 ML 30 ML IV CONT (12:10)
--- NOTE | 2021-04-09 14:00 | P.PNIM_ITS ---
Progress Note: A&P Assessment and Plan (1) Acute renal failure (ARF): Qualifiers: Acute renal failure type: unspecified Qualified Code(s): N17.9 - Acute kidney failure, unspecified Code(s): N17.9 - Acute kidney failure, unspecified Status: Acute Assessment and Plan: * BUN/Cr 68/4.10 upon admission current 66/3.90 * K elevated 6.2 on admission, current 4.3 * Renal ultrasound-Unremarkable no stones, masses, or hydronephrosis * NaCl at 75ml/hr * hold any nephrotoxic medication * Treat electrolyte abnormalities * Probably not a candidate for dialysis, due to hypotension * metastatic cancer, origin testicular etiology * Hold diuretics * nephrology consult thank you for your recommendations * Urinary catheter- urine output is low, but seems to be increasing with fluids (2) Hyperkalemia: Code(s): E87.5 - Hyperkalemia Status: Acute Assessment and Plan: * Kayexalate given outpatient * potassium after treatment 6.7 and on admission * D50, regular insulin, sodium bicarb, with some reduction * Probably related to renal failure * Trend labs * Nephrology consult * Seems to be trending down and is 4.3 today (3) Crohn's disease: Code(s): K50.90 - Crohn's disease, unspecified, without complications Status: Acute Assessment and Plan: * Diarrhea noted * Could be infectious colitis * Continue to monitor * Continue mesalamine 400mg PO TID (4) Atrial fibrillation: Code(s): I48.91 - Unspecified atrial fibrillation Status: Acute Assessment and Plan: * Hold home medications at this time * No anticoagulation due to recent GI bleed * Tele monitor * EKG shows afib 70s (5) Congestive heart failure (CHF): Code(s): I50.9 - Heart failure, unspecified Status: Acute Assessment and Plan: * Hold diuretics due to renal function * Acute on chronic exacerbation * Exacerbated related to renal function * 3+ pitting edema noted on exam * No shortness of breath noted * Echo from 02/18/21: EF of 60-65% with left vent wall thickness, bilateral atrial chamber enlargment, mild aortic valve stenosis, moderate tricuspid regurg, diastolic dysfunction indeterminate * Close watch of breathing function to ensure patient does not go into respiratory failure (6) Anemia: Qualifiers: Anemia type: unspecified type Qualified Code(s): D64.9 - Anemia, unspecified Code(s): D64.9 - Anemia, unspecified Status: Acute Assessment and Plan: * Above his baseline at admission 9.4, currently 6.8/21.0 * Probably dilutional since MCV, MCH, and MCHC has no change * Trend H/H * Transfuse 1 unit (04/09/21) * transfuse if Hgb <7 (7) Metastatic cancer: Code(s): C79.9 - Secondary malignant neoplasm of unspecified site Status: Acute Assessment and Plan: * 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 Simmons with multiple visits this week * Code status: DNR * Considering hospice if this is untreatable * He would like to go home and be on hospice if his renal function does not improve (8) Hyperlipidemia: Code(s): E78.5 - Hyperlipidemia, unspecified Status: Chronic Assessment and Plan: * Home medications on hold at this time (9) Hypotension: Code(s): I95.9 - Hypotens
--- NOTE | 2021-04-09 14:00 | PM.IMPN ---
Progress Note: A&P Assessment and Plan (1) Acute renal failure (ARF): Qualifiers: Acute renal failure type: unspecified Qualified Code(s): N17.9 - Acute kidney failure, unspecified Code(s): N17.9 - Acute kidney failure, unspecified Status: Acute Assessment and Plan: BUN/Cr 68/4.10 upon admission current 66/3.90 K elevated 6.2 on admission, current 4.3 Renal ultrasound-Unremarkable no stones, masses, or hydronephrosis NaCl at 75ml/hr hold any nephrotoxic medication Treat electrolyte abnormalities Probably not a candidate for dialysis, due to hypotension metastatic cancer, origin testicular etiology Hold diuretics nephrology consult thank you for your recommendations Urinary catheter- urine output is low, but seems to be increasing with fluids (2) Hyperkalemia: Code(s): E87.5 - Hyperkalemia Status: Acute Assessment and Plan: Kayexalate given outpatient potassium after treatment 6.7 and on admission D50, regular insulin, sodium bicarb, with some reduction Probably related to renal failure Trend labs Nephrology consult Seems to be trending down and is 4.3 today (3) Crohn's disease: Code(s): K50.90 - Crohn's disease, unspecified, without complications Status: Acute Assessment and Plan: Diarrhea noted Could be infectious colitis Continue to monitor Continue mesalamine 400mg PO TID (4) Atrial fibrillation: Code(s): I48.91 - Unspecified atrial fibrillation Status: Acute Assessment and Plan: Hold home medications at this time No anticoagulation due to recent GI bleed Tele monitor EKG shows afib 70s (5) Congestive heart failure (CHF): Code(s): I50.9 - Heart failure, unspecified Status: Acute Assessment and Plan: Hold diuretics due to renal function Acute on chronic exacerbation Exacerbated related to renal function 3+ pitting edema noted on exam No shortness of breath noted Echo from 02/18/21: EF of 60-65% with left vent wall thickness, bilateral atrial chamber enlargment, mild aortic valve stenosis, moderate tricuspid regurg, diastolic dysfunction indeterminate Close watch of breathing function to ensure patient does not go into respiratory failure (6) Anemia: Qualifiers: Anemia type: unspecified type Qualified Code(s): D64.9 - Anemia, unspecified Code(s): D64.9 - Anemia, unspecified Status: Acute Assessment and Plan: Above his baseline at admission 9.4, currently 6.8/21.0 Probably dilutional since MCV, MCH, and MCHC has no change Trend H/H Transfuse 1 unit (04/09/21) transfuse if Hgb <7 (7) Metastatic cancer: Code(s): C79.9 - Secondary malignant neoplasm of unspecified site Status: Acute Assessment and Plan: 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 Simmons with multiple visits this week Code status: DNR Considering hospice if this is untreatable He would like to go home and be on hospice if his renal function does not improve (8) Hyperlipidemia: Code(s): E78.5 - Hyperlipidemia, unspecified Status: Chronic Assessment and Plan: Home medications on hold at this time (9) Hypotension: Code(s): I95.9 - Hypotension, unspecified Status: Acute Assessment and Plan: Current BP 104/61 BP got as low as 77/44, gave 200ml of albumin one time seemed to improve blood pressure Blood pressure labile at this time IV fluids Nephrology consult Trend BP Home BP medications on hold at this time. (10) Hypertension: Code(s): I10 - Essential (primary) hypertension Status: Chronic Assessment and Plan: Experiencing hypotension at this time Home medications on hold for now (11) Leukocytosis: Code(s): D72.829 - Elevated whit
--- NOTE | 2021-04-09 15:25 | WPDGICN ---
Assessment and Plan Assessment and plan (1) Acute on chronic blood loss anemia: Code(s): D62 - Acute posthemorrhagic anemia Status: Acute Assessment and Plan: similar presentations recently while he was on blood thinners received blood transfusion continue to monitor for signs of bleeding will talk to him if willing to have scopes (he also has Crohn's) anemia can be multifactorial (recent chemotherapy, now on BENJI with metastatic cancer, etc) (2) GI bleed: Code(s): K92.2 - Gastrointestinal hemorrhage, unspecified Status: Acute Assessment and Plan: iv protonix for now, trend h/h (3) Acute renal failure (ARF): Qualifiers: Acute renal failure type: unspecified Qualified Code(s): N17.9 - Acute kidney failure, unspecified Code(s): N17.9 - Acute kidney failure, unspecified Status: Acute Assessment and Plan: medical treatment nephrology on board (4) Hyperkalemia: Code(s): E87.5 - Hyperkalemia Status: Acute Assessment and Plan: better after medical therapy (5) Crohn's disease: Code(s): K50.90 - Crohn's disease, unspecified, without complications Status: Acute Assessment and Plan: pending stool samples for infection on mesalamine at home (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 and soft tissue, unspecified Status: Acute Assessment and Plan: recent chemotherapy by his oncologist patient is considering hospice (7) Metastatic cancer: Code(s): C79.9 - Secondary malignant neoplasm of unspecified site Status: Acute (8) Left lower lobe pneumonia: Code(s): J18.9 - Pneumonia, unspecified organism Status: Acute Assessment and Plan: on abx again (9) Leukocytosis: Code(s): D72.829 - Elevated white blood cell count, unspecified Status: Acute Assessment and Plan: monitor, on abx GI Consult Note Consult date/time: 04/09/21 15:25 Reason for consult: diarrhea, acute on chronic blood loss anemia HPI: Keith Wilson is a 80 year old male who I met last month when he was admitted for GIB in setting of supratherapeutic INR (history of paroxysmal atrial fibrillation) then readmitted again and his xarelto discontinued since required blood transfusion earlier this month. He also has Crohn's disease diagnosed few years ago after had SBO that did not require surgery with last colonoscopy 01/[address] Lema with abnormal ICV and terminal ileum (had ileitis) and still seeing GI at [facility] currently on mesalamine and low dose of prednisone- never been on biologics. Also cirrhosis, and liposarcoma involving pelvic and scrotal area with recent chemotherapy few days ago as outpatient. He is here with more weakness, also diarrhea and not feeling well. His white count was 39.0, his hb 9.4 then down 6.8, also had high potassium 6.2 treated by primary team, also with acute renal failure with creatinine 4.0. RN noted dark stools and stool sample pending. CXR showed atelectasis and started on abx. Review of Systems Constitutional: Constitutional: Reports fatigue Eyes: Eyes: Denies blurry vision ENT: Reports Normal hearing present Cardiovascular: Cardiovascular: Denies chest pain Respiratory: Respiratory: Denies cough Gastrointestinal: Gastrointestinal: Reports diarrhea Genitourinary: Genitourinary: Reports no additional male genitourinary complaints Musculoskeletal: Musculoskeletal: Denies neck pain Integumentary/Breasts: Skin/Breast: Denies dry skin Neurologic: Reports system reviewed and no additional complaints, except as documented Psychiatric: Psychiatric: Reports no additional psychiatric complaints [facility] Past Medical History Medical History (Updated 04/09/21 @ 15:37 by Faizan Swanson MD) Acute on chronic blood loss anemia Atrial fibrillation Benign prostatic hyperplasia Chronic anemia Hi
[2021-04-09] MEDS: MESALAMINE 400 MG DELAYED RELEASE CAPSULE PO (16:08)
[2021-04-09 16:16] LABS: Hematocrit 25.8 % (42.0-52.0); Hemoglobin 8.2 g/dL (14.0-18.0)
[2021-04-10] VITALS (11 sets, daily range): BP systolic 109–122; BP diastolic 65–72; PULSE 80–96; RESP 14–22; TEMP 36.2–37.1; O2SAT 92–99
[2021-04-10] MEDS: SODIUM CHLORIDE 0.9% IV 1,000 ML 75 ML IV CONT ×2 (00:12→13:50)
[2021-04-10 05:50] LABS: Basophils Absolute Auto 0.2 K/mm3 (0.0-0.1); Basophils Percent Auto 0.4 % (0.2-1.2); Eosinophils Absolute Auto 0.1 K/mm3 (0-0.3); Eosinophils Percent Auto 0.2 % (0-4.4); Hematocrit 26.6 % (42.0-52.0); Hemoglobin 8.5 g/dL (14.0-18.0); Immature Granulocyte Percent A 4.5 % (0-0.5); Lymphocytes Absolute Auto 1.96 K/mm3 (0.9-3.2); Lymphocytes Percent Auto 4.9 % (18.3-44.2); Mean Platelet Volume 9.3 fl (7.4-10.4); Monocytes Absolute Auto 1.5 K/mm3 (0.1-0.6); Monocytes Percent Auto 3.8 % (2.6-8.5); Neutrophils Absolute Auto 34.6 K/mm3 (1.3-6.7); Neutrophils Percent Auto 86.2 % (45.5-73.1); Platelet Count Result 300 k/mm3 (150-375); Red Blood Count 2.83 M/mm3 (4.6-6.20); Red Cell Distribution Width 18.6 % (11.5-14.5); White Blood Count 40.1 K/mm3 (4.5-10.0)
[2021-04-10 06:11] LABS: Alanine Aminotransferase 21 U/L (4-50); Albumin Level 2.4 g/dL (3.5-5.1); Alkaline Phosphatase 207 U/L (38-126); Anion Gap 9 mmol/L (8-16); Aspartate Amino Transferase 40 U/L (17-59); Bilirubin,Total 0.5 mg/dL (0.2-1.3); Blood Urea Nitrogen 59 mg/dL (9-20); Calcium 7.3 mg/dL (8.4-10.2); Carbon Dioxide 21 mmol/L (22-30); Chloride 106 mmol/L (98-107); Estimated CRCL calculation 21 ml/min; Estimated Glomerular Filt Rate 21; Glucose 120 mg/dL (65-110); Magnesium 1.8 mg/dL (1.6-2.3); Phosphorus 3.9 mg/dL (2.5-4.5); Potassium 4.3 mmol/L (3.4-5.0); Sodium 136 mmol/L (137-145)
[2021-04-10 07:11] LABS: Ovalocytes 1+ (NORMAL); Platelet Estimate Adequate (Adequate); Poikilocytosis 2+ (NORMAL)
[2021-04-10 07:13] LABS: Acanthocytes 1+ (NORMAL)
--- NOTE | 2021-04-10 08:42 | WPDGIPROGNO ---
Progress Note: A&P Assessment and Plan (1) Acute on chronic blood loss anemia: Code(s): D62 - Acute posthemorrhagic anemia Status: Acute Assessment and Plan: probably multifactorial (he was on blood thinners, here with BENJI, sepsis, metastatic cancer, etc) he says that still too weak to complete bowel prep and would like to wait if possible hb low but stable after blood transfusion (2) Acute renal failure (ARF): Qualifiers: Acute renal failure type: unspecified Qualified Code(s): N17.9 - Acute kidney failure, unspecified Code(s): N17.9 - Acute kidney failure, unspecified Status: Acute Assessment and Plan: slowly improving with medical therapy, nephrology on board (3) Metastatic cancer: Code(s): C79.9 - Secondary malignant neoplasm of unspecified site Status: Acute (4) Leukocytosis: Code(s): D72.829 - Elevated white blood cell count, unspecified Status: Acute Assessment and Plan: worsening wbc, on abx by primary team stool samples pending (5) Left lower lobe pneumonia: Code(s): J18.9 - Pneumonia, unspecified organism Status: Acute (6) Diarrhea: Code(s): R19.7 - Diarrhea, unspecified Status: Acute Assessment and Plan: better per patient (7) Occult blood in stools: Code(s): R19.5 - Other fecal abnormalities Status: Acute (8) Protein calorie malnutrition: Code(s): E46 - Unspecified protein-calorie malnutrition Status: Acute (9) Crohn's disease: Code(s): K50.90 - Crohn's disease, unspecified, without complications Status: Acute (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 Review of Systems Review of Systems: All systems reviewed & are unremarkable except as noted in HPI and below Exam Const: General: comfortable, no acute distress and ill appearing chronically Other: pale HENMT: General nose exam: Normal nares present Eyes: Sclera: sclerae normal Neck: Neck: supple Resp: Auscultation: clear to auscultation bilaterally Cardio: Rhythm: abnormal rhythm irregularly irregular GI: GI Palp: Yes Soft to palpation Auscultation: normal bowel sounds : Other: large mass in Rt inguinal/scrotal area- unchanged Skin: General skin exam: no rashes or lesions noted Neuro: Speech: normal speech Motor exam (neuro): Normal motor muscle tone present throughout Extrem: General: pedal edema bilaterally Psych: Mental Status: mental status grossly normal Objective Data Vital Signs Vital Signs: Vital Signs - 24 hr 04/09/21 10:00 04/09/21 12:00 04/09/21 12:15 Temperature 97.5 F L 97.8 F Pulse Rate 70 69 70 Respiratory Rate 20 20 Blood Pressure 100/54 L 112/54 L Pulse Oximetry 91 92 04/09/21 13:15 04/09/21 14:00 04/09/21 14:15 Temperature 97.8 F 97.4 F L Pulse Rate 69 74 71 Respiratory Rate 18 18 Blood Pressure 109/52 L 114/74 Pulse Oximetry 93 92 04/09/21 14:55 04/09/21 16:00 04/09/21 18:00 Temperature 97.7 F 96.1 F L Pulse Rate 69 66 72 Respiratory Rate 18 20 Blood Pressure 108/68 109/55 L Pulse Oximetry 91 93 04/09/21 20:00 04/09/21 21:00 04/09/21 22:00 Temperature 97.8 F Pulse Rate 77 72 Respiratory Rate 21 H Blood Pressure 121/60 Pulse Oximetry 96 96 04/09/21 23:54 04/10/21 00:00 04/10/21 02:00 Temperature 98 F Pulse Rate 80 83 81 Respiratory Rate 20 Blood Pressure 113/83 Pulse Oximetry 93 04/10/21 04:00 04/10/21 06:00 04/10/21 08:00 Temperature 97.8 F 97.2 F L Pulse Rate 80 83 88 Respiratory Rate 20 18 Blood Pressure 109/66 114/71 Pulse Oximetry 99 Intake/Output Intake/Output: Intake & Output 04/07/21 04/08/21 04/09/21 04/10/21
[2021-04-10] MEDS: ACIDOPHILUS/BULGARICUS CHEWABLE TABLET 1 TABLET PO (09:17)
[2021-04-10] MEDS: MESALAMINE 400 MG DELAYED RELEASE CAPSULE PO ×3 (09:17→18:03)
[2021-04-10] MEDS: GABAPENTIN 100 MG CAPSULE 200 MG PO ×3 (09:17→18:03)
--- NOTE | 2021-04-10 10:24 | PM.PNNEP ---
Progress Note: A&P Assessment and Plan (1) Acute renal failure (ARF): Qualifiers: Acute renal failure type: unspecified Qualified Code(s): N17.9 - Acute kidney failure, unspecified Code(s): N17.9 - Acute kidney failure, unspecified Status: Acute Assessment and Plan: Keith has acute renal failure. Renal ultrasound does not show hydronephrosis. Urine electrolytes are not quite pre renal, but he was on torsemide before admission. CPK is normal Urinalysis is bland He continues to have loose stools, however these are better.. I suspect this is pre renal azotemia due to low blood pressure and dehydration. Continue IV fluids for now. However the patient has bilateral lower extremity edema. Venous Dopplers are negative. He did have a recent echocardiogram which showed moderate tricuspid regurgitation and moderate pulmonary hypertension. Creatinine is improving. (2) Hyperkalemia: Code(s): E87.5 - Hyperkalemia Status: Acute Assessment and Plan: Better today. (3) Metastatic cancer: Code(s): C79.9 - Secondary malignant neoplasm of unspecified site Status: Acute Assessment and Plan: The patient has metastatic testicular cancer. He is on the verge of going on hospice. (4) Hypotension: Code(s): I95.9 - Hypotension, unspecified Status: Resolved Assessment and Plan: Blood pressure is improved with the fluids. (5) Hypertension: Code(s): I10 - Essential (primary) hypertension Status: Chronic Assessment and Plan: His antihypertensives are on hold Subjective Date/time seen: 04/10/21 10:24 Interval history: Patient feels about the same today. Lying flat in bed comfortably. Still making urine. No shortness of breath. Exam Narrative: WDWN in NAD skin no rash or subQ nodules head ncat lungs clear bilaterally cor reg no rub abd BS+ nontender and soft ext 1-2+ edema bilaterally. Objective Data Vital Signs Vital Signs: Vital Signs - 24 hr 04/09/21 12:00 04/09/21 12:15 04/09/21 13:15 Temperature 36.4 C L 36.6 C 36.6 C Pulse Rate 69 70 69 Respiratory Rate 20 20 18 Blood Pressure 100/54 L 112/54 L 109/52 L Pulse Oximetry 91 92 93 04/09/21 14:00 04/09/21 14:15 04/09/21 14:55 Temperature 36.3 C L 36.5 C Pulse Rate 74 71 69 Respiratory Rate 18 18 Blood Pressure 114/74 108/68 Pulse Oximetry 92 91 04/09/21 16:00 04/09/21 18:00 04/09/21 20:00 Temperature 35.6 C L 36.6 C Pulse Rate 66 72 77 Respiratory Rate 20 21 H Blood Pressure 109/55 L 121/60 Pulse Oximetry 93 96 04/09/21 21:00 04/09/21 22:00 04/09/21 23:54 Temperature 36.6 C Pulse Rate 72 80 Respiratory Rate 20 Blood Pressure 113/83 Pulse Oximetry 96 93 04/10/21 00:00 04/10/21 02:00 04/10/21 04:00 Temperature 36.6 C Pulse Rate 83 81 80 Respiratory Rate 20 Blood Pressure 109/66 Pulse Oximetry 99 04/10/21 06:00 04/10/21 08:00 Temperature 36.2 C L Pulse Rate 83 88 Respiratory Rate 18 Blood Pressure 114/71 Pulse Oximetry Intake/Output Intake/Output: Intake & Output 04/07/21 04/08/21 04/09/21 04/10/21 23:59 23:59 23:59 23:59 Intake Total 1150 2210 3090 814 Output Total 75 650 1400 700 Balance 1075 1560 1690 114 Meds/Results Medications: Active Medications Generic Name Dose Route Start Last Admin Trade Name Freq PRN Reason Stop Dose Admin Acetaminophen 650 mg 04/08/21 06:21 04/08/21 06:55 Acetaminophen 325 Mg Tablet PO 650 mg Q6H PRN Administration Mild Pain (1-3) or Fever Dextrose 12.5 gm 04/07/21 23:39 Dextrose 50% 25 Gm/50 Ml Syringe IV PUSH PRN PRN Hypoglycemia Protocol Gabapentin 200 mg 04/08/21 13:30 04/10/21 09:17 Gabapentin 100 Mg Capsule PO 200 mg TID AMA Administration Glucagon 1 mg 04/07/21 23:39 Glucagon For Inj 1 Mg Vial IM PRN PRN Hypoglycemia Protocol Glucose 15 gm
--- NOTE | 2021-04-10 13:00 | PM.IMPN ---
Progress Note: A&P Assessment and Plan (1) Acute renal failure (ARF): Qualifiers: Acute renal failure type: unspecified Qualified Code(s): N17.9 - Acute kidney failure, unspecified Code(s): N17.9 - Acute kidney failure, unspecified Status: Acute Assessment and Plan: BUN/Cr 68/4.10 upon admission current 59/2.90 K elevated 6.2 on admission, current 4.3 Renal ultrasound-Unremarkable no stones, masses, or hydronephrosis NaCl at 75ml/hr hold any nephrotoxic medication Treat electrolyte abnormalities Probably not a candidate for dialysis, due to hypotension metastatic cancer, origin testicular etiology Hold diuretics nephrology consult thank you for your recommendations Urinary catheter- urine output is low, but seems to be increasing with fluids Seems to be resolving. Will move him out of IMU (2) Hyperkalemia: Code(s): E87.5 - Hyperkalemia Status: Acute Assessment and Plan: Kayexalate given outpatient potassium after treatment 6.7 and on admission D50, regular insulin, sodium bicarb, with some reduction in ED Probably related to renal failure Trend labs Nephrology consult Seems to be trending down and remains 4.3 today (3) Crohn's disease: Code(s): K50.90 - Crohn's disease, unspecified, without complications Status: Acute Assessment and Plan: Diarrhea noted Could be infectious colitis Continue to monitor Continue mesalamine 400mg PO TID (4) Atrial fibrillation: Code(s): I48.91 - Unspecified atrial fibrillation Status: Acute Assessment and Plan: Hold home medications at this time No anticoagulation due to recent GI bleed Tele monitor EKG shows afib 70s (5) Congestive heart failure (CHF): Code(s): I50.9 - Heart failure, unspecified Status: Acute Assessment and Plan: Hold diuretics due to renal function Acute on chronic exacerbation Exacerbated related to renal function 3+ pitting edema noted on exam No shortness of breath noted Echo from 02/18/21: EF of 60-65% with left vent wall thickness, bilateral atrial chamber enlargment, mild aortic valve stenosis, moderate tricuspid regurg, diastolic dysfunction indeterminate Close watch of breathing function to ensure patient does not go into respiratory failure (6) Anemia: Qualifiers: Anemia type: unspecified type Qualified Code(s): D64.9 - Anemia, unspecified Code(s): D64.9 - Anemia, unspecified Status: Acute Assessment and Plan: Above his baseline at admission 9.4, currently 8.5/26.6 Probably dilutional since MCV, MCH, and MCHC has no change Trend H/H Transfuse 1 unit (04/09/21) transfuse if Hgb <7 (7) Metastatic cancer: Code(s): C79.9 - Secondary malignant neoplasm of unspecified site Status: Acute Assessment and Plan: 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 Simmons with multiple visits this week Code status: DNR Considering hospice if this is untreatable He would like to go home and be on hospice if his renal function does not improve (8) Hyperlipidemia: Code(s): E78.5 - Hyperlipidemia, unspecified Status: Chronic Assessment and Plan: Home medications on hold at this time (9) Hypotension: Code(s): I95.9 - Hypotension, unspecified Status: Acute Assessment and Plan: Current BP 114/66 BP got as low as 77/44, gave 200ml of albumin one time seemed to improve blood pressure Blood pressure labile at this time IV fluids Nephrology consult Trend BP Home BP medications on hold at this time. (10) Hypertension: Code(s): I10 - Essential (primary) hypertension Status: Chronic Assessment and Plan: Current BP 114/66 Experiencing hypotension at this time Home medications on hol
--- NOTE | 2021-04-10 13:00 | P.PNIM_ITS ---
Progress Note: A&P Assessment and Plan (1) Acute renal failure (ARF): Qualifiers: Acute renal failure type: unspecified Qualified Code(s): N17.9 - Acute kidney failure, unspecified Code(s): N17.9 - Acute kidney failure, unspecified Status: Acute Assessment and Plan: * BUN/Cr 68/4.10 upon admission current 59/2.90 * K elevated 6.2 on admission, current 4.3 * Renal ultrasound-Unremarkable no stones, masses, or hydronephrosis * NaCl at 75ml/hr * hold any nephrotoxic medication * Treat electrolyte abnormalities * Probably not a candidate for dialysis, due to hypotension * metastatic cancer, origin testicular etiology * Hold diuretics * nephrology consult thank you for your recommendations * Urinary catheter- urine output is low, but seems to be increasing with fluids * Seems to be resolving. Will move him out of IMU (2) Hyperkalemia: Code(s): E87.5 - Hyperkalemia Status: Acute Assessment and Plan: * Kayexalate given outpatient * potassium after treatment 6.7 and on admission * D50, regular insulin, sodium bicarb, with some reduction in ED * Probably related to renal failure * Trend labs * Nephrology consult * Seems to be trending down and remains 4.3 today (3) Crohn's disease: Code(s): K50.90 - Crohn's disease, unspecified, without complications Status: Acute Assessment and Plan: * Diarrhea noted * Could be infectious colitis * Continue to monitor * Continue mesalamine 400mg PO TID (4) Atrial fibrillation: Code(s): I48.91 - Unspecified atrial fibrillation Status: Acute Assessment and Plan: * Hold home medications at this time * No anticoagulation due to recent GI bleed * Tele monitor * EKG shows afib 70s (5) Congestive heart failure (CHF): Code(s): I50.9 - Heart failure, unspecified Status: Acute Assessment and Plan: * Hold diuretics due to renal function * Acute on chronic exacerbation * Exacerbated related to renal function * 3+ pitting edema noted on exam * No shortness of breath noted * Echo from 02/18/21: EF of 60-65% with left vent wall thickness, bilateral atrial chamber enlargment, mild aortic valve stenosis, moderate tricuspid regurg, diastolic dysfunction indeterminate * Close watch of breathing function to ensure patient does not go into respiratory failure (6) Anemia: Qualifiers: Anemia type: unspecified type Qualified Code(s): D64.9 - Anemia, unspecified Code(s): D64.9 - Anemia, unspecified Status: Acute Assessment and Plan: * Above his baseline at admission 9.4, currently 8.5/26.6 * Probably dilutional since MCV, MCH, and MCHC has no change * Trend H/H * Transfuse 1 unit (04/09/21) * transfuse if Hgb <7 (7) Metastatic cancer: Code(s): C79.9 - Secondary malignant neoplasm of unspecified site Status: Acute Assessment and Plan: * 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 Simmons with multiple visits this week * Code status: DNR * Considering hospice if this is untreatable * He would like to go home and be on hospice if his renal function does not improve (8) Hyperlipidemia: Code(s): E78.5 - Hyperlipidemia, unspecified Status: Chronic Assessment and Plan: * Home medications on hold at this time
--- NOTE | 2021-04-10 17:28 | PC.NURSE ---
This patient, Keith Wilson, was transferred to [facility] on 04/10/21 at 1728. Personal belongings sent with patient. Report given to RIKA Cordova. Appropriate documentation sent with patient.
[2021-04-10] MEDS: metroNIDAZOLE 500 MG/ISO 100ML 500 MG/100 ML BAG 100 MG IVPB (19:57)
[2021-04-11] VITALS (8 sets, daily range): BP systolic 116–122; BP diastolic 63–76; PULSE 87–104; RESP 16–24; TEMP 36.1–37.1; O2SAT 96–100
[2021-04-11] MEDS: metroNIDAZOLE 500 MG/ISO 100ML 500 MG/100 ML BAG 100 MG IVPB ×3 (04:12→20:42)
[2021-04-11] MEDS: SODIUM CHLORIDE 0.9% IV 1,000 ML 75 ML IV CONT (06:47)
--- NOTE | 2021-04-11 07:59 | PM.PNNEP ---
Progress Note: A&P Assessment and Plan (1) Acute renal failure (ARF): Qualifiers: Acute renal failure type: unspecified Qualified Code(s): N17.9 - Acute kidney failure, unspecified Code(s): N17.9 - Acute kidney failure, unspecified Status: Acute Assessment and Plan: Keith has acute renal failure. Renal ultrasound does not show hydronephrosis. Urine electrolytes are not quite pre renal, but he was on torsemide before admission. CPK is normal Urinalysis is bland He continues to have loose stools, however these are better. it turns out that he has C diff. this might have added to his renal insufficiency as well. I suspect this is pre renal azotemia due to low blood pressure and dehydration. Continue IV fluids for now. Creatinine seems to be improving. His basic metabolic is pending for today However the patient has bilateral lower extremity edema. Venous Dopplers are negative. He did have a recent echocardiogram which showed moderate tricuspid regurgitation and moderate pulmonary hypertension. (2) Hyperkalemia: Code(s): E87.5 - Hyperkalemia Status: Acute Assessment and Plan: Better today. (3) Metastatic cancer: Code(s): C79.9 - Secondary malignant neoplasm of unspecified site Status: Acute Assessment and Plan: The patient has metastatic testicular cancer. (4) Hypotension: Code(s): I95.9 - Hypotension, unspecified Status: Resolved Assessment and Plan: Blood pressure is improved with the fluids. (5) Hypertension: Code(s): I10 - Essential (primary) hypertension Status: Chronic Assessment and Plan: His antihypertensives are on hold Subjective Date/time seen: 04/11/21 07:59 Interval history: Patient feels about the same today. Lying flat in bed comfortably. he is still having loose stools. His cultures grew back with C diff. Still making urine. No shortness of breath. Exam Narrative: WDWN in NAD skin no rash or subQ nodules head ncat lungs clear to auscultation cor reg no rub or gallop abd BS+ nontender and soft ext 1-2+ edema bilaterally. Objective Data Vital Signs Vital Signs: Vital Signs - 24 hr 04/10/21 08:00 04/10/21 10:00 04/10/21 12:00 Temperature 36.2 C L 36.4 C L Pulse Rate 92 88 88 Respiratory Rate 18 22 H Blood Pressure 114/71 114/66 Pulse Oximetry 92 04/10/21 14:00 04/10/21 16:00 04/10/21 19:47 Temperature 36.2 C L Pulse Rate 89 89 Respiratory Rate 18 Blood Pressure 121/65 Pulse Oximetry 93 95 04/10/21 20:00 04/11/21 00:00 04/11/21 04:00 Temperature 37.1 C 36.1 C L Pulse Rate 96 93 93 Respiratory Rate 14 16 Blood Pressure 122/72 118/75 Pulse Oximetry 95 100 Intake/Output Intake/Output: Intake & Output 04/08/21 04/09/21 04/10/21 04/11/21 23:59 23:59 23:59 23:59 Intake Total 2210 3090 2780 1100 Output Total 650 1400 1700 1000 Balance 1560 1690 1080 100 Meds/Results Medications: Active Medications Generic Name Dose Route Start Last Admin Trade Name Freq PRN Reason Stop Dose Admin Acetaminophen 650 mg 04/08/21 06:21 04/08/21 06:55 Acetaminophen 325 Mg Tablet PO 650 mg Q6H PRN Administration Mild Pain (1-3) or Fever Dextrose 12.5 gm 04/07/21 23:39 Dextrose 50% 25 Gm/50 Ml Syringe IV PUSH PRN PRN Hypoglycemia Protocol Gabapentin 200 mg 04/08/21 13:30 04/10/21 18:03 Gabapentin 100 Mg Capsule PO 200 mg TID AMA Administration Glucagon 1 mg 04/07/21 23:39 Glucagon For Inj 1 Mg Vial IM PRN PRN Hypoglycemia Protocol Glucose 15 gm 04/07/21 23:39 Glucose Oral Gel 15 Gm Of Glucse In 37.5 Gm Tube PO PRN PRN Hypoglycemia Protocol Dextrose 1,000 mls @ 100 mls/hr 04/07/21 23:39 Dextrose 5% 1,000 Ml IVPB PRN PRN Hypoglycemia Protocol Sodium Chloride 1,000 mls @ 75 mls/hr 04/08/21 06:25 04/11/21 06:
[2021-04-11] MEDS: GABAPENTIN 100 MG CAPSULE 200 MG PO ×3 (08:16→16:25)
[2021-04-11 08:17] LABS: Anion Gap 7 mmol/L (8-16); Blood Urea Nitrogen 45 mg/dL (9-20); Calcium 7.5 mg/dL (8.4-10.2); Carbon Dioxide 22 mmol/L (22-30); Chloride 108 mmol/L (98-107); Estimated CRCL calculation 33 ml/min; Estimated Glomerular Filt Rate 37; Glucose 119 mg/dL (65-110); Potassium 4.6 mmol/L (3.4-5.0); Sodium 137 mmol/L (137-145)
[2021-04-11] MEDS: MESALAMINE 400 MG DELAYED RELEASE CAPSULE PO ×3 (08:20→16:25)
[2021-04-11] MEDS: ACIDOPHILUS/BULGARICUS CHEWABLE TABLET 1 TABLET PO (08:20)
--- NOTE | 2021-04-11 11:49 | PCNFU ---
Nutrition Follow-Up Complete: Altered nutrition related labs related to kidney failure as evidenced by serum potassium of 5.7mmol/L. Goal Patient to consume 50% of meals/supplements or greater. Patient is progressing towards goal. We will continue current goal. Pt current nutrition is Regular with Suplena BID and Banatrol TID. Last recorded weight is 98.6 kg, down from 99 kg on admit. Bowel Motility:+BM reported 10/24-loose stools reported. Labs Reviewed:Glu 120, BUN 59,Cr 2.9,Na 136, Alb 2.4,Hct 26.6,Hgb 8.5 Meds Noted:Florastor, Neurontin,NS, Flagyl, Rocephin, Vancomycin,Delzicol. Additional Notes: Nutrition follow up. Patient is consuming 90-100% of meals. Diet supplements of Suplena are being consumed providing an additional 420 kcals and 10.6 gms protein. Banatrol Plus added today for stool bulking, patient is CDiff positive. Monitoring: Follow up every 5 days.
[2021-04-11] MEDS: SACCHAROMYCES BOULARDII 250 MG CAPSULE PO ×2 (12:10→16:25)
--- NOTE | 2021-04-11 13:38 | P.PNIM_ITS ---
Progress Note: A&P Assessment and Plan (1) C. difficile colitis: Code(s): A04.72 - Enterocolitis due to Clostridium difficile, not specified as recurrent Status: Acute Assessment and Plan: * stool culture resulted with Cdiff positive * Had to of been present upon admission due to the admitting WBC * WBC 41.3 on admission, 40.1 on 04/10/21 * Started IV ceftriaxone and azithromycin, change to PO vanc and Flagyl IV * Trend labs (2) Acute renal failure (ARF): Qualifiers: Acute renal failure type: unspecified Qualified Code(s): N17.9 - Acute kidney failure, unspecified Code(s): N17.9 - Acute kidney failure, unspecified Status: Acute Assessment and Plan: * BUN/Cr 68/4.10 upon admission current 45/1.80 * K elevated 6.2 on admission, current 4.6 * Renal ultrasound-Unremarkable no stones, masses, or hydronephrosis * NaCl at 75ml/hr, probably can be DC'd tomorrow * hold any nephrotoxic medication * Treat electrolyte abnormalities * Probably not a candidate for dialysis, due to hypotension * metastatic cancer, origin testicular etiology * Hold diuretics * nephrology consult thank you for your recommendations * Urinary catheter- urine output is low, but seems to be increasing with fluids * Seems to be resolving. * Dr. Mccracken and I discussed the case and agree to continue current plan of care (3) Hyperkalemia: Code(s): E87.5 - Hyperkalemia Status: Acute Assessment and Plan: * Resolved at this time * Kayexalate given outpatient * potassium after treatment 6.7 and on admission * D50, regular insulin, sodium bicarb, with some reduction in ED * Probably related to renal failure * Trend labs * Nephrology consult * Seems to be trending down and remains 4.6 today (4) Crohn's disease: Code(s): K50.90 - Crohn's disease, unspecified, without complications Status: Acute Assessment and Plan: * Diarrhea noted * Could be infectious colitis * Continue to monitor * Continue mesalamine 400mg PO TID (5) Atrial fibrillation: Code(s): I48.91 - Unspecified atrial fibrillation Status: Acute Assessment and Plan: * Hold home medications at this time * No anticoagulation due to recent GI bleed * Tele monitor * EKG shows afib 70s (6) Congestive heart failure (CHF): Code(s): I50.9 - Heart failure, unspecified Status: Acute Assessment and Plan: * Hold diuretics due to renal function * Acute on chronic exacerbation would presume this to be diastolic CHF even though diastolic dysfunction was unable to be determined * Exacerbated related to renal function * 3+ pitting edema noted on exam * No shortness of breath noted * Echo from 02/18/21: EF of 60-65% with left vent wall thickness, bilateral atrial chamber enlargment, mild aortic valve stenosis, moderate tricuspid regurg, diastolic dysfunction indeterminate * Close watch of breathing function to ensure patient does not go into respiratory failure (7) Acute on chronic blood loss anemia: Code(s): D62 - Acute posthemorrhagic anemia Status: Acute Assessment and Plan: * Above his baseline at admission 9.4, currently 8.5/26.6 * Probably dilutional since MCV, MCH, and MCHC has no change * Trend H/H * Transfuse 1 unit (04/09/21) * transfuse if Hgb <7 (8) Metastatic cancer: Code(s): C79.9 - Secondary malignant neoplasm of unspecified site
--- NOTE | 2021-04-11 13:38 | PM.IMPN ---
Progress Note: A&P Assessment and Plan (1) C. difficile colitis: Code(s): A04.72 - Enterocolitis due to Clostridium difficile, not specified as recurrent Status: Acute Assessment and Plan: stool culture resulted with Cdiff positive Had to of been present upon admission due to the admitting WBC WBC 41.3 on admission, 40.1 on 04/10/21 Started IV ceftriaxone and azithromycin, change to PO vanc and Flagyl IV Trend labs (2) Acute renal failure (ARF): Qualifiers: Acute renal failure type: unspecified Qualified Code(s): N17.9 - Acute kidney failure, unspecified Code(s): N17.9 - Acute kidney failure, unspecified Status: Acute Assessment and Plan: BUN/Cr 68/4.10 upon admission current 45/1.80 K elevated 6.2 on admission, current 4.6 Renal ultrasound-Unremarkable no stones, masses, or hydronephrosis NaCl at 75ml/hr, probably can be DC'd tomorrow hold any nephrotoxic medication Treat electrolyte abnormalities Probably not a candidate for dialysis, due to hypotension metastatic cancer, origin testicular etiology Hold diuretics nephrology consult thank you for your recommendations Urinary catheter- urine output is low, but seems to be increasing with fluids Seems to be resolving. Dr. Mccracken and I discussed the case and agree to continue current plan of care (3) Hyperkalemia: Code(s): E87.5 - Hyperkalemia Status: Acute Assessment and Plan: Resolved at this time Kayexalate given outpatient potassium after treatment 6.7 and on admission D50, regular insulin, sodium bicarb, with some reduction in ED Probably related to renal failure Trend labs Nephrology consult Seems to be trending down and remains 4.6 today (4) Crohn's disease: Code(s): K50.90 - Crohn's disease, unspecified, without complications Status: Acute Assessment and Plan: Diarrhea noted Could be infectious colitis Continue to monitor Continue mesalamine 400mg PO TID (5) Atrial fibrillation: Code(s): I48.91 - Unspecified atrial fibrillation Status: Acute Assessment and Plan: Hold home medications at this time No anticoagulation due to recent GI bleed Tele monitor EKG shows afib 70s (6) Congestive heart failure (CHF): Code(s): I50.9 - Heart failure, unspecified Status: Acute Assessment and Plan: Hold diuretics due to renal function Acute on chronic exacerbation would presume this to be diastolic CHF even though diastolic dysfunction was unable to be determined Exacerbated related to renal function 3+ pitting edema noted on exam No shortness of breath noted Echo from 02/18/21: EF of 60-65% with left vent wall thickness, bilateral atrial chamber enlargment, mild aortic valve stenosis, moderate tricuspid regurg, diastolic dysfunction indeterminate Close watch of breathing function to ensure patient does not go into respiratory failure (7) Acute on chronic blood loss anemia: Code(s): D62 - Acute posthemorrhagic anemia Status: Acute Assessment and Plan: Above his baseline at admission 9.4, currently 8.5/26.6 Probably dilutional since MCV, MCH, and MCHC has no change Trend H/H Transfuse 1 unit (04/09/21) transfuse if Hgb <7 (8) Metastatic cancer: Code(s): C79.9 - Secondary malignant neoplasm of unspecified site Status: Acute Assessment and Plan: 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 Simmons with multiple visits this week Code status: DNR Considering hospice if this is untreatable He would like to go home and be on hospice if his renal function does not improve (9) Hyperlipidemia: Code(s): E78.5 - Hyperlipidemia, unspecified Status: Chronic Assessment and Plan: Home medications on hold at this time (10) Hypotension:
--- NOTE | 2021-04-11 14:01 | WPDGIPROGNO ---
Progress Note: A&P Assessment and Plan (1) C. difficile colitis: Code(s): A04.72 - Enterocolitis due to Clostridium difficile, not specified as recurrent Status: Acute Assessment and Plan: new diagnosis, can explain diarrhea with renal failure and early sepsis on admission with leukocytosis continue with oral vancomycin and continue to monitor, if unchanged then can switch to dificid if possible limit use of systemic antibiotics (2) Acute on chronic blood loss anemia: Code(s): D62 - Acute posthemorrhagic anemia Status: Acute Assessment and Plan: probably multifactorial (he was on blood thinners, here with BENJI, sepsis, metastatic cancer, etc) and now also C diff hb low but stable after blood transfusion no need of scopes unless obvious bleeding, C diff colitis also caused of + FOBT (3) Acute renal failure (ARF): Qualifiers: Acute renal failure type: unspecified Qualified Code(s): N17.9 - Acute kidney failure, unspecified Code(s): N17.9 - Acute kidney failure, unspecified Status: Acute Assessment and Plan: slowly improving with medical therapy, nephrology on board pending labs (4) Metastatic cancer: Code(s): C79.9 - Secondary malignant neoplasm of unspecified site Status: Acute (5) Leukocytosis: Code(s): D72.829 - Elevated white blood cell count, unspecified Status: Deleted Assessment and Plan: worsening wbc, pending labs (6) Left lower lobe pneumonia: Code(s): J18.9 - Pneumonia, unspecified organism Status: Acute (7) Diarrhea: Code(s): R19.7 - Diarrhea, unspecified Status: Acute Assessment and Plan: from C diff he is immunocompromised with recent chemotherapy and also cancer (8) Occult blood in stools: Code(s): R19.5 - Other fecal abnormalities Status: Acute Assessment and Plan: from C diff (9) Protein calorie malnutrition: Code(s): E46 - Unspecified protein-calorie malnutrition Status: Acute (10) Crohn's disease: Code(s): K50.90 - Crohn's disease, unspecified, without complications Status: Acute (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, unspecified Status: Acute Subjective Date/time seen: 04/11/21 14:01 Interval history: C diff stool positive, diarrhea is better, no signs of bleeding (I looked at last stool pasty brown) Review of Systems Review of Systems: All systems reviewed & are unremarkable except as noted in HPI and below Exam Const: General: comfortable, no acute distress and ill appearing chronically Other: pale HENMT: General nose exam: Normal nares present Eyes: Sclera: sclerae normal Neck: Neck: supple Resp: Auscultation: clear to auscultation bilaterally Cardio: Rhythm: abnormal rhythm irregularly irregular GI: GI Palp: Yes Soft to palpation Auscultation: normal bowel sounds : Other: large mass in Rt inguinal/scrotal area- unchanged Skin: General skin exam: no rashes or lesions noted Neuro: Speech: normal speech Motor exam (neuro): Normal motor muscle tone present throughout Extrem: General: pedal edema bilaterally Psych: Mental Status: mental status grossly normal Objective Data Vital Signs Vital Signs: Vital Signs - 24 hr 04/10/21 16:00 04/10/21 19:47 04/10/21 20:00 Temperature 97.2 F L 98.7 F Pulse Rate 89 96 Respiratory Rate 18 14 Blood Pressure 121/65 122/72 Pulse Oximetry 93 95 95 04/11/21 00:00 04/11/21 04:00 04/11/21 08:00 Temperature 96.9 F L 98.8 F Pulse Rate 93 93 104 H Respiratory Rate 16 24 H Blood Pressure 118/75 122/71 Pulse Oximetry 100 97 04/11/21 12:00 Temperature 98.1 F Pulse Rate 92 Respiratory Rate 18 Blood Pressure 122/76 Pulse Oximetry 98 Intake/Output Intake/Output: Intake & Output 04/08/21 04/09/21 04/10/21 04/11/21 23:59 23:59 23:59 23:59 Intake To
--- NOTE | 2021-04-11 14:02 | P.CDI_ITS ---
CDI Query Clarification Request 1)-CHF acute on chronic has been documented Please further specify type of CHF: * Systolic * Diastolic * Both systolic and diastolic * Unable to determine 2) C diff colitis has been documented - Diarrhea documented in H&P Please clarify if C difficile colitis was: * Present on admission * Not present on admission * Unable to determine <Jannet Bowers RN - Last Filed: 04/11/21 14:08> I updated my unsigned note to reflect these changes which include Cdiff was present on admission due to the very elevated WBC CHF which would be assumed to be diastolic however it is unclear per the echo which was detailed in the problem. <Med Murray APN-Cari - Last Filed: 04/11/21 15:06>
--- NOTE | 2021-04-11 14:02 | WPDCDIQUERY2 ---
CDI Query Clarification Request 1)-CHF acute on chronic has been documented Please further specify type of CHF: Systolic Diastolic Both systolic and diastolic Unable to determine 2) C diff colitis has been documented - Diarrhea documented in H&P Please clarify if C difficile colitis was: Present on admission Not present on admission Unable to determine <Jannet Bowers RN - Last Filed: 04/11/21 14:08> I updated my unsigned note to reflect these changes which include Cdiff was present on admission due to the very elevated WBC CHF which would be assumed to be diastolic however it is unclear per the echo which was detailed in the problem. <ADEOLA Deal - Last Filed: 04/11/21 15:06>
[2021-04-11] MEDS: ALPRAZolam (*CRX) 0.125 MG TABLET PO (16:25)
[2021-04-11] MEDS: ACETAMINOPHEN 325 MG TABLET 650 MG PO (21:52)
[2021-04-12] VITALS (12 sets, daily range): BP systolic 114–140; BP diastolic 66–82; PULSE 81–106; RESP 16–20; TEMP 36.1–36.4; O2SAT 96–98
[2021-04-12] MEDS: ACETAMINOPHEN 325 MG TABLET 650 MG PO (04:24)
[2021-04-12] MEDS: metroNIDAZOLE 500 MG/ISO 100ML 500 MG/100 ML BAG 100 MG IVPB ×3 (04:25→20:11)
[2021-04-12 07:25] LABS: Hematocrit 27.1 % (42.0-52.0); Hemoglobin 8.2 g/dL (14.0-18.0); Mean Corpuscular HGB Conc 30.3 g/dl (32-36); Mean Corpuscular Hemoglobin 29.9 pg (26-34); Mean Corpuscular Volume 98.9 fl (80-100); Mean Platelet Volume 9.4 fl (7.4-10.4); Platelet Count Result 265 k/mm3 (150-375); Red Blood Count 2.74 M/mm3 (4.6-6.20); Red Cell Distribution Width 19.1 % (11.5-14.5); White Blood Count 46.4 K/mm3 (4.5-10.0)
[2021-04-12 07:39] LABS: Alanine Aminotransferase 22 U/L (4-50); Albumin Level 2.2 g/dL (3.5-5.1); Alkaline Phosphatase 163 U/L (38-126); Anion Gap 3 mmol/L (8-16); Aspartate Amino Transferase 25 U/L (17-59); Bilirubin,Total 0.4 mg/dL (0.2-1.3); Blood Urea Nitrogen 36 mg/dL (9-20); Calcium 7.5 mg/dL (8.4-10.2); Carbon Dioxide 26 mmol/L (22-30); Chloride 110 mmol/L (98-107); Estimated CRCL calculation 51 ml/min; Estimated Glomerular Filt Rate 53; Glucose 129 mg/dL (65-110); Magnesium 1.5 mg/dL (1.6-2.3); Potassium 5.2 mmol/L (3.4-5.0); Sodium 139 mmol/L (137-145)
[2021-04-12 07:55] LABS: Total Cells Counted 100
[2021-04-12 07:56] LABS: Lymphocytes Absolute Manual 2.32 K/mm3 (1.1-4.5); Lymphocytes Percent Manual 5 % (18-44); Neutrophils Percent Manual 90 % (46-73)
[2021-04-12 07:57] LABS: Smudge Cells PRESENT
[2021-04-12 07:59] LABS: Ovalocytes 1+ (NORMAL); Schistocytes 1+ (NORMAL); Toxic Granulation Present (NORMAL)
[2021-04-12 08:01] LABS: Anisocytosis 1+ (NORMAL)
[2021-04-12 08:02] LABS: Platelet Estimate Adequate (Adequate)
[2021-04-12 08:04] LABS: Monocytes Absolute Manual 2.32 K/mm3 (0.1-0.90); Monocytes Percent Manual 5 % (3-9)
[2021-04-12 08:05] LABS: Tear Drop Cells 1+ (NORMAL)
[2021-04-12] MEDS: SACCHAROMYCES BOULARDII 250 MG CAPSULE PO ×3 (08:12→18:01)
[2021-04-12] MEDS: MESALAMINE 400 MG DELAYED RELEASE CAPSULE PO ×3 (08:12→18:06)
[2021-04-12] MEDS: ACIDOPHILUS/BULGARICUS CHEWABLE TABLET 1 TABLET PO (08:12)
[2021-04-12] MEDS: GABAPENTIN 100 MG CAPSULE 200 MG PO ×3 (08:12→18:01)
[2021-04-12] MEDS: ALPRAZolam (*CRX) 0.125 MG TABLET PO (08:23)
[2021-04-12] MEDS: SODIUM POLYSTYRENE SULFONONATE 15 GM/60 ML BTL PO (11:26)
[2021-04-12] MEDS: carvediloL 3.125 MG TABLET PO ×2 (11:26→20:10)
[2021-04-12] MEDS: CHOLECALCIFEROL 1,000 UNITS TABLET 5000 UNITS PO (11:26)
[2021-04-12] MEDS: TORSEMIDE 20 MG TABLET PO ×2 (11:27→18:06)
[2021-04-12] MEDS: MAGNESIUM SULF 2 GM/WATER 50ML 2 GM/50 ML BAG IVPB (11:27)
--- NOTE | 2021-04-12 13:01 | P.PNIM_ITS ---
Progress Note: A&P Assessment and Plan (1) C. difficile colitis: Code(s): A04.72 - Enterocolitis due to Clostridium difficile, not specified as recurrent Status: Acute Assessment and Plan: C diff diagnosed which was present on admission * Stool culture resulted with C diff positive * Had to of been present upon admission due to the admitting WBC * WBC 41.3 on admission, 46.4 on 04/12/21 * Started IV ceftriaxone and azithromycin, change to PO vanc and Flagyl IV Day #1 * Trend labs (2) Acute renal failure (ARF): Qualifiers: Acute renal failure type: unspecified Qualified Code(s): N17.9 - Acute kidney failure, unspecified Code(s): N17.9 - Acute kidney failure, unspecified Status: Acute Assessment and Plan: * BUN/Cr 68/4.10 upon admission current 36/1.30 * K elevated 6.2 on admission, current 5.2 * Renal ultrasound-Unremarkable no stones, masses, or hydronephrosis * Discontinued IV Fluids at this time, is having SOB/Leg swelling concerned for some CHF now. Will restart home Torsemide * Treat electrolyte abnormalities * Probably not a candidate for dialysis, due to hypotension * metastatic cancer, origin testicular etiology * nephrology consult thank you for your recommendations * Urinary catheter- will remove tomorrow * Seems to be resolving. * Dr. Mccracken and I discussed the case and agree to continue current plan of care (3) Hyperkalemia: Code(s): E87.5 - Hyperkalemia Status: Acute Assessment and Plan: * potassium on admission 6.7, today it is elevated again 5.2. Will give Kayexelate * D50, regular insulin, sodium bicarb, with some reduction in ED * Probably related to renal failure * Trend labs * Nephrology consult (4) Crohn's disease: Code(s): K50.90 - Crohn's disease, unspecified, without complications Status: Acute Assessment and Plan: * Diarrhea noted from C. diff and now being treated. * Continue mesalamine 400mg PO TID (5) Atrial fibrillation: Code(s): I48.91 - Unspecified atrial fibrillation Status: Acute Assessment and Plan: * Hold home medications at this time * No anticoagulation due to recent GI bleed * Tele monitor (6) Congestive heart failure (CHF): Code(s): I50.9 - Heart failure, unspecified Status: Acute Assessment and Plan: Acute on chronic exacerbation of diastolic CHF. * 3+ pitting edema noted on exam * Reporting SOB at this time, and for the last few days * Discontinue IV fluids at this time. 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 Simmons with multiple visits this week * Code status: DNR * Considering hospice if this is untreatable * He would like to go home and be on hospice if his renal function does not impro
--- NOTE | 2021-04-12 13:01 | PM.IMPN ---
Progress Note: A&P Assessment and Plan (1) C. difficile colitis: Code(s): A04.72 - Enterocolitis due to Clostridium difficile, not specified as recurrent Status: Acute Assessment and Plan: C diff diagnosed which was present on admission Stool culture resulted with C diff positive Had to of been present upon admission due to the admitting WBC WBC 41.3 on admission, 46.4 on 04/12/21 Started IV ceftriaxone and azithromycin, change to PO vanc and Flagyl IV Day #1 Trend labs (2) Acute renal failure (ARF): Qualifiers: Acute renal failure type: unspecified Qualified Code(s): N17.9 - Acute kidney failure, unspecified Code(s): N17.9 - Acute kidney failure, unspecified Status: Acute Assessment and Plan: BUN/Cr 68/4.10 upon admission current 36/1.30 K elevated 6.2 on admission, current 5.2 Renal ultrasound-Unremarkable no stones, masses, or hydronephrosis Discontinued IV Fluids at this time, is having SOB/Leg swelling concerned for some CHF now. Will restart home Torsemide Treat electrolyte abnormalities Probably not a candidate for dialysis, due to hypotension metastatic cancer, origin testicular etiology nephrology consult thank you for your recommendations Urinary catheter- will remove tomorrow Seems to be resolving. Dr. Mccracken and I discussed the case and agree to continue current plan of care (3) Hyperkalemia: Code(s): E87.5 - Hyperkalemia Status: Acute Assessment and Plan: potassium on admission 6.7, today it is elevated again 5.2. Will give Kayexelate D50, regular insulin, sodium bicarb, with some reduction in ED Probably related to renal failure Trend labs Nephrology consult (4) Crohn's disease: Code(s): K50.90 - Crohn's disease, unspecified, without complications Status: Acute Assessment and Plan: Diarrhea noted from C. diff and now being treated. Continue mesalamine 400mg PO TID (5) Atrial fibrillation: Code(s): I48.91 - Unspecified atrial fibrillation Status: Acute Assessment and Plan: Hold home medications at this time No anticoagulation due to recent GI bleed Tele monitor (6) Congestive heart failure (CHF): Code(s): I50.9 - Heart failure, unspecified Status: Acute Assessment and Plan: Acute on chronic exacerbation of diastolic CHF. 3+ pitting edema noted on exam Reporting SOB at this time, and for the last few days Discontinue IV fluids at this time. 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 Simmons with multiple visits this week Code status: DNR Considering hospice if this is untreatable He would like to go home and be on hospice if his renal function does not improve (9) Hyperlipidemia: Code(s): E78.5 - Hyperlipidemia, unspecified Status: Chronic Assessment and Plan: Home medications on hold at this time (10) Hypotension: Code(s): I95.9 - Hypotension, unspecified Status: Acute Assessment and Plan: Current BP 140/82. Stable. BP got as low as 77/44, will monitor BP with discontinuing IV fluids and restarting home Torsemide. Discontinue IV fluids Nephrology consult Trend BP Home BP medications on hold at t
[2021-04-12 15:47] LABS: Magnesium 1.8 mg/dL (1.6-2.3); Potassium 4.5 mmol/L (3.4-5.0)
--- NOTE | 2021-04-12 17:00 | WPDGIPROGNO ---
Progress Note: A&P Assessment and Plan (1) C. difficile colitis: Code(s): A04.72 - Enterocolitis due to Clostridium difficile, not specified as recurrent Status: Acute Assessment and Plan: new diagnosis, can explain diarrhea with renal failure and early sepsis on admission with leukocytosis (C diff was present on admission based on clinical picture) continue with oral vancomycin and continue to monitor, if unchanged then can switch to dificid other systemic antibiotics discontinued he is high risk (immunocompromised with metastatic cancer and recent chemotherapy) (2) Acute on chronic blood loss anemia: Code(s): D62 - Acute posthemorrhagic anemia Status: Acute Assessment and Plan: probably multifactorial (he was on blood thinners, here with BENJI, sepsis, metastatic cancer, etc) and now also C diff hb low but stable after blood transfusion no need of scopes for now unless change in clinical course (3) Acute renal failure (ARF): Qualifiers: Acute renal failure type: unspecified Qualified Code(s): N17.9 - Acute kidney failure, unspecified Code(s): N17.9 - Acute kidney failure, unspecified Status: Acute Assessment and Plan: slowly improving with medical therapy, nephrology on board creatinine much better (4) Metastatic cancer: Code(s): C79.9 - Secondary malignant neoplasm of unspecified site Status: Acute (5) Leukocytosis: Code(s): D72.829 - Elevated white blood cell count, unspecified Status: Deleted Assessment and Plan: worsening wbc, sepsis on presentation from c diff (6) Diarrhea: Code(s): R19.7 - Diarrhea, unspecified Status: Acute Assessment and Plan: from C diff he is immunocompromised with recent chemotherapy and also cancer (7) Occult blood in stools: Code(s): R19.5 - Other fecal abnormalities Status: Acute Assessment and Plan: from C diff (8) Protein calorie malnutrition: Code(s): E46 - Unspecified protein-calorie malnutrition Status: Acute (9) Crohn's disease: Code(s): K50.90 - Crohn's disease, unspecified, without complications Status: Acute (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 RN says that he was himself all day. Review of Systems Review of Systems: All systems reviewed & are unremarkable except as noted in HPI and below Exam Const: General: comfortable, no acute distress and ill appearing chronically Other: pale HENMT: General nose exam: Normal nares present Eyes: Sclera: sclerae normal Neck: Neck: supple Resp: Auscultation: clear to auscultation bilaterally Cardio: Rhythm: abnormal rhythm irregularly irregular GI: GI Palp: Yes Soft to palpation Auscultation: normal bowel sounds : Other: large mass in Rt inguinal/scrotal area- unchanged Skin: General skin exam: no rashes or lesions noted Neuro: Speech: normal speech Motor exam (neuro): Normal motor muscle tone present throughout Extrem: General: pedal edema bilaterally Psych: Mental Status: mental status grossly normal Objective Data Vital Signs Vital Signs: Vital Signs - 24 hr 04/11/21 18:00 04/11/21 20:00 04/11/21 21:14 Temperature 97 F L 97.1 F L Pulse Rate 87 99 99 Respiratory Rate 20 18 18 Blood Pressure 116/66 116/63 Pulse Oximetry 97 96 96 04/12/21 00:00 04/12/21 02:00 04/12/21 04:00 Temperature 96.9 F L Pulse Rate 92 93 89 Respiratory Rate 16 Blood Pressure 119/66 Pulse Oximetry 96 04/12/21 04:09 04/12/21 08:00 04/12/21 08:32 Temperature 96.9 F L 97.1 F L Pulse Rate 96 94 81 Respiratory Rate 16 18 Blood Pressure 116/77 140/82 Pulse Oximetry 98 9
[2021-04-12] MEDS: LOVASTATIN 20 MG TABLET 40 MG PO (20:09)
[2021-04-12] MEDS: DULoxetine HCL 60 MG CAPSULE.DR PO (20:10)
[2021-04-12] MEDS: MORPHINE SULFATE (*CRX) 15 MG TAB IR 7.5 MG PO (20:12)
[2021-04-12 22:29] LABS: Haptoglobin 159 mg/dL (43-212)
[2021-04-13] VITALS (11 sets, daily range): BP systolic 98–123; BP diastolic 52–72; PULSE 73–104; RESP 16–22; TEMP 36.2–36.6; O2SAT 92–98
[2021-04-13] MEDS: ACETAMINOPHEN 325 MG TABLET 650 MG PO (02:28)
[2021-04-13] MEDS: ALPRAZolam (*CRX) 0.125 MG TABLET PO ×2 (02:29→12:54)
[2021-04-13] MEDS: metroNIDAZOLE 500 MG/ISO 100ML 500 MG/100 ML BAG 100 MG IVPB ×2 (05:01→12:53)
[2021-04-13 06:08] LABS: Basophils Absolute Auto 0.2 K/mm3 (0.0-0.1); Basophils Percent Auto 0.3 % (0.2-1.2); Eosinophils Absolute Auto 0.3 K/mm3 (0-0.3); Eosinophils Percent Auto 0.6 % (0-4.4); Hematocrit 27.1 % (42.0-52.0); Hemoglobin 8.2 g/dL (14.0-18.0); Immature Granulocyte Percent A 2.3 % (0-0.5); Lymphocytes Absolute Auto 1.97 K/mm3 (0.9-3.2); Lymphocytes Percent Auto 3.9 % (18.3-44.2); Mean Corpuscular HGB Conc 30.3 g/dl (32-36); Mean Corpuscular Hemoglobin 30.4 pg (26-34); Mean Corpuscular Volume 100.4 fl (80-100); Mean Platelet Volume 9.6 fl (7.4-10.4); Monocytes Absolute Auto 2.6 K/mm3 (0.1-0.6); Monocytes Percent Auto 5.1 % (2.6-8.5); Neutrophils Absolute Auto 44.9 K/mm3 (1.3-6.7); Neutrophils Percent Auto 87.8 % (45.5-73.1); Platelet Count Result 277 k/mm3 (150-375); Red Cell Distribution Width 19.2 % (11.5-14.5)
[2021-04-13 06:14] LABS: Alanine Aminotransferase 20 U/L (4-50); Albumin Level 2.2 g/dL (3.5-5.1); Alkaline Phosphatase 149 U/L (38-126); Anion Gap 5 mmol/L (8-16); Aspartate Amino Transferase 25 U/L (17-59); Bilirubin,Total 0.3 mg/dL (0.2-1.3); Blood Urea Nitrogen 34 mg/dL (9-20); Calcium 7.7 mg/dL (8.4-10.2); Carbon Dioxide 24 mmol/L (22-30); Chloride 111 mmol/L (98-107); Estimated CRCL calculation 66 ml/min; Estimated Glomerular Filt Rate > 60; Glucose 123 mg/dL (65-110); Magnesium 1.6 mg/dL (1.6-2.3); Potassium 4.9 mmol/L (3.4-5.0); Sodium 140 mmol/L (137-145)
[2021-04-13 07:30] LABS: White Blood Count 51.1 K/mm3 (4.5-10.0)
[2021-04-13] MEDS: MESALAMINE 400 MG DELAYED RELEASE CAPSULE PO ×3 (08:09→16:57)
[2021-04-13] MEDS: CHOLECALCIFEROL 1,000 UNITS TABLET 5000 UNITS PO (08:09)
[2021-04-13] MEDS: GABAPENTIN 100 MG CAPSULE 200 MG PO ×3 (08:09→16:57)
[2021-04-13] MEDS: SACCHAROMYCES BOULARDII 250 MG CAPSULE PO ×3 (08:09→16:58)
[2021-04-13] MEDS: ACIDOPHILUS/BULGARICUS CHEWABLE TABLET 1 TABLET PO (08:10)
[2021-04-13] MEDS: TORSEMIDE 20 MG TABLET PO (08:10)
--- NOTE | 2021-04-13 08:37 | PC.NURSE ---
unable to give coreg with morning medications, waiting for pharmacy to send up. pharmacy notified
[2021-04-13] MEDS: carvediloL 3.125 MG TABLET PO ×2 (09:35→20:14)
[2021-04-13] MEDS: MAGNESIUM SULFATE 3GM/D5W100ML 3 GM/100 ML BAG IVPB (09:35)
--- NOTE | 2021-04-13 11:18 | PC.NURSE ---
discussed with MAYA Stringer, the order to remove acuna catheter at 0700 this morning. patient has concerns of his wound on his bottom and being incontinent and feels as though he will have trouble using the bathroom due to his scrotal edema. will wait for further orders.
--- NOTE | 2021-04-13 11:34 | P.PNIM_ITS ---
Progress Note: A&P Assessment and Plan (1) Sepsis: Code(s): A41.9 - Sepsis, unspecified organism Status: Acute Assessment and Plan: Patient with elevated WBC with prior admission due to underlying cancer. * With Cdiff WBC can be higher than normal and otherwise the patients symptoms and stools have been improving with treatment of PO Vanc * 04/13/21: WBC increased to 51,100 and patient had an episode of SOB and requiring 1L via NC with hypoxia, low normap BP 95/58. Meeting criteria for sepsis in the setting of pneumonia * CXR obtained showing Worsening opacities of the left upper lobe, improved airspace opacities of the left midlung zone, and stable bibasilar airspace opacities, consistent with atelectasis versus pneumonia. * Since the pt has been hospitalized >2 days, with new ANGELA pneumonia will treat for Hospital acquired pneumonia with IV Cefepime and Vanc #1 Continue monitoring CBC daily. (2) Pneumonia: Code(s): J18.9 - Pneumonia, unspecified organism Status: Acute Assessment and Plan: Found to be mildly hypoxic with new opacity in LUQ. Treating for Hospital Acquired PNA since he has been in the hospital >2 days. * Continue monitoring respiratory status and IV abx Cefepime and Vanc #1 (3) Hypotension: Code(s): I95.9 - Hypotension, unspecified Status: Acute Assessment and Plan: -*- -Current BP 140/82. Stable. * BP got as low as 77/44, will monitor BP with discontinuing IV fluids and restarting home Torsemide. * Discontinue IV fluids * Nephrology consult * Trend BP * Home BP medications on hold at this time. (4) C. difficile colitis: Code(s): A04.72 - Enterocolitis due to Clostridium difficile, not specified as recurrent Status: Acute Assessment and Plan: C diff diagnosed which was present on admission * Stool culture resulted with C diff positive * Had to of been present upon admission due to the admitting WBC * Started PO vanc and Flagyl IV Day #3 * Stools improving with only 2 yesterday. (5) Acute renal failure (ARF): Qualifiers: Acute renal failure type: unspecified Qualified Code(s): N17.9 - Acute kidney failure, unspecified Code(s): N17.9 - Acute kidney failure, unspecified Status: Acute Assessment and Plan: * BUN/Cr 68/4.10 upon admission current 36/1.10 * K elevated 6.2 on admission, current 4.9 * Renal ultrasound-Unremarkable no stones, masses, or hydronephrosis * He is having SOB/Leg swelling concerned for some CHF now. Continue Torsemide 20 mg BID * 04/13/21: BP soft and pitting edema and albumin low. Will start Albumin 25% IV Q12hrs to help improve his blood pressure. * nephrology consult thank you for your recommendations * Urinary catheter will continue and plan to remove prior to discharge with voiding trial. Continue monitoring renal function. (6) Hyperkalemia: Code(s): E87.5 - Hyperkalemia Status: Acute Assessment and Plan: * potassium on admission 6.7, today it is elevated again 5.2. Will give Kayexelate * D50, regular insulin, sodium bicarb, with some reduction in ED * Probably related to renal failure * Trend labs * Nephrology consult (7) Crohn's disease: Code(s): K50.90 - Crohn's disease, unspecified, without complications Status: Acute Assessment and Plan: * Diarrhea noted from C. diff and now being treated. * Continue mesalamine 400mg PO TID (8)
--- NOTE | 2021-04-13 11:34 | PM.IMPN ---
Progress Note: A&P Assessment and Plan (1) Sepsis: Code(s): A41.9 - Sepsis, unspecified organism Status: Acute Assessment and Plan: Patient with elevated WBC with prior admission due to underlying cancer. With Cdiff WBC can be higher than normal and otherwise the patients symptoms and stools have been improving with treatment of PO Vanc 04/13/21: WBC increased to 51,100 and patient had an episode of SOB and requiring 1L via NC with hypoxia, low normap BP 95/58. Meeting criteria for sepsis in the setting of pneumonia CXR obtained showing Worsening opacities of the left upper lobe, improved airspace opacities of the left midlung zone, and stable bibasilar airspace opacities, consistent with atelectasis versus pneumonia. Since the pt has been hospitalized >2 days, with new ANGELA pneumonia will treat for Hospital acquired pneumonia with IV Cefepime and Vanc #1 Continue monitoring CBC daily. (2) Pneumonia: Code(s): J18.9 - Pneumonia, unspecified organism Status: Acute Assessment and Plan: Found to be mildly hypoxic with new opacity in LUQ. Treating for Hospital Acquired PNA since he has been in the hospital >2 days. Continue monitoring respiratory status and IV abx Cefepime and Vanc #1 (3) Hypotension: Code(s): I95.9 - Hypotension, unspecified Status: Acute Assessment and Plan: Current BP 140/82. Stable. BP got as low as 77/44, will monitor BP with discontinuing IV fluids and restarting home Torsemide. Discontinue IV fluids Nephrology consult Trend BP Home BP medications on hold at this time. (4) C. difficile colitis: Code(s): A04.72 - Enterocolitis due to Clostridium difficile, not specified as recurrent Status: Acute Assessment and Plan: C diff diagnosed which was present on admission Stool culture resulted with C diff positive Had to of been present upon admission due to the admitting WBC Started PO vanc and Flagyl IV Day #3 Stools improving with only 2 yesterday. (5) Acute renal failure (ARF): Qualifiers: Acute renal failure type: unspecified Qualified Code(s): N17.9 - Acute kidney failure, unspecified Code(s): N17.9 - Acute kidney failure, unspecified Status: Acute Assessment and Plan: BUN/Cr 68/4.10 upon admission current 36/1.10 K elevated 6.2 on admission, current 4.9 Renal ultrasound-Unremarkable no stones, masses, or hydronephrosis He is having SOB/Leg swelling concerned for some CHF now. Continue Torsemide 20 mg BID 04/13/21: BP soft and pitting edema and albumin low. Will start Albumin 25% IV Q12hrs to help improve his blood pressure. nephrology consult thank you for your recommendations Urinary catheter will continue and plan to remove prior to discharge with voiding trial. Continue monitoring renal function. (6) Hyperkalemia: Code(s): E87.5 - Hyperkalemia Status: Acute Assessment and Plan: potassium on admission 6.7, today it is elevated again 5.2. Will give Kayexelate D50, regular insulin, sodium bicarb, with some reduction in ED Probably related to renal failure Trend labs Nephrology consult (7) Crohn's disease: Code(s): K50.90 - Crohn's disease, unspecified, without complications Status: Acute Assessment and Plan: Diarrhea noted from C. diff and now being treated. Continue mesalamine 400mg PO TID (8) Atrial fibrillation: Code(s): I48.91 - Unspecified atrial fibrillation Status: Acute Assessment and Plan: Hold home medications at this time No anticoagulation due to recent GI bleed D/c Tele monitor- rate has been well controlled at 85 bpm, Atrial fibrillation with few PVCs . (9) Congestive heart failure (CHF): Code(s): I50.9 - Heart failure, unspecified Status: Acute Assessment and Plan: Acute on chronic exacerbation of diastolic
[2021-04-13] MEDS: ALBUMIN HUMAN 25% 25 GM/100 ML 100 ML IVPB (14:08)
--- NOTE | 2021-04-13 14:55 | PCPTNOTE ---
Attempted to see patient for PT, per nursing hold on therapy today due to patient's O2 keeps decreasing and shortness of breath.
--- NOTE | 2021-04-13 16:11 | WPDGIPROGNO ---
Progress Note: A&P Assessment and Plan (1) C. difficile colitis: Code(s): A04.72 - Enterocolitis due to Clostridium difficile, not specified as recurrent Status: Acute Assessment and Plan: C diff present on admission, diarrhea slowing down with treatment (2) Sepsis: Code(s): A41.9 - Sepsis, unspecified organism Status: Acute Assessment and Plan: wbc trending up and clinically doing worse CXR showed pneumonia and more infiltrated, started on iv antibiotics he is immunocompromised with metastatic cancer and recent chemotherapy prognosis is guarded (3) Pneumonia: Code(s): J18.9 - Pneumonia, unspecified organism Status: Acute (4) Leukocytosis: Code(s): D72.829 - Elevated white blood cell count, unspecified Status: Acute Assessment and Plan: still high (5) Acute on chronic blood loss anemia: Code(s): D62 - Acute posthemorrhagic anemia Status: Acute Assessment and Plan: hb low but stable no scopes for now, he is having more problem with sob and septic (6) Metastatic cancer: Code(s): C79.9 - Secondary malignant neoplasm of unspecified site Status: Acute (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 of connective and soft tissue, unspecified Status: Acute (8) Crohn's disease: Code(s): K50.90 - Crohn's disease, unspecified, without complications Status: Acute Assessment and Plan: diarrhea is improved and due to C diff Subjective Date/time seen: 04/13/21 16:11 Interval history: he is having more problem with shortness of breath today and feeling worse, less diarrhea in fact RN has not seen recent BM Review of Systems Review of Systems: All systems reviewed & are unremarkable except as noted in HPI and below Exam Const: General: comfortable and ill appearing chronically Other: more shortness of breath HENMT: General nose exam: Normal nares present Eyes: Sclera: sclerae normal Neck: Neck: supple Resp: Auscultation: diminished lung sounds Cardio: Rhythm: abnormal rhythm irregularly irregular GI: GI Palp: Yes Soft to palpation and No Tenderness to palpation present (GI) Auscultation: normal bowel sounds : Other: large mass in Rt inguinal/scrotal area- unchanged Skin: General skin exam: no rashes or lesions noted Neuro: Speech: normal speech Motor exam (neuro): Normal motor muscle tone present throughout Extrem: General: edema Psych: Mental Status: mental status grossly normal Objective Data Vital Signs Vital Signs: Vital Signs - 24 hr 04/12/21 19:36 04/12/21 20:00 04/12/21 20:10 Temperature 97.6 F Pulse Rate 106 H 95 Respiratory Rate 20 Blood Pressure 114/77 Pulse Oximetry 96 98 04/13/21 00:00 04/13/21 04:00 04/13/21 08:00 Temperature 97.2 F L 97.4 F L 97.4 F L Pulse Rate 94 99 100 Respiratory Rate 18 20 18 Blood Pressure 122/69 115/62 110/56 L Pulse Oximetry 97 92 95 04/13/21 09:35 04/13/21 11:40 04/13/21 13:51 Temperature 97.3 F L Pulse Rate 100 92 Respiratory Rate 20 16 Blood Pressure 98/54 L 100/52 L Pulse Oximetry 93 98 Intake/Output Intake/Output: Intake & Output 04/10/21 04/11/21 04/12/21 04/13/21 23:59 23:59 23:59 23:59 Intake Total 2780 1770 1560 1510 Output Total 1700 1700 1550 1200 Balance 1080 70 10 310 Meds/Results Medications: Active Medications Generic Name Dose Route Start Last Admin Trade Name Freq PRN Reason Stop Dose Admin Acetaminophen 650 mg 04/08/21 06:21 04/13/21 02:28 Acetaminophen 325 Mg Tablet PO 650 mg Q6H PRN Administration Mild Pain (1-3) or Fever Acetaminophen/Codeine Phosphate 1 tab 04/12/21 15:52 Acetaminophen/Codeine (*Crx) 300/30 Mg Tablet PO Q8H PRN Pain Rated 4-6 Alprazolam 0.125 mg 04/11/21 15:49 04/13/21 12:54 Alprazolam (*Crx) 0.125 Mg Tablet PO 0.125 mg TID PRN Administration Anxiety Car
[2021-04-13] MEDS: LOVASTATIN 20 MG TABLET 40 MG PO (20:14)
[2021-04-13] MEDS: DULoxetine HCL 60 MG CAPSULE.DR PO (20:14)
[2021-04-14] MEDS: ALBUMIN HUMAN 25% 25 GM/100 ML 100 ML IVPB (02:10)
[2021-04-14] MEDS: MORPHINE SULFATE (*CRX) 15 MG TAB IR 7.5 MG PO ×2 (02:25→13:29)
--- NOTE | 2021-04-14 04:41 | PC.NURSE ---
Pt states he wants hospice and that he doesn't think he will get better, will contact embedded case manager for hospice consult.
[2021-04-14 05:41] LABS: Basophils Absolute Auto 0.2 K/mm3 (0.0-0.1); Basophils Percent Auto 0.4 % (0.2-1.2); Eosinophils Percent Auto 0.1 % (0-4.4); Hematocrit 28.7 % (42.0-52.0); Hemoglobin 7.9 g/dL (14.0-18.0); Immature Granulocyte Absolute 1.39 K/mm3 (0.00-0.031); Immature Granulocyte Percent A 3.2 % (0-0.5); Lymphocytes Absolute Auto 1.62 K/mm3 (0.9-3.2); Lymphocytes Percent Auto 3.7 % (18.3-44.2); Mean Corpuscular HGB Conc 27.5 g/dl (32-36); Mean Corpuscular Hemoglobin 29.9 pg (26-34); Mean Corpuscular Volume 108.7 fl (80-100); Mean Platelet Volume 9.6 fl (7.4-10.4); Monocytes Absolute Auto 1.8 K/mm3 (0.1-0.6); Monocytes Percent Auto 4.2 % (2.6-8.5); Neutrophils Absolute Auto 38.8 K/mm3 (1.3-6.7); Neutrophils Percent Auto 88.4 % (45.5-73.1); Platelet Count Result 246 k/mm3 (150-375); Red Blood Count 2.64 M/mm3 (4.6-6.20); Red Cell Distribution Width 19.2 % (11.5-14.5); White Blood Count 43.8 K/mm3 (4.5-10.0)
[2021-04-14 06:04] LABS: Alanine Aminotransferase 18 U/L (4-50); Albumin Level 2.6 g/dL (3.5-5.1); Alkaline Phosphatase 153 U/L (38-126); Anion Gap 8 mmol/L (8-16); Aspartate Amino Transferase 24 U/L (17-59); Bilirubin,Total 0.4 mg/dL (0.2-1.3); Blood Urea Nitrogen 32 mg/dL (9-20); CRP 6.1 mg/dL (<1.0); Calcium 7.9 mg/dL (8.4-10.2); Carbon Dioxide 21 mmol/L (22-30); Chloride 109 mmol/L (98-107); Estimated CRCL calculation 58 ml/min; Estimated Glomerular Filt Rate > 60; Glucose 99 mg/dL (65-110); Magnesium 1.7 mg/dL (1.6-2.3); Potassium 5.2 mmol/L (3.4-5.0); Sodium 138 mmol/L (137-145)
[2021-04-14 06:34] VITALS: BP 111/56; PULSE 89; RESP 18; TEMP 36.2; O2SAT 96
[2021-04-14 07:44] LABS: Platelet Estimate Adequate (Adequate); Poikilocytosis 1+ (NORMAL)
[2021-04-14 08:00] VITALS: O2SAT 96
[2021-04-14] MEDS: ACIDOPHILUS/BULGARICUS CHEWABLE TABLET 1 TABLET PO (08:09)
[2021-04-14] MEDS: CHOLECALCIFEROL 1,000 UNITS TABLET 5000 UNITS PO (08:09)
[2021-04-14] MEDS: MESALAMINE 400 MG DELAYED RELEASE CAPSULE PO ×2 (08:09→12:48)
[2021-04-14 08:10] VITALS: PULSE 73
[2021-04-14] MEDS: carvediloL 3.125 MG TABLET PO (08:10)
[2021-04-14] MEDS: GABAPENTIN 100 MG CAPSULE 200 MG PO ×2 (08:10→12:48)
[2021-04-14] MEDS: ACETAMINOPHEN/CODEINE (*CRX) 300/30 MG TABLET 1 TAB PO (08:10)
[2021-04-14] MEDS: SACCHAROMYCES BOULARDII 250 MG CAPSULE PO ×2 (08:10→12:48)
--- NOTE | 2021-04-14 09:51 | WPDGIPROGNO ---
Progress Note: A&P Assessment and Plan (1) Sepsis: Code(s): A41.9 - Sepsis, unspecified organism Status: Acute Assessment and Plan: wbc still very high and clinically doing worse he is immunocompromised with metastatic cancer and recent chemotherapy prognosis is poor and patient fully aware about it. He says that ready to give up and asking for hospice please call if questions, will follow only as needed (2) C. difficile colitis: Code(s): A04.72 - Enterocolitis due to Clostridium difficile, not specified as recurrent Status: Acute Assessment and Plan: C diff present on admission, diarrhea slowed down with treatment (3) Pneumonia: Code(s): J18.9 - Pneumonia, unspecified organism Status: Acute Assessment and Plan: on more iv antibiotics, CXR worsening infiltrates (4) Leukocytosis: Code(s): D72.829 - Elevated white blood cell count, unspecified Status: Acute Assessment and Plan: still high (5) Acute on chronic blood loss anemia: Code(s): D62 - Acute posthemorrhagic anemia Status: Acute Assessment and Plan: hb low but stable no scopes, he is very sick and decided hospice care (6) Metastatic cancer: Code(s): C79.9 - Secondary malignant neoplasm of unspecified site Status: Acute (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 He is asking to go just comfort care and hospice- he says that already talked to his about it. Last night was confused per nurse aide of Systems Review of Systems: All systems reviewed & are unremarkable except as noted in HPI and below Exam Const: General: comfortable and ill appearing chronically Other: more shortness of breath HENMT: General nose exam: Normal nares present Eyes: Sclera: sclerae normal Neck: Neck: supple Resp: Auscultation: diminished lung sounds Cardio: Rhythm: abnormal rhythm irregularly irregular GI: GI Palp: Yes Soft to palpation and No Tenderness to palpation present (GI) Auscultation: normal bowel sounds : Other: large mass in Rt inguinal/scrotal area- unchanged Skin: General skin exam: no rashes or lesions noted Neuro: Speech: normal speech Motor exam (neuro): Normal motor muscle tone present throughout Extrem: General: edema Psych: Mental Status: mental status grossly normal Objective Data Vital Signs Vital Signs: Vital Signs - 24 hr 04/13/21 11:40 04/13/21 13:51 04/13/21 17:00 Temperature 97.3 F L 97.9 F Pulse Rate 92 104 H Respiratory Rate 20 16 16 Blood Pressure 98/54 L 100/52 L 123/72 Pulse Oximetry 93 98 95 04/13/21 19:52 04/13/21 20:00 04/13/21 20:14 Temperature 97.1 F L Pulse Rate 73 73 73 Respiratory Rate 22 H 22 H Blood Pressure 119/65 Pulse Oximetry 93 93 04/13/21 21:51 04/14/21 06:34 04/14/21 08:10 Temperature 97.2 F L Pulse Rate 89 73 Respiratory Rate 18 Blood Pressure 111/56 L Pulse Oximetry 92 96 Intake/Output Intake/Output: Intake & Output 04/11/21 04/12/21 04/13/21 04/14/21 23:59 23:59 23:59 23:59 Intake Total 1770 1560 2260 250 Output Total 1700 1550 2100 400 Balance 70 10 160 -150 Meds/Results Medications: Active Medications Generic Name Dose Route Start Last Admin Trade Name Freq PRN Reason Stop Dose Admin Acetaminophen 650 mg 04/08/21 06:21 04/13/21 02:28 Acetaminophen 325 Mg Tablet PO 650 mg Q6H PRN Administration Mild Pain (1-3) or Fever Ac
--- NOTE | 2021-04-14 10:01 | PM.PNNEP ---
Progress Note: A&P Assessment and Plan (1) Acute renal failure (ARF): Qualifiers: Acute renal failure type: unspecified Qualified Code(s): N17.9 - Acute kidney failure, unspecified Code(s): N17.9 - Acute kidney failure, unspecified Status: Acute Assessment and Plan: Keith has acute renal failure. Renal ultrasound does not show hydronephrosis. Urine electrolytes are not quite pre renal, but he was on torsemide before admission. CPK is normal Urinalysis is bland Renal function has returned to normal. He is going on hospice because of the weakness, and his metastatic cancer. I will sign off. (2) Hyperkalemia: Code(s): E87.5 - Hyperkalemia Status: Acute Assessment and Plan: Better today. (3) Metastatic cancer: Code(s): C79.9 - Secondary malignant neoplasm of unspecified site Status: Acute Assessment and Plan: The patient has metastatic testicular cancer. Subjective Date/time seen: 04/14/21 10:01 Interval history: Patient feels worse today. He is having lots of diarrhea. He has become very weak. He talked with his in his decided to go on hospice. I talked with nursing. They are making arrangements. Exam Narrative: WDWN in NAD skin no rash head ncat lungs clear cor reg no rub abd BS+ nontender and soft ext no edema. Objective Data Vital Signs Vital Signs: Vital Signs - 24 hr 04/13/21 11:40 04/13/21 13:51 04/13/21 17:00 Temperature 36.3 C L 36.6 C Pulse Rate 92 104 H Respiratory Rate 20 16 16 Blood Pressure 98/54 L 100/52 L 123/72 Pulse Oximetry 93 98 95 04/13/21 19:52 04/13/21 20:00 04/13/21 20:14 Temperature 36.2 C L Pulse Rate 73 73 73 Respiratory Rate 22 H 22 H Blood Pressure 119/65 Pulse Oximetry 93 93 04/13/21 21:51 04/14/21 06:34 04/14/21 08:10 Temperature 36.2 C L Pulse Rate 89 73 Respiratory Rate 18 Blood Pressure 111/56 L Pulse Oximetry 92 96 Intake/Output Intake/Output: Intake & Output 04/11/21 04/12/21 04/13/21 04/14/21 23:59 23:59 23:59 23:59 Intake Total 1770 1560 2260 250 Output Total 1700 1550 2100 400 Balance 70 10 160 -150 Meds/Results Medications: Active Medications Generic Name Dose Route Start Last Admin Trade Name Freq PRN Reason Stop Dose Admin Acetaminophen 650 mg 04/08/21 06:21 04/13/21 02:28 Acetaminophen 325 Mg Tablet PO 650 mg Q6H PRN Administration Mild Pain (1-3) or Fever Acetaminophen/Codeine Phosphate 1 tab 04/12/21 15:52 04/14/21 08:10 Acetaminophen/Codeine (*Crx) 300/30 Mg Tablet PO 1 tab Q8H PRN Administration Pain Rated 4-6 Alprazolam 0.125 mg 04/11/21 15:49 04/13/21 12:54 Alprazolam (*Crx) 0.125 Mg Tablet PO 0.125 mg TID PRN Administration Anxiety Carvedilol 3.125 mg 04/12/21 09:05 04/14/21 08:10 Carvedilol 3.125 Mg Tablet PO 3.125 mg Q12HR AMA Administration Dextrose 12.5 gm 04/07/21 23:39 Dextrose 50% 25 Gm/50 Ml Syringe IV PUSH PRN PRN Hypoglycemia Protocol Duloxetine HCl 60 mg 04/12/21 21:00 04/13/21 20:14 Duloxetine Hcl 60 Mg Capsule.Dr PO 60 mg HS AMA Administration Gabapentin 200 mg 04/08/21 13:30 04/14/21 08:10 Gabapentin 100 Mg Capsule PO 200 mg TID AMA Administration Glucagon 1 mg 04/07/21 23:39 Glucagon For Inj 1 Mg Vial IM PRN PRN Hypoglycemia Protocol Glucose 15 gm 04/07/21 23:39 Glucose Oral Gel 15 Gm Of Glucse In 37.5 Gm Tube PO PRN PRN Hypoglycemia Protocol Dextrose 1,000 mls @ 100 mls/hr 04/07/21 23:39 Dextrose 5% 1,000 Ml IVPB PRN PRN Hypoglycemia Protocol Cefepime HCl 2 gm in 50 mls @ 100 mls/hr 04/13/21 12:00 04/14/21 00:20 Maxipime 2 Gm/D5w 50 Ml IVPB Infused Q12H AMA Infusion Albumin Human 100 mls @ 60 mls/hr 04/13/21 14:00 04/14/21 03:10 Albutein IVPB Infused Q12H AMA Infusion Vancomycin HCl 1,500 mg in 5
--- NOTE | 2021-04-14 11:58 | PCOTNOTE ---
Attempted to see patient at this time for skilled OT session. Prior to entry, RN states patient and family are speaking with hospice and told JANE to wait and come back later. Will continue per OT POC.
[2021-04-14] MEDS: ALPRAZolam (*CRX) 0.125 MG TABLET PO (13:29)
--- NOTE | 2021-04-14 14:22 | PM.DS ---
DS: Admitting Diagnosis Discharge Date 04/14/21 Admitting Diagnosis Diarrhea DS: Discharge Diagnosis Discharge Diagnosis (1) Sepsis: Code(s): A41.9 - Sepsis, unspecified organism Status: Acute Assessment and Plan: Patient is a 80-year-old man with a history of paroxysmal AFib recently taken off anticoagulation by his oncologist, hypertension, Crohn's, cirrhosis, liposarcoma of the groin area who is currently undergoing chemotherapy treatment with his oncologist, who presents emergency room for diarrhea and found to have high potassium. Initial vitals showed stable BP 125/85, HR 77, RR 16, Temp 97.6F, O2 98% on RA. Initial labs showed WBC 41,300, neutrophils 88%, normocytic anemia with Hgb 9.4/29.6, hyponatremia 131, hyperkalemia 6.2, BENJI 4.1/BUN 68, UA showing cloudy urine RBC 3-5. Renal US showed Unremarkable renal ultrasound. No stones, masses or hydronephrosis. Venous Doppler showed No lower extremity deep venous thrombosis. CXR showed Cardiomegaly. Bibasilar airspace opacity, consistent with atelectasis versus pneumonia. Met criteria for sepsis. The patient had stool cultures completed which showed C. diff. He was started on PO Vancomycin Q6hrs and admitted into the hospital with IV fluid hydration for BENJI. During his hospitalization, he had 1 unit of PRBCs transfused. His renal function improved, he was feeling much better then developed fluid overload and diarrhea was improving. He was feeling much better until 04/13 when he woke up weak and fatigued and found to be hypoxic. CXR showed LLU pneumonia. He was started on IV Abx for Hospital Acquired pneumonia. With further discussion, the patient stated he was interested in Hospice. His came to the room and with further discussion Hospice was called as per patient and . They signed with [facility] and the patient met inpatient criteria. He was discharge for inpatient hospice. (2) Pneumonia: Code(s): J18.9 - Pneumonia, unspecified organism Status: Acute (3) Hypotension: Code(s): I95.9 - Hypotension, unspecified Status: Acute (4) C. difficile colitis: Code(s): A04.72 - Enterocolitis due to Clostridium difficile, not specified as recurrent Status: Acute (5) Acute renal failure (ARF): Qualifiers: Acute renal failure type: unspecified Qualified Code(s): N17.9 - Acute kidney failure, unspecified Code(s): N17.9 - Acute kidney failure, unspecified Status: Acute (6) Hyperkalemia: Code(s): E87.5 - Hyperkalemia Status: Acute (7) Crohn's disease: Code(s): K50.90 - Crohn's disease, unspecified, without complications Status: Acute (8) Atrial fibrillation: Code(s): I48.91 - Unspecified atrial fibrillation Status: Acute (9) Congestive heart failure (CHF): Code(s): I50.9 - Heart failure, unspecified Status: Acute (10) Acute on chronic blood loss anemia: Code(s): D62 - Acute posthemorrhagic anemia Status: Acute (11) Metastatic cancer: Code(s): C79.9 - Secondary malignant neoplasm of unspecified site Status: Acute (12) Hyperlipidemia: Code(s): E78.5 - Hyperlipidemia, unspecified Status: Chronic DS: Summary Hospital Course Hospital Course: See above Status at Discharge Cognitive/behavioral status at discharge: Stable, improved. Time Spent with Patient Time attestation: Total time spent providing and/or coordinating discharge services: 42 Time spent: Greater than 30 minutes Exam Narrative: General: 80-year-old man laying flat in bed on his left side on 1L via NC. Easily arousable. Appears weak and fatigued, but comfortable. In no acute distress. Skin: No jaundice or cyanosis. Good skin turgor. Neck: Full range of motion. Supple. Respiratory: Inspiratory rhonchi to left upper lung field. No wheezing. No bony chest wall tenderness. Cardiovascular: Irregularly irregular rhythm, normal rate. Lower
--- NOTE | 2021-04-14 14:28 | PCOTNOTE ---
14:14- Attempted to see for a second time. Before entry, RN notified JANE that patient going hospice and being discharged.
== END 2021-04-14 14:24 | disposition hospice, inpatient (51) | DRG 871 ==
LOC: ANHED 15:11 → ANHIMU 04-08 12:09 → ANH3MED 04-11 08:29 → ANHIMU 04-18 10:18
PROVIDERS: Internal Medicine Nephrology; Nurse Practitioner; Physician Assistant; Admitting Provider Internal Medicine Critical Care Medicine; Emergency Provider Emergency Medicine; PCP Internal Medicine; Visit Provider Physician Assistant
DX: A41.9 Sepsis, unspecified organism (principal); J18.9 Pneumonia, unspecified organism; I50.33 Acute on chronic diastolic (congestive) heart failure; A04.72 Enterocolitis due to Clostridium difficile, not specified as recurrent; N17.8 Other acute kidney failure; K50.90 Crohn's disease, unspecified, without complications; E87.1 Hypo-osmolality and hyponatremia; D62 Acute posthemorrhagic anemia; C79.9 Secondary malignant neoplasm of unspecified site; J44.0 Chronic obstructive pulmonary disease with (acute) lower respiratory infection; N13.30 Unspecified hydronephrosis; K92.2 Gastrointestinal hemorrhage, unspecified; E46 Unspecified protein-calorie malnutrition; C49.9 Malignant neoplasm of connective and soft tissue, unspecified; I11.0 Hypertensive heart disease with heart failure; I48.0 Paroxysmal atrial fibrillation; C62.90 Malignant neoplasm of unspecified testis, unspecified whether descended or undescended; K74.60 Unspecified cirrhosis of liver; E87.5 Hyperkalemia; D64.9 Anemia, unspecified; I95.9 Hypotension, unspecified; L89.322 Pressure ulcer of left buttock, stage 2; L89.312 Pressure ulcer of right buttock, stage 2; E78.5 Hyperlipidemia, unspecified; N40.0 Benign prostatic hyperplasia without lower urinary tract symptoms; L30.9 Dermatitis, unspecified; R09.02 Hypoxemia; Z66 Do not resuscitate; E86.0 Dehydration; Z87.891 Personal history of nicotine dependence; Z68.30 Body mass index [BMI] 30.0-30.9, adult
CPT/HCPCS: 36415; 36430; 51701; 71045; 76775; 80048; 80053; 80069; 81001; 82274; 82550; 82570; 82948; 83010; 83605; 83615; 83690; 83735; 84100; 84132; 84300; 84439; 84443; 84480; 85014; 85018; 85025; 85027; 86140; 86850; 86900; 86901; 86920; 87045; 87324; 87427; 93005; 93970; 94640; 96361; 97110; 97162; 97167; 97530; 99285; A9270; J0131; J0456; J0610; J0692; J0696; J1815; J3370; J3475; J7030; J7050; P9016; P9047

== ENCOUNTER 2021-04-14 14:25 | HOS | payer OTHER, MEDICARE, SELFPAY ==
[2021-04-14 15:28] VITALS: O2SAT 95
[2021-04-14 16:00] VITALS: PULSE 64; RESP 16
[2021-04-14] MEDS: HYDROmorphone HCL/PF (*CRX) 50 MG in SODIUM CHLORIDE 0.9% IV 95 ML IV CONT (16:00)
[2021-04-14] MEDS: LORazepam INJ (*CRX) 2 MG/ML VIAL 1 MG IV PUSH (16:08)
--- NOTE | 2021-04-14 16:27 | PM.IMHP ---
H&P: HPI History of Present Illness Date/Time: 04/14/21 16:27 Chief Complaint: uncontrolled discomfort and restlessness Narrative: This unfortunate 80-year-old gentleman with metastatic carcinoma with positive testicular tumor markers also has a history of Crohn's disease and anemia due to chronic blood loss. He was undergoing intermittent chemotherapy for his metastatic carcinoma when he developed diarrhea. His diuretics were held. He was given fluids at the oncology office. However his diarrhea worsened he continued to weaken. He was admitted to the hospital with leukocytosis and worsened anemia as well as hyperkalemia and acute kidney injury due to dehydration.. He was treated with oral vancomycin IV fluids Kayexalate and packed red cell transfusions.. In spite of his diarrhea improving he continued to be extremely weak. He felt that he could not tolerate any further therapy for his metastatic cancer. He was uncomfortable and restless. Because of these factors he and his opted for inpatient hospice care. Review of Systems Review of Systems: ROS unobtainable: Yes unobtainable due to medical condition PMFSH Past Medical History Medical History Acute on chronic blood loss anemia Atrial fibrillation Benign prostatic hyperplasia Chronic anemia History of blood transfusions. Chronic anticoagulation Chronic low back pain Chronic obstructive pulmonary disease Cirrhosis Crohn's disease Diarrhea Eczema Hyperlipidemia Hypertension Liposarcoma of connective tissue Metastatic cancer Occult blood in stools Surgical History Surgical History History of bilateral cataract extraction History of spinal surgery History of unilateral orchiectomy (03/31/20) Right orchiectomy. Family History Family History Other No significant past medical history Social History Social History Social History: Surrogate decision maker: Jaida Wilson, . Between him and his they have 6 children. He has 4 biological and 2 step children. Patient retired from construction. The patient is a former smoker. He does not use any marijuana or illicit drugs. No alcohol. Code status: Do not resuscitate Smoking packs per day: 2 Smoking cigarettes per day: 40.0 Years smoked: 40 Smoking pack-years: 80.00 Smoking status: Former smoker Tobacco type: cigarettes Smoking end date: 02/17/21 Alcohol intake: former Drinks per week: 2 Substance use: never Additional living arrangements comments: Resides in [place] with his . Additional occupation/education comments: Retired. Spiritual care concerns: No Meds Home Medications and Allergies Home Medications Medication Instructions Recorded Confirmed Type Centrum Silver Men 1 tablet PO DAILY 03/25/20 04/14/21 History Probiotic Colon Support 1 cap PO DAILY 03/25/20 04/14/21 History acetaminophen-codeine 1 tablet PO Q8H PRN 03/25/20 04/14/21 History lisinopril 40 mg PO HS 03/25/20 04/14/21 History mesalamine 0.375 g PO TID 03/25/20 04/14/21 History carvedilol [Coreg] 3.125 mg PO Q12HR #60 tablet 02/22/21 04/14/21 Rx spironolactone [Aldactone] 50 mg PO BID #60 tablet 02/22/21 04/14/21 Rx lovastatin 40 mg PO HS 03/20/21 04/14/21 History torsemide 20 mg PO BID 03/20/21 04/14/21 History cholecalciferol (vitamin D3) 125 mcg PO DAILY 04/08/21 04/14/21 History [Vitamin D3] duloxetine 60 mg PO HS 04/08/21 04/14/21 History morphine 7.5 mg PO Q8H PRN 04/08/21 04/14/21 History Allergies Allergy/AdvReac Type Severity Reaction Status Date / Time Sulfa (Sulfonamide Allergy Nausea Verified 04/08/21 13:18 Antibiotics) Vital Signs Vital Signs - 24 hr 04/14/21 15:28 04/14/21 16:00 Pulse Rate 64 Respiratory Rate 16 Pulse O
[2021-04-14 19:14] VITALS: BP 96/46; PULSE 94; RESP 10; TEMP 36.1; O2SAT 96
[2021-04-14 20:00] VITALS: PULSE 94; RESP 10; O2SAT 96
[2021-04-14 22:07] VITALS: O2SAT 95
--- NOTE | 2021-04-15 08:59 | PC.NURSE ---
Patient at 8:14am, no pulse verified by two RN. Willis notified and family. See expiration assessment for further details.
--- NOTE | 2021-04-15 17:12 | P.DN_ITS ---
Discharge Summary Date and Time Date of : 04/15/21 Time of : 08:14 Provider Pronounced By: Mouna Bliss Probable Cause of Probable Cause of : Metastatic carcinoma of uncertain primary Summary Hospital Course: Admitted to inpatient hospice service for uncontrolled discomfort, and restlessness. Medications titrated to comfort. Patient peacefully. Additional Data Confirmation of as documented by pronouncing clinician: Pupillary Reflex, Palpable Pulses, Response to Stimuli, Heart Tones and Breath Sounds Name of Provider Notified: Dr. Aguero Time Provider Notified: 08:33 Provider Requests Autopsy: No Family Requests Autopsy: No Commission Specialist Notified: Yes Date [facility] Notified of : 04/15/21 Time [facility] Notified of : 08:40
== END 2021-04-15 08:14 | disposition expired | DRG 951 ==
PROVIDERS: Admitting Provider Internal Medicine; PCP Internal Medicine; Visit Provider Internal Medicine
DX: Z51.5 Encounter for palliative care (principal); K50.90 Crohn's disease, unspecified, without complications; C79.9 Secondary malignant neoplasm of unspecified site; K74.60 Unspecified cirrhosis of liver; J44.9 Chronic obstructive pulmonary disease, unspecified; C80.1 Malignant (primary) neoplasm, unspecified; D50.0 Iron deficiency anemia secondary to blood loss (chronic); I10 Essential (primary) hypertension; E78.5 Hyperlipidemia, unspecified; Z66 Do not resuscitate; Z87.891 Personal history of nicotine dependence; Z98.42 Cataract extraction status, left eye; Z98.41 Cataract extraction status, right eye
CPT/HCPCS: A9270; J1170; J2060